=== PATIENT | male | born 1960 | race Caucasian/White ===

== ENCOUNTER 2022-04-17 11:30 | Outpatient (REF) | payer OTHER, SELFPAY ==
[2022-04-17 12:08] LABS: Hematocrit 41.9 % (42.0-52.0); Hemoglobin 14.4 g/dl (14.0-18.0); Mean Corpuscular HGB Conc 34.4 g/dl (31.0-36.0); Mean Corpuscular Hemoglobin 30.3 pg (27.0-33.0); Mean Corpuscular Volume 88.2 fL (80.0-98.0); Mean Platelet Volume 9.7 fL (9.4-12.4); Platelet Count 474 X10*3/uL (160-400); Red Blood Count 4.75 X10*6/uL (4.60-5.80); Red Cell Distribution Width 11.8 % (11.0-16.0); White Blood Count 15.8 X10*3/uL (4.8-10.8)
[2022-04-17 13:28] LABS: Alanine Aminotransferase 19 U/L (0-40); Albumin Level 4.5 g/dL (3.5-5.0); Alkaline Phosphatase 68 U/L (39-117); Anion Gap 18 (12-20); Aspartate Amino Transferase 12 U/L (5-37); Bilirubin Total 0.3 mg/dL (0.0-1.0); Blood Urea Nitrogen 29 mg/dL (9-16); Calcium 10.1 mg/dL (8.4-10.2); Carbon Dioxide 22 mmol/L (22-29); Chloride 101 mmol/L (96-108); Cholesterol 185 mg/dL; Estimated Glomerular Filt Rate > 60; Glucose Fasting 118 mg/dL (60-99); HDL Cholesterol 44 mg/dL; LDL Cholesterol Calculated 125 mg/dl; Potassium 4.5 mmol/L (3.3-5.1); Prostate Specific Antigen 0.53 ng/mL (<0.05-4.0); Sodium 136 mmol/L (135-145); Total Protein 7.6 g/dL (6.5-8.0); Triglycerides 80 mg/dL; Vitamin D 25-OH Total 24.8 ng/mL (>30)
[2022-04-17 13:46] LABS: Folate 11.8 ng/mL (> or = 4.0); Vitamin B12 278 pg/mL (200-900)
[2022-04-17 14:07] LABS: Free T4 (Free Thyroxine) 1.01 ng/dL (0.71-1.85)
== END 2022-04-17 11:31 | disposition home or self-care (01) ==
LOC: HO.LAB 11:30
PROVIDERS: PCP Physician Assistant; Visit Provider Nurse Practitioner Family
DX: Z13.29 Encounter for screening for other suspected endocrine disorder (principal); Z12.5 Encounter for screening for malignant neoplasm of prostate; I10 Essential (primary) hypertension; E78.00 Pure hypercholesterolemia, unspecified
CPT/HCPCS: 36415; 80053; 80061; 82306; 82607; 82746; 84153; 84439; 84443; 85027

== ENCOUNTER → 2022-05-22 13:53 | Outpatient (BNVA) | payer OTHER, SELFPAY | PROVIDERS: PCP Internal Medicine; Visit Provider Orthopaedic Surgery | DX: M72.0 Palmar fascial fibromatosis [Dupuytren] (principal) ==

== ENCOUNTER 2022-07-05 11:38 | Outpatient (REF) | payer OTHER, SELFPAY ==
--- NOTE | 2022-07-05 11:41 | ECG_ITS ---
Test Reason : preop Blood Pressure : / mmHG Vent. Rate : 098 BPM Atrial Rate : 098 BPM P-R Int : 140 ms QRS Dur : 104 ms QT Int : 360 ms P-R-T Axes : 049 058 050 degrees QTc Int : 459 ms Normal sinus rhythm Incomplete right bundle branch block Borderline ECG When compared with ECG of 04-NOV-2019 12:55, No significant change was found Referred By: Bere Mccabe Electronically Signed By:CHOCO BROOKS MD
[2022-07-05 12:53] LABS: Hematocrit 40.9 % (42.0-52.0); Hemoglobin 14.4 g/dl (14.0-18.0); Mean Corpuscular HGB Conc 35.2 g/dl (31.0-36.0); Mean Corpuscular Hemoglobin 30.6 pg (27.0-33.0); Mean Corpuscular Volume 86.8 fL (80.0-98.0); Mean Platelet Volume 9.4 fL (9.4-12.4); Platelet Count 469 X10*3/uL (160-400); Red Blood Count 4.71 X10*6/uL (4.60-5.80); Red Cell Distribution Width 13.1 % (11.0-16.0); White Blood Count 12.4 X10*3/uL (4.8-10.8)
[2022-07-05 12:57] LABS: INTERNATIONAL NORM RATIO 0.9 (0.9-1.1); Prothrombin Time 10.3 SEC (10.0-13.1)
[2022-07-05 13:37] LABS: Anion Gap 17 (12-20); Blood Urea Nitrogen 12 mg/dL (9-16); Calcium 9.7 mg/dL (8.4-10.2); Carbon Dioxide 27 mmol/L (22-29); Chloride 91 mmol/L (96-108); Estimated Glomerular Filt Rate > 60; Glucose Random 116 mg/dL (60-115); Sodium 130 mmol/L (135-145)
== END 2022-07-05 11:39 | disposition home or self-care (01) ==
LOC: HO.LAB 11:38
PROVIDERS: PCP Internal Medicine; Visit Provider Nurse Practitioner Family
DX: Z01.818 Encounter for other preprocedural examination (principal)
CPT/HCPCS: 36415; 80048; 84443; 85027; 85610; 93005

== ENCOUNTER 2022-07-08 10:23 | Outpatient (REF) | payer OTHER, SELFPAY ==
[2022-07-08 12:05] LABS: Hematocrit 41.9 % (42.0-52.0); Hemoglobin 14.5 g/dl (14.0-18.0); Mean Corpuscular HGB Conc 34.6 g/dl (31.0-36.0); Mean Corpuscular Hemoglobin 30.4 pg (27.0-33.0); Mean Corpuscular Volume 87.8 fL (80.0-98.0); Mean Platelet Volume 9.2 fL (9.4-12.4); Platelet Count 381 X10*3/uL (160-400); Red Blood Count 4.77 X10*6/uL (4.60-5.80); Red Cell Distribution Width 12.9 % (11.0-16.0); White Blood Count 11.2 X10*3/uL (4.8-10.8)
[2022-07-08 12:19] LABS: Estimated Average Glucose 105 mg/dL; Hemoglobin A1c % 5.3 %
[2022-07-08 12:40] LABS: Sodium 131 mmol/L (135-145)
[2022-07-08 13:03] LABS: TSH reflex Free T4 0.63 uIU/mL (0.32-4.0); Vitamin D 25-OH Total 33.5 ng/mL (>30)
== END 2022-07-08 10:24 | disposition home or self-care (01) ==
LOC: HO.LAB 10:23
PROVIDERS: PCP Internal Medicine; Visit Provider Nurse Practitioner Family
DX: D72.829 Elevated white blood cell count, unspecified (principal); R73.01 Impaired fasting glucose; R79.89 Other specified abnormal findings of blood chemistry; E87.1 Hypo-osmolality and hyponatremia
CPT/HCPCS: 36415; 82306; 83036; 84295; 84443; 85027

== ENCOUNTER → 2022-07-17 14:27 | Outpatient (BNVA) | payer OTHER, SELFPAY | PROVIDERS: PCP Internal Medicine; Visit Provider Orthopaedic Surgery | DX: Z13.89 Encounter for screening for other disorder (principal) ==

== ENCOUNTER 2022-07-29 05:51 | Day surgery (SDC) | payer OTHER, SELFPAY ==
[2022-07-23 16:01] VITALS: BMI 34.0
--- NOTE | 2022-07-26 10:09 | P.CONAN_ITS ---
Documented by User: Eva Humphries NP 07/26/22 10:19 HPI - Anesthesia Eval Consult details Narrative: 61yo M for Right Small finger and Ring finger partial Dupuytrens PCP cleared ETOH abuse Low Na PMFSH Active Problems Active Problems: All Active Problems (Updated 07/17/22 @ 14:56 by Homer Cortez) Screening for hypothyroidism (Acute) Screening for prostate cancer (Acute) Obesity (BMI 30.0-34.9) (Acute) Lumbar radiculopathy, acute (Acute) Low vitamin D level (Acute) Low TSH level (Acute) Elevated fasting glucose (Acute) Leukocytosis (Acute) Hyponatremia (Acute) Dupuytren's disease of palm of left hand (Acute) Preoperative clearance (Acute) Hyponatremia (Acute) Trigger thumb, right thumb (Acute) Substance use disorder (Acute) Dupuytren's contracture of right hand (Acute) High cholesterol (Acute) Hypertension (Acute) Past Medical History Medical History (Updated 07/17/22 @ 14:56 by Homer Cortez) Dupuytren's contracture of right hand High cholesterol Hypertension Substance use disorder Family History Family History Mother Cancer Father No problems noted. Sister Breast cancer Surgical History Surgical History (Updated 07/23/22 @ 15:52 by June Duke RN) History of shoulder surgery Social History Social History Housing: House Are you a primary career development specialist to a significant other at home: No Do you presently have visiting nurse or other home services: No Alcohol intake: current Alcohol intake frequency: 3 or more drinks per day Patient Tobacco Use Status: Former Tobacco user e-Cigarette/Vaping Use: Never Used Second Hand Smoke Exposure: Yes Use of substances other than those prescribed or required for medical reasons: Yes Substance Use Type: Marijuana Substance Use Frequency: Daily Have you been hit, kicked, punched, or otherwise hurt by someone within the past year? If so, by whom?: No Are you DNR?: No Advance Directives: No Advance Directives Information Provided: Yes Advance Directives on File: No Recently lost weight without trying: No Eating poorly because of decreased appetite: No Nutrition Risks: No Nutritional Risk service: No Current occupational status: retired Current occupation: right hand dominant Cognitive needs: No Hearing needs: No Vision needs: No Meds Allergies Allergy/AdvReac Type Severity Reaction Status Date / Time No Known Allergies Allergy Verified 07/23/22 15:46 [No Known Allergies*] Home Medications Medication Instructions Recorded Confirmed Last Taken Type gabapentin 300 mg capsule 300 mg PO TID 05/06/22 07/23/22 Unknown History Exam Exam Date and Time: July 26, 2022 1009 Height,Weight and Vital Signs: Height 5 ft 7 in Weight 98.43 kg Pertinent Lab Results Pertinent Lab Results: Laboratory Tests 07/05/22 07/08/22 07/08/22 11:54 10:52 10:52 WBC 11.2 H Hgb 14.5 Hct 41.9 L Plt Count 381 Sodium 131 L Potassium 5.0 Chloride 91 L Carbon Dioxide 27 BUN 12 Creatinine 0.82 Narrative Narrative: EKG 06/2022 Vent. Rate : 098 BPM ? ? Atrial Rate : 098 BPM ?? P-R Int : 140 ms? QRS Dur : 104 ms ? ? QT Int : 360 ms ? ? ? P-R-T Axes : 049 058 050 degrees ?? QTc Int : 459 ms ? Normal sinus rhythm Incomplete right bundle branch block Borderline ECG When compared with ECG of 04-NOV-2019 12:55, No significant change was found Assessment and Plan Assessment Anesthesia Assessment: Chart Reviewed Documented by User: Samson Max MD 07/29/22 07:34 [facility] Past Medical History Medical History (Updated 07/17/22 @ 14:56 by Homer Cortez) Dupuytren's contracture of right hand High cholesterol Hypertension Substance use disorder Family History Family History Mother Cancer Father No problems noted. Sister Breast cancer Family history of problems with anesthesia: No Surgical History Surgical History (Updated 07/23/22 @ 15:52 by June Duke RN) History of shoulder surgery History of Problems with Anesthesia: No Social History Social History Housing: House Are you a primary career development specialist to a significant other at home: No Do you presently have visiting nurse or other home services: No Alcohol intake: current Alcohol intake frequency: 3 or more drinks per day Patient Tobacco Use Status: Former Tobacco user e-Cigarette/Vaping Use: Never Used Second Hand Smoke Exposure: Yes Use of substances other than those prescribed or required for medical reasons: Yes Substance Use Type: Marijuana Substance Use Frequency: Daily Have you been hit, kicked, punched, or otherwise hurt by someone within the past year? If so, by whom?: No Are you DNR?: No Advance Directives: No Advance Directives Information Provided: Yes Advance Directives on File: No Recently lost weight without trying: No Eating poorly because of decreased appetite: No Nutrition Risks: No Nutritional Risk service: No Current occupational status: retired Current occupation: right hand dominant Cognitive needs: No Hearing needs: No Vision needs: No Meds Allergies Allergy/AdvReac Type Severity Reaction Status Date / Time No Known Allergies Allergy Verified 07/23/22 15:46 [No Known Allergies*] Home Medications Medication Instructions Recorded Confirmed Last Taken Type gabapentin 300 mg capsule 300 mg PO TID 05/06/22 07/23/22 Unknown History Exam Airway Mallampati Class: IV (Diff. Airway) Neck ROM: Limited Heart: rrr Lungs: cta Assessment and Plan Final Anesthetic Review Family History of Problems with Anesthesia: No History of Problems with Anesthesia: No NPO: Yes ASA Class: III Final Preanesthetic Review: No Changes in Pt Med Stat, Meds/Allgs Chart Reviewed, Consent Obtained/Reviewed and Anes Risks/Benef Reviewed Patient Risk: Intermediate Procedure Risk: Low Anesthetic Plan Anesthetic Plan: GA, Regional Block and Agree w/ Assess. and Plan Disposition: Standard PACU
[2022-07-29 06:29] VITALS: BP 134/70; PULSE 104; RESP 16; TEMP 36.4; O2SAT 96
[2022-07-29] MEDS: Lactated Ringers 1,000 ML 100 ML IVCONT (06:41)
--- NOTE | 2022-07-29 07:55 | MHC.SHP ---
Pre-Procedural Eval Section A Date of Service: 07/29/22 The patient is an INPATIENT: No Changes since office visit: No Cold of Flu in the past 2 weeks, No New Medical Problems, No Changes in Medication and No Patient answered all questions The History & Physical has been completed within 30 days and I have reviewed it.: Yes Section B Chief Complaint: Palmar fascial fibromatosis,Trigger right thumb Allergies: Allergies Allergy/AdvReac Type Severity Reaction Status Date / Time No Known Allergies Allergy Verified 07/23/22 15:46 [No Known Allergies*] Plan I have reviewed the history and physical and performed a pertinent physical examination on my patient. No changes have occurred unless specified. Time Spent With Patient Time: Total time managing care of this patient today ____ minutes.
[2022-07-29 10:36] VITALS: BP 151/98; PULSE 105; RESP 18; TEMP 37.2; O2SAT 94
[2022-07-29 10:41] VITALS: BP 154/90; PULSE 103; RESP 18; O2SAT 90
[2022-07-29 10:46] VITALS: BP 156/84; PULSE 106; RESP 18; O2SAT 97
--- NOTE | 2022-07-29 10:47 | W.PM.OPN ---
Operative Note Operative Note Date of Service: 07/29/22 Narrative: Preop diagnosis: 1. Right small finger Dupuytren's contracture 2. Right ring finger Dupuytren's contracture 3. Right trigger thumb Postop diagnosis: Same Procedure: 1. Right small finger Partial Dupuytren's fasciectomy 2. Right ring finger partial Dupuytren's fasciectomy 3. Right trigger thumb release Surgeon: Yuni Stovall MD Anesthesia: General anesthesia plus regional block Findings: Dupuytren's cords extending from the palm to the proximal phalanx level of both the small finger and the ring finger Implants: None Tourniquet time: 100 minutes EBL: 5.0 ml Specimen: Dupuytren's cords from both the right ring and small fingers sent for histopathology Drains: None Complications: None Disposition: Brought to the recovery room in stable condition Plan: Follow-up in 10-14 days for wound check, suture removal and to check pathology OT appt on day of f/u to make a custom night spint and to begin OT Indications: The patient is a 61 year old man with right ring finger and right small finger Dupuytren's contractures, and a right trigger thumb . The risks and benefits of operative treatment, including but not limited to risk of damage to blood vessels, nerves, tendons, infection, recurrence, persistent pain or numbness, incomplete resolution of preoperative symptoms, or need for further surgery were discussed with the patient and they wished to proceed with surgery. Procedure: Once consent was obtained patient was brought back to the operating suite and placed in the operating table in a supine position. A regional block was performed by the anesthesia team. Perioperative antibiotics and anesthesia was administered by the anesthesia team. A tourniquet was applied to the proximal aspect of the right upper extremity and the limb was prepped and draped in a standard surgical fashion. The limb was elevated exsanguinated with Esmarch bandage and the tourniquet inflated to 250 mm of mercury for a total tourniquet time of 100 minutes. Once assured that we had a good block, a 1.5 cm oblique incision was made centered over the A1 clemente of the right thumb . The incision was made through the skin to the subcutaneous tissues using a #15 blade. Careful dissection was made down to the level of the A1 clemente using tenotomy scissors, with care being taken to protect the nearby neurovascular structures. A longitudinal incision was made in the A1 clemente 1st using a #15 blade, then using tenotomy scissors under direct visualization. The A1 clemente was noted to be thickened. Following our A1 clemente release, we no longer saw any locking or catching of the digit with flexion and extension. I made a Lili type incision extending along the Dupuytren's cord from the mid palm to the mid proximal phalanx of the right small finger.. The Incision was made with a 15. Blade through the skin the subcutaneous tissues. I then carefully dissected down to the level of the Dupuytren's cord beginning at the proximal aspect of the incision. This was done using tenotomy in iris scissors. Care was taken to protect the nearby neurovascular structures. The Dupuytren's cord was cut at its proximal aspect using tenotomy scissors. It was then grasped with an Allis clamp. The Dupuytren's cord was then carefully dissected free in a proximal to distal direction using tenotomy scissors and again taking care to protect the nearby neurovascular structures. The cord was dissected free and placed on the back table to be sent for histopathologic review. The small finger was then able to be brought into full passive extension. I then turned my attention to the right ring finger. I was able to dissect about the Dupuytren's cord in the palm using the above incision in the mid palm. I carefully dissected the proximal aspect of the cord from the surrounding soft tissues using tenotomy and iris scissors with care being taken to protect the neurovascular bundles. I then made a partial Lili is a incision over the A1 and A2 clemente areas of the right ring finger using a 15. Blade through the skin to the subcutaneous tissues. This was not connected to the previous incision and a good spot skin bridge was preserved. The Dupuytren's cord to the ring finger was then cut proximally in the palm. An Allis clamp was placed on the end of the Dupuytren's cord and then I dissected the cord free from the surrounding tissues in a proximal to distal direction using tenotomy and iris scissors under direct visualization. Again care was taken to protect the neurovascular bundles. This cord was then attached distally to the flexor tendon sheath at about the A1 clemente area and then slightly distal to this. These attachments were carefully cut and the Dupuytren's cord removed from the patient set on the back table to be sent for histopathologic review. I was then able to bring the right ring finger into full extension. At this point the tourniquet was deflated and hemostasis obtained with a brief period of local pressure and bipolar electrocautery. The wound was copiously irrigated with normal saline. skin edges were reapproximated with 5-0 Prolene suture. The wounds were infiltrated with some 0.5% plain ropivacaine for postop pain control and a sterile dressing and volar splint holding the small and ring fingers in extension was applied. The patient appears to have tolerated the procedure well and with no complications. All digits were well vascularized conclusion of the case.
[2022-07-29 10:51] VITALS: BP 146/86; PULSE 108; RESP 18; O2SAT 96
[2022-07-29 11:06] VITALS: BP 149/87; PULSE 105; RESP 18; TEMP 37.2; O2SAT 95
== END 2022-07-29 11:23 | disposition home or self-care (01) ==
PROVIDERS: PCP Internal Medicine; Visit Provider Orthopaedic Surgery
PROC: (CPT 26045; principal; 2022-07-29 07:30)
DX: M72.0 Palmar fascial fibromatosis [Dupuytren] (principal); M65.311 Trigger thumb, right thumb; I10 Essential (primary) hypertension; E78.00 Pure hypercholesterolemia, unspecified; R73.01 Impaired fasting glucose; E87.1 Hypo-osmolality and hyponatremia; Z79.899 Other long term (current) drug therapy; F10.10 Alcohol abuse, uncomplicated; Z87.891 Personal history of nicotine dependence
CPT/HCPCS: 26123; 26125; 26055; 88304; 88305; J0690; J1100; J1170; J2370; J2405; J2795; J3010

== ENCOUNTER → 2022-08-06 09:13 | Outpatient (BNVA) | payer OTHER, SELFPAY | PROVIDERS: PCP Internal Medicine; Visit Provider Orthopaedic Surgery | DX: Z13.89 Encounter for screening for other disorder (principal) ==

== ENCOUNTER 2022-08-12 14:30 | Outpatient (RCR) | payer OTHER, SELFPAY ==
--- NOTE | 2022-08-06 11:25 | MHC.OT.EP ---
[address] [phone] Occupational Therapy Plan of Care Patient Name: Renny Montes Date of Evaluation: 08/06/22 Diagnosis: s/p right small and ring finger partial fasciectomy s/p right trigger thumb release Pain Location: Right hand at base of D4-D5 Current: 1/10 Worst: 5/10 Pain Score: 1 Pain Scale Used: Numeric (0 - 10) Aggravating Factors: Full fist Alleviating Factors: Pain medication, rest Assessment: Pt. is a 61 y/o male referred to OT s/p right small and ring finger partial fasciectomy as well as right trigger thumb release. Pt. saw Dr. Stovall for suture removal this morning; incision is healing well and steri strips are intact. Pt seen for night time splint fabrication and education on tendon gliding program for HEP. Pt prefers to complete therapy at home due to having a co-pay and multiple other conflicting appointments, although he was agreeable to coming for an additional visit for splint check and review of exercises. He demonstrated ability to make loose fist on R hand and fully extend digits today. 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 Recommend 1-2 more visits then d/c home to HEP. Frequency and Duration: The patient will be seen 1-2 visits Short Term Goals: IND with HEP and scar management Pain free with BADL's/IADL's IND with night time orthosis wear Intermediate Goals: Same as above Treatment Plan: Therapeutic Exercise Therapeutic Activity Home Exercise Program Splinting Patient Education MHP Soft Tissue Mobilization Electronically Signed By: Maria Teresa Guthrie MS OTR/L Please Sign and return to therapist. Thank you once again for your referral.
== END 2022-11-05 13:36 | disposition home or self-care (01) ==
LOC: HO.OT 14:30
PROVIDERS: Visit Provider Orthopaedic Surgery
DX: M72.0 Palmar fascial fibromatosis [Dupuytren] (principal)
CPT/HCPCS: 29130; 97110; 97165; 97760

== ENCOUNTER 2022-09-05 09:14 | Outpatient (REF) | payer OTHER, SELFPAY ==
--- NOTE | ~2022-09-05 | XR_ITS ---
EXAMINATION: XR lumbar spine 4V min CLINICAL INFORMATION: Reason for Exam M53.3 - Sacrococcygeal disorders, not elsewhere classified COMPARISON: None TECHNIQUE: 4 views of the lumbar spine FINDINGS: 5 nonrib-bearing lumbar-type vertebral bodies. Vertebral body heights are maintained. Leftward scoliosis of the lumbar spine. Grade 1 retrolisthesis of L2 on L3. No subluxation between flexion and extension views. Moderate multilevel degenerative disc disease with loss of disc space height, facet arthropathy and disc osteophyte complexes. This is worst at L2/L3. Atherosclerotic calcifications of the abdominal aorta. XR/XR lumbar spine 4V min IMPRESSION: 1. Moderate spondylosis of the lumbar spine, as above detailed. 2. Spondylolisthesis, as above detailed.
== END 2022-09-05 09:15 | disposition home or self-care (01) ==
LOC: HO.HOSX 09:14
PROVIDERS: PCP Internal Medicine; Visit Provider Physician Assistant
DX: G89.29 Other chronic pain (principal); M53.3 Sacrococcygeal disorders, not elsewhere classified
CPT/HCPCS: 72110

== ENCOUNTER 2022-10-07 13:09 | Outpatient (REF) | payer OTHER, SELFPAY ==
[2022-10-07 14:31] LABS: Appearance Urine Clear; Color Urine Yellow; Glucose Urine UA Negative (Negative); Leukocyte Esterase Urine Negative (Negative); Nitrite Urine Negative (Negative); PH 6.5 (5.0-9.0); Urine Blood Negative (Negative); Urine Ketones Negative (Negative); Urine Protein Trace mg/dL (Neg-Trace)
== END 2022-10-07 13:10 | disposition home or self-care (01) ==
LOC: HO.LAB 13:09
PROVIDERS: PCP Internal Medicine; Visit Provider Internal Medicine
DX: R39.9 Unspecified symptoms and signs involving the genitourinary system (principal)
CPT/HCPCS: 81003

== ENCOUNTER → 2022-10-31 13:24 | Outpatient (BNVA) | payer OTHER, SELFPAY | PROVIDERS: PCP Internal Medicine; Visit Provider Neurological Surgery ==

== ENCOUNTER → 2022-12-23 13:04 | Outpatient (BNV) | payer OTHER, SELFPAY | PROVIDERS: Admitting Provider Neurological Surgery; PCP Internal Medicine; Visit Provider Internal Medicine | DX: R00.0 Tachycardia, unspecified (principal) | CPT/HCPCS: 93010 ==

== ENCOUNTER 2022-12-25 08:50 | Outpatient (AMB) | payer OTHER, SELFPAY ==
--- NOTE | 2022-12-25 08:51 | MHC.OFFVIS ---
Intake Vital Signs 12/25/22 08:53 Height 5 ft 7 in Weight 206 lb 12.697 oz BMI 32.4 BP 104/60 Blood Pressure Location Lt brachial Position Sitting Pulse 108 H Pulse Source Monitor Intake Visit Reasons: [facility]/ [facility]/ abn ekg- cardiac clearance Intake Note: New patient visit with EKG for evaluation of abnormal EKG. Patient needs cardiac clearance prior to L4-L5 transkambin lumbar fusion with the spine center. Psychologist Required: No Accompanied by: Spouse Allergies No Known Allergies [No Known Allergies*] Allergy (Verified 12/25/22 08:56) HPI HPI Comments History of Present Illness Details Renny was referred urgently for preoperative cardiovascular risk stratification to undergo lumbar spine surgery for life-limiting pain and neurogenic claudication. He said he has been dealing with this for years and recently is got worse and which limits his activity level significantly. He cannot walk even a short distance without having to stop because of the back pain. He is using a cane currently. Recently seen by in October and it was felt that he would benefit from spine surgery with correction of his lumbar spine scoliosis and decompression of his L5 nerve root. He is very excited about this. He does not have any symptoms with the level of activity performs. In July she underwent surgery on his right hand for trigger finger which was done under regional block. Plan for general anesthesia. He has longstanding history of hypertension and hyperlipidemia as well as borderline diabetes, currently not on therapy. He denies any heart failure symptoms. He has never had prior cardiovascular issues. He is anxious to be here today for preoperative cardiovascular risk stratification was and anxious when he presented for preoperative anesthesia evaluation. His heart rate was 110 beats per minute with sinus tachycardia with incomplete right bundle-branch block. He denies any palpitations, lightheadedness, syncope. He was seen by anesthesia and due to his limited exercise capacity and risk factors he was referred for cardiology evaluation. [facility] Medical History Dupuytren's contracture of right hand High cholesterol Hx of fracture of tibia Hypertension Substance use disorder Surgical History History of hand surgery History of shoulder surgery Hx of colonoscopy Family History Mother Cancer Father No problems noted. Sister Breast cancer Social History Housing: House Are you a primary healthcare risk control consultant to a significant other at home: No Do you presently have visiting nurse or other home services: No Alcohol intake: current Alcohol intake frequency: a few times a week Patient Tobacco Use Status: Former Tobacco user Quit Date: 2012 Years Smoked: 20 +/- e-Cigarette/Vaping Use: Never Used Second Hand Smoke Exposure: Yes Substance Use Type: Marijuana service: No Current occupational status: retired Current occupation: right hand dominant Cognitive needs: No Hearing needs: No Vision needs: No Review of Systems Const Denies weakness Eyes Denies loss of vision ENT Denies dizziness Card Denies chest pain, Denies chest pain with activity, Denies syncope, Denies rapid heart rate, Denies pedal edema, Denies edema, Denies leg edema, Denies lightheadedness, Denies palpitations, Denies dyspnea, Denies dyspnea on exertion and Denies orthopnea Resp Denies cough, Denies dyspnea, Denies dyspnea on exertion and Denies wheezing GI Denies hematochezia and Denies change in stool character Denies hematuria, Denies dysuria and Denies urinary frequency Musc Denies abnormal gait, Denies muscle cramps, Denies muscle weakness, Denies numbness, Denies radiating pain into limb and Denies tingling Skin/Breast Denies nail changes and Denies rash Neuro Denies Abnormal speech present, Denies abnormal gait, Denies dizziness, Denies syncope, Denies loss of vision, Denies memory loss, Denies numbness, Denies tingling and Denies weakness Psych Denies depression and Denies memory loss Endo Denies palpitations Aller/Immun Denies wheezing Physical Exam Vital Signs: Last Vital Signs Pulse 108 H 12/25/22 08:53 BP 104/60 12/25/22 08:53 BMI result Body Mass Index 32.4 Const General: cooperative, comfortable, no acute distress, alert, awake and anxious Nutritional Appearance: obese Orientation/consciousness: patient oriented x3 Limitations: ambulation with cane HEENT Head: Yes normocephalic and Yes atraumatic Neck Neck: Yes trachea midline, Yes supple and Yes no JVD Resp Effort & Inspection: normal respiratory effort Auscultation: clear to auscultation bilaterally Cardio Jugular venous distension: no JVD Rate: tachycardic Rhythm: regular rhythm Heart sounds: S1 normal heart sound present, S2 normal heart sound present, no click, no gallops, no murmurs and no rubs GI Auscultation: normal bowel sounds Skin General skin exam: no rashes or lesions noted Neuro General: patient oriented x3 and no focal motor deficits Speech: No Abnormal speech present Extrem General: Yes no clubbing, cyanosis or edema Office Procedures EKG Details: EKG shows sinus tachycardia with incomplete right bundle-branch block, unchanged from few days ago [id number], Complete Assessment & Plan Assessment & Plan (1) Preop cardiovascular exam: Code(s): Z01.810 - Encounter for preprocedural cardiovascular examination Plan: Preoperative cardiovascular risk stratification in middle-aged man to undergo intermediate risk surgery due to general anesthesia and multiple risk factors for cardiovascular disease with limited exercise capacity of less than 4 Mets. He needs further evaluation from cardiac perspective for further risk stratification. Would suggest him to undergo a vasodilating myocardial perfusion imaging to further assess cardiac risk and plan for it in the perioperative time. Also suggest echocardiogram was longstanding history of hypertension to evaluate for LV systolic and diastolic function. These tests will be scheduled in near future. These tests are within acceptable limits, his surgical risk for perioperative cardiovascular morbidity mortality would be low and he would be optimized for the surgery. This was discussed with him in details. He understands agrees. Will try to obtain these test in very near future. (2) Hypertension: Code(s): I10 - Essential (primary) hypertension Qualifiers: Hypertension type: unspecified Qualified Code(s): I10 - Essential (primary) hypertension Plan: Hypertension which is currently well optimized on current medications. Also has risk factor of hyperlipidemia. Myocardial perfusion imaging is within normal limits in the future discussed with him for further risk stratification with a coronary calcium score. He will think about in discussed with his primary care physician. Can lead to further intensification on his risk factor modification the future P in the future will benefit from weight reduction, which she cannot participate currently due to limiting back discomfort. Will follow up in the clinic if need be. Thank you for allowing me to partake in his care Orders: Orders CA lexiscan stress w aracelis Today Z01.810 - Encounter for preprocedural cardiovascular examination CA echo transthoracic complete Today Z01.810 - Encounter for preprocedural cardiovascular examination Coding Level of Care Code New Pt Level 4 (46671) Diagnoses Preop cardiovascular exam Z01.810 Hypertension I10 Hypertension type: unspecified CPT Codes EKG - CPT: [id number], Complete ([id number])
[2022-12-25 08:53] VITALS: BP 104/60; PULSE 108; BMI 32.4
== END 2022-12-25 09:21 | disposition home or self-care (01) ==
PROVIDERS: PCP Internal Medicine; Referring Provider Internal Medicine; Visit Provider Internal Medicine Cardiovascular Disease
DX: I10 Essential (primary) hypertension (principal); Z01.810 Encounter for preprocedural cardiovascular examination; R00.1 Bradycardia, unspecified
CPT/HCPCS: 93010; 99214

== ENCOUNTER → 2022-12-25 08:50 | Outpatient (BNVA) | payer OTHER, SELFPAY | PROVIDERS: PCP Internal Medicine; Referring Provider Internal Medicine; Visit Provider Internal Medicine Cardiovascular Disease | DX: Z01.810 Encounter for preprocedural cardiovascular examination (principal); I10 Essential (primary) hypertension; I45.19 Other right bundle-branch block; R00.0 Tachycardia, unspecified; Z87.891 Personal history of nicotine dependence | CPT/HCPCS: 93005 ==

== ENCOUNTER → 2022-12-26 09:59 | Outpatient (REF) | payer OTHER, SELFPAY ==
--- NOTE | ~2022-12-26 | NM_ITS ---
Myocardial perfusion study Indication: Preoperative cardiovascular risk stratification Technique: The patient was brought in for a Lexiscan perfusion study on 12/26/2022. Patient performed low-level exercise and was injected 0.4 mg of Lexiscan intravenously. Within a minute of injection, 30 mCi of sestamibi was given intravenously. Images were obtained using the SPECT gamma camera interlaced with the gating device. Images were obtained in supine position. Resting perfusion study was performed on 12/27/2022. Patient was administered 30 mCi of sestamibi intravenously at rest. Images were then obtained in supine position. Images obtained with and without CT attenuation. Total DLP 123 mGy-cm. Images were processed with the software and compared side to side in short axis, horizontal long axis and vertical long axis views. Findings: The stress perfusion study showed non attenuated images show some thinning of the basal and mid lateral wall of the LV myocardium. Remainder of the LV myocardium is normally perfused. Attenuation corrected images show mildly reduced uptake in the basal lateral wall of the LV myocardium.. The gated study shows normal LV systolic function with calculated LVEF of 67%. LV cavity is normal in size. The gated study shows normal systolic wall thickening and contraction of segments. Resting study shows non attenuated images show no change in perfusion pattern compared to stress perfusion study.. Gating at rest reveals normal systolic wall motion with ejection fraction at 63%. The findings are consistent with no reversible defect suggestive of ischemia. NM/NM aracelis perf SPECT rest & str Impression: 1. Myocardial perfusion imaging study shows likely normal myocardial perfusion 2. Gated LVEF is 67% 3. Transient ischemic dilatation not present EKG is nondiagnostic for ischemia
--- NOTE | 2022-12-26 10:01 | CA_ITS ---
Acquisition Time: 2022-12-26 10:55:06 Total Exercise Time: 00:02:00 Test Indications: ABN EKG, ST Medications: SEE H Protocol: LEXISCAN Max HR: 126 BPM 80% of Pred: 157 BPM Max BP: 152/090 mmHG Max Work Load: 1.0 METS Pharmacolgical stress test with Lexiscan injection while sitting and slowly kicking his legs, without anginal symptoms,without isolated PVCs, with normotensive response to injection, with non-diagnositic EKGs. Nuclear images pending. Test reviewed with Dr. Arthur. Referred By: Femi Helm Overread By: Kat Walters
== END ==
LOC: HO.CARD 09:59
PROVIDERS: PCP Internal Medicine; Visit Provider Internal Medicine Cardiovascular Disease
DX: Z01.810 Encounter for preprocedural cardiovascular examination (principal)
CPT/HCPCS: 78452; 93017; A9500; J0280; J2785

== ENCOUNTER → 2022-12-26 10:01 | Outpatient (BNV) | payer OTHER, SELFPAY | PROVIDERS: PCP Internal Medicine; Visit Provider Nurse Practitioner | DX: Z01.818 Encounter for other preprocedural examination (principal); R00.0 Tachycardia, unspecified | CPT/HCPCS: 78452; 93016; 93018 ==

== ENCOUNTER → 2022-12-27 08:04 | Outpatient (REF) | payer OTHER, SELFPAY ==
--- NOTE | 2022-12-27 08:08 | CA_ITS ---
Transthoracic Echocardiogram Patient (Last, First, Middle): Renny Montes L Gender: Male Date of : 1960 Age: 62 Procedure Date: 12/27/2022 Procedure Type: Transthoracic Echocardiogram Location: OP Height: 170.18 cm Weight: 94.35 kg BSA: 2.06 m2 Heart Rate: 110 bpm BP: 148 / 70 mmHg Nut Tightener: BRANDON Referring MD: Femi Helm MD Symptoms: Z01.810 - Encounter for preprocedural cardiovascular examination Study Quality: Fair ECG Rhythm: Sinus tachycardia Conclusions: - The left ventricular systolic function is hyperdynamic. The visually estimated ejection fraction is >70%. - Moderately increased right ventricular cavity size. - No obvious valvular pathology seen on this study. Findings Procedure Information Contrast agent, definity, is being given per protocol without apparent complications. The quality of the study was technically difficult. The study quality is limited by patients body habitus and lung artifact. Left Ventricle Normal left ventricular cavity size. The left ventricular systolic function is hyperdynamic. The visually estimated ejection fraction is >70%. There is no evidence of regional wall motion abnormalities. Diastolic function is normal for age. There is mild septal asymmetric hypertrophy. Right Ventricle Moderately increased right ventricular cavity size. There is normal right ventricular systolic function. Atria Both atria are normal in size. Aortic Valve There is a normal trileaflet aortic valve. There is no aortic valve stenosis. There is no aortic valve regurgitation. Mitral Valve The mitral valve appears normal. There is no mitral valve regurgitation. There is no mitral valve stenosis. Pulmonic Valve The pulmonic valve was not well visualized. Tricuspid Valve There is no tricuspid valve regurgitation. Tricuspid regurgitation envelope is inadequate for calculation of right ventricular systolic pressure. Great Vessels The asc aorta is normal in size. Venous The inferior vena cava is normal in size and collapses greater than 50% with inspiration. Pericardium/Pleural There is no evidence of pericardial effusion. Prior Study Comparison No prior study available for comparison. Recommendations, Care & Conclusions No obvious valvular pathology seen on this study. Measurements 2D Linear Measurements LVOT Diam: 2.20 3.0+(-)1.3 cm 2D Systolic Function EF 4C: 79.70 >55% Mitral Valve MV Pk E: 0.85 MV PK A: 0.81 MV Decel Time: 159.00 E/A: 1.00 E'Lateral: 8.49 E'Medial: 8.16 E/E' Med: 10.40 E/E' Lat: 10.00 PHT: 47.00 MVA PHT: 4.68 Decel [place]: 5.34 Aortic Valve AoV Pk Syd: 1.13 AoV Pk Grad: 5.00 DOMINIC: 4.10 LVOT LVOT Pk Syd: 1.23 LVOT Mn Syd: 0.83 LVOT VTI: 0.25 LVOT Pk Grad: 6.00 LVOT Mn Grad: 3.00 LVOT Diam: 2.20 LVOT Area: 3.80 Diastolic Function MV Pk E: 0.85 MV Pk A: 0.81 E/A: 1.00 E'Medial: 8.16 E/E' Med: 10.40 E' Laterial: 8.49 E/E' Lat: 10.00 Right Ventricle TAPSE (mm): 24.40 TVS' Syd: 19.10 Tricuspid Valve RA Press: 3.00 Great Vessels Aorta Sinus of Valsalva: 3.10 2.0-3.5 cm Ao Asc: 3.40 2.1-3.4 cm Pulmonary Valve PV Pk Syd: 1.02 Peak PV Grad: 4.00 Updated in Other Vendor System with Status of Final Gilmar Arthru MD electronically signed on 12/29/2022 10:53:16 AM with status of Final
== END ==
LOC: HO.CARD 08:04
PROVIDERS: PCP Internal Medicine; Visit Provider Internal Medicine Cardiovascular Disease
DX: Z01.810 Encounter for preprocedural cardiovascular examination (principal)
CPT/HCPCS: 93306; Q9957

== ENCOUNTER → 2022-12-27 08:08 | Outpatient (BNV) | payer OTHER, SELFPAY | PROVIDERS: PCP Internal Medicine; Visit Provider Internal Medicine | DX: R00.0 Tachycardia, unspecified (principal) | CPT/HCPCS: 93306 ==

== ENCOUNTER 2022-12-31 11:08 | Outpatient (AMB) | payer OTHER, SELFPAY ==
[2022-12-31 11:14] VITALS: BP 142/86; PULSE 120; O2SAT 97; BMI 33.2
--- NOTE | 2022-12-31 11:14 | MHC.PC.OV ---
Vital Signs 12/31/22 11:14 12/31/22 11:42 Height 5 ft 7 in Weight 212 lb BMI 33.2 BP 142/86 H 138/80 Blood Pressure Location Lt brachial Lt brachial Position Sitting Sitting Pulse 120 H Pulse Source Pulse Oximeter Pulse Oximetry (%) 97 Oxygen Delivery Method Room Air Intake Visit Reasons: F/u with Dr. 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: No Accompanied by: Self / Same As Patient Allergies No Known Allergies [No Known Allergies*] Allergy (Verified 12/31/22 11:23) Medication List - Last Reconciled 12/31/22 by Mary Anne Leach MD amlodipine 10 mg PO DAILY 90 days cholecalciferol (vitamin D3) 25 mcg PO DAILY gabapentin 300 mg PO DAILY lisinopril-hydrochlorothiazide 20-12.5 mg 1 tab PO DAILY 90 days oxycodone-acetaminophen 5-325 mg 1 tab PO QID simvastatin 20 mg PO BEDTIME 90 days Tobacco use date assessed: 07/05/22 Dental Screening Dental Screen Date: 12/31/22 Did you have a dental visit in the last 12 months?: No Did you have a dental problem in the last 6 months where you did not have access to dental care?: No Was dental information given to patient?: Patient has dentist HPI HPI Comments History of Present Illness Details This is a 62-year-old male with hypertension, dyslipidemia, hyponatremia and lumbar stenosis neurogenic claudication that comes today for follow-up on blood pressure. Blood pressure well controlled with medications. On statins for dyslipidemia. Has low sodium most likely due to beer potomania and was advised to cut down on drinking alcohol. Walks with a cane for gait stability due to low back pain. Will have surgery next week for this matter. No chest pain or shortness of breath. Echocardiogram shows no valvular pathology and stress test show no signs of ischemia. FORMERLY [facility] Medical History Dupuytren's contracture of right hand High cholesterol Hx of fracture of tibia Hypertension Substance use disorder Surgical History History of hand surgery History of shoulder surgery Hx of colonoscopy Family History Mother Cancer Father No problems noted. Sister Breast cancer Social History Housing: House Are you a primary reproductive healthcare assistant to a significant other at home: No Do you presently have visiting nurse or other home services: No Alcohol intake: current Alcohol intake frequency: a few times a week Alcohol type: beer Patient Tobacco Use Status: Former Tobacco user Quit Date: 2012 Years Smoked: 20 +/- e-Cigarette/Vaping Use: Never Used Second Hand Smoke Exposure: Yes Substance Use Type: Marijuana service: No Current occupational status: retired Current occupation: right hand dominant Cognitive needs: No Hearing needs: No Vision needs: No Questionnaire Thrive Questionnaire Date Thrive assessed: 07/05/22 YESENIA-7 AMB Questionnaire YESENIA-7 Date YESENIA - 7 assessed: 07/05/22 Source: Developed by Drs. Kang Au, Katherine Ortiz, Kenneth Becker and colleagues, with an educational hoa from [employer]. Review of Systems Const All systems reviewed & are unremarkable except as noted in HPI and below Eyes Reports no additional complaints, Denies change in vision and Denies other visual disturbances Card Denies chest pain at rest, Denies chest pain with activity, Denies edema, Denies irregular heart rhythm, Denies claudication, Denies dyspnea, Denies dyspnea on exertion, Denies orthopnea, Denies paroxysmal nocturnal dyspnea and Denies slow heart rate Resp Denies cough, Denies dyspnea and Denies dyspnea on exertion GI Denies abdominal pain, Denies change in bowel habits, Denies excessive flatus, Denies nausea and Denies vomiting Denies urinary hesitancy, Denies urinary incontinence and Denies urinary urgency Musc Reports abnormal gait, Reports back pain, Denies atrophy, Denies deformity and Denies limited range of motion Skin/Breast Denies bleeding lesions, Denies changing lesions and Denies rash Neuro Reports abnormal gait and Denies lack of coordination Physical exam (Primary Care) Vital Signs: Last Vital Signs Pulse 120 H 12/31/22 11:14 BP 142/86 H 12/31/22 11:14 Pulse Ox 97 12/31/22 11:14 Oxygen Delivery Method Room Air 12/31/22 11:14 BMI result Body Mass Index 33.2 Tobacco/Smoking Status: Tobacco use Status Tobacco use date assessed 07/05/22 12/31/22 11:19 Patient Tobacco Use Status Former Tobacco user 12/31/22 11:19 Tobacco use type 12/25/22 09:27 e-Cigarette/Vaping Use Never Used 12/31/22 11:19 Thrive Assessment: Date of Thrive Assessment Date Thrive assessed 07/05/22 12/31/22 11:19 Const Limitations: ambulation with cane Eyes General: appearance normal, both eyes and all related structures Eyelids: Yes eyelids normal Conjunctivae: conjunctivae normal Neck Neck: Yes normal visual inspection and Yes supple Resp Effort & Inspection: normal respiratory effort Auscultation: clear to auscultation bilaterally Cardio Jugular venous distension: no JVD Rate: regular rate Rhythm: regular rhythm Heart sounds: S1 normal heart sound present and S2 normal heart sound present Extrem General: Yes full ROM Psych Affect: Irritable affect present Assessment and Plan Assessment & Plan (1) Hypertension: Code(s): I10 - Essential (primary) hypertension Qualifiers: Hypertension type: unspecified Qualified Code(s): I10 - Essential (primary) hypertension Plan: Continue amlodipine and lisinopril with hydrochlorothiazide. Blood pressure goal is equal or less than 130/80 (2) High cholesterol: Code(s): E78.00 - Pure hypercholesterolemia, unspecified Plan: Continue statins. (3) Lumbar stenosis with neurogenic claudication: Code(s): M48.062 - Spinal stenosis, lumbar region with neurogenic claudication Plan: Continue gabapentin. (4) Hyponatremia: Code(s): E87.1 - Hypo-osmolality and hyponatremia Plan: Advised to cut down on drinking alcohol. Medications: New meloxicam 15 mg PO DAILY 5 days PRN 5 tabs 0RF pain Coding Level of Care Code Est Pt Level 4 (20321) Diagnoses Hypertension I10 Hypertension type: unspecified High cholesterol E78.00 Lumbar stenosis with neurogenic claudication M48.062 Hyponatremia E87.1 Time Spent (min) 22
[2022-12-31 11:42] VITALS: BP 138/80
== END 2022-12-31 11:36 | disposition home or self-care (01) ==
PROVIDERS: PCP Internal Medicine; Visit Provider Internal Medicine
DX: I10 Essential (primary) hypertension (principal); E78.00 Pure hypercholesterolemia, unspecified; M48.062 Spinal stenosis, lumbar region with neurogenic claudication; E87.1 Hypo-osmolality and hyponatremia
CPT/HCPCS: 99214

== ENCOUNTER 2023-01-06 05:55 | Day surgery (SDC) | payer OTHER, SELFPAY ==
--- NOTE | 2022-12-23 | ECG_ITS ---
Test Reason : PREOP Blood Pressure : / mmHG Vent. Rate : 110 BPM Atrial Rate : 110 BPM P-R Int : 140 ms QRS Dur : 102 ms QT Int : 338 ms P-R-T Axes : 036 053 026 degrees QTc Int : 457 ms Sinus tachycardia Incomplete right bundle branch block Borderline ECG When compared with ECG of 05-JUL-2022 11:46, No significant change was found Referred By: Cody Marshall Electronically Signed By:ALISHA DIGGS
[2022-12-23 12:13] VITALS: BMI 32.6
[2022-12-23 12:23] VITALS: BP 106/65; PULSE 119; RESP 16; O2SAT 98
[2022-12-23 14:06] LABS: Hematocrit 39.2 % (42.0-52.0); Hemoglobin 13.8 g/dl (14.0-18.0); Mean Corpuscular HGB Conc 35.2 g/dl (31.0-36.0); Mean Corpuscular Hemoglobin 31.2 pg (27.0-33.0); Mean Corpuscular Volume 88.5 fL (80.0-98.0); Mean Platelet Volume 9.2 fL (9.4-12.4); Platelet Count 456 X10*3/uL (160-400); Red Blood Count 4.43 X10*6/uL (4.60-5.80); Red Cell Distribution Width 12.6 % (11.0-16.0); White Blood Count 10.5 X10*3/uL (4.8-10.8)
[2022-12-23 14:51] LABS: Anion Gap 19 (12-20); Blood Urea Nitrogen 12 mg/dL (9-16); Calcium 10.1 mg/dL (8.4-10.2); Carbon Dioxide 23 mmol/L (22-29); Chloride 94 mmol/L (96-108); Creatinine Clr Calc Pharmacy 110.3; Estimated Glomerular Filt Rate > 60; Glucose Random 108 mg/dL (60-115); Potassium 4.2 mmol/L (3.3-5.1); Sodium 132 mmol/L (135-145)
--- NOTE | 2023-01-03 09:13 | P.CONAN_ITS ---
Documented by User: Eva Humphries NP 01/03/23 13:52 HPI - Anesthesia Eval Consult details Narrative: 62yo M for L4-5 Transkambin Lumbar Interbody Fusion, Right L4-5 Foraminotomy Cardiac optimized Chronic opioids ETOH (beer) with chronic low Na Pt seen in PAT by Dr Marshall and results reviewed. [facility] Active Problems Active Problems: All Active Problems (Updated 12/25/22 @ 09:11 by Femi Helm MD) Preop cardiovascular exam (Acute) Screening for hypothyroidism (Acute) Screening for prostate cancer (Acute) Obesity (BMI 30.0-34.9) (Acute) Lumbar radiculopathy, acute (Acute) Low vitamin D level (Acute) Low TSH level (Acute) Elevated fasting glucose (Acute) Leukocytosis (Acute) Hyponatremia (Acute) Dupuytren's disease of palm of left hand (Acute) Preoperative clearance (Acute) Hyponatremia (Acute) Trigger thumb, right thumb (Acute) Chronic SI joint pain (Acute) Lumbar stenosis with neurogenic claudication (Acute) Lumbar scoliosis (Acute) Substance use disorder (Acute) Dupuytren's contracture of right hand (Acute) High cholesterol (Acute) Hypertension (Acute) Past Medical History Medical History Dupuytren's contracture of right hand High cholesterol Hx of fracture of tibia Hypertension Substance use disorder Family History Family History Mother Cancer Father No problems noted. Sister Breast cancer Family history of problems with anesthesia: No Surgical History Surgical History History of hand surgery History of shoulder surgery Hx of colonoscopy History of Problems with Anesthesia: No Social History Social History Housing: House Are you a primary skin care specialist to a significant other at home: No Do you presently have visiting nurse or other home services: No Alcohol intake: current Alcohol intake frequency: a few times a week Alcohol type: beer Patient Tobacco Use Status: Former Tobacco user Quit Date: 2012 Years Smoked: 20 +/- e-Cigarette/Vaping Use: Never Used Second Hand Smoke Exposure: Yes Substance Use Type: Marijuana service: No Current occupational status: retired Current occupation: right hand dominant Cognitive needs: No Hearing needs: No Vision needs: No Meds Allergies Allergy/AdvReac Type Severity Reaction Status Date / Time No Known Allergies Allergy Verified 12/31/22 11:23 [No Known Allergies*] Home Medications Medication Instructions Recorded Confirmed Last Taken Type gabapentin 300 mg capsule 300 mg PO DAILY 12/25/22 01/06/23 01/05/23 History Exam Exam Date and Time: January 03, 2023 0913 Height,Weight and Vital Signs: Height 5 ft 7 in Weight 94.347 kg Last Vital Signs Pulse 119 H 12/23/22 12:23 Resp 16 12/23/22 12:23 BP 106/65 12/23/22 12:23 Pulse Ox 98 12/23/22 12:23 O2 Del Method Room Air 12/23/22 12:23 Pertinent Lab Results Pertinent Lab Results: Laboratory Tests 12/23/22 12/23/22 13:05 13:05 WBC 10.5 RBC 4.43 L Hgb 13.8 L Hct 39.2 L MCV 88.5 MCH 31.2 MCHC 35.2 RDW 12.6 Plt Count 456 H MPV 9.2 L Absolute Nucleated RBC 0.000 Nucleated RBC % (auto) 0.0 Sodium 132 L Potassium 4.2 Chloride 94 L Carbon Dioxide 23 Anion Gap 19 BUN 12 Creatinine 0.75 Estim Creat Clear Calc 110.3 Estimated GFR > 60 Random Glucose 108 Calcium 10.1 Narrative Narrative: EKG 12/2022 sinus tachycardia with incomplete right bundle-branch block, unchanged from few days ago ECHO 12/2022 Conclusions: - The left ventricular systolic function is hyperdynamic.? The ? visually estimated ejection fraction is >70%.? - Moderately increased right ventricular cavity size.? - No obvious valvular pathology seen on this study.? ? ? NM aracelis perf SPECT rest & str 12/2022 Impression: ? 1.? Myocardial perfusion imaging study shows likely normal myocardial perfusion 2.? Gated LVEF is 67% 3. Transient ischemic dilatation not present ? EKG is nondiagnostic for ischemia Assessment and Plan Assessment Anesthesia Assessment: Chart Reviewed Final Anesthetic Review Family History of Problems with Anesthesia: No History of Problems with Anesthesia: No Documented by User: Belem Raman MD 01/06/23 07:30 PMFSH Past Medical History Medical History Dupuytren's contracture of right hand High cholesterol Hx of fracture of tibia Hypertension Substance use disorder Family History Family History Mother Cancer Father No problems noted. Sister Breast cancer Surgical History Surgical History History of hand surgery History of shoulder surgery Hx of colonoscopy Social History Social History Housing: House Are you a primary skin care specialist to a significant other at home: No Do you presently have visiting nurse or other home services: No Alcohol intake: current Alcohol intake frequency: a few times a week Alcohol type: beer Patient Tobacco Use Status: Former Tobacco user Quit Date: 2012 Smoked: 20 +/- e-Cigarette/Vaping Use: Never Used Second Hand Smoke Exposure: Yes Substance Use Type: Marijuana service: No Current occupational status: retired Current occupation: right hand dominant Cognitive needs: No Hearing needs: No Vision needs: No Meds Allergies Allergy/AdvReac Type Severity Reaction Status Date / Time No Known Allergies Allergy Verified 12/31/22 11:23 [No Known Allergies*] Home Medications Medication Instructions Recorded Confirmed Last Taken Type gabapentin 300 mg capsule 300 mg PO DAILY 12/25/22 01/06/23 01/05/23 History Exam Airway Mallampati Class: III TM Dist: <=3cm Neck ROM: Limited Partial: Upper and Lower Heart: rrr Lungs: cta Assessment and Plan Assessment Anesthesia Assessment: Anesthesia Plan Discussed and Smoking Cess. Discussed Final Anesthetic Review NPO: Yes ASA Class: III Final Preanesthetic Review: No Changes in Pt Med Stat, Meds/Allgs Chart Reviewed, Consent Obtained/Reviewed and Anes Risks/Benef Reviewed Patient Risk: Intermediate Procedure Risk: Intermediate Anesthetic Plan Anesthetic Plan: GA Disposition: Standard PACU
[2023-01-06] VITALS (11 sets, daily range): BP systolic 121–155; BP diastolic 59–98; PULSE 91–106; RESP 14–20; TEMP 36.2–36.7; O2SAT 94–98; BMI 32.9
--- NOTE | ~2023-01-06 | FL_ITS ---
EXAMINATION: FL FLUOROSCOPIC-GUIDANCE WITH IMAGES CLINICAL INFORMATION: L4-L5 interbody fusion. COMPARISON: Lumbar spine x-ray August 2022. TECHNIQUE: Fluoroscopy Supervised By: Ban. Fluoroscopy Time: Less than 1 minute. Cumulative Dose: 1.3 mGy-cm DAP: 0.3 uGy-cm2. Images: 1. FINDINGS: Single lateral intraoperative view of the lower lumbosacral spine demonstrates surgical instruments posterior to the L5-S1 disc space level and deeper instrument projecting over the spinal canal at the L5 level. FL/FL guidance in OR IMPRESSION: Fluoroscopic-guidance for spine surgery.
[2023-01-06] MEDS: methocarbamoL 750 MG TABLET PO (06:31)
[2023-01-06] MEDS: Gabapentin 300 MG CAPSULE PO (06:31)
[2023-01-06] MEDS: Lactated Ringers 1,000 ML 100 ML IVCONT (06:42)
--- NOTE | 2023-01-06 07:23 | MHC.SHP ---
Pre-Procedural Eval Section A Date of Service: 01/06/23 Section B Chief Complaint: Spinal stenosis, lumbar region,Scoliosis, unspecif Allergies: Allergies Allergy/AdvReac Type Severity Reaction Status Date / Time No Known Allergies Allergy Verified 12/31/22 11:23 [No Known Allergies*] Review of Systems Sugical H&P ROS: Negative: Constitution, Cardiovascular, Respiratory, Neurological, Psychiatric, Hem-Onc, Allergic/Immunologic, Gastrointestinal, Genitourinary, Musculoskeletal, Integumentary, Endocrine and Eyes/Ears/Nose/Throat Exam Surgical H&P Exam: Not Evaluated: HEENT, Not Evaluated: Heart, Not Evaluated: Lungs, Not Evaluated: Extremities, Not Evaluated: Abdomen, Not Evaluated: Skin and Not Evaluated: Neurological Plan I have reviewed the history and physical and performed a pertinent physical examination on my patient. No changes have occurred unless specified. Discussed symptoms with patient, he is having predominantly R sided radiculopathy below the level of the knee. After reviewing imaging this morning we suggested switching to R sided L5 foraminotomy. The patient understands and is agreeable to this plan. Time Spent With Patient Time: Total time managing care of this patient today _10__ minutes.
--- NOTE | 2023-01-06 08:38 | P.OP_ITS ---
Operative Note Operative Note Date of Service: 01/06/23 Narrative: Preoperative Diagnosis: Spinal stenosis/lateral recess stenosis/neural foraminal stenosis Operation: Right L5 Laminotomy, Partial facetectomy and foraminotomy with use of microscope Consent Informed Consent was obtained for this operation. I have explained the nature, purpose and benefits of the operation. I have discussed the risks and benefit of the operation including possible complications or adverse events with patient/family. Alternative(s) were discussed with the patient with their relative benefits and risks as well as the consequences of not accepting the operation were included in obtaining consent. Surgeon: HARSHAD TOTH MD, PHD Procedure Assisted By: Juan Torres Description of Procedure this is a 62-year-old male that is suffering from a right lumbar radiculopathy. Initially he was scheduled for an L4-5 lumbar fusion. However, after talked to the patient again in the holding area, I decided to change procedure to her right L5 foraminotomy only as the radicular symptoms are the main component of his complaint. The patient was offered a decompression of the nervous structures. The procedure complications were explained. The patient was consented. The patient was brought to the operating room and endotracheally intubated. The patient was turned in prone position on the Mike frame. Prep and drape was done followed by timeout. Physician employment legal assistant provided access. A mid lumbar incision was made followed by release of the paravertebral muscle on the Right side to expose the right L5 lamina and facet joint. An intraoperative x-ray was obtained to confirm the correct level. The microscope was brought in. I took over the procedure. The high-speed drill was used to do a L5 laminotomy. #2 Kerrison was used to further remove the lamina towards the L5 foramen. With a nerve hook the medial wall of the L5 pedicle was palpated as well as the beginning of the L5 foramen. The facet joint was partially drilled down after which with a #2 Kerrison a foraminotomy was done. Finally a foraminotomy Kerrison was used to complete the foraminotomy. A long the nerve root could be easily passed, a sign of relief of the neuroforaminal stenosis and decompression of the nerve root . The microscope was removed. Hemostasis was done. Incision was closed in 2 layers. Steri-Strips were used to approximate incision. An OpSite with Tegaderm was used to cover the incision. All sponge needle counts were correct. Patient was extubated and transported in stable is to recovery room. Anesthesia: General Estimated Blood Loss (ml): Minimal Duration of Surgery: Under 60 Minutes Postoperative Plan: Discharge to home
--- NOTE | 2023-01-06 08:52 | PM.DS ---
DS: Providers Provider Date of Service: 01/06/23 Date of discharge: 01/06/23 Primary care physician: Mary Anne Leach MD Admitting clinician: Francis Brower DS: Diagnosis Discharge Diagnosis (1) Lumbar stenosis with neurogenic claudication: Status: Acute DS: Summary Time Spent with Patient Time attestation: Total time managing care of this patient today ____ minutes. Discharge coordination time: Less than 30 minutes Quality: Safe Use of Opioids Does Pt have an Active Cancer Diagnosis on the Problem List?: No Quality: Stroke Does the patient have a stroke diagnosis?: No Physical Exam Vital Signs: Vital Signs: Last Vital Signs Temp 98.1 F 01/06/23 06:29 Pulse 106 H 01/06/23 06:29 Resp 20 01/06/23 06:29 BP 132/91 H 01/06/23 06:29 Pulse Ox 95 01/06/23 06:29 O2 Del Method Room Air 01/06/23 06:29 BMI result Body Mass Index 32.9 Discharge Plan Discharge Anticipated Discharge Date/Time: 01/06/23 08:57 Patient Disposition: Home, Self-Care Discharge Diagnosis: lumbar foraminal stenosis Referrals: Mary Anne Mcgraw MD [Primary Care Provider] - 1 Week Discharge Medications: New oxycodone 5 mg tablet See Rx Instructions .ROUTE .COMPLEX PRN (Reason: pain) Qty: 30 0RF Rx Instructions: 1-2 tabs po q4 hours prn pain Partial Fill upon patient request. docusate sodium [Colace] 100 mg capsule 100 mg PO BID Qty: 20 0RF Continued simvastatin 20 mg tablet 20 mg PO BEDTIME 90 Days Qty: 90 1RF cholecalciferol (vitamin D3) 25 mcg (1,000 unit) tablet 25 mcg PO DAILY Qty: 90 3RF amlodipine 10 mg tablet 10 mg PO DAILY 90 Days Qty: 90 1RF lisinopril-hydrochlorothiazide 20-12.5 mg tablet 1 tab PO DAILY 90 Days Qty: 90 1RF gabapentin 300 mg capsule 300 mg PO DAILY meloxicam 15 mg tablet 15 mg PO DAILY PRN (Reason: pain) 5 Days Qty: 5 0RF Discharge Orders: Discharge Order (Routine); Ordered 01/06/23 Ordered By: Juan Brantley Diet: Advance to usual diet Activity on Discharge: As tolerated Stand Alone Forms: Patient Portal Discharge page Activity Restrictions/Additional Instructions: After your spinal surgery we ask you to observe the following restrictions/guidelines: Activity: It is normal to feel some discomfort as you increase your activity, but that will improve with time. We ask you avoid heavy lifting or acitivities that cause pain. As a general rule, 8lbs is a safe limit for lifting right after surgery. Walk as much as you feel comfortable but not to exhaustion. You will feel extra tired the first few days after surgery. Stay well hydrated. It is OK to walk up and down stairs You may return to driving when you are off narcotics (such as vicodin, oxycodone, dilaudid, etc), and you are back to normal functional capacity. If you have any concerns please check with office before driving. Return to work is specific to each patient and each surgery, so please speak with your doctor/PA at first follow up. Please bring paperwork such as FMLA at that time if you need it filled out. Medications: For optimum pain control, it is best to start with a combination of 500 mg of Tylenol every 4 hours with 600 mg of Motrin every 8 hours, and use narcotics as needed in between for breakthrough pain. We will give you a short supply of narcotics after surgery (usually one weeks worth). If you need more please call the office but do not use more than prescribed. You will need to give our office 48 hours notice if you need narcotics refilled and we do not fill narcotics on weekends or evenings. If you are on a narcotic, it is a good idea to take a stool softener such as colace or senna to avoid constipation If you take blood thinner such as aspirin, Plavix, Coumadin, Effient, Eliquis etc for conditions such as Afib, DVT, Pulmonary embolus, coronary disease, stents etc please speak with your surgeon about specific details as to when you can resume these medications. You can resume NSAIDs on post op day 1 (eg: Motrin, Naproxen, etc). Follow up: Please call the office, , after surgery to arrange a 3 week follow up for wound check. Wound Care: You may remove your dressing on the first day after surgery. You may leave open to air. Please do not remove the steri strips underneath. they will fall off on their own in one week. IT IS NORMAL FOR THE WOUND TO OOZE OR BE BLOODY FOR A FEW DAYS AFTER SURGERY. IF THIS HAPPENS JUST PLACE NEW DRESSING OVER IT TO AVOID STAINING CLOTHES. You may shower on post op day # 1 We ask that you do not let the water soak the wound. If it does get wet, just towel dry lightly. Please do not scrub your incision or place any type of chemical/ointment on the wound. No tub baths, pools or jacuzzis for one month. If you have any leaking or redness from your wound, or fevers, please call office Care Plan Goals: discharge home Health Concerns: none Plan of Treatment: home Assessment: stable
== END 2023-01-06 11:45 | disposition home or self-care (01) ==
LOC: HO.MDS 12:19
PROVIDERS: Anesthesiology; PCP Internal Medicine; Visit Provider Neurological Surgery
PROC: (CPT 63047; 2023-01-06 07:30)
DX: M48.062 Spinal stenosis, lumbar region with neurogenic claudication (principal); M41.56 Other secondary scoliosis, lumbar region; M51.16 Intervertebral disc disorders with radiculopathy, lumbar region; E78.00 Pure hypercholesterolemia, unspecified; I10 Essential (primary) hypertension; F12.90 Cannabis use, unspecified, uncomplicated; Z87.891 Personal history of nicotine dependence; Z79.899 Other long term (current) drug therapy
CPT/HCPCS: 63047; 36415; 80048; 85027; 93005; J0131; J0690; J1100; J1170; J1885; J2250; J2405; J3010

== ENCOUNTER → 2023-01-06 07:30 | Outpatient (BNV) | payer OTHER, SELFPAY | PROVIDERS: Admitting Provider Neurological Surgery; PCP Internal Medicine; Visit Provider Neurological Surgery | DX: M48.062 Spinal stenosis, lumbar region with neurogenic claudication (principal) | CPT/HCPCS: 63047 ==

== ENCOUNTER 2023-01-28 13:41 | Outpatient (AMB) | payer OTHER, SELFPAY ==
--- NOTE | 2023-01-28 14:01 | A.SPINEOV_ITS ---
Intake Intake Visit Reasons: 1st post op Intake Note: Mr. Montes is here today for his 1st post-op visit. 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 He is s/p right sided L5 Laminotomy, partial facetectomy and foraminotomy. He reports that today his symptoms are exactly the same as before surgery. He reports persistent burning/tingling/pain originating in his low back and radiating down his right posterior thigh. He states that his only relief came from the oxycodone medication that was given to him postoperatively, which he states he cannot be refilled any further after his previous discussion with PRETTY Brantley. This was reiterated to him, and his procedure was extensively explained with a 3D spine model that we have in the office. He was strongly encouraged to continue walking, and completing his ADLs in order to best to facilitate his healing. He was informed that we will get follow-up x-rays during his next visit, if he continues to have persistent pain symptoms at his 2nd postoperative visit we can consider ordering another MRI. He asked if there is ?anything that we can do for him? as far as medications go to help facilitate his pain/uncomfortable feelings in his leg. He was informed that I will call in a prescription of Robaxin 750 mg t.i.d. which he was encouraged to take alongside 1000 mg of Tylenol t.i.d. On physical exam the patient sensation is intact. He ambulates with a cane, and has an antalgic gait. His incision site is clean dry intact and well healing. No signs of erythema, fluctuance, purulence, or drainage. Total amount of time spent in this visit was 20 minutes in discussion of symptoms, and subsequent plan of care Sandeep Brower MD,PhD [facility] Coding Level of Care Code Est Pt Level 3 (13198) Diagnoses Lumbar radiculopathy, acute M54.16
== END 2023-01-28 14:33 | disposition home or self-care (01) ==
PROVIDERS: PCP Internal Medicine; Visit Provider Physician Assistant
DX: M54.16 Radiculopathy, lumbar region (principal)
CPT/HCPCS: 99213

== ENCOUNTER → 2023-01-28 13:41 | Outpatient (BNVA) | payer OTHER, SELFPAY | PROVIDERS: PCP Internal Medicine; Visit Provider Physician Assistant ==

== ENCOUNTER 2023-03-10 11:45 | Outpatient (REF) | payer OTHER, SELFPAY ==
--- NOTE | ~2023-03-10 | MR_ITS ---
EXAMINATION: MR LUMBAR SPINE WITHOUT AND WITH CONTRAST CLINICAL INFORMATION: Progressively worsening low back pain. Prior lumbar surgery. Right greater than left leg radiculopathy. COMPARISON: X-ray lumbar spine dated 09/05/2022. TECHNIQUE: Multiplanar, multisequence imaging was obtained. Intravenous contrast: Gadavist 10 mL. FINDINGS: VERTEBRAL BODIES AND PARASPINAL STRUCTURES: The marrow signal is diffusely heterogeneous with fatty changes from presumed underlying demineralization. There is a mild leftward curvature of the lumbar spine. Signal abnormality with corresponding enhancement is present in the right paraspinal soft tissues at the L5 level related to a prior laminectomy. There is a chronic mild superior endplate compression fracture at the L1 level without osseous retropulsion. Severe loss of disc height with endplate spurring noted at the lower thoracic levels and at the L5-S1 level. There is also significant disc space narrowing at the L2-L3 level and a moderate to severe loss of disc height at L4-L5. Mild posterior subluxations are present in the lumbar spine. Epidural lipomatosis is visible contributing to varying degrees of thecal sac distortion in the lower thoracic and lumbar spine. The imaged bony pelvis is unremarkable. There is marrow edema and enhancement partially visualized in the posterior left 11th and 12th ribs which may signify subacute fractures. There is additional signal abnormality and enhancement in the left L1 transverse process which may be due to an underlying subacute fracture as well. CONUS MEDULLARIS AND CAUDA EQUINA: The distal cord, conus tip, and cauda equina nerve roots appear normal. No pathologic intradural enhancement identified. SPINAL LEVELS: T12-L1: Mild posterior disc bulge present without central canal stenosis. Epidural lipomatosis results in mild thecal sac distortion. Patent foramina. L1-L2: Mild posterior disc bulge and facet arthropathy without central canal stenosis. Shallow right subarticular zone disc protrusion mildly impresses upon the right L2 nerve root. No foraminal narrowing. L2-L3: Retrosubluxation and significant loss of disc height with a diffuse disc bulge and endplate spurring. Hypertrophic facet arthropathy without central canal stenosis. Dorsal epidural fat prominence results in mild thecal sac distortion. Mild right foraminal narrowing. L3-L4: Posterior subluxation and broad-based disc bulge with [id number]-sz-cbmklzel facet arthropathy noted. No central canal stenosis. Epidural fat prominence results in [id number] thecal sac distortion. Bulging disc mild to moderately encroaches upon the neural foramina bilaterally. L4-L5: Moderate to severe loss of disc height and retrosubluxation with a disc bulge and left lateral endplate spurring. No central canal stenosis. Hypertrophic facet arthropathy present. Epidural lipomatosis results in moderate thecal sac distortion. Severe left foraminal narrowing due to osseous encroachment impressing upon the exiting left L4 nerve root. L5-S1: Significant loss of disc height with a posterior disc bulge and moderate facet arthropathy. Right-sided postlaminectomy changes. No central canal stenosis. Avid soft tissue enhancement, presumably representing scar and granulation tissue in the operative bed. No central canal stenosis. Epidural lipomatosis resulting in moderate to severe thecal sac distortion. Osseous spurring and bulging disc result in severe bilateral foraminal encroachment with mass effect upon both exiting L5 nerve roots. MR/MR lumbar spine wo/w con IMPRESSION: Marrow edema and enhancement in the posterior left 11th and 12th ribs which may signify subacute fractures. Additional abnormal signal and enhancement in the left L1 transverse process which may also signify another subacute fracture. Query for any history of recent prior trauma. Moderate multilevel lumbar spondylosis with epidural lipomatosis contributing to varying degrees of thecal sac distortion, most significant at the L4-L5 and L5-S1 levels. Severe left foraminal narrowing at L4-L5 with osseous encroachment impressing upon the left L4 nerve root. Severe bilateral foraminal narrowing at L5-S1 with mass effect upon both exiting L5 nerve roots. Chronic postoperative changes at L5-S1 with significant epidural lipomatosis resulting in moderate to severe thecal sac distortion. No central canal stenosis.
[2023-03-10] MEDS: gadobutroL 10 ML VIAL IVPUSH (12:35)
== END 2023-03-10 11:46 | disposition home or self-care (01) ==
LOC: HO.MRI 11:45
PROVIDERS: PCP Internal Medicine; Visit Provider Physician Assistant
DX: M54.16 Radiculopathy, lumbar region (principal)
CPT/HCPCS: 72158; A9585

== ENCOUNTER 2023-03-10 12:38 | Outpatient (REF) | payer OTHER, SELFPAY | END 2023-03-10 12:39 | disposition home or self-care (01) | LOC: HO.HOSX 12:38 | PROVIDERS: Visit Provider Physician Assistant | DX: Z13.89 Encounter for screening for other disorder (principal) ==

== ENCOUNTER 2023-03-11 13:22 | Outpatient (AMB) | payer OTHER, SELFPAY ==
--- NOTE | 2023-03-11 14:08 | HO.SPINEOV ---
Intake Intake Visit Reasons: 6 week f/u with xrays Intake Note: Mr. Montes is here today for his 2nd post-op visit w/x-rays. 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 This gentleman underwent a right L5 foraminotomy by Dr. Brower a few months back. He comes back to the office to review his MRI and his x-rays because he has been having worse pain than he had before surgery going down his right leg. It is the same pain that he had during his discussion about surgery with Dr. Brower back in October. It travels down his back into his thigh and can go down into the top of his foot. At this point he is starting to feel as though he is completely bedbound and hopeless. The pain is so bad he can no longer walk and has to take a wheelchair around his house. He has been trying to get any kind of pain relief he can but no one will prescribing narcotics. He is taking gabapentin. He has been taking meloxicam. On my exam he is very uncomfortable and any attempts to manipulate his leg gives him a positive straight leg raise. He has some mild weakness of his dorsiflexion. He cannot tolerate significant motor testing secondary to pain. He is almost in tears with the amount of pain he is in just trying to be examined. Dr. Brower and I reviewed his MRI done at [place] showing severe degenerative disc disease at L4-5 and L5-S1. He has severe foraminal collapse at L5-S1. Certainly this could explain his leg pain. He also has a scoliotic curve at L4-5. In light of the scoliosis and the severely collapsed disc Dr. Brower believes he would be a good candidate for an L4-5, L5-S1 oblique lumbar interbody fusion. We would need to have the assistance of Dr. Villar for surgery. We will attempt to coordinate this with his office. We are hoping to get the surgery done soon because of the amount of pain this gentleman is in. I called in a prescription for oxycodone to his pharmacy in [place]. He tells me he had cardiac clearance done before his original surgery so that should not be an issue. He will stop his anti-inflammatories 1 week prior to surgery. Pt was given risk and benefits of surgery including but not limited to infection, hematoma , nerve injury,durotomy, weakness,bowel/bladder injury, persistent pain, hardware failure as well as the option to continue with conservative treatment and patient wishes to proceed with surgery. Pt is aware they should stop their motrin, aspirin 7 days prior to surgery. All questions were answered to the best of our ability. If there is anything about this patients medical history that we have overlooked or concerns you have about us proceeding with surgery we would appreciate any input you can offer Juan Browre MD,PhD [facility]. Medications: New oxycodone Partial Fill upon patient request. 10 mg PO Q6H PRN 40 tabs 0RF pain Coding Level of Care Code Global (58744) Diagnoses Lumbar radiculopathy M54.16
== END 2023-03-11 14:57 | disposition home or self-care (01) ==
PROVIDERS: PCP Internal Medicine; Visit Provider Physician Assistant
DX: M54.16 Radiculopathy, lumbar region (principal)
CPT/HCPCS: 99024

== ENCOUNTER → 2023-03-11 13:22 | Outpatient (BNVA) | payer OTHER, SELFPAY | PROVIDERS: PCP Internal Medicine; Visit Provider Physician Assistant ==

== ENCOUNTER 2023-03-11 13:23 | Outpatient (REF) | payer OTHER, SELFPAY ==
--- NOTE | ~2023-03-11 | XR_ITS ---
EXAMINATION: XR LUMBOSACRAL SPINE WITH OBLIQUES CLINICAL INFORMATION: Lumbar radiculopathy COMPARISON: 09/05/2022 TECHNIQUE: AP, lateral, right neutral, flexion and extension views FINDINGS: There are multilevel degenerative changes in lumbar spine with narrowing at the level of L1-L2, L2-L3, L3-L4, L4-L5 and L5-S1 with marginal spurring. There is mild wedge-shaped compression deformity of L1 vertebral body. There is no instability identified on flexion and extension views and no spondylolysis or listhesis seen. There is facets arthropathy at the level of L5-S1 Sacroiliac joints unremarkable. XR/XR lumbar spine 4V min IMPRESSION: Multilevel degenerative changes in lumbar spine. Mild compression deformity of L1 vertebral body.
== END 2023-03-11 13:24 | disposition home or self-care (01) ==
LOC: HO.HOSX 13:23
PROVIDERS: Visit Provider Physician Assistant
DX: M54.16 Radiculopathy, lumbar region (principal)
CPT/HCPCS: 72110

== ENCOUNTER 2023-03-18 09:06 | Inpatient (IN) | payer OTHER, SELFPAY ==
--- NOTE | 2023-03-17 09:11 | P.CONAN_ITS ---
Documented by User: Eva Humphries NP 03/17/23 09:14 HPI - Anesthesia Eval Consult details Narrative: 62yo M for L4-5, L5-S1 Oblique Lumbar Interbody Fusion s/p L4-5 Transkambin Lumbar Interbody Fusion, Right L4-5 Foraminotomy 12/2022 with GA-ETT 7.5 Cardiac optimized Chronic opioids ETOH (beer) with chronic low Na Seen in PAT by Dr Marshall 12/2022 and results reviewed. [facility] Active Problems Active Problems: All Active Problems (Updated 02/20/23 @ 16:38 by PRETTY Gilman) Lumbar radiculopathy (Acute) Preop cardiovascular exam (Acute) Lumbar scoliosis (Acute) Lumbar stenosis with neurogenic claudication (Acute) Chronic SI joint pain (Acute) Trigger thumb, right thumb (Acute) Hyponatremia (Acute) Preoperative clearance (Acute) Dupuytren's disease of palm of left hand (Acute) Hyponatremia (Acute) Leukocytosis (Acute) Elevated fasting glucose (Acute) Low TSH level (Acute) Low vitamin D level (Acute) Lumbar radiculopathy, acute (Acute) Obesity (BMI 30.0-34.9) (Acute) Screening for prostate cancer (Acute) Screening for hypothyroidism (Acute) Substance use disorder (Acute) Dupuytren's contracture of right hand (Acute) High cholesterol (Acute) Hypertension (Acute) Past Medical History Medical History (Updated 02/20/23 @ 16:38 by PRETTY Gilman) Hx of fracture of tibia Substance use disorder Dupuytren's contracture of right hand High cholesterol Hypertension Family History Family History Mother Cancer Father No problems noted. Sister Breast cancer Family history of problems with anesthesia: No Surgical History Surgical History (Updated 03/17/23 @ 07:59 by Ophelia Wright RN) History of back surgery Hx of colonoscopy History of hand surgery History of shoulder surgery History of Problems with Anesthesia: No Social History Social History Housing: House Are you a primary zoo caretaker to a significant other at home: No Do you presently have visiting nurse or other home services: No Alcohol intake: current Alcohol intake frequency: a few times a month Alcohol type: beer Patient Tobacco Use Status: Former Tobacco user Quit Date: 2012 Tobacco use type: Cigarette Years Smoked: 10 Smoked in Last 30 Days: No e-Cigarette/Vaping Use: Never Used Second Hand Smoke Exposure: Yes Use of substances other than those prescribed or required for medical reasons: Yes Substance Use Type: Marijuana Substance Use Frequency: Occasionally Are you DNR?: No Advance Directives: No Advance Directives Information Provided: Yes service: No Current occupational status: retired Current occupation: right hand dominant Cognitive needs: No Hearing needs: No Vision needs: No Meds Allergies Allergy/AdvReac Type Severity Reaction Status Date / Time No Known Allergies Allergy Verified 03/18/23 09:14 [No Known Allergies*] Home Medications Medication Instructions Recorded Confirmed Last Taken Type gabapentin 300 mg capsule 300 mg PO TID 12/25/22 03/18/23 01/05/23 History Exam Exam Date and Time: March 17, 2023 0911 Pertinent Lab Results Pertinent Lab Results: Laboratory Tests 12/23/22 12/23/22 13:05 13:05 WBC 10.5 RBC 4.43 L Hgb 13.8 L Hct 39.2 L MCV 88.5 MCH 31.2 MCHC 35.2 RDW 12.6 Plt Count 456 H MPV 9.2 L Absolute Nucleated RBC 0.000 Nucleated RBC % (auto) 0.0 Sodium 132 L Potassium 4.2 Chloride 94 L Carbon Dioxide 23 Anion Gap 19 BUN 12 Creatinine 0.75 Estim Creat Clear Calc 110.3 Estimated GFR > 60 Random Glucose 108 Calcium 10.1 Narrative Narrative: EKG 12/2022 sinus tachycardia with incomplete right bundle-branch block, unchanged from few days ago ECHO 12/2022 Conclusions: - The left ventricular systolic function is hyperdynamic.? The ? visually estimated ejection fraction is >70%.? - Moderately increased right ventricular cavity size.? - No obvious valvular pathology seen on this study.? ? ? NM aracelis perf SPECT rest & str 12/2022 Impression: ? 1.? Myocardial perfusion imaging study shows likely normal myocardial perfusion 2.? Gated LVEF is 67% 3. Transient ischemic dilatation not present ? EKG is nondiagnostic for ischemia Assessment and Plan Assessment Anesthesia Assessment: Chart Reviewed Final Anesthetic Review Family History of Problems with Anesthesia: No History of Problems with Anesthesia: No Documented by User: Pedro Domingo MD 03/18/23 17:21 PMFSH Past Medical History Medical History (Updated 02/20/23 @ 16:38 by PRETTY Gilman) Hx of fracture of tibia Substance use disorder Dupuytren's contracture of right hand High cholesterol Hypertension Functional capacity: independent ambulation Family History Family History Mother Cancer Father No problems noted. Sister Breast cancer Surgical History Surgical History (Updated 03/17/23 @ 07:59 by Ophelia Wright RN) History of back surgery Hx of colonoscopy History of hand surgery History of shoulder surgery Social History Social History Housing: House Are you a primary zoo caretaker to a significant other at home: No Do you presently have visiting nurse or other home services: No Alcohol intake: current Alcohol intake frequency: a few times a month Alcohol type: beer Patient Tobacco Use Status: Former Tobacco user Quit Date: 2012 Tobacco use type: Cigarette Years Smoked: 10 Smoked in Last 30 Days: No e-Cigarette/Vaping Use: Never Used Second Hand Smoke Exposure: Yes Use of substances other than those prescribed or required for medical reasons: Yes Substance Use Type: Marijuana Substance Use Frequency: Occasionally Are you DNR?: No Advance Directives: No Advance Directives Information Provided: Yes service: No Current occupational status: retired Current occupation: right hand dominant Cognitive needs: No Hearing needs: No Vision needs: No Meds Allergies Allergy/AdvReac Type Severity Reaction Status Date / Time No Known Allergies Allergy Verified 03/18/23 09:14 [No Known Allergies*] Home Medications Medication Instructions Recorded Confirmed Last Taken Type gabapentin 300 mg capsule 300 mg PO TID 12/25/22 03/18/23 01/05/23 History Exam Airway Mallampati Class: IV Loose/Missing/Broken Teeth: Yes (chipped front upper tooth . Poor dentition g lobally ) Assessment and Plan Assessment Anesthesia Assessment: Anesthesia Plan Discussed Final Anesthetic Review NPO: Yes ASA Class: III Final Preanesthetic Review: Meds/Allgs Chart Reviewed, Consent Obtained/Reviewed and Anes Risks/Benef Reviewed Patient Risk: High Procedure Risk: Intermediate Anesthetic Plan Anesthetic Plan: GA and Agree w/ Assess. and Plan Disposition: Standard PACU
[2023-03-18] VITALS (36 sets, daily range): BP systolic 118–156; BP diastolic 63–104; PULSE 96–124; RESP 12–33; TEMP 36–37.1; O2SAT 93–99; BMI 32.9; BMI 34.8
--- NOTE | ~2023-03-18 | FL_ITS ---
EXAMINATION: XR FLUOROSCOPY WITH IMAGES CLINICAL INFORMATION: L4-S1 anterior lumbar interbody fusion. COMPARISON: None available. TECHNIQUE: Fluoroscopy Supervised By: Dr. Francis Brower. Fluoroscopy Time: 2 minutes 23 seconds. Cumulative Dose: 170.06 mGy. DAP: 43.211 Gycm2. Images: 3. FINDINGS: Images demonstrate posterior fusion hardware with rods and bilateral transpedicular screws at L4, L5 and S1 and interbody fusion hardware at the L4-L5 and L5-S1 disc spaces. FL/FL guidance in OR IMPRESSION: Fluoroscopy guidance for lumbar spine surgery
--- NOTE | 2023-03-18 07:00 | MHC.SHP ---
Pre-Procedural Eval Section A Date of Service: 03/18/23 Section B Chief Complaint: Radiculopathy, lumbar region Allergies: Allergies Allergy/AdvReac Type Severity Reaction Status Date / Time No Known Allergies Allergy Verified 12/31/22 11:23 [No Known Allergies*] Review of Systems Sugical H&P ROS: Negative: Constitution, Cardiovascular, Respiratory, Neurological, Psychiatric, Hem-Onc, Allergic/Immunologic, Gastrointestinal, Genitourinary, Musculoskeletal, Integumentary, Endocrine and Eyes/Ears/Nose/Throat Exam Surgical H&P Exam: Not Evaluated: HEENT, Not Evaluated: Heart, Not Evaluated: Lungs, Not Evaluated: Extremities, Not Evaluated: Abdomen, Not Evaluated: Skin and Not Evaluated: Neurological Plan Diagnosis/Plan: Unchanged I have reviewed the history and physical and performed a pertinent physical examination on my patient. No changes have occurred unless specified. Plan remains the same, L4-5, L5-S1 OLIF Time Spent With Patient Time: Total time managing care of this patient today __10__ minutes.
[2023-03-18 09:47] LABS: Hematocrit 44.7 % (42.0-52.0); Hemoglobin 15.3 g/dl (14.0-18.0); Mean Corpuscular HGB Conc 34.2 g/dl (31.0-36.0); Mean Corpuscular Hemoglobin 30.3 pg (27.0-33.0); Mean Corpuscular Volume 88.5 fL (80.0-98.0); Mean Platelet Volume 8.8 fL (9.4-12.4); Platelet Count 522 X10*3/uL (160-400); Red Blood Count 5.05 X10*6/uL (4.60-5.80); Red Cell Distribution Width 12.4 % (11.0-16.0)
[2023-03-18] MEDS: Gabapentin 300 MG CAPSULE PO ×2 (09:51→19:43)
[2023-03-18] MEDS: methocarbamoL 750 MG TABLET PO (09:51)
[2023-03-18 09:57] LABS: Anion Gap 19 (12-20); Blood Urea Nitrogen 13 mg/dL (9-16); Calcium 10.9 mg/dL (8.4-10.2); Carbon Dioxide 24 mmol/L (22-29); Chloride 95 mmol/L (96-108); Estimated Glomerular Filt Rate > 60; Glucose Fasting 121 mg/dL (60-99); Potassium 4.2 mmol/L (3.3-5.1); Sodium 134 mmol/L (135-145)
[2023-03-18] MEDS: Lactated Ringers 1,000 ML 100 ML IVCONT (10:01)
[2023-03-18] MEDS: ceFAZolin Sodium/Dextrose,Iso 2 GM/50 ML PIGGYBACK IV ×4 (10:54→23:46)
[2023-03-18] MEDS: Acetaminophen 1,000 MG/100 ML PIGGYBACK 400 MG IV ×3 (12:10→23:42)
--- NOTE | 2023-03-18 13:22 | P.OP_ITS ---
Operative Note Operative Note Date of Service: 03/18/23 Narrative: Patient was evaluated by Dr. Brower for chronic lower back pain and radiculopathy and scheduled for OLIF L4-S1. I met with the patient in preoperative holding area and discussed the access part of the procedure and risks an the patient agreed to proceed.Surgery was expedited due to patient's severe pain. He was brought to the operating room and general anaesthesia was administered without incident. Patient was then turned to the right decubitus position with left side up. C-arm image was obtained in AP and lateral planes and anterior border of the spine and disk space projections were marked on the skin.The abdomen was clipped and then prepped and draped in the usual sterile fashion. After timeout was done, incision was made from 2 cm medial and inferior to the Anterior Superior iliac spine in oblique direction 7 cm long. It was brought through subcutaneous tissue and the external oblique aponeurosis in line with the skin incision and transverse and internal abdominal muscles were split along the fibers. The pre-peritoneal plane was entered, peritoneum was bluntly dissected off and iliac artery pulse was felt. Self- retaining retractor with two deep blades was inserted and peritoneum protected with moist gauzes. Left internal iliac vein was identified and dissection was carried along the medial surface of the iliac vein up to the bifurcation. The middle sacral vessels were transected and L5-S1 disc space was bluntly and sharply dissected using bipolar cautery staying directly on the surface of the spine. The midline of the disk space was marked with C-arm image guide. Dr. Brower then proceeded with the corpectomy and fusion at L5-S1 level, which will be dictated separately by him.Another intra-mascular window was used for L4-L5 approach and fusion. After this was done, hemostasis was checked and was excellent. Left ureter was examined prior to closure and was intact. There was good left external iliac artery pulse. Diluted 0.5% Marcaine and Lidocaine was injected in the fascia and subcutaneous tissue. The incision was irrigated and closed by layers using a 0 Vicryl for transverse fascia, 0 Maxone for the external oblique, 3-0 Vicryl for subcutaneous tissue and 4-0 Monocryl for skin. Exo-fin glue was then applied.
--- NOTE | 2023-03-18 14:46 | PHA.MEDREC ---
Pharmacy Consult ? Medication Reconciliation Pharmacy has reviewed the medication reconciliation.
[2023-03-18] MEDS: HYDROmorphone HCl 0.5 MG/0.5 ML SYRINGE 0.25 MG IVPUSH ×4 (15:17→15:32)
[2023-03-18] MEDS: oxyCODONE HCl Immed Release 5 MG TABLET 10 MG PO (15:19)
--- NOTE | 2023-03-18 15:55 | P.OP_ITS ---
Operative Note Operative Note Date of Service: 03/18/23 Narrative: Preoperative Diagnosis: 1.) Lumbar radiculopathy 2.) Lumbar degenerative disc disease L4-5, L5-S1 Procedure: L4-5 and L5-S1 discectomy, arthrodesis and implantation cage through an anterolateral, retroperitoneal approach; posterolateral instrumented fusion L4-S1 with pedicle screw fixation; allograft Indication for Surgery See preoperative diagnosis Consent Informed Consent was obtained for this operation. I have explained the nature, purpose and benefits of the operation. I have discussed the risks and benefit of the operation including possible complications or adverse events with patient/family. Alternative(s) were discussed with the patient with their relative benefits and risks as well as the consequences of not accepting the operation were included in obtaining consent. Surgeon: HARSHAD TOTH MD, PHD Procedure Assisted By: CATA VILLAR MD Description of Procedure This 62-year-old male underwent a L5 foraminotomy for severe lumbar radiculopathy. Unfortunately, the surgery did not relieve his symptoms. He was offered a 2 level fusion to indirectly decompress his neural foramina and nerve roots. The patient was offered a minimally invasive lumbar fusion through an anterolateral, retroperitoneal approach followed by a posterior instrumented fusion L4-S1. The procedure complications were explained. The patient was consented. The patient was brought to the operating room and endotracheally intubated. The patient was turned in the lateral position with the left side up. Prep and drape was done followed by timeout. Dr. Villar, co-surgeon, provided the access to the L5-S1 disc space through an anterolateral, retroperitoneal approach. He will dictate the approach in a separate operative note. When the L5-S1 disc space was exposed I took over the procedure. An annulotomy was done followed by a partial discectomy. Sequential trial implants were inserted and advanced towards the posterior wall of the disc space. I completed the discectomy and prepared the endplates. Then a [id number] mm and 12 degree lordosis 4 web cage filled with allograft was inserted into the disc space under fluoroscopic guidance. The retractor was removed. Then attention was turned to the L4-5 disc space. The 3 muscle layer was split bluntly to enter the retroperitoneal space. The psoas muscle was palpated after which sequential dilators were placed on the anterior 1/3 of the L4-5 disc space under fluoroscopic guidance. A retractor was advanced and opened to expose the L4-5 disc space. A large lateral osteophyte was opened with an osteotome after which a # 7 mm and 8 mm trial implants were inserted. Disc material was removed followed by preparation of the endplates. Then a 18 x 50 x 8 mm and 0 degree lordosis 4 web cage filled with allograft was inserted into the disc space under fluoroscopic guidance. The retractor was removed.Hemostasis was done by Dr. Hayden, who closed the incision. This marked first part of the procedure. Accordingly the patient was turned prone on the Bob spine table and 2 C arms were installed for fluoroscopy. Prep and drape was done followed by a second timeout. 2 paramedian incisions were made lateral from the L4-S1 pedicles. The muscle fascia was opened and the musculature was split bluntly to expose the posterolateral gutter. The following steps were taken for pedicle screw placement: The pediguard tap was used to create a transpedicular trajectory into the vertebral body. A K wire was advanced. A specially designed instrument was advanced over the K wire to decorticate the posterolateral gutter. Pedicle screw was advanced after which the K wire was removed. Following the steps pedicle screws were placed in the bilateral L4, L5 and S1 pedicles. Total of 6 screws were placed with the following measurements: 6.5 x 45 mm in the bilateral L4 and L5 pedicles and 6.5 x 40 mm in the bilateral S1 pedicle. A 70 mm naomi was tunneled bilaterally and locked down with locking caps. The extension towers were removed. The posterolateral fusion was completed by laying down allograft in the posterolateral gutter. Hemostasis was done. The paramedian incisions were closed with an 0 Vicryl to fascia and 3-0 Vicryl to subdermal layer. Steri- Strips were used to approximate the incision. An OpSite with Tegaderm was used to cover the incisions. All sponge and needle counts were correct. The patient was extubated and transported in stable condition to recovery room. Anesthesia: General Estimated Blood Loss (ml): 50 mL Duration of Surgery: 2 hours and 15 minutes Complications: None Postoperative Plan: Admit to inpatient for observation.
[2023-03-18] MEDS: 0.9 % Sodium Chloride 1,000 ML 75 ML IVCONT (19:36)
[2023-03-18] MEDS: Ketorolac Tromethamine 15 MG/ML VIAL IVPUSH (19:37)
[2023-03-18] MEDS: Atorvastatin Calcium 10 MG TABLET PO (19:43)
[2023-03-18] MEDS: Docusate Sodium 100 MG CAPSULE PO (19:44)
[2023-03-18] MEDS: HYDROmorphone HCl 1 MG/ML SYRINGE IVPUSH ×2 (20:59→23:41)
[2023-03-19] MEDS: Ketorolac Tromethamine 15 MG/ML VIAL IVPUSH ×2 (01:57→08:03)
[2023-03-19 03:24] VITALS: BP 139/89; PULSE 99; RESP 16; TEMP 36.1; O2SAT 97
[2023-03-19] MEDS: HYDROmorphone HCl 1 MG/ML SYRINGE IVPUSH ×3 (03:44→09:38)
[2023-03-19] MEDS: Acetaminophen 1,000 MG/100 ML PIGGYBACK 400 MG IV (06:12)
[2023-03-19] MEDS: 0.9 % Sodium Chloride 1,000 ML 75 ML IVCONT (06:14)
[2023-03-19] MEDS: ceFAZolin Sodium/Dextrose,Iso 2 GM/50 ML PIGGYBACK IV (06:42)
[2023-03-19 07:48] VITALS: BP 132/82; PULSE 103; RESP 17; TEMP 36.8; O2SAT 96
[2023-03-19] MEDS: hydroCHLOROthiazide 12.5 MG TABLET PO (08:02)
[2023-03-19] MEDS: lisinopriL 20 MG TABLET PO (08:02)
[2023-03-19] MEDS: Cholecalciferol (Vitamin D3) 25 MCG TABLET PO (08:02)
[2023-03-19] MEDS: amLODIPine Besylate 10 MG TABLET PO (08:02)
[2023-03-19] MEDS: Gabapentin 300 MG CAPSULE PO (08:02)
[2023-03-19] MEDS: Docusate Sodium 100 MG CAPSULE PO (08:02)
[2023-03-19] MEDS: oxyCODONE HCl Immed Release 5 MG TABLET 10 MG PO ×2 (08:02→12:10)
[2023-03-19 09:01] VITALS: BP 132/82; PULSE 103; O2SAT 96
--- NOTE | 2023-03-19 09:24 | MHC.CM.PN ---
Pt is independent, said that he has someone to help him and does not need home health care, he has someone to transport him home. Plan is home, self care.
--- NOTE | 2023-03-19 09:35 | P.DS_ITS ---
DS: Providers Provider Date of Service: 03/19/23 Date of admission: 03/18/23 09:06 Primary care physician: Mary Anne Leach MD DS: Summary Time Spent with Patient Time attestation: Total time managing care of this patient today ____ minutes. Discharge coordination time: Less than 30 minutes Quality: Safe Use of Opioids Does Pt have an Active Cancer Diagnosis on the Problem List?: No Quality: Stroke Does the patient have a stroke diagnosis?: No Physical Exam Vital Signs: Vital Signs: Last Vital Signs Temp 98.2 F 03/19/23 07:48 Pulse 103 H 03/19/23 09:01 Resp 17 03/19/23 07:48 BP 132/82 03/19/23 09:01 Pulse Ox 96 03/19/23 09:01 O2 Del Method Room Air 03/19/23 07:48 O2 Flow Rate 2 03/19/23 03:24 Oxygen Flow Rate 2 03/18/23 20:08 BMI result Body Mass Index 34.8 DS: Data Data Completed and Pending Labs on day of discharge: Laboratory Results - last 24 hr 03/18/23 09:28 WBC 11.0 H RBC 5.05 Hgb 15.3 Hct 44.7 MCV 88.5 MCH 30.3 MCHC 34.2 RDW 12.4 Plt Count 522 H MPV 8.8 L Absolute Nucleated RBC 0.000 Nucleated RBC % (auto) 0.0 Sodium 134 L Potassium 4.2 Chloride 95 L Carbon Dioxide 24 Anion Gap 19 BUN 13 Creatinine 0.84 Estim Creat Clear Calc 99.0 Estimated GFR > 60 Fasting Glucose 121 H Calcium 10.9 H D Blood Type O Positive Antibody Screen NEGATIVE Discharge Plan Discharge Anticipated Discharge Date/Time: 03/19/23 09:35 Patient Disposition: Home, Self-Care Discharge Diagnosis: S/P L4-5, L5-S1 OLIF Referrals: Mary Anne Mcgraw MD [Primary Care Provider] - 1 Week Discharge Medications: New oxycodone 5 mg tablet 5 mg PO Q8H PRN (Reason: SEVERE BREAKTHROUGH PAIN) Qty: 20 0RF Rx Instructions: Partial Fill upon patient request. Continued cholecalciferol (vitamin D3) 25 mcg (1,000 unit) tablet 25 mcg PO DAILY Qty: 90 3RF amlodipine 10 mg tablet 10 mg PO DAILY 90 Days Qty: 90 1RF lisinopril-hydrochlorothiazide 20-12.5 mg tablet 1 tab PO DAILY 90 Days Qty: 90 1RF simvastatin 20 mg tablet 20 mg PO BEDTIME 90 Days Qty: 90 1RF gabapentin 300 mg capsule 300 mg PO TID Discontinued oxycodone 10 mg tablet 10 mg PO Q6H PRN (Reason: pain) Qty: 40 0RF Rx Instructions: Partial Fill upon patient request. Discharge Orders: Discharge Order (Routine); Ordered 03/19/23 Ordered By: Sandeep Govea Diet: Advance to usual diet Activity on Discharge: As tolerated Stand Alone Forms: Patient Portal Discharge page Activity Restrictions/Additional Instructions: After your spinal surgery we ask you to observe the following restrictions/guidelines: Activity: With lumbar fusion surgery it is normal to have days in the first couple of weeks where you have increased leg pain. This usually lasts 1-2 days and self resolves with the continuation of medication. Attempt to stay mobile and continue activity as tolerated. It is normal to feel some discomfort as you increase your activity, but that will improve with time. We ask you avoid heavy lifting or activities that cause pain. As a general rule, 8lbs is a safe limit for lifting right after surgery. Walk as much as you feel comfortable but not to exhaustion. You will feel extra tired the first few days after surgery. Stay well hydrated. It is OK to walk up and down stairs You may return to driving when you are off narcotics (such as vicodin, oxycodone, dilaudid, etc), and you are back to normal functional capacity. If you have any concerns please check with office before driving. Return to work is specific to each patient and each surgery, so please speak with your doctor/PA at first follow up. Please bring paperwork such as FMLA at that time if you need it filled out. Medications: It is recommended that you take Tylenol 500 mg every 4 hours for the 1st week postoperatively, alongside ibuprofen 600 mg every 8 hours. We will give you a short supply of narcotics after surgery (usually one weeks worth). Please use this for breakthrough pain that is refractory to the Tylenol ibuprofen. If you need more please call the office but do not use more than prescribed. You will need to give our office 48 hours notice if you need narcotics refilled and we do not fill narcotics on weekends or evenings. If you are on a narcotic, it is a good idea to take a stool softener such as colace or senna to avoid constipation If you take blood thinner such as aspirin, Plavix, Coumadin, Effient, Eliquis etc for conditions such as Afib, DVT, Pulmonary embolus, coronary disease, stents etc please speak with your surgeon about specific details as to when you can resume these medications. You can resume NSAIDs on post op day 1 (eg: Motrin, Naproxen, etc). Follow up: Please call the office, , after surgery to arrange a 3 week follow up for wound check. Wound Care: You may remove your dressing on the first day after surgery. You may leave open to air. Please do not remove the steri strips underneath. they will fall off on their own in one week. IT IS NORMAL FOR THE WOUND TO OOZE OR BE BLOODY FOR A FEW DAYS AFTER SURGERY. IF THIS HAPPENS JUST PLACE NEW DRESSING OVER IT TO AVOID STAINING CLOTHES. You may shower on post op day # 1 We ask that you do not let the water soak the wound. If it does get wet, just towel dry lightly. Please do not scrub your incision or place any type of chemical/ointment on the wound. No tub baths, pools or jacuzzis for one month. If you have any leaking or redness from your wound, or fevers, please call office Care Plan Goals: Return to activity as tolerated. Health Concerns: None. Plan of Treatment: Follow-up in office in 2-3 weeks. Assessment: Renny is a pleasant 62-year-old male who had a L4-5, L5-S1 OLIF completed yesterday. He is POD 1. He reports that all of his leg pain in shooting radiculopathy has resolved postoperatively. He is concerned because he still has some low back pain. We extensively discussed how this is likely result of the posterior instrumentation being placed. Overall he states he is doing much better than he did pre-operatively. He is up out of bed, and tolerating diet. He does state that he has needed straight catheterization because it has been difficult for him to get to and from his bathroom although he is able to ambulate. He was strongly recommended to ambulate to his bathroom next time he needs to urinate, rather than request that the nurse straight catheter him. I have sent a short supply of oxycodone to his pharmacy. He should not continue his 10 mg oxycodone that was prescribed to him 8 days ago, or he can finish that prescription and then fill his oxycodone 5 mg that I sent in today. He should not be taking any other narcotic medications alongside this. He understands that he cannot drive on this medication. I have also sent in a prescription for Tylenol 1,000 mg t.i.d. He was informed that he needs to attempt to take this medication 1st for pain reduction before attempting to utilize the oxycodone. He is medically cleared to be discharged home today. On exam the patient has full strength of his upper and lower extremities. Is able to rise from a seated position without much difficulty. No neurological deficits. Anterior and posterior incision sites are closed, clean, and well healing without any signs of discharge. Sandeep Brower MD,PhD [facility]
--- NOTE | 2023-03-19 10:09 | MHC.CM.PN ---
Pt has been medically cleared for DC, he is going home, self care, via private transport.
--- NOTE | 2023-03-19 12:15 | PC.NURSE ---
PT with ramsey disconitnued at 0800. Voided 600ml at 1130.
--- NOTE | 2023-03-19 12:18 | PC.NURSE ---
Prior to dischjarge, pt lower back dressings changed with clean gauze and tegaderm applied. CMS WNL- ambulating in room with walker
--- NOTE | 2023-03-19 13:13 | HO.POSTANES ---
Post Anesthesia Evaluation Post Anesthesia Evaluation Date of Service: 03/19/23 Vital Signs: Vital Signs Temp Pulse Resp BP Pulse Ox O2 Del Method O2 Flow Rate 03/19/23 09:01 103 H 132/82 96 03/19/23 07:48 98.2 F 103 H 17 132/82 96 Room Air 03/19/23 03:24 96.9 F 99 16 139/89 97 Nasal Cannula 2 Anesthesia: General Endotracheal-GETA Mental Status: Awake Pain Control: Satisfactory Nausea/Vomiting: None Hydration: Adequate Anesthesia-Related Issues: No Anes. Related Issues
== END 2023-03-19 12:17 | disposition home or self-care (01) | DRG 460 ==
LOC: HO.SSSA 09:28 → HO.S3 15:10
PROVIDERS: Neurological Surgery; Nurse Practitioner; Admitting Provider Physician Assistant; PCP Internal Medicine; Visit Provider Physician Assistant
PROC: 0SG10A0 Fusion of 2 or more Lumbar Vertebral Joints with Interbody Fusion Device, Anterior Approach, Anterior Column, Open Approach (ICD-10-PCS; principal; 2023-03-18 10:40)
DX: M51.17 Intervertebral disc disorders with radiculopathy, lumbosacral region (principal); E78.00 Pure hypercholesterolemia, unspecified; I10 Essential (primary) hypertension; Z87.891 Personal history of nicotine dependence; Z79.899 Other long term (current) drug therapy
CPT/HCPCS: 36415; 80048; 85027; 86850; 86900; 86901; 97162; C1713; J0131; J0690; J1100; J1170; J1885; J2250; J2405; J2550; J3010; L8699

== ENCOUNTER → 2023-03-18 09:06 | Outpatient (BNV) | payer OTHER, SELFPAY | PROVIDERS: Admitting Provider Physician Assistant; PCP Internal Medicine; Visit Provider Surgery | DX: M54.16 Radiculopathy, lumbar region (principal) | CPT/HCPCS: 20930; 22558; 22585; 22612; 22614; 22840; 22853; 99499 ==

== ENCOUNTER 2023-04-01 13:59 | Outpatient (AMB) | payer OTHER, SELFPAY ==
--- NOTE | 2023-04-01 14:28 | A.OFFVIS_ITS ---
Intake Intake Visit Reasons: 1st post op Intake Note: pt here for 1st post op Laundry Clerk Required: No Allergies No Known Allergies [No Known Allergies*] Allergy (Verified 03/18/23 09:14) PFSH Medical History Hx of fracture of tibia Substance use disorder Dupuytren's contracture of right hand High cholesterol Hypertension Surgical History (Updated 04/01/23 @ 17:21 by Francis Brower MD, PhD) History of back surgery Hx of colonoscopy History of hand surgery History of shoulder surgery Family History Mother Cancer Father No problems noted. Sister Breast cancer Social History Household Members: Family Housing: House Are you a primary director of managed care to a significant other at home: No Do you presently have visiting nurse or other home services: No Alcohol intake: current Alcohol intake frequency: a few times a month Alcohol type: beer Patient Tobacco Use Status: Former Tobacco user Quit Date: 2012 Tobacco use type: Cigarette Years Smoked: 10 e-Cigarette/Vaping Use: Never Used Second Hand Smoke Exposure: Yes Substance Use Type: Marijuana service: No Current occupational status: retired Current occupation: right hand dominant Cognitive needs: No Hearing needs: No Vision needs: No Assessment & Plan Assessment & Plan (1) Status post lumbar and lumbosacral fusion by anterior technique: Code(s): Z98.1 - Arthrodesis status (2) Lumbar radiculopathy: Code(s): M54.16 - Radiculopathy, lumbar region Plan Dear colleague, On 04/01/2023, I saw 1st postoperative visit Mr. Renny Montes. He underwent a minimally invasive L4-S1 oblique lumbar interbody fusion to address his severe l umbar radiculopathy. Unfortunately, the symptom has not improved. He states that he is in severe pain especially with walking. Today I observed his walking with a walker and with every step he takes with his right leg he gets pain in the right hip and front of the thigh. The incisions are well healed. In summary, is still in significant pain despite the lumbar fusion. I will order a CT of the lumbar spine to make sure that there was no residual foraminal stenosis. I also want to have an x-ray of the right hip to exclude femur had necrosis. We wrote him a script of oxycodone 5 mg 60 tablets. He will call the office for the CT results. He will get the x-ray done of his right hip when he gets the CT scan. Francis Brower MD, PhD Spine Fellowship Trained Neurosurgeon Director, [facility] Orders: Orders CT lumbar spine wo IV con Today M54.16 - Radiculopathy, lumbar region, Z98.1 - Arthrodesis status Francis Brower MD, PhD Medications: New oxycodone 1-2 tabs po q 6 hours prn pain; Partial Fill upon patient request. 60 tabs 0RF pain PRETTY Allen Discontinued oxycodone Partial Fill upon patient request. Discontinued Reason: Doctor's Order 5 mg PO Q8H PRN 20 tabs 0RF SEVERE BREAKTHROUGH PAIN Coding Level of Care Code Global (37964) Diagnoses Status post lumbar and lumbosacral fusion by anterior technique Z98.1 Lumbar radiculopathy M54.16
== END 2023-04-01 16:39 | disposition home or self-care (01) ==
PROVIDERS: PCP Internal Medicine; Visit Provider Neurological Surgery
DX: Z98.1 Arthrodesis status (principal); M54.16 Radiculopathy, lumbar region
CPT/HCPCS: 99024

== ENCOUNTER → 2023-04-01 13:59 | Outpatient (BNVA) | payer OTHER, SELFPAY | PROVIDERS: PCP Internal Medicine; Visit Provider Neurological Surgery ==

== ENCOUNTER 2023-04-04 14:10 | Outpatient (REF) | payer OTHER, SELFPAY ==
--- NOTE | ~2023-04-04 | CT_ITS ---
EXAMINATION: CT LUMBAR SPINE WITHOUT CONTRAST CLINICAL INFORMATION: Arthrodesis status. COMPARISON: Intraoperative plain films of the lumbar spine 03/18/2023. Preoperative plain films of the lumbar spine 03/11/2023 and MRI scan of the lumbar spine 03/10/2023. TECHNIQUE: A noncontrast axial CT scan of the lumbar spine was obtained. Coronal and sagittal reformatted images were generated at the acquisition workstation. This CT examination was performed using dose optimization techniques as appropriate, variously including the following: *Automated exposure control *Adjustment of mA and/or kV according to patient size (this includes techniques or standardized protocols for targeted exams where dose is matched to indication/reason for exam; i.e. extremities or head) *Use of iterative reconstruction technique DLP; 1333 mGy-cm FINDINGS: VERTEBRAL BODIES AND PARASPINAL STRUCTURES: There is a mild levoscoliosis. There are mild retrolistheses of L2 on L3 and L3 on L4. There are now sequelae of instrumented posterior decompressions and fusions at L4-L5 and L5-S1. There are bilateral pedicular screws in L4, L5 and S1 joined by vertical rods, and there are interbody devices at these levels. The hardware appears intact. The hardware causes beam hardening artifact. There is multilevel narrowing of intervertebral disc height with vacuum disc changes, most severe at L2-L3. The study redemonstrates a chronic compression fracture of the superior body of L1 which is unchanged. There are multilevel degenerative endplate contour changes. Bone mineralization is diffusely decreased. The right lung bases well-aerated. There are atheromatous calcifications of the infrarenal abdominal aorta and its branches. There are likely vascular calcifications in the right kidney. The visualized pelvic structures are unremarkable. There are degenerative changes of the sacroiliac joints. SPINAL LEVELS: T11-T12: There are bilateral facet arthropathic changes and there are degenerative changes at the costovertebral junctions. The posterior disc osteophyte complex without central stenosis. There are right foraminal disc osteophytes, narrowing the right neural foramen. T12-L1: The facet joints appear normal. There is mild posterior protrusion of the superior body of L1 into the spinal canal without significant central stenosis. Posterior disc contour is normal. There is no central stenosis and the neural foramina are patent bilaterally. L1-L2: There is mild bilateral facet arthropathy. There is a posterior disc protrusion without significant mass effect on the thecal sac, and there is no central stenosis. The neural foramina are patent bilaterally. L2-L3: There is mild bilateral facet arthropathy. There is a posterior disc protrusion without significant mass effect on the thecal sac. There is no central stenosis. There are prominent disc osteophytes on the right with impingement on the exiting right L2 nerve root. L3-L4: There is moderate bilateral facet arthropathy. There is a broad-based posterior disc protrusion which flattens the ventral thecal sac without significant narrowing of the subarticular recesses. There is epidural lipomatosis compressing the dorsal thecal sac. There are bilateral foraminal disc protrusions. L4-L5: There is mild bilateral facet arthropathy. There are sequelae of an instrumented posterior decompression and fusion, with a right-sided hemilaminectomy and hemifacetectomy. The hardware causes beam hardening artifact. There is a posterior disc protrusion. There are prominent left-sided foraminal disc osteophytes impinging on the exiting left L4 nerve root. There is no central stenosis. L5-S1: There is moderate bilateral facet arthropathy. There is a posterior disc osteophyte complex without mass effect on the thecal sac. There are bilateral foraminal disc osteophyte complexes impinging on the exiting L5 nerve roots bilaterally. There is no central stenosis. CT/CT lumbar spine wo IV con IMPRESSION: 1. There are now sequelae of instrumented posterior decompressions and fusions at L4-L5 and L5-S1. The hardware appears intact. 2. At L4-L5 there is a posterior disc protrusion. There are prominent left-sided foraminal disc osteophytes impinging on the exiting left L4 nerve root. There is no central stenosis. 3. At L5-S1 there is facet arthropathy and there is a posterior disc osteophyte complex. There are bilateral foraminal disc osteophyte complexes impinging on the exiting L5 nerve roots. There is no central stenosis. 4. At L2-L3 there is facet arthropathy and there is a posterior disc protrusion. There are prominent disc osteophytes on the right with impingement on the exiting right L2 nerve root. There is no central stenosis. 5. Spondylosis and facet arthropathic changes are also demonstrated at multiple other levels as described above.
== END 2023-04-04 14:11 | disposition home or self-care (01) ==
LOC: HO.CT 14:10
PROVIDERS: PCP Nurse Practitioner Family; Visit Provider Neurological Surgery
DX: M54.16 Radiculopathy, lumbar region (principal); Z98.1 Arthrodesis status
CPT/HCPCS: 72131

== ENCOUNTER 2023-04-07 15:21 | Outpatient (REF) | payer OTHER, SELFPAY ==
--- NOTE | ~2023-04-07 | XR_ITS ---
EXAMINATION: XR HIP, RIGHT CLINICAL INFORMATION: Pain in right hip COMPARISON: September 24, 2017 TECHNIQUE: Two views of the right hip. FINDINGS: Visualization of posterior fusion hardware in the lumbosacral spine is difficult to evaluate as hardware is incompletely imaged and visualization is limited due to technical factors. Degenerative changes of the bilateral sacroiliac joints. The bones are diffusely demineralized. Moderate degenerative changes on limited images of the LEFT hip. Vascular calcifications. RIGHT HIP: There is severe deformity of the RIGHT acetabular roof with superior and lateral displacement of the right femoral head, narrowing of the superior joint space and concavities at the superolateral aspects of the right femoral head concerning for trauma/fracture/destructive process. Calcifications in the overlying soft tissues could be related to this process. XR/XR hip RT min 2V IMPRESSION: Severe degenerative changes and deformity of the right hip as detailed above concerning for chronic degenerative change as well as acute/chronic trauma/destructive process. Orthopedic consultation and correlation with the clinical exam recommended. MRI recommended for further evaluation. This study was presented today April 09, 2023 at 1:50 PM for interpretation. PSA staff will provide results to referring provider at this time.
== END 2023-04-07 15:22 | disposition home or self-care (01) ==
LOC: HO.HOSX 15:21
PROVIDERS: Visit Provider Physician Assistant
DX: M25.551 Pain in right hip (principal)
CPT/HCPCS: 73502

== ENCOUNTER 2023-04-07 17:03 | Outpatient (AMB) | payer OTHER, SELFPAY ==
[2023-04-07 17:07] VITALS: BP 136/82
--- NOTE | 2023-04-07 17:07 | MHC.PC.OV ---
Vital Signs 04/07/23 17:07 Height 5 ft 7 in BMI Reason not done Patient refused/unable BP 136/82 Blood Pressure Location Lt brachial Position Sitting Intake Visit Reasons: s/p surgery, swelling in feet Intake Note: Patient here for s/p surgery, feet swelling [employer] Required: No Accompanied by: Spouse Allergies No Known Allergies [No Known Allergies*] Allergy (Verified 04/07/23 17:23) Medication List - Last Reconciled 04/07/23 by Mary Anne Leach MD acetaminophen 1,000 mg (2 x 500 mg) PO Q8H PRN amlodipine 10 mg PO DAILY 90 days cholecalciferol (vitamin D3) 25 mcg PO DAILY gabapentin 300 mg PO TID lisinopril-hydrochlorothiazide 20-12.5 mg 1 tab PO DAILY 90 days oxycodone 1-2 tabs po q 6 hours prn pain; Partial Fill upon patient request. simvastatin 20 mg PO BEDTIME 90 days Tobacco use date assessed: 07/05/22 Dental Screening Dental Screen Date: 04/07/23 Did you have a dental visit in the last 12 months?: Yes Did you have a dental problem in the last 6 months where you did not have access to dental care?: No Was dental information given to patient?: Patient has dentist HPI HPI Comments History of Present Illness Details This is a 62-year-old male with hypertension, high cholesterol, lumbar radiculopathy and right hip pain that comes today for follow-up on his conditions accompanied by . Currently in a wheelchair because recently it has been markedly difficult to walk due to bilateral leg weakness more prominent in the right. Denies any fever, no bowel or bladder incontinence. Able to stand and walk 2-3 steps but right leg is very weak and is unable to flex the knee. Will see Ortho tomorrow for his right hip pain. Blood pressure stable. On statins for cholesterol. Still has very severe pain. [facility] Medical History Hx of fracture of tibia Substance use disorder Dupuytren's contracture of right hand High cholesterol Hypertension Surgical History History of back surgery Hx of colonoscopy History of hand surgery History of shoulder surgery Family History Mother Cancer Father No problems noted. Sister Breast cancer Social History Household Members: Family Housing: House Are you a primary women's health care nurse practitioner to a significant other at home: No Do you presently have visiting nurse or other home services: No Alcohol intake: current Alcohol intake frequency: a few times a month Alcohol type: beer Patient Tobacco Use Status: Former Tobacco user Quit Date: 2012 Tobacco use type: Cigarette Years Smoked: 10 e-Cigarette/Vaping Use: Never Used Second Hand Smoke Exposure: Yes Substance Use Type: Marijuana service: No Current occupational status: retired Current occupation: right hand dominant Cognitive needs: Yes Hearing needs: No Vision needs: No Questionnaire Thrive Questionnaire Date Thrive assessed: 03/19/23 YESENIA-7 AMB Questionnaire YESENIA-7 Date YESENIA - 7 assessed: 07/05/22 Source: Developed by Drs. Kang Au, Katherine Ortiz, Kenneth Becker and colleagues, with an educational hoa from [employer]. Review of Systems Const All systems reviewed & are unremarkable except as noted in HPI and below Eyes Reports no additional complaints, Denies change in vision and Denies other visual disturbances Card Denies chest pain at rest, Denies chest pain with activity, Denies edema, Denies irregular heart rhythm, Denies claudication, Denies dyspnea, Denies dyspnea on exertion, Denies orthopnea, Denies paroxysmal nocturnal dyspnea and Denies slow heart rate Resp Denies cough, Denies dyspnea and Denies dyspnea on exertion GI Denies abdominal pain, Denies change in bowel habits, Denies excessive flatus, Denies nausea and Denies vomiting Denies urinary hesitancy, Denies urinary incontinence and Denies urinary urgency Musc Denies abnormal gait, Reports back pain, Denies atrophy, Denies deformity and Reports limited range of motion Skin/Breast Denies bleeding lesions, Denies changing lesions and Denies rash Neuro Denies abnormal gait and Denies lack of coordination Physical exam (Primary Care) Vital Signs: Last Vital Signs BP 136/82 04/07/23 17:07 Tobacco/Smoking Status: Tobacco use Status Tobacco use date assessed 07/05/22 04/07/23 17:15 Patient Tobacco Use Status Former Tobacco user 04/07/23 17:15 Tobacco use type Cigarette 04/07/23 17:15 e-Cigarette/Vaping Use Never Used 04/07/23 17:15 Thrive Assessment: Date of Thrive Assessment Date Thrive assessed 03/19/23 04/07/23 17:15 Const Limitations: wheelchair Eyes General: appearance normal, both eyes and all related structures Eyelids: Yes eyelids normal Conjunctivae: conjunctivae normal Neck Neck: Yes normal visual inspection and Yes supple Resp Effort & Inspection: normal respiratory effort Auscultation: clear to auscultation bilaterally Cardio Jugular venous distension: no JVD Rate: regular rate Rhythm: regular rhythm Heart sounds: S1 normal heart sound present and S2 normal heart sound present Extrem Right lower extremity: lower leg Details: non-pitting edema Details: 1+ Left lower extremity: lower leg Details: non-pitting edema Details: 1+ Office Procedures Flu Questionnaire Does the patient have a severe egg allergy?: No Immunizations flu vacc [id number] 6mos up(PF) 60 mcg(15 mcgx4)/0.5 mL IM syringe Performing Provider: Mary Anne Leach MD [facility] Documented (not given) by: ERNIE Mays on 04/07/23 17:37 Reason Not Given: Patient Refused Assessment and Plan Assessment & Plan (1) Lumbar radiculopathy: Code(s): M54.16 - Radiculopathy, lumbar region Plan: Continue gabapentin. (2) Hypertension: Code(s): I10 - Essential (primary) hypertension Qualifiers: Hypertension type: unspecified Qualified Code(s): I10 - Essential (primary) hypertension Plan: Continue amlodipine and lisinopril-hydrochlorothiazide. Blood pressure goal is equal or less than 130/80. (3) High cholesterol: Code(s): E78.00 - Pure hypercholesterolemia, unspecified Plan: Continue statins. (4) Right hip pain: Code(s): M25.551 - Pain in right hip Plan: Follow-up with Ortho. Orders: Orders Influenza [id number] Immunization Today Z23 - Encounter for immunization Coding Level of Care Code Est Pt Level 4 (93166) Diagnoses Lumbar radiculopathy M54.16 Hypertension, unspecified type I10 Hypertension type: unspecified High cholesterol E78.00 Right hip pain M25.551 Time Spent (min) 24
== END 2023-04-07 17:38 | disposition home or self-care (01) ==
PROVIDERS: PCP Nurse Practitioner Family; Visit Provider Internal Medicine
DX: M54.16 Radiculopathy, lumbar region (principal); I10 Essential (primary) hypertension; E78.00 Pure hypercholesterolemia, unspecified; M25.551 Pain in right hip
CPT/HCPCS: 99214

== ENCOUNTER 2023-04-10 13:38 | Outpatient (AMB) | payer OTHER, SELFPAY ==
--- NOTE | 2023-04-10 14:00 | A.OFFVIS_ITS ---
Intake Vital Signs 04/10/23 14:01 Height 5 ft 7 in Intake Visit Reasons: New Prob - Severe Right Hip OA Intake Note: Renny is a 62 year old male who presnets today for a new problem visit with complaints of severe right hip pain. He was seen with [facility] [place] [facility] who ordered xrays and had critical results of the hip. He has significant pain of the hip that affects his AODL Allergies No Known Allergies [No Known Allergies*] Allergy (Verified 04/10/23 14:01) Medication List - Last Reconciled 04/10/23 by Veronique Cook RN acetaminophen 1,000 mg (2 x 500 mg) PO Q8H PRN amlodipine 10 mg PO DAILY 90 days cholecalciferol (vitamin D3) 25 mcg PO DAILY gabapentin 300 mg PO TID lisinopril-hydrochlorothiazide 20-12.5 mg 1 tab PO DAILY 90 days oxycodone 1-2 tabs po q 6 hours prn pain; Partial Fill upon patient request. simvastatin 20 mg PO BEDTIME 90 days HPI New Prob - Severe Right Hip OA HPI Details Renny is a 62 year old man who presents with complaints of severe right hip pain. He complains of pain with daily activity which he says is limiting his ADLs. He was referred here by [facility] [place] [facility]. He says this pain is different than he has had before when treating his back. He had a lumbar spine arthrodesis & discectomy on 03/18/23, L4-S1. He says this surgery helped his back pain and he is feeling better in regards to this. He also has swelling in his bilateral feet, which has been present for the last few weeks. He comes into the office today in severe distress. He describes constant right groin and hip pain. He states he is okay when he is seated but cannot walk. He states he feels that once his back improved with his recent surgery and he was able to walk more comfortably the hip pain became significantly worse. He denies fevers and chills. He had a prior extensive preoperative workup for his spine surgery and his spine surgery went well without any difficulty or complications according to him. He denies numbness and tingling in his legs and states his back pain is greatly improved. He has had hip pain in the past and was told he had early degenerative arthritis. [facility] Medical History Hx of fracture of tibia Substance use disorder Dupuytren's contracture of right hand High cholesterol Hypertension Surgical History History of back surgery Hx of colonoscopy History of hand surgery History of shoulder surgery Family History Mother Cancer Father No problems noted. Sister Breast cancer Social History Household Members: Family Housing: House Are you a primary long term care social worker to a significant other at home: No Do you presently have visiting nurse or other home services: No Alcohol intake: current Alcohol intake frequency: a few times a month Alcohol type: beer Patient Tobacco Use Status: Former Tobacco user Quit Date: 2012 Tobacco use type: Cigarette Years Smoked: 10 e-Cigarette/Vaping Use: Never Used Second Hand Smoke Exposure: Yes Substance Use Type: Marijuana service: No Current occupational status: retired Current occupation: right hand dominant Cognitive needs: Yes Hearing needs: No Vision needs: No Review of Systems Const All systems reviewed & are unremarkable except as noted in HPI and below Physical Exam Const General: no acute distress, alert and awake Orientation/consciousness: patient oriented x3 HEENT Head: Yes normocephalic and Yes atraumatic Mouth: moist mucous membranes Eyes General: appearance normal, both eyes and all related structures EOM: EOMs intact bilaterally Chest Other: no audible wheezing. Resp Other: No audible wheezing Effort & Inspection: normal respiratory effort and able to speak in complete sentences Cardio Other: Radial pulse palpable with no rythmic abnormalities Jugular venous distension: no JVD Back/Spine/Pelvis Cervical Spine: normal cervical lordosis Skin General skin exam: turgor normal Rashes: no rashes Neuro General: patient oriented x3 Extrem Other: Right Hip: 0-90 degrees of flexion passively with mild pain. 10 degrees of abduction with pain and 0 abduction Sharp groin pain with attempts set flexion and internal rotation. Severe antalgia with gait Positive Stinchfield 1+ edema bilateral lower extremities with intact pedal pulses bilaterally. Skin intact to light touch bilateral feet Firing EHL/tib band/got struck/quad/hamstring/psoas @ 5/5 although difficult to accurately assess given hip pain. Psych Appearance: grossly normal Mental Status: mental status grossly normal Speech and movement: Normal speech and movement present Affect: normal affect Attitude: cooperative Results Reviewed Results Reviewed: I personally reviewed relevant radiographs Severe degenerative changes and deformity of the right hip as detailed above concerning for chronic degenerative change as well as acute/chronic trauma/destructive process. Assessment & Plan Assessment & Plan (1) Status post lumbar and lumbosacral fusion by anterior technique: Comment: 03/18/23 Code(s): Z98.1 - Arthrodesis status Plan: Doing well in regards to back pain, feeling better after surgery. (2) Arthritis of right hip: Code(s): M16.11 - Unilateral primary osteoarthritis, right hip Plan: This is a 62-year-old gentleman with severe arthritis of the right hip. In addition there is proximal subluxation of the right hip. It appears to be sequela of avascular necrosis given the loss of the sphericity of the femoral head and the proximal migration is likely a result of the from mild dysplasia. In comparison to his x-rays from 5 years ago this has progressed drastically. He certainly would benefit from hip arthroplasty. I do not think he can continue to function without such a procedure. I had a long discussion with him regarding his diagnosis and the recommended treatment. He has recently undergone large spine surgery and did very well. He was medically cleared for this and I think it is reasonable to fast track his hip arthroplasty. I discussed the risks benefits and alternatives including but not limited to the risk of pain, infection, stiffness, need for further surgery as well as potential medical complications such as blood clots, pulmonary embolism and cardiac complications. In addition I had a long discussion with him regarding the risks of dislocation in the setting of lumbar spine instrumentation. These patients are typically at increased risk for dislocation although that risk is still low. In addition, I cannot exclude an infective process of the right hip. This is unlikely and I have no evidence to suggest infection but additional imaging will be obtained prior to surgery and if that is suspicious hip aspiration can be performed. Unfortunately I think given his recent spine surgery a ESR and CRP are unlikely to be helpful in this situation. In addition he is weaning down from narcotics after his recent spine surgery. I will take over his pain management and have developed with him a plan. He will continue for 1 week on 5 mg oxycodone q.i.d. and we will decrease to t.i.d. next week followed by b.i.d. and then q.day the week prior to his surgery. I had a long discussion with him and his partner regarding this plan and they are amenable to it. He met with our nurse navigator and we will proceed forward accordingly. Plan Scribed for Shar Elmore MD by Homer Cortez, medical unit secretary, on 04/10/23 at 3:00 PM, EST. Orders: Orders MR hip RT wo con Today M16.11 - Unilateral primary osteoarthritis, right hip C Reactive Protein Today M16.11 - Unilateral primary osteoarthritis, right hip Erythrocyte Sedimentation Rate Today M16.11 - Unilateral primary osteoarthritis, right hip Coding Level of Care Code New Pt Level 5 (89731) Diagnoses Status post lumbar and lumbosacral fusion by anterior technique Z98.1 Arthritis of right hip M16.11
== END 2023-04-10 15:51 | disposition home or self-care (01) ==
PROVIDERS: PCP Nurse Practitioner Family; Visit Provider Orthopaedic Surgery
DX: M16.11 Unilateral primary osteoarthritis, right hip (principal); Z98.1 Arthrodesis status; M87.051 Idiopathic aseptic necrosis of right femur
CPT/HCPCS: 99214

== ENCOUNTER → 2023-04-10 13:38 | Outpatient (BNVA) | payer OTHER, SELFPAY | PROVIDERS: PCP Nurse Practitioner Family; Visit Provider Orthopaedic Surgery ==

== ENCOUNTER 2023-04-23 13:33 | Outpatient (REF) | payer OTHER, SELFPAY ==
[2023-04-23 14:29] LABS: C Reactive Protein 1.86 mg/dL (< or = 0.50)
[2023-04-23 14:43] LABS: Erythrocyte Sedimentation Rate 48 MM/HR (0-15)
== END 2023-04-23 13:34 | disposition home or self-care (01) ==
LOC: HO.LAB 13:33
PROVIDERS: PCP Internal Medicine; Visit Provider Orthopaedic Surgery
DX: M16.11 Unilateral primary osteoarthritis, right hip (principal)
CPT/HCPCS: 36415; 85652; 86140

== ENCOUNTER 2023-04-28 17:48 | Outpatient (REF) | payer OTHER, SELFPAY ==
--- NOTE | ~2023-04-28 | MR_ITS ---
EXAMINATION: MR HIP WITHOUT CONTRAST, RIGHT CLINICAL INFORMATION: Unilateral primary osteoarthritis, right hip. COMPARISON: Radiographs dated 04/08/2023. TECHNIQUE: MRI of the right hip was obtained using routine sequences on a high-field strength magnet. FINDINGS: BONES AND ARTICULAR CARTILAGE: As seen radiographically, there is articular cortical collapse of the femoral head superiorly with cortical depression by approximately 2 cm when compared to the contralateral side. The underlying marrow at the right femoral head and neck is edematous. There is high-grade articular cartilage loss at the right hip along both the femoral head and acetabulum. There is associated acetabular bone loss, estimated to be approximately 1 cm in height, with underlying sclerosis and marrow edema signal at the supra-acetabular portion of the right iliac bone. There is associated periosteal edema signal as well. No acetabular fractures. More mpry-to-xuxetpti osteoarthritis is present in the left hip with a small region of chronic avascular necrosis at the femoral head. No evidence of articular cortical collapse or fragment instability. There is kyzo-gv-jqacrnmn osteoarthritis in the pubic symphysis and SI joints. Postsurgical changes of prior lumbar fusion are partially imaged. MUSCLES AND TENDONS: There is bwxr-jo-xmwvwght generalized muscle atrophy in the pelvis. No appreciable tendon tears or significant tendinosis. JOINT FLUID AND BURSAE: There is a large joint effusion with intra-articular debris and minimal periarticular edema signal. Mild synovitis. LIGAMENTUM TERES: Degenerated and chronically torn. INTRAPELVIC SOFT TISSUES: Unremarkable. There is mild colonic diverticulosis. No evidence of acute diverticulitis. MR/MR hip RT wo con IMPRESSION: 1. Marked articular cortical collapse at the right femoral head with end-stage degenerative arthritis at the right hip. There is significant bone loss at the acetabular roof. 2. 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 3. Yyrf-kl-gbhdxlji osteoarthritis in the pubic symphysis and SI joints. 4. Large right hip joint effusion with intra-articular debris and mild synovitis.
== END 2023-04-28 17:49 | disposition home or self-care (01) ==
LOC: HO.MRI 17:48
PROVIDERS: PCP Internal Medicine; Visit Provider Orthopaedic Surgery
DX: M16.11 Unilateral primary osteoarthritis, right hip (principal)
CPT/HCPCS: 73721

== ENCOUNTER 2023-05-01 13:51 | Outpatient (AMB) | payer OTHER, SELFPAY ==
--- NOTE | 2023-05-01 14:09 | A.OFFVIS_ITS ---
Intake Intake Visit Reasons: RT hip pain/ MRI review Intake Note: Renny is a 62 year old male who presents today for an MRI follow up of his right hip. Allergies No Known Allergies [No Known Allergies*] Allergy (Verified 04/10/23 14:01) HPI RT hip pain/ MRI review HPI Details Renny is a 62 year old man who returns for an MRI review of his right hip pain. He reports constant right-sided groin and hip pain. He says he is still limited in his ability to walk due to his pain, but denies any pain when seated. He feels limited in his ADLs and is frustrated by this. At his last appointment surgery was discussed following an MRI, and was scheduled for a right KADIE on 05/13/23. He has been weaning off his Oxycodone use prior to surgery, and is down to 5mg daily. He had a lumbar spine arthrodesis & discectomy on 03/18/23, L4-S1. He says this surgery helped his back pain and he is feeling better in regards to this. He denies numbness and tingling in his legs and states his back pain is greatly improved. His inflammatory markers were elevated but his MRI is notable only for hip OA, severe. [facility]LY [facility] Medical History Hx of fracture of tibia Substance use disorder Dupuytren's contracture of right hand High cholesterol Hypertension Surgical History History of back surgery Hx of colonoscopy History of hand surgery History of shoulder surgery Family History Mother Cancer Father No problems noted. Sister Breast cancer Social History Household Members: Family Housing: House Are you a primary critical care registered nurse to a significant other at home: No Do you presently have visiting nurse or other home services: No Alcohol intake: current Alcohol intake frequency: a few times a month Alcohol type: beer Patient Tobacco Use Status: Former Tobacco user Quit Date: 2012 Tobacco use type: Cigarette Years Smoked: 10 e-Cigarette/Vaping Use: Never Used Second Hand Smoke Exposure: Yes Substance Use Type: Marijuana service: No Current occupational status: retired Current occupation: right hand dominant Cognitive needs: Yes Hearing needs: No Vision needs: No Review of Systems Const All systems reviewed & are unremarkable except as noted in HPI and below Physical Exam Const General: no acute distress, alert and awake Orientation/consciousness: patient oriented x3 HEENT Head: Yes normocephalic and Yes atraumatic Mouth: moist mucous membranes Eyes General: appearance normal, both eyes and all related structures EOM: EOMs intact bilaterally Chest Other: no audible wheezing. Resp Other: No audible wheezing Effort & Inspection: normal respiratory effort and able to speak in complete sentences Cardio Other: Radial pulse palpable with no rythmic abnormalities Jugular venous distension: no JVD Back/Spine/Pelvis Cervical Spine: normal cervical lordosis Skin General skin exam: turgor normal Rashes: no rashes Neuro General: patient oriented x3 Extrem Other: Right Hip: 0-90 degrees of flexion passively with pain 10 degrees of abduction with pain and 0 abduction Sharp groin pain with attempts set flexion and internal rotation. Severe antalgia with gait 1+ edema bilateral lower extremities has IMPROVED but still present with intact pedal pulses bilaterally. Skin intact to light touch bilateral feet Firing EHL/tib band/got struck/quad/hamstring/psoas @ 5/5 although difficult to accurately assess given hip pain. Psych Appearance: grossly normal Mental Status: mental status grossly normal Speech and movement: Normal speech and movement present Affect: normal affect Attitude: cooperative Results Reviewed Results Reviewed: I personally reviewed relevant radiographs & MR images Severe degenerative changes and deformity of the right hip as detailed above concerning for chronic degenerative change as well as acute/chronic trauma/destructive process. 1. Marked articular cortical collapse at the right femoral head with end-stage degenerative arthritis at the right hip. There is significant bone loss at the acetabular roof. 2. 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 3. Vwgo-db-hnatxyxl osteoarthritis in the pubic symphysis and SI joints. 4. Large right hip joint effusion with intra-articular debris and mild synovitis. Assessment & Plan Assessment & Plan (1) Osteoarthritis of right hip: Code(s): M16.11 - Unilateral primary osteoarthritis, right hip Plan: This is a 62 yo M iwth right hip OA that is severe, progressive and intolerable. He cannot ambulate without severe pain, His MRI and plain films show loss of femoral head sphericity and subluxation. He recently underwent lumbar fusion and did well. He has been cleared for surgery by cardiology and medicine. We have discussed surgery at length multiple times and he understands the surgery and my post operative expectations. I discussed the risks benefits and alternatives including but not limited to the risk of pain, infection, stiffness, need for further surgery as well as potential medical complications such as blood clots, pulmonary embolism and cardiac complications. There is an increased risk of dislocation in the presence of spinal fusion and I explained this to him. He is deconditioned and has contralateral hip OA as well which I also explained to him. Plan Scribed for Shar Elmore MD by Homer Cortez, medical delivery driver, on 05/01/23 at 2:30 PM, EST. Coding Level of Care Code Est Pt Level 4 (79532) Diagnoses Osteoarthritis of right hip M16.11
== END 2023-05-01 15:33 | disposition home or self-care (01) ==
PROVIDERS: PCP Internal Medicine; Visit Provider Orthopaedic Surgery
DX: M16.11 Unilateral primary osteoarthritis, right hip (principal)
CPT/HCPCS: 99213

== ENCOUNTER 2023-05-13 09:46 | Inpatient (IN) | payer OTHER, SELFPAY ==
[2023-05-06 09:58] VITALS: BMI 32.9
[2023-05-08 17:36] LABS: MRSA Nasal PCR NEGATIVE (Negative); SA Nasal PCR NEGATIVE (Negative)
--- NOTE | 2023-05-12 09:05 | HO.ANESPROP2 ---
Documented by User: Eva Humphries NP 05/12/23 09:07 HPI - Anesthesia Eval Consult details Narrative: 62yo M for Right Hip Total Replacement s/p OLIF 02/2023 with GA-ETT 7.5. (No anesthesia issues per pt) (Prior to OLIF: Cardiac optimized Chronic opioids ETOH (beer) with chronic low Na) PMFSH Active Problems Active Problems: All Active Problems (Updated 05/06/23 @ 10:02 by Chelsi Guido RN) Arthritis of right hip (Acute) 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 (Acute) Osteoarthritis of right hip (Acute) Right hip pain (Acute) Status post lumbar and lumbosacral fusion by anterior technique (Acute) Lumbar radiculopathy (Acute) Preop cardiovascular exam (Acute) Lumbar scoliosis (Acute) Lumbar stenosis with neurogenic claudication (Acute) Chronic SI joint pain (Acute) Trigger thumb, right thumb (Acute) Hyponatremia (Acute) Preoperative clearance (Acute) Dupuytren's disease of palm of left hand (Acute) Hyponatremia (Acute) Leukocytosis (Acute) Elevated fasting glucose (Acute) Low TSH level (Acute) Low vitamin D level (Acute) Lumbar radiculopathy, acute (Acute) Obesity (BMI 30.0-34.9) (Acute) Screening for prostate cancer (Acute) Screening for hypothyroidism (Acute) Substance use disorder (Acute) Dupuytren's contracture of right hand (Acute) High cholesterol (Acute) Hypertension (Acute) Past Medical History Medical History (Updated 05/06/23 @ 10:02 by Chelsi Guido RN) Chronic, continuous use of opioids Former smoker Hx of fracture of tibia Substance use disorder Dupuytren's contracture of right hand High cholesterol Hypertension Family History Family History Mother Cancer Father No problems noted. Sister Breast cancer Family history of problems with anesthesia: No Surgical History Surgical History (Updated 05/06/23 @ 09:55 by Chelsi Guido RN) History of back surgery Hx of colonoscopy History of hand surgery History of shoulder surgery History of Problems with Anesthesia: No Social History Social History (Updated 05/06/23 @ 09:57 by Chelsi Guido RN) Household Members: Family Housing: House Are you a primary intensive care medicine specialist to a significant other at home: No Do you presently have visiting nurse or other home services: No 75 years or older and lives alone: No Alcohol intake: current Alcohol intake frequency: a few times a month Alcohol type: beer Patient Tobacco Use Status: Former Tobacco user Quit Date: 2012 Tobacco use type: Cigarette Years Smoked: 10 e-Cigarette/Vaping Use: Never Used Second Hand Smoke Exposure: Yes Substance Use Type: Marijuana service: No Current occupational status: retired Current occupation: right hand dominant Cognitive needs: Yes Hearing needs: No Vision needs: No Meds Allergies Allergy/AdvReac Type Severity Reaction Status Date / Time No Known Allergies Allergy Verified 05/06/23 09:56 [No Known Allergies*] Home Medications Medication Instructions Recorded Confirmed Last Taken Type gabapentin 300 mg capsule 300 mg PO TID 12/25/22 05/06/23 01/05/23 History Exam Height,Weight and Vital Signs: Height 5 ft 7 in Weight 95.254 kg Pertinent Lab Results Pertinent Lab Results: Laboratory Tests 05/07/23 05/07/23 05/08/23 16:08 16:25 16:00 Nasal Screen MRSA (PCR) TNP NEGATIVE Nasal S. aureus Screen TNP NEGATIVE Nasal MRSA/S.aureus Interp TNP SEE NOTE Blood Type O Positive Antibody Screen NEGATIVE Laboratory Tests 03/18/23 09:28 WBC 11.0 H Hgb 15.3 Hct 44.7 Plt Count 522 H Sodium 134 L Potassium 4.2 Chloride 95 L Carbon Dioxide 24 BUN 13 Creatinine 0.84 Narrative Narrative: EKG 12/2022 sinus tachycardia with incomplete right bundle-branch block, unchanged from few days ago ECHO 12/2022 Conclusions: - The left ventricular systolic function is hyperdynamic.? The ? visually estimated ejection fraction is >70%.? - Moderately increased right ventricular cavity size.? - No obvious valvular pathology seen on this study.? ? ? NM aracelis perf SPECT rest & str 12/2022 Impression: ? 1.? Myocardial perfusion imaging study shows likely normal myocardial perfusion 2.? Gated LVEF is 67% 3. Transient ischemic dilatation not present ? EKG is nondiagnostic for ischemia Assessment and Plan Assessment Anesthesia Assessment: Chart Reviewed Final Anesthetic Review Family History of Problems with Anesthesia: No History of Problems with Anesthesia: No Documented by User: Samson Max MD 05/13/23 08:10 PMFSH Past Medical History Medical History (Updated 05/06/23 @ 10:02 by Chelsi Guido RN) Chronic, continuous use of opioids Former smoker Hx of fracture of tibia Substance use disorder Dupuytren's contracture of right hand High cholesterol Hypertension Family History Family History Mother Cancer Father No problems noted. Sister Breast cancer Surgical History Surgical History (Updated 05/06/23 @ 09:55 by Chelsi Guido RN) History of back surgery Hx of colonoscopy History of hand surgery History of shoulder surgery Social History Social History (Updated 05/06/23 @ 09:57 by Chelsi Guido RN) Household Members: Family Housing: House Are you a primary intensive care medicine specialist to a significant other at home: No Do you presently have visiting nurse or other home services: No 75 years or older and lives alone: No Alcohol intake: current Alcohol intake frequency: a few times a month Alcohol type: beer Patient Tobacco Use Status: Former Tobacco user Quit Date: 2012 Tobacco use type: Cigarette Years Smoked: 10 e-Cigarette/Vaping Use: Never Used Second Hand Smoke Exposure: Yes Substance Use Type: Marijuana service: No Current occupational status: retired Current occupation: right hand dominant Cognitive needs: Yes Hearing needs: No Vision needs: No Meds Allergies Allergy/AdvReac Type Severity Reaction Status Date / Time No Known Allergies Allergy Verified 05/06/23 09:56 [No Known Allergies*] Home Medications Medication Instructions Recorded Confirmed Last Taken Type gabapentin 300 mg capsule 300 mg PO TID 12/25/22 05/06/23 01/05/23 History Exam Airway Mallampati Class: III TM Dist: >3cm Neck ROM: Limited Heart: rrr Lungs: cta Assessment and Plan Assessment Anesthesia Assessment: Anesthesia Plan Discussed Final Anesthetic Review NPO: Yes ASA Class: III Final Preanesthetic Review: No Changes in Pt Med Stat, Meds/Allgs Chart Reviewed, Consent Obtained/Reviewed and Anes Risks/Benef Reviewed Patient Risk: Intermediate Procedure Risk: Intermediate Anesthetic Plan Anesthetic Plan: GA and Agree w/ Assess. and Plan Disposition: Standard PACU
[2023-05-13] VITALS (16 sets, daily range): BP systolic 99–142; BP diastolic 48–88; PULSE 92–116; RESP 12–24; TEMP 36.3–36.9; O2SAT 93–100
--- NOTE | ~2023-05-13 | XR_ITS ---
EXAMINATION: XR PELVIS CLINICAL INFORMATION: Right total hip arthroplasty. COMPARISON: April 08, 2023 TECHNIQUE: 2 views of the lower pelvis. FINDINGS: Patient is status post right total hip arthroplasty. The femoral and acetabular components appear in good position. No fracture is appreciated. No evidence of loosening. Patient has previous lumbar spine intervention. XR/XR pelvis 1-2V IMPRESSION: Satisfactory appearance status post right total hip arthroplasty.
[2023-05-13] MEDS: oxyCODONE HCl ER 10 MG TAB.ER.12H PO ×2 (09:58→21:59)
[2023-05-13] MEDS: Lactated Ringers 1,000 ML 100 ML IVCONT ×2 (10:46→17:07)
--- NOTE | 2023-05-13 13:22 | PM.OP ---
Brief Operative Note Date of Service: 05/13/23 Pre-op diagnosis: Right hip OA Post-op diagnosis: same Procedure: Right KADIE Implants: Kassie: Trident2 52/ lipped liner Accolade 2 #5 127 deg with +2.5 36 ceramic Surgeon: Shar Elmore MD Anesthesia: GETA Was an Grain [employer] Farmworker used for this Procedure?: Yes Grain I Farmworker: Jose Juan Casillas Estimated blood loss (mL): 300 IV fluids (mL): 1,000 Pathology: other Condition: stable Disposition: PACU
[2023-05-13] MEDS: fentaNYL citrate/PF 100 MCG/2 ML VIAL 50 MCG IVPUSH ×2 (13:32→13:37)
[2023-05-13] MEDS: HYDROmorphone HCl 0.5 MG/0.5 ML SYRINGE IVPUSH ×5 (13:42→23:28)
[2023-05-13] MEDS: LORazepam 2 MG/ML VIAL 1 MG IVPUSH (13:58)
--- NOTE | 2023-05-13 16:55 | P.CONIM_ITS ---
History of Present Illness Data of Consult Service Date: 05/13/23 Primary Care Provider: Mary Anne Leach MD HPI Reason for consult: medical management A 62 years old male with PMH of HTN, neuropathy, lumber stenosis among others who presents for elective hip replacement. denies any fever or chills. pain is under fair control after surgery. denies smoking ciggarettes but reports drinking socially. Blood pressure fairly controlled as outpatient on current medications. Hospitalist team was asked to evaluate the patient for medical problems. Review of Systems Review of Systems: No fever, chills or weakness No chest pain, palpitation No shortness of breath or coughing No abdominal pain, nausea or vomiting No urinary symptoms pain under fair control PMFSH Medical History Chronic, continuous use of opioids Former smoker Hx of fracture of tibia Substance use disorder Dupuytren's contracture of right hand High cholesterol Hypertension Family History Mother Cancer Father No problems noted. Sister Breast cancer Surgical History History of back surgery Hx of colonoscopy History of hand surgery History of shoulder surgery Social History Household Members: Family Housing: House Are you a primary child daycare worker to a significant other at home: No Do you presently have visiting nurse or other home services: No Alcohol intake: current Alcohol intake frequency: a few times a month Alcohol type: beer Comment: COUNTS CORRECT Patient Tobacco Use Status: Former Tobacco user Quit Date: 2012 Tobacco use type: Cigarette Years Smoked: 10 e-Cigarette/Vaping Use: Never Used Second Hand Smoke Exposure: Yes Use of substances other than those prescribed or required for medical reasons: Yes Substance Use Type: Marijuana Substance Use Frequency: Occasionally Have you been hit, kicked, punched, or otherwise hurt by someone within the past year? If so, by whom?: No Are you DNR?: No Advance Directives: No Advance Directives Information Provided: Yes Advance Directives on File: No Recently lost weight without trying: No service: No Current occupational status: retired Current occupation: right hand dominant Cognitive needs: Yes Hearing needs: No Vision needs: No Meds Allergies Allergy/AdvReac Type Severity Reaction Status Date / Time No Known Allergies Allergy Verified 05/06/23 09:56 [No Known Allergies*] Active Medications: Current Medications Acetaminophen (Acetaminophen 325 Mg Tablet) 650 mg PO Q6H PRN PRN Reason: Pain, Mild (Pain Scale 1-3) Aspirin (Aspirin 325 Mg Tablet) 325 mg PO BID [facility] Celecoxib (Celecoxib 200 Mg Capsule) 200 mg PO BID [facility] Lisinopril 20 mg/ (Hydrochlorothiazide 12.5 mg) 0 mg PO DAILY [facility] Docusate Sodium (Docusate Sodium 100 Mg Capsule) 100 mg PO BID [facility] Gabapentin (Gabapentin 300 Mg Capsule) 300 mg PO TID [facility] Hydromorphone HCl (Hydromorphone Hcl 0.5 Mg/0.5 Ml Syringe) 0.5 mg IVPUSH Q10M PRN; Protocol PRN Reason: Pain, Severe (Pain Scale 7-10) Hydromorphone HCl (Hydromorphone Hcl 0.5 Mg/0.5 Ml Syringe) 0.5 mg IVPUSH Q3H PRN; Protocol PRN Reason: Pain, Severe (Pain Scale 7-10) Lactated Ringer's (Lr) 1,000 mls @ 100 mls/hr IVCONT .Q10H [facility] Stop: 05/14/23 13:23 Cefazolin Sodium/Dextrose (Ancef) 2 gm in 50 mls @ 100 mls/hr IV POSTOP ONE Stop: 05/13/23 17:29 Ondansetron HCl (Ondansetron Hcl 4 Mg/2 Ml Vial) 4 mg IVPUSH Q8H PRN PRN Reason: Nausea and Vomiting Oxycodone HCl (Oxycodone Hcl Immed Release 5 Mg Tablet) 10 mg PO Q4H PRN PRN Reason: Pain, Moderate(Pain Scale 4-6) Oxycodone HCl (Oxycodone Hcl Er 10 Mg Tab.Er.12h) 10 mg PO BID [facility] Sodium Chloride (0.9 % Sodium Chloride Flush 3 Ml Syringe) 3 ml IVFLUSH QSHIFT [facility] Home Medications Medication Instructions Recorded Confirmed Last Taken Type gabapentin 300 mg capsule 300 mg PO TID 12/25/22 05/13/23 05/12/23 History Physical Exam Vital Signs and Narrative: Vital Signs: Last Vital Signs Temp 97.7 F 05/13/23 15:57 Pulse 107 H 05/13/23 15:57 Resp 16 05/13/23 15:57 BP 116/72 05/13/23 15:57 Pulse Ox 100 05/13/23 15:57 O2 Del Method Nasal Cannula wit h Capnography 05/13/23 15:57 O2 Flow Rate 2 05/13/23 15:57 BMI result Body Mass Index 32.9 Const: Other: Constitutional : Awake, interactive, not in distress Neck : Normal inspection, Supple Cardiovascular : RRR, no JVP, no lower extremity edema Respiratory : good bilateral air entry, no crackles, wheezes or rhonchi Gastrointestinal: soft, lax, Normal bowel sounds, Non tender Skin : Warm, Dry Skeletal: right hip covered with dressing w no drainage or erythema Neurological : Alert & oriented x3, No focal deficit Assessment and Plan (1) Arthritis of right hip: Status: Acute Plan A 62 years old male with PMH of HTN, neuropathy, lumber stenosis among others who presents for elective hip replacement. HTN Hold amlodipine, can be restarted on day 2 start HCT and Lisinopril Neuropathy patient would like to lower Gabapentin, to decrease to 200 tid HLD Statin Hip replacement per orthopedic team Thank you for the consult will sign off now. please contact hospitalist team with any questions
[2023-05-13] MEDS: Gabapentin 300 MG CAPSULE PO ×2 (17:05→19:50)
[2023-05-13] MEDS: ceFAZolin Sodium/Dextrose,Iso 2 GM/50 ML PIGGYBACK IV (17:06)
[2023-05-13] MEDS: 0.9 % Sodium Chloride Flush 3 ML SYRINGE IVFLUSH ×2 (17:07→23:28)
[2023-05-13] MEDS: oxyCODONE HCl Immed Release 5 MG TABLET 10 MG PO (19:45)
--- NOTE | 2023-05-13 19:46 | PHA.MEDREC ---
Pharmacy Consult ? Medication Reconciliation Pharmacy has completed the medication reconciliation. Spoke to patient and confirmed medication list.
[2023-05-13] MEDS: Celecoxib 200 MG CAPSULE PO (19:50)
[2023-05-13] MEDS: Docusate Sodium 100 MG CAPSULE PO (19:50)
[2023-05-13] MEDS: Throat Lozenge, Medicated LOZENGE 1 LOZENGE MUCOUS MEM (23:31)
[2023-05-14] MEDS: HYDROmorphone HCl 0.5 MG/0.5 ML SYRINGE IVPUSH ×3 (02:37→17:34)
[2023-05-14] MEDS: Lactated Ringers 1,000 ML 100 ML IVCONT (02:42)
[2023-05-14 02:59] VITALS: BP 121/72; PULSE 102; RESP 18; TEMP 36.6; O2SAT 93
[2023-05-14 06:37] LABS: Basophils Percent Auto 0.2 % (0-2); Eosinophils Percent Auto 0.1 % (0-4); Hematocrit 31.8 % (42.0-52.0); Hemoglobin 11.1 g/dl (14.0-18.0); Imm Gran Abs Auto 0.09 X10*3/uL (0.00-0.03); Imm Gran Pct Auto 0.6 % (0.0-0.4); Lymphocytes Absolute Auto 1.4 X10*3/uL (1.2-4.9); Lymphocytes Percent Auto 8.6 % (20-40); MANUAL DIFF FLAG SCAN; Mean Corpuscular HGB Conc 34.9 g/dl (31.0-36.0); Mean Corpuscular Hemoglobin 30.5 pg (27.0-33.0); Mean Corpuscular Volume 87.4 fL (80.0-98.0); Mean Platelet Volume 9.5 fL (9.4-12.4); Monocytes Absolute Auto 1.6 X10*3/uL (0.1-1.2); Monocytes Percent Auto 9.9 % (2-11); Neutrophils Percent Auto 80.6 % (45-73); Platelet Count 371 X10*3/uL (160-400); Red Blood Count 3.64 X10*6/uL (4.60-5.80); Red Cell Distribution Width 12.3 % (11.0-16.0); SCAN SMEAR FLAG 1; White Blood Count 16.1 X10*3/uL (4.8-10.8)
[2023-05-14 06:53] LABS: Anion Gap 14 (12-20); Blood Urea Nitrogen 13 mg/dL (9-16); Calcium 8.7 mg/dL (8.4-10.2); Carbon Dioxide 24 mmol/L (22-29); Chloride 96 mmol/L (96-108); Creatinine Clr Calc Pharmacy 105.2; Estimated Glomerular Filt Rate > 60; Glucose Fasting 148 mg/dL (60-99); Potassium 4.2 mmol/L (3.3-5.1); Sodium 130 mmol/L (135-145)
[2023-05-14 07:35] VITALS: BP 109/63; PULSE 97; RESP 18; TEMP 36.9; O2SAT 95
--- NOTE | 2023-05-14 08:03 | PM.PNORT ---
Subjective Subjective Date of Service: 05/14/23 Interval history: POD1 s/p RTHA Patient is resting in bed comfortably No overnight events Pain is managed No additional complaints Physical Exam Vital Signs: Vital Signs: Last Vital Signs Temp 98.4 F 05/14/23 07:35 Pulse 97 05/14/23 07:35 Resp 18 05/14/23 07:35 BP 109/63 05/14/23 07:35 Pulse Ox 95 05/14/23 07:35 O2 Del Method Room Air 05/14/23 07:35 O2 Flow Rate 2 05/13/23 15:57 BMI result Body Mass Index 32.9 Const: General: cooperative, healthy appearing and no acute distress Resp: Effort & Inspection: normal respiratory effort and able to speak in complete sentences Cardio: Rate: regular rate Peripheral pulses: Peripheral pulses 2+ throughout GI: Palpation (GI): Soft to palpation Skin: Lesions: no lesions Rashes: no rashes Extrem: Other: Right hip dressing is c/d/i. Able to dorsi/plantar flex. Calf is supple and nontender. Sensation intact. Pedal pulse intact. Procedures Date of Service Date of Service: 05/14/23 Progress Note: A&P Assessment and plan (1) Status post total replacement of right hip: Status: Acute Assessment and Plan: Continue pain mgmnt Begin ASA for dvt ppx Continue PT for RTHA Dispo planning-PT, pain mgmnt Patient needs ongoing hospitalization for physical therapy for safe transition home, obesity, hx of substance abuse, and HTN management Time Spent With Patient Time: Total time managing care of this patient today ____ minutes. Quality Stroke Does the patient have a stroke diagnosis?: No VTE Prior VTE?: No VTE Risk Level:: Medical - moderate - high VTE Device Contraindication: N/A - Device Ordered VTE Drug Contraindication: N/A - Med Ordered
[2023-05-14] MEDS: oxyCODONE HCl Immed Release 5 MG TABLET 10 MG PO ×4 (08:53→23:19)
[2023-05-14] MEDS: oxyCODONE HCl ER 10 MG TAB.ER.12H PO ×2 (08:53→19:00)
[2023-05-14] MEDS: Celecoxib 200 MG CAPSULE PO ×2 (08:54→18:59)
[2023-05-14] MEDS: lisinopriL 20 MG, hydroCHLOROthiazide 12.5 MG PO (08:55)
[2023-05-14] MEDS: Gabapentin 300 MG CAPSULE PO ×3 (08:55→18:59)
[2023-05-14] MEDS: Docusate Sodium 100 MG CAPSULE PO ×2 (08:55→18:59)
[2023-05-14 10:04] LABS: SLIDE REVIEW VERIFIED
--- NOTE | 2023-05-14 10:37 | HO.POSTANES ---
Post Anesthesia Evaluation Post Anesthesia Evaluation Date of Service: 05/14/23 Vital Signs: Vital Signs Temp Pulse Resp BP Pulse Ox O2 Del Method 05/14/23 07:35 98.4 F 97 18 109/63 95 Room Air 05/14/23 02:59 97.9 F 102 H 18 121/72 93 Room Air 05/13/23 23:52 97.8 F 102 H 18 117/68 93 Room Air Anesthesia: General Mental Status: Awake Pain Control: Satisfactory Nausea/Vomiting: None Hydration: Adequate Anesthesia-Related Issues: No Anes. Related Issues
[2023-05-14] MEDS: Aspirin 325 MG TABLET PO ×2 (12:25→18:59)
[2023-05-14 16:00] VITALS: BP 120/71; PULSE 100; RESP 18; TEMP 36.1; O2SAT 93
[2023-05-14] MEDS: 0.9 % Sodium Chloride Flush 3 ML SYRINGE IVFLUSH (17:23)
[2023-05-14] MEDS: Acetaminophen 325 MG TABLET 650 MG PO (19:00)
--- NOTE | 2023-05-14 19:45 | PC.NURSE ---
REED Todd reported that we can keep IV out and PRETTY Ferrera was notified
[2023-05-14 20:00] VITALS: BP 129/68; PULSE 99; RESP 18; TEMP 36.4; O2SAT 95
--- NOTE | 2023-05-14 23:41 | PC.NURSE ---
patient refused to have new IV inserted,would like to be waken up q 4 hrs for pain med,REED Garay made aware
[2023-05-15] MEDS: oxyCODONE HCl Immed Release 5 MG TABLET 10 MG PO ×3 (03:35→15:12)
[2023-05-15 04:00] VITALS: BP 123/63; PULSE 100; RESP 19; TEMP 36.4; O2SAT 94
--- NOTE | 2023-05-15 06:17 | P.DS_ITS ---
DS: Providers Provider Date of Service: 05/15/23 Date of admission: 05/13/23 09:46 Primary care physician: Mary Anne Leach MD Consults: 05/13/23 16:30 Consult to Hospitalist Routine Comment: Consulting Provider: Hospitalist Reason For Exam: htn/ opiate dependence DS: Diagnosis Discharge Diagnosis (1) Status post total replacement of right hip: Status: Acute DS: Summary Hospital Course Hospital Course: The patient underwent a successful right total hip arthroplasty on 05/13/23, was transferred to PACU and then to the floor to recover. During their stay, their vitals were stable, afebrile at 97.4 . Labs were unremarkable, H/H 11.3/33.0. POD 1 he was started on ASA 325mg tabs po twice a day for DVT ppx, they also received Physical Therapy/Occupational therapy services twice a day. Physical therapy should include gait training, core and lumbar strength, glute strength. Posterior precautions intact. WBAT. Prior to discharge, her dressing was changed, incision clean dry and intact, new Aquacel dressing applied. The Aquacel dressing should remain intact and dry at all times. Any concerns with the dressing, please contact orthopedic office. No showering. The plan is to be discharged home with VNA services Post op appt: 05/29/23 2:30 [facility] Orthopedic Surgeons Shar Elmore MD Time Attestation Discharge coordination time: Less than 30 minutes Quality: Safe Use of Opioids Does Pt have an Active Cancer Diagnosis on the Problem List?: No Quality: Stroke Does the patient have a stroke diagnosis?: No Physical Exam Vital Signs: Vital Signs: Last Vital Signs Temp 97.6 F 05/15/23 04:00 Pulse 100 05/15/23 04:00 Resp 19 05/15/23 04:00 BP 123/63 05/15/23 04:00 Pulse Ox 94 05/15/23 04:00 O2 Del Method Room Air 05/15/23 04:00 O2 Flow Rate 2 05/13/23 15:57 BMI result Body Mass Index 32.9 Const: General: cooperative, healthy appearing and no acute distress Resp: Effort & Inspection: normal respiratory effort and able to speak in complete sentences Cardio: Rate: regular rate Peripheral pulses: Peripheral pulses 2+ throughout GI: Palpation (GI): Soft to palpation Skin: Lesions: no lesions Rashes: no rashes Extrem: Other: Right hip dressing is c/d/i. Able to dorsi/plantar flex. Calf is supple and nontender. Sensation intact. Pedal pulse intact. DS: Data Data Completed and Pending Completed studies during hospitalization [Text1]: Procedures Excision of Lumbosacral Disc, Open Approach (03/18/23) Fusion of 2 or more Lumbar Vertebral Joints with Interbody Fusion Device, Anterior Approach, Anterior Column, Open Approach (03/18/23) Insertion of Interspinous Process Spinal Stabilization Device into Lumbosacral Joint, Open Approach (03/18/23) Pending studies at discharge: Pending at discharge 05/13/23 12:57 Surgical [PTH] Routine Labs on day of discharge: Laboratory Results - last 24 hr 05/14/23 05:29 WBC 16.1 H RBC 3.64 L D Hgb 11.1 L D Hct 31.8 L D MCV 87.4 MCH 30.5 MCHC 34.9 RDW 12.3 Plt Count 371 D MPV 9.5 Immature Gran % (Auto) 0.6 H Neut % (Auto) 80.6 H Lymph % (Auto) 8.6 L Griggs % (Auto) 9.9 Eos % (Auto) 0.1 Baso % (Auto) 0.2 Lymph # (Auto) 1.4 Griggs # (Auto) 1.6 H Eos # (Auto) 0.0 Baso # (Auto) 0.0 Abs Immat Gran (auto) 0.09 H Absolute Neuts (auto) 13.0 H Absolute Nucleated RBC 0.000 Nucleated RBC % (auto) 0.0 Smear Tech's Comments VERIFIED Sodium 130 L Potassium 4.2 Chloride 96 Carbon Dioxide 24 Anion Gap 14 BUN 13 Creatinine 0.79 Estim Creat Clear Calc 105.2 Estimated GFR > 60 Fasting Glucose 148 H Calcium 8.7 D Discharge Plan Discharge Anticipated Discharge Date/Time: 05/14/23 15:06 Patient Disposition: Home Health Service Discharge Diagnosis: s/p RTHA Referrals: Shar Elmore MD [Physician] - 05/29/23 2:30 pm Discharge Medications: New acetaminophen 325 mg Tablet 650 mg PO Q6H PRN (Reason: Pain, Mild (Pain Scale 1-3)) 30 Days Qty: 240 0RF aspirin 325 mg Tablet 325 mg PO BID 42 Days Qty: 84 0RF celecoxib 200 mg Capsule 200 mg PO BID 30 Days Qty: 60 0RF oxycodone 10 mg tablet 10 mg PO Q4H PRN (Reason: Pain, Moderate(Pain Scale 4-6)) 7 Days Qty: 42 0RF Rx Instructions: Partial Fill upon patient request. docusate sodium 100 mg Capsule 100 mg PO BID 30 Days Qty: 60 0RF Continued cholecalciferol (vitamin D3) 25 mcg (1,000 unit) tablet 25 mcg PO DAILY Qty: 90 3RF amlodipine 10 mg tablet 10 mg PO DAILY 90 Days Qty: 90 1RF lisinopril-hydrochlorothiazide 20-12.5 mg tablet 1 tab PO DAILY 90 Days Qty: 90 1RF simvastatin 20 mg tablet 20 mg PO BEDTIME 90 Days Qty: 90 1RF oxycodone 5 mg tablet 5 mg PO BID PRN (Reason: pain) Qty: 14 0RF gabapentin 300 mg capsule 300 mg PO TID Discharge Orders: Discharge Order (Routine); Ordered 05/15/23 Ordered By: Jose Juan Casillas Diet: Advance to usual diet Activity on Discharge: Use cane or walker Stand Alone Forms: Patient Portal Discharge page Care Plan Goals: restore fxn to right hip Health Concerns: none Plan of Treatment: Physical Therapy for total hip arthroplasty: posterior precautions, gait training, ROM, strength Limit stair climbing No showering, no tub bath-keep dressing clean, dry and intact No driving x6 weeks Continue Aspirin tabs x 6 weeks Follow up with [facility] Orthopedics in 2 weeks Assessment: stable for d/c
[2023-05-15 06:28] LABS: Basophils Absolute Auto 0.1 X10*3/uL (0.0-0.2); Basophils Percent Auto 0.7 % (0-2); Eosinophils Absolute Auto 0.7 X10*3/uL (0.0-0.4); Eosinophils Percent Auto 4.6 % (0-4); Hemoglobin 11.3 g/dl (14.0-18.0); Imm Gran Abs Auto 0.12 X10*3/uL (0.00-0.03); Imm Gran Pct Auto 0.8 % (0.0-0.4); MANUAL DIFF FLAG SCAN; Mean Corpuscular HGB Conc 34.2 g/dl (31.0-36.0); Mean Corpuscular Hemoglobin 30.1 pg (27.0-33.0); Mean Platelet Volume 9.2 fL (9.4-12.4); Monocytes Absolute Auto 1.7 X10*3/uL (0.1-1.2); Neutrophils Absolute Auto 9.9 x10*3/uL (2.0-8.3); Neutrophils Percent Auto 67.9 % (45-73); Platelet Count 338 X10*3/uL (160-400); Red Blood Count 3.75 X10*6/uL (4.60-5.80); Red Cell Distribution Width 12.8 % (11.0-16.0); SCAN SMEAR FLAG 1; White Blood Count 14.5 X10*3/uL (4.8-10.8)
[2023-05-15 06:47] LABS: SLIDE REVIEW VERIFIED
[2023-05-15 06:49] LABS: Anion Gap 12 (12-20); Blood Urea Nitrogen 10 mg/dL (9-16); Calcium 9.2 mg/dL (8.4-10.2); Carbon Dioxide 27 mmol/L (22-29); Chloride 98 mmol/L (96-108); Creatinine Clr Calc Pharmacy 112.3; Estimated Glomerular Filt Rate > 60; Glucose Fasting 115 mg/dL (60-99); Potassium 4.2 mmol/L (3.3-5.1); Sodium 133 mmol/L (135-145)
[2023-05-15 08:00] VITALS: BP 123/68; PULSE 106; RESP 18; TEMP 37; O2SAT 94
--- NOTE | 2023-05-15 08:22 | W.MHC.F2F ---
Service Date Service Date: 05/15/23 Encounter Date of encounter: 05/15/23 Reasons for Services Signs and symptoms assessed: s/p RTHA. Pt. is considered homebound due to recent surgery. Unable to drive, poor balance, poor gait mechanics. Reason for physical therapy: home safety and mobility, therapeutic exercises, restore joint function, gait/transfer training, assess need for DME and ADL training Reason for occupational therapy: home safety and mobility, therapeutic exercises, restore joint function, gait/transfer training, assess need for DME and ADL training Homebound: Leaving the home is medically contraindicated at this time without the asist of a device and/or another person due th the listed conditions above and below. Reason homebound: unsteady gait / fall risk, leg weakness, pain with ambulation, pain with transfers, poor balance / fall risk and unable to drive Certification: Based on the above findings, I certify that this patient is confined to the home and needs intermittent prison care, physical therapy and/or speech therapy, or continues to need occupational therapy. The patient is under my care, and I have initiated the establishment of the plan of care. The patient will be followed by a physician who will periodically review the plan of care. Time Spent With Patient Time: Total time managing care of this patient today ____ minutes.
--- NOTE | 2023-05-15 08:53 | W.PM.OPN ---
Operative Note Operative Note Date of Service: 05/13/23 Narrative: Date of Service: 05/13/23 Pre-op diagnosis: Right hip OA Post-op diagnosis: same Procedure: Right KADIE Implants: [place]: Trident2 52/ lipped liner Accolade 2 #5 127 deg with +2.5 36 ceramic Surgeon: Shar Elmore MD Anesthesia: GETA Was an Radiopharmacist used for this Procedure?: Yes Radiopharmacist: Jose Juan Casillsa Estimated blood loss (mL): 300 IV fluids (mL): 1,000 Pathology: other Condition: stable Disposition: PACU Procedure in detail: Patient was brought into the operating room and placed in the right lateral decubitus position. All bony prominences were well padded and the limb was prepped and draped in standard sterile fashion. A time-out was called to identify proper site procedure proper surgeon IV antibiotics and 1 g of tranexemic acid were administered. I began by making a curvilinear incision over the posterolateral aspect of the greater trochanter. Dissection was taken down to the tensor fascia which was incised in line with the incision and a Charnley retractor was placed. Cautery was used to maintain hemostasis. The hip was internally rotated and the external rotators were identified. The vessels were cauterized and a full-thickness capsular/external rotator layer was developed starting just proximal to the piriformis. This layer was tagged and a dull Hohmann retractor was placed underneath the neck in the hip was dislocated. The head was deformed and diminutive. There was normal appearing synovial fluid. A neck cut was made 1 cm proximal to the lesser trochanter and the head and neck were removed. I then removed the labrum and cauterized the fovea. I started with a 46 reamer and medialized to the inner table. I sequentially reamed up to a size 51 and impacted a 52mm cup at 45 degrees of inclination and 25 degrees of version. There was superior and anterior ersion of the acetabulum but I was able to recreate a stable acetabulum. I elected to place two acetabular screws. This was done using standard AO technique. Botyh were bicortical. I packed reaming into the defect once the cup and screws were in place. I then placed a 20 deg posterior lipped liner and turned my attention to the femur. I identified the piriformis insertion and used this as a starting point for my cookie cutter. The medius tendon was protected with a Hibs retractor. A Charnley awl was inserted in the canal and a curved curette used to remove the lateral bone. I irrigated copiously. I then sequentially broached in the patient's natural version to a size 5 and placed my trial implants. I used a #5/127/+2.5 based on my pre-operative template. Using a trail head I took the hip through range of motion. I was satisfied with the stability and length. I removed all instrumentation and copiously irrigated. I placed my final femoral implant and again took the hip through range of motion and was satisfied with the stability and length. The final 2.5 implant was impacted in place and the hip reduced. I then irrigated and placed 1 g of local tranexemic acid. I performed a capsular closure with 2.0 fiberwire, Jraed's fascia with 0 Vicryl, subcuticular with 2-0 Vicryl and the skin with camron. Patient was placed into a sterile dressing. Patient was extubated brought to the recovery room in stable condition. There were no known complications.
--- NOTE | 2023-05-15 09:11 | MHC.CM.PN ---
EMR REVIEWED. PATIENT IS MEDICALLY CLEARED FOR DC. PLAN IS HOME W/ NEW [facility]. TO TRANSPORT AND WILL STORE MGR ~4PM. RN AWARE. [facility] AWARE OF DC.
[2023-05-15] MEDS: Gabapentin 300 MG CAPSULE PO ×2 (09:12→15:13)
[2023-05-15] MEDS: Aspirin 325 MG TABLET PO (09:12)
[2023-05-15] MEDS: Docusate Sodium 100 MG CAPSULE PO (09:12)
[2023-05-15] MEDS: Celecoxib 200 MG CAPSULE PO (09:12)
[2023-05-15] MEDS: oxyCODONE HCl ER 10 MG TAB.ER.12H PO (09:14)
[2023-05-15] MEDS: lisinopriL 20 MG, hydroCHLOROthiazide 12.5 MG PO (09:16)
== END 2023-05-15 16:07 | disposition home health service (06) | DRG 470 ==
LOC: HO.SSSA 09:50 → HO.S3 15:50
PROVIDERS: Orthopaedic Surgery; Admitting Provider Physician Assistant; PCP Internal Medicine; Visit Provider Physician Assistant
PROC: 0SR903A Replacement of Right Hip Joint with Ceramic Synthetic Substitute, Uncemented, Open Approach (ICD-10-PCS; CPT 27130; principal; 2023-05-13 11:50)
DX: M16.11 Unilateral primary osteoarthritis, right hip (principal); E78.5 Hyperlipidemia, unspecified; G62.9 Polyneuropathy, unspecified; Z87.891 Personal history of nicotine dependence; Z79.899 Other long term (current) drug therapy
CPT/HCPCS: 36415; 72170; 80048; 85025; 86850; 86900; 86901; 87640; 87641; 88304; 88311; 97116; 97162; 97166; 97530; 97535; 99024; C1713; C1776; J0131; J0690; J1100; J1170; J1885; J2060; J2371; J2405; J2704; J2795; J3010; J7120

== ENCOUNTER → 2023-05-13 09:46 | Outpatient (BNV) | payer OTHER, SELFPAY | PROVIDERS: Admitting Provider Physician Assistant; PCP Internal Medicine; Visit Provider Student in an Organized Health Care Education/Training Program | DX: M16.11 Unilateral primary osteoarthritis, right hip (principal) | CPT/HCPCS: 99221 ==

== ENCOUNTER → 2023-05-13 09:46 | Outpatient (BNV) | payer OTHER, SELFPAY | PROVIDERS: Admitting Provider Physician Assistant; PCP Internal Medicine; Visit Provider Orthopaedic Surgery | DX: Z96.641 Presence of right artificial hip joint (principal) | CPT/HCPCS: 27130; 99024 ==

== ENCOUNTER 2023-05-20 10:40 | Outpatient (AMB) | payer OTHER, SELFPAY ==
--- NOTE | 2023-05-20 10:42 | A.OFFVIS_ITS ---
Intake Intake Visit Reasons: PO- RT KADIE 05/13/23 NE bandage change Intake Note: Renny is a 62 year old male who presnets today s/p Right KADIE 05/13/23 for a bandage change Allergies No Known Allergies [No Known Allergies*] Allergy (Verified 05/06/23 09:56) HPI PO- RT KADIE 05/13/23 NE bandage change HPI Details 62-year-old male who returns to the [facility] today for post-op right KADIE, 05/13/[address] Elmore. He presents today for a bandage change. He is doing well overall and has no concerns. [facility] Medical History Chronic, continuous use of opioids Former smoker Hx of fracture of tibia Substance use disorder Dupuytren's contracture of right hand High cholesterol Hypertension Surgical History History of back surgery Hx of colonoscopy History of hand surgery History of shoulder surgery Family History Mother Cancer Father No problems noted. Sister Breast cancer Social History Household Members: Spouse Housing: House Are you a primary rn home care to a significant other at home: No Do you presently have visiting nurse or other home services: No 75 years or older and lives alone: No Alcohol intake: current Alcohol intake frequency: a few times a month Alcohol type: beer Comment: COUNTS CORRECT Patient Tobacco Use Status: Former Tobacco user Quit Date: 2012 Tobacco use type: Cigarette Years Smoked: 10 e-Cigarette/Vaping Use: Never Used Second Hand Smoke Exposure: Yes Substance Use Type: Marijuana service: No Current occupational status: retired Current occupation: right hand dominant Cognitive needs: Yes Hearing needs: No Vision needs: No Review of Systems Const All systems reviewed & are unremarkable except as noted in HPI and below Physical Exam Extrem Other: Right hip: Incision clean, dry and intact. No erythema or discharge. Assessment & Plan Assessment & Plan (1) Status post total replacement of right hip: Code(s): Z96.641 - Presence of right artificial hip joint Plan New aquacel dressing was applied today. He will follow-up for his routine postop appointment on May 29. Patient Instructions: Scribed for Jose Juan Casillas PA-C, by Romeo Landin medical supervisor, on 05/20/2023 at 10:45 AM BALJINDER. Jose Juan Salas PA-C, have personally reviewed and agree with the information entered by the scribe. Coding Level of Care Code Global (77631) Diagnoses Status post total replacement of right hip Z96.641
== END 2023-05-20 11:23 | disposition home or self-care (01) ==
LOC: HO.HOS 10:40
PROVIDERS: PCP Internal Medicine; Visit Provider Physician Assistant
DX: Z96.641 Presence of right artificial hip joint (principal)
CPT/HCPCS: 99024

== ENCOUNTER → 2023-05-20 10:40 | Outpatient (BNVA) | payer OTHER, SELFPAY | PROVIDERS: PCP Internal Medicine; Visit Provider Physician Assistant ==

== ENCOUNTER 2023-05-22 13:24 | Outpatient (AMB) | payer OTHER, SELFPAY ==
--- NOTE | 2023-05-22 13:32 | A.OFFVIS_ITS ---
Intake Intake Visit Reasons: PO-RT KADIE 05/13/23 NE Bandage Change Intake Note: Renny is a 62 year old male who presents today for his P/O bandage change visit for his Right KADIE 05/13/23. States he is doing a lot better. Reports he was able to stand longer than a minute to shave today. Allergies No Known Allergies [No Known Allergies*] Allergy (Verified 05/22/23 13:36) HPI PO-RT KADIE 05/13/23 NE Bandage Change HPI Details 62-year-old male who returns to the [facility] today for post-op bandage change for right KADIE, 05/13/[address] Elmore. He states he has improvement in his pain and is doing well overall. He reports he was able to stand for longer than a minute to shave today. He has no other concerns today. [facility] Medical History Chronic, continuous use of opioids Former smoker Hx of fracture of tibia Substance use disorder Dupuytren's contracture of right hand High cholesterol Hypertension Surgical History History of back surgery Hx of colonoscopy History of hand surgery History of shoulder surgery Family History Mother Cancer Father No problems noted. Sister Breast cancer Social History Household Members: Spouse Housing: House Are you a primary wound care specialist to a significant other at home: No Do you presently have visiting nurse or other home services: No Alcohol intake: current Alcohol intake frequency: a few times a month Alcohol type: beer Comment: COUNTS CORRECT Patient Tobacco Use Status: Former Tobacco user Quit Date: 2012 Tobacco use type: Cigarette Years Smoked: 10 e-Cigarette/Vaping Use: Never Used Second Hand Smoke Exposure: Yes Substance Use Type: Marijuana service: No Current occupational status: retired Current occupation: right hand dominant Cognitive needs: Yes Hearing needs: No Vision needs: No Review of Systems Const All systems reviewed & are unremarkable except as noted in HPI and below Physical Exam Extrem Other: Right hip: Incision clean, dry and intact. No erythema or discharge. Assessment & Plan Assessment & Plan (1) Status post total replacement of right hip: Code(s): Z96.641 - Presence of right artificial hip joint Plan He was placed in a new total joint dressing in the office today. Patient Instructions: Scribed for Jose Juan Casillas PA-C, by Romeo Landin medical records supervisor, on 05/22/2023 at 1:30 PM EST. I, Jose Juan Casillas PA-C, have personally reviewed and agree with the information entered by the scribe. Coding Level of Care Code Global (25188) Diagnoses Status post total replacement of right hip Z96.641
== END 2023-05-22 13:48 | disposition home or self-care (01) ==
LOC: HO.HOS 13:24
PROVIDERS: PCP Internal Medicine; Visit Provider Physician Assistant
DX: Z96.641 Presence of right artificial hip joint (principal)
CPT/HCPCS: 99024

== ENCOUNTER → 2023-05-22 13:24 | Outpatient (BNVA) | payer OTHER, SELFPAY | PROVIDERS: PCP Internal Medicine; Visit Provider Physician Assistant ==

== ENCOUNTER 2023-05-29 14:17 | Outpatient (AMB) | payer OTHER, SELFPAY ==
--- NOTE | 2023-05-29 14:20 | MHC.OFFVIS ---
Intake Intake Visit Reasons: PO-RT KADIE 05/13/23 NE Intake Note: Quiana is a 62 year old male who presents today for a post operative appointment s/p Right KADIE 05/13/2023. Patient reports that he is doing well he has some mild pain with increased activity. He reports that the right knee is quite painful. Allergies No Known Allergies [No Known Allergies*] Allergy (Verified 05/22/23 13:36) HPI PO-RT KADIE 05/13/23 NE HPI Details Renny is a 62 year old man who presents ~2 weeks S/P right KADIE. He says he is doing well with only some mild pain with activity. He is happy with the results of his surgery. He does complain of some worsening right knee pain. [facility] Medical History Arthritis of right hip Chronic, continuous use of opioids Former smoker Hx of fracture of tibia Substance use disorder Dupuytren's contracture of right hand High cholesterol Hypertension Surgical History History of back surgery Hx of colonoscopy History of hand surgery History of shoulder surgery Family History Mother Cancer Father No problems noted. Sister Breast cancer Social History Household Members: Spouse Housing: House Are you a primary acute care assistant to a significant other at home: No Do you presently have visiting nurse or other home services: No 75 years or older and lives alone: No Alcohol intake: current Alcohol intake frequency: a few times a month Alcohol type: beer Comment: COUNTS CORRECT Patient Tobacco Use Status: Former Tobacco user Quit Date: 2012 Tobacco use type: Cigarette Years Smoked: 10 e-Cigarette/Vaping Use: Never Used Second Hand Smoke Exposure: Yes Substance Use Type: Marijuana service: No Current occupational status: retired Current occupation: right hand dominant Cognitive needs: Yes Hearing needs: No Vision needs: No Review of Systems Const All systems reviewed & are unremarkable except as noted in HPI and below Physical Exam Const General: no acute distress, alert and awake Orientation/consciousness: patient oriented x3 HEENT Head: Yes normocephalic and Yes atraumatic Eyes EOM: EOMs intact bilaterally Resp Effort & Inspection: normal respiratory effort and able to speak in complete sentences Cardio Jugular venous distension: no JVD Skin General skin exam: turgor normal Rashes: no rashes Neuro General: patient oriented x3 Extrem Other: inc c/d/i no pain with hip ROM Trendelenberg gait Psych Appearance: grossly normal Affect: normal affect Attitude: cooperative Assessment & Plan Assessment & Plan (1) Status post total replacement of right hip: Code(s): Z96.641 - Presence of right artificial hip joint Plan: River removed outpatient PT Plan Scribed for Shar Elmore MD by Homer Cortez, medical or surgical instrument maker, on 05/29/23 at 2:30 PM, EST. Orders: Orders PT Evaluation and Treatment 05/29/23 Z96.641 - Presence of right artificial hip joint Medications: Changed From oxycodone 5 mg PO BID PRN 14 tabs 0RF pain To oxycodone 5 mg PO BID 15 days PRN 30 tabs 0RF pain Coding Level of Care Code Global (40633) Diagnoses Status post total replacement of right hip Z96.641
== END 2023-05-29 15:08 | disposition home or self-care (01) ==
PROVIDERS: PCP Internal Medicine; Visit Provider Orthopaedic Surgery
DX: Z96.641 Presence of right artificial hip joint (principal)
CPT/HCPCS: 99024

== ENCOUNTER → 2023-05-29 14:17 | Outpatient (BNVA) | payer OTHER, SELFPAY | PROVIDERS: PCP Internal Medicine; Visit Provider Orthopaedic Surgery ==

== ENCOUNTER 2023-06-26 11:42 | Outpatient (REF) | payer OTHER, SELFPAY ==
--- NOTE | ~2023-06-26 | XR_ITS ---
EXAMINATION: XR PELVIS CLINICAL INFORMATION: Pain. COMPARISON: Pelvic radiograph 05/13/2023. TECHNIQUE: AP view of the pelvis. FINDINGS: Total right-sided hip arthroplasty without evidence of fracture or complication. No acute fractures or subluxation. Mild degenerative osteophyte arthritis of the left hip. Pubic symphysis and pelvic ring are maintained. SI joints are symmetric. Redemonstration of lumbosacral fusion hardware. No significant soft tissue finding. XR/XR pelvis 1-2V IMPRESSION: 1. Total right-sided hip arthroplasty without evidence of fracture or complication. 2. No acute fractures or subluxation.
== END 2023-06-26 11:43 | disposition home or self-care (01) ==
LOC: HO.HOSX 11:42
PROVIDERS: Visit Provider Orthopaedic Surgery
DX: Z47.1 Aftercare following joint replacement surgery (principal); Z96.641 Presence of right artificial hip joint
CPT/HCPCS: 72170

== ENCOUNTER 2023-06-26 12:20 | Outpatient (AMB) | payer OTHER, SELFPAY ==
[2023-06-26 12:29] VITALS: BMI 32.3
--- NOTE | 2023-06-26 12:29 | A.OFFVIS_ITS ---
Intake Vital Signs 06/26/23 12:29 Height 5 ft 7 in Weight 206 lb BMI 32.3 Intake Visit Reasons: 6 wk Postop RT KADIE 05/13/23 NE Intake Note: Quiana is a 62 year old male who presents today for a post operative appointment 6 weeks s/p Right KADIE 05/13/2023. Patient reports that he is doing well, he is having pain in the right knee. He is working with physical therapy. Allergies No Known Allergies [No Known Allergies*] Allergy (Verified 05/22/23 13:36) HPI 6 wk Postop RT KADIE 05/13/23 NE HPI Details Renny is a 62 year old man who presents ~6 weeks S/P right KADIE. He says he is doing well with only some mild pain with activity. He says his pain is primarily in his knee instead of his hip. He is happy with the results of his surgery. He has been working with outpatient PT, and says this is going well. [facility] Medical History Arthritis of right hip Chronic, continuous use of opioids Former smoker Hx of fracture of tibia Substance use disorder Dupuytren's contracture of right hand High cholesterol Hypertension Surgical History History of back surgery Hx of colonoscopy History of hand surgery History of shoulder surgery Family History Mother Cancer Father No problems noted. Sister Breast cancer Social History Household Members: Spouse Housing: House Are you a primary primary health care nurse to a significant other at home: No Do you presently have visiting nurse or other home services: No 75 years or older and lives alone: No Alcohol intake: current Alcohol intake frequency: a few times a month Alcohol type: beer Comment: COUNTS CORRECT Patient Tobacco Use Status: Former Tobacco user Quit Date: 2012 Tobacco use type: Cigarette Years Smoked: 10 e-Cigarette/Vaping Use: Never Used Second Hand Smoke Exposure: Yes Substance Use Type: Marijuana service: No Current occupational status: retired Current occupation: right hand dominant Cognitive needs: Yes Hearing needs: No Vision needs: No Review of Systems Const All systems reviewed & are unremarkable except as noted in HPI and below Physical Exam Vital Signs: BMI result Body Mass Index 32.3 Const General: no acute distress, alert and awake Orientation/consciousness: patient oriented x3 HEENT Head: Yes normocephalic and Yes atraumatic Eyes EOM: EOMs intact bilaterally Resp Effort & Inspection: normal respiratory effort and able to speak in complete sentences Cardio Jugular venous distension: no JVD Skin General skin exam: turgor normal Rashes: no rashes Neuro General: patient oriented x3 Extrem Other: No pain with hip ROM Neg trendeleberg sign Psych Appearance: grossly normal Affect: normal affect Attitude: cooperative Results Reviewed Results Reviewed: I personally reviewed relevant radiographs. Right KADIE in expected post operative position with no hardware complications or evidence of loosening Assessment & Plan Assessment & Plan (1) Status post total replacement of right hip: Code(s): Z96.641 - Presence of right artificial hip joint Plan: Refilled narcotics ( 5 mg BID) Continue Strengthening follow up 6 weeks Plan Prepared for Shar Elmore MD by Homer Cortez, senior medical transcriptionist, on 06/26/23 at 12:40 PM, EST. Orders: Orders XR pelvis 1-2V Today M25.559 - Pain in unspecified hip Medications: Changed From oxycodone 5 mg PO BID 15 days PRN 30 tabs 0RF pain To oxycodone 5 mg PO BID 30 days PRN 60 tabs 0RF pain Coding Level of Care Code Global (06958) Diagnoses Status post total replacement of right hip Z96.641
== END 2023-06-26 12:48 | disposition home or self-care (01) ==
PROVIDERS: PCP Internal Medicine; Visit Provider Orthopaedic Surgery
DX: Z96.641 Presence of right artificial hip joint (principal)
CPT/HCPCS: 99024

== ENCOUNTER 2023-07-02 11:00 | Outpatient (RCR) | payer OTHER, SELFPAY ==
--- NOTE | 2023-06-06 10:41 | MHC.PT.EP ---
[facility] [place] [facility] [place] [facility] [place] Office [address] Ayse Regan [address] [phone] F: [phone] F: [phone] F: [phone] F: [phone] Physical Therapy Plan of Care Date of Evaluation: 06/06/23 Date of Surgery: 05/13/2023 Diagnosis: R KADIE Assessment: Patient is a 62 year old male presenting to PT s/p R KADIE 05/13/2023. He presents today with impairments in pain, ROM, gait, hip strength, endurance. Pt's current occupation is none, with baseline physical activities including ambulating, stair negotiation, ADLs. Pt expresses fpc goal of returning to PLOF, and is motivated to work towards this in PT. Clinical presentation today is most consistent with signs and sx associated with s/p R KADIE 05/13/2023 and pt will benefit from skilled PT 2 week x 6 weeks to address the following problems and impairments noted upon evaluation: pain, ROM, gait, hip strength, endurance. These problems limit the patient with the following functional activities: ambulating, stair negotiation, ADLs. The prescribed treatment plan of care is medically necessary. Co-morbidities of HTN were identified and taken into considerations of plan of care. Pt was educated on HEP, role of PT, prognosis, POC. Frequency and Duration: The patient will be seen 2 x week x 6 weeks Short Term Goals: Pt will demonstrate understanding of his hip precautions in 1 visit. Pt will demonstrate improved hip MMT strength by 1/3 grade in 3 weeks for improved lumbopelvic stability. Pt will demonstrate ability to perform STS with equal weight distribution in 3 weeks for improved function. Fire Equipment Repairer Inspector Goals: Pt will demonstrate improved LEFI score by 9 points in 6 weeks for improved functional mobility. Pt will demonstrate ability to ambulate community distances with LRD in 6 weeks for improved access to his community. Treatment Plan: Modalities to reduce pain, spasms and effusion. Manual therapy to restore motion and function. Therapeutic exercise to improve strength and flexibility. Neuromuscular re-education for posture and balance. Therapeutic activities to return to functional activities of daily living. Electronically signed by: Stephanie Jaclyn, PT, DPT, ATC Please sign and return to therapist. Thank you for your referral.
--- NOTE | 2023-07-31 07:50 | MHC.PT.DC ---
[facility] [place] [facility] Office [place] Office [place] [facility] Office [address] [phone] F: [phone] F: [phone] F: [phone] F: [phone] Physical Therapy Discharge Report Diagnosis: R KADIE Date of Surgery: 05/13/2023 Date of Evaluation: 06/06/23 Date of Discharge: 07/31/23 Treatments to Date: 8 Cancellations to Date: 4 No Shows to Date: 0 Discharge Status: Patient Elected to Stop Discharge Summary: Pt cancelled his last 3 remaining appointments and has not reached out to be scheduled in >30 days. Therefore pt to be d/c per policy. Electronically signed by: Stephanie Anaya, PT, DPT, ATC Please sign and return to therapist. Thank you for your referral.
== END 2023-07-31 07:51 | disposition home or self-care (01) ==
LOC: HO.PTCHIC 11:00
PROVIDERS: PCP Internal Medicine; Visit Provider Orthopaedic Surgery
DX: Z96.641 Presence of right artificial hip joint (principal)
CPT/HCPCS: 97110; 97161

== ENCOUNTER 2023-07-29 14:56 | Outpatient (AMB) | payer OTHER, SELFPAY ==
--- NOTE | 2023-07-29 14:58 | MHC.PC.OV ---
Vital Signs 07/29/23 15:02 Height 5 ft 7 in Weight 207 lb BMI 32.4 BP 132/80 Blood Pressure Location Lt brachial Position Sitting Intake Visit Reasons: Annual exam Intake Note: Patient here for a physical exam Parts Technician Required: No Accompanied by: Self / Same As Patient Allergies No Known Allergies [No Known Allergies*] Allergy (Verified 07/29/23 15:14) Medication List - Last Reconciled 07/29/23 by Mary Anne Leach MD acetaminophen 650 mg (2 x 325 mg) PO Q6H PRN 30 days amlodipine 10 mg PO DAILY 90 days aspirin 325 mg PO BID 42 days celecoxib 200 mg PO BID 30 days cholecalciferol (vitamin D3) 25 mcg PO DAILY docusate sodium 100 mg PO BID 30 days gabapentin 300 mg PO TID hydroxyzine HCl 25 mg PO BEDTIME PRN 30 days lisinopril-hydrochlorothiazide 20-12.5 mg 1 tab PO DAILY 90 days oxycodone 5 mg PO BID PRN 30 days simvastatin 20 mg PO BEDTIME 90 days Tobacco use date assessed: 07/29/23 Dental Screening Dental Screen Date: 07/29/23 Did you have a dental visit in the last 12 months?: Yes Did you have a dental problem in the last 6 months where you did not have access to dental care?: No Was dental information given to patient?: Patient has dentist HPI HPI Comments History of Present Illness Details This is a 62-year-old male that comes for his physical exam. Last colonoscopy was 2016 and next colonoscopy should be 2026. Walks with a cane that he hold in the right side. No chest pain or shortness of breath. Compliant with medications. [facility] Medical History (Updated 07/29/23 @ 15:29 by Mary Anne Leach MD) Arthritis of right hip Chronic, continuous use of opioids Former smoker Hx of fracture of tibia Substance use disorder Dupuytren's contracture of right hand High cholesterol Hypertension Surgical History History of back surgery Hx of colonoscopy History of hand surgery History of shoulder surgery Family History Mother Cancer Father No problems noted. Sister Breast cancer Social History Household Members: Spouse Housing: House Are you a primary respiratory care faculty to a significant other at home: No Do you presently have visiting nurse or other home services: No 75 years or older and lives alone: No Alcohol intake: current Alcohol intake frequency: a few times a month Alcohol type: beer Comment: COUNTS CORRECT Patient Tobacco Use Status: Former Tobacco user Quit Date: 2012 Tobacco use type: Cigarette Years Smoked: 10 e-Cigarette/Vaping Use: Never Used Second Hand Smoke Exposure: Yes Substance Use Type: Marijuana service: No Current occupational status: retired Current occupation: right hand dominant Cognitive needs: Yes Hearing needs: No Vision needs: No Questionnaire PHQ-9 Over the last 2 weeks, how often have you been bothered by any of the following problems? 1. Little interest or pleasure in doing things: not at all 2. Feeling down, depressed, or hopeless: not at all 3. Trouble falling or staying asleep, or sleeping too much: not at all 4. Feeling tired or having little energy: not at all 5. Poor appetite or overeating: not at all 6. Feeling bad about yourself - or that you are a failure or have let yourself or your family down: not at all 7. Trouble concentrating on things, such as reading the newspaper or watching television: not at all 8. Moving or speaking so slowly that other people could have noticed. Or the opposite - being so fidgety or restless that you have been moving around a lot more than usual: not at all 9. Thoughts that you would be better off or of hurting yourself in some way: not at all Total score: 0 Depression Screening Interpretation: Negative Depression Screening Done: Yes 12438 - PHQ-9 Billing: Yes Source: Developed by Drs. Kang Au, Katherine Ortiz, Kenneth Becker and colleagues, with an educational hoa from [employer]. Thrive Questionnaire Date Thrive assessed: 07/29/23 I am a: Patient What is your living situation today?: I have a steady place to live Within the past 12 months, did the food you bought not last and you didn't have the money to get more?: Never true Within the past 12 months, did you worry whether your food would run out before you got money to buy more?: Never true Do you have trouble paying for medicines?: No Do you have trouble getting transportation to medical appointments?: No Do you have trouble paying your heating and electricity bill?: No Do you have trouble taking care of your child, family member or friend?: No Do you have trouble with day-to-day activities such as bathing, preparing meals, shopping, managing finances, etc.?: No Are you currently unemployed and looking for a job?: No Are you interested in more education?: No Please select the resources that you would like help with: None Currently or been in a relationship where the following occur: no concerns reported THRIVE Score: 0 AUDIT C Alcohol Use Questionnaire (AUDIT-C) 1. How often do you have a drink containing alcohol?: 2-3 times a week 2. How many drinks containing alcohol do you have on a typical day when you are drinking?: 3 or 4 3. How often do you have six or more drinks on one occasion?: Never Total Score: 4 YESENIA-7 AMB Questionnaire YESENIA-7 Date YESENIA - 7 assessed: 07/29/23 Feeling nervous, anxious, or on edge: 1 = Several days Not being able to stop or control worryin = Not at all Worrying too much about different things: 0 = Not at all Trouble relaxin = Not at all Being so restless that it is hard to sit still: 0 = Not at all Becoming easily annoyed or irritable: 1 = Several days Feeling afraid as if something awful might happen: 0 = Not at all Total YESENIA-7 score (0-4 normal; 5-9 mild; 10-14 moderate; 15-21 severe): 2 Source: Developed by Drs. Kang Au, Katherine Ortiz, Kenneth Becker and colleagues, with an educational hoa from [employer]. YESENIA-7 Assessment Billing YESENIA-7 Assessment Tool: YESENIA-7 Assessment 75634 Review of Systems Const All systems reviewed & are unremarkable except as noted in HPI and below Eyes Reports no additional complaints, Denies change in vision and Denies other visual disturbances Card Denies chest pain at rest, Denies chest pain with activity, Denies edema, Denies irregular heart rhythm, Denies claudication, Denies dyspnea, Denies dyspnea on exertion, Denies orthopnea, Denies paroxysmal nocturnal dyspnea and Denies slow heart rate Resp Denies cough, Denies dyspnea and Denies dyspnea on exertion GI Denies abdominal pain, Denies change in bowel habits, Denies excessive flatus, Denies nausea and Denies vomiting Denies urinary hesitancy, Denies urinary incontinence and Denies urinary urgency Musc Denies abnormal gait, Denies atrophy, Denies deformity and Denies limited range of motion Neuro Denies abnormal gait, Denies behavioral changes, Denies confusion and Denies lack of coordination Psych Denies behavioral changes and Denies confusion Physical exam (Primary Care) Vital Signs: Last Vital Signs BP 132/80 07/29/23 15:02 BMI result Body Mass Index 32.4 Tobacco/Smoking Status: Tobacco use Status Tobacco use date assessed 07/29/23 07/29/23 15:08 Patient Tobacco Use Status Former Tobacco user 07/29/23 15:08 Tobacco use type Cigarette 07/29/23 15:08 e-Cigarette/Vaping Use Never Used 07/29/23 15:08 PHQ-9: PHQ-9 Score PHQ-9: Total score 0 07/29/23 15:08 Depression Screening Interpretation: Negative Thrive Assessment: Date of Thrive Assessment Date Thrive assessed 07/29/23 07/29/23 15:08 Currently or been in a relationship where the following occur: no concerns reported Const General: No confusion Orientation/consciousness: patient oriented x3 and No confusion Limitations: ambulation with cane HENMT Head: Yes normal to inspection, Yes normocephalic and Yes atraumatic Ears: external ears normal Eyes General: appearance normal, both eyes and all related structures Eyelids: Yes eyelids normal Conjunctivae: conjunctivae normal Neck Neck: Yes normal visual inspection and Yes supple Resp Effort & Inspection: normal respiratory effort Auscultation: clear to auscultation bilaterally Cardio Jugular venous distension: no JVD Rate: regular rate Rhythm: regular rhythm Heart sounds: S1 normal heart sound present and S2 normal heart sound present GI Inspection: Yes normal to inspection Palpation (GI): Soft to palpation and nontender Auscultation: normal bowel sounds Skin General skin exam: no rashes or lesions noted Neuro General: patient oriented x3, no focal motor deficits and No confusion Extrem General: Yes full ROM Psych Appearance: grossly normal Assessment and Plan Assessment & Plan (1) Physical exam: Code(s): Z00.00 - Encounter for general adult medical examination without abnormal findings Plan: Repeat in a year. Orders: Orders Thyroid Stimulating Hormone Today R79.89 - Other specified abnormal findings of blood chemistry Free T4 (Free Thyroxine) Today R79.89 - Other specified abnormal findings of blood chemistry Thyroid Peroxidase Antibodies Today R79.89 - Other specified abnormal findings of blood chemistry Complete Blood Count Auto Diff Today D64.9 - Anemia, unspecified IRON PROFILE Today D64.9 - Anemia, unspecified Vitamin D 25-OH Total Today E55.9 - Vitamin D deficiency, unspecified Comprehensive [place]. Panel Fast Today Z00.00 - Encounter for general adult medical examination without abnormal findings Lipid Panel Today Z00.00 - Encounter for general adult medical examination without abnormal findings PSA,Total (Free>4and<10) Today Z12.5 - Encounter for screening for malignant neoplasm of prostate Coding Level of Care Code Est Pt Prev Care 40-64y(71269) Diagnoses Physical exam Z00.00 Additional Codes YESENIA-7 Assessment Billing - YESENIA-7 Assessment Tool: YESENIA-7 Assessment 01043 ([id number]) Time Spent (min) 31
[2023-07-29 15:02] VITALS: BP 132/80; BMI 32.4
== END 2023-07-29 15:25 | disposition home or self-care (01) ==
PROVIDERS: PCP Internal Medicine; Visit Provider Internal Medicine
DX: Z00.00 Encounter for general adult medical examination without abnormal findings (principal)
CPT/HCPCS: 99396

== ENCOUNTER 2023-08-07 14:53 | Outpatient (REF) | payer OTHER, SELFPAY ==
--- NOTE | ~2023-08-07 | XR_ITS ---
EXAMINATION: XR PELVIS XR KNEE STANDING BILATERAL XR RIGHT KNEE CLINICAL INFORMATION: Pain of hip and knee. COMPARISON: 05/13/2023 and 06/26/2023. TECHNIQUE: Pelvis, AP view AP standing view of both knees 2 views of right knee (lateral and sunrise views) FINDINGS: Pelvis: No evidence of loosening of the partially visualized posterior spinal fusion hardware at the lumbosacral junction. A fusion cage is present in the disc space at L5-S1. The osseous pelvic ring is intact. Pubic symphysis and sacroiliac joints are unremarkable. The left hip joint space is maintained. At the right hip, the prosthetic femoral head is well-positioned within the acetabular cup which is stabilized by superior screws. No fracture or osteolysis around the hardware. The acetabular cup demonstrates 53 degrees of lateral version. The tip of the femoral stem is well centered in the medullary cavity the proximal femoral diaphysis. AP standing view of both knees: The bones have normal alignment. The tibiofemoral joint spaces are maintained. There are there are atherosclerotic calcifications of femoral arteries. Right knee: The patellofemoral and tibiofemoral joint spaces are normal. No arthritic deformity or joint effusion. XR/XR pelvis 1-2V IMPRESSION: * No postoperative complications from right total hip arthroplasty. There is no evidence of osteolysis or fracture around the components of the right total hip arthroplasty. * Normal knees.
--- NOTE | ~2023-08-07 | XR_ITS ---
EXAMINATION: XR PELVIS XR KNEE STANDING BILATERAL XR RIGHT KNEE CLINICAL INFORMATION: Pain of hip and knee. COMPARISON: 05/13/2023 and 06/26/2023. TECHNIQUE: Pelvis, AP view AP standing view of both knees 2 views of right knee (lateral and sunrise views) FINDINGS: Pelvis: No evidence of loosening of the partially visualized posterior spinal fusion hardware at the lumbosacral junction. A fusion cage is present in the disc space at L5-S1. The osseous pelvic ring is intact. Pubic symphysis and sacroiliac joints are unremarkable. The left hip joint space is maintained. At the right hip, the prosthetic femoral head is well-positioned within the acetabular cup which is stabilized by superior screws. No fracture or osteolysis around the hardware. The acetabular cup demonstrates 53 degrees of lateral version. The tip of the femoral stem is well centered in the medullary cavity the proximal femoral diaphysis. AP standing view of both knees: The bones have normal alignment. The tibiofemoral joint spaces are maintained. There are there are atherosclerotic calcifications of femoral arteries. Right knee: The patellofemoral and tibiofemoral joint spaces are normal. No arthritic deformity or joint effusion. XR/XR knee RT 2V IMPRESSION: * No postoperative complications from right total hip arthroplasty. There is no evidence of osteolysis or fracture around the components of the right total hip arthroplasty. * Normal knees.
--- NOTE | ~2023-08-07 | XR_ITS ---
EXAMINATION: XR PELVIS XR KNEE STANDING BILATERAL XR RIGHT KNEE CLINICAL INFORMATION: Pain of hip and knee. COMPARISON: 05/13/2023 and 06/26/2023. TECHNIQUE: Pelvis, AP view AP standing view of both knees 2 views of right knee (lateral and sunrise views) FINDINGS: Pelvis: No evidence of loosening of the partially visualized posterior spinal fusion hardware at the lumbosacral junction. A fusion cage is present in the disc space at L5-S1. The osseous pelvic ring is intact. Pubic symphysis and sacroiliac joints are unremarkable. The left hip joint space is maintained. At the right hip, the prosthetic femoral head is well-positioned within the acetabular cup which is stabilized by superior screws. No fracture or osteolysis around the hardware. The acetabular cup demonstrates 53 degrees of lateral version. The tip of the femoral stem is well centered in the medullary cavity the proximal femoral diaphysis. AP standing view of both knees: The bones have normal alignment. The tibiofemoral joint spaces are maintained. There are there are atherosclerotic calcifications of femoral arteries. Right knee: The patellofemoral and tibiofemoral joint spaces are normal. No arthritic deformity or joint effusion. XR/XR knee standing BI IMPRESSION: * No postoperative complications from right total hip arthroplasty. There is no evidence of osteolysis or fracture around the components of the right total hip arthroplasty. * Normal knees.
== END 2023-08-07 14:54 | disposition home or self-care (01) ==
LOC: HO.HOSX 14:53
PROVIDERS: PCP Internal Medicine; Visit Provider Orthopaedic Surgery
DX: T84.84XA Pain due to internal orthopedic prosthetic devices, implants and grafts, initial encounter (principal); Z96.641 Presence of right artificial hip joint; Z98.1 Arthrodesis status; M25.561 Pain in right knee; M25.562 Pain in left knee
CPT/HCPCS: 72170; 73560; 73565

== ENCOUNTER 2023-08-07 14:53 | Outpatient (AMB) | payer OTHER, SELFPAY ==
[2023-08-07 14:55] VITALS: BMI 32.4
--- NOTE | 2023-08-07 14:55 | MHC.OFFVIS ---
Intake Vital Signs 08/07/23 14:55 Height 5 ft 7 in Weight 207 lb BMI 32.4 Intake Visit Reasons: 6 wk Postop RT KADIE 05/13/23 NE Intake Note: Quiana is a 62 year old male who presents today for a post operative appointment 6 weeks s/p Right KADIE 05/13/2023. Pateint reports that he is doing well with no pain in the right hip. He does however complain of right knee pain. Allergies No Known Allergies [No Known Allergies*] Allergy (Verified 08/07/23 14:55) HPI 6 wk Postop RT KADIE 05/13/23 NE HPI Details Quiana is a 62 year old male who presents today for a post operative appointment 6 weeks s/p Right KADIE 05/13/2023. Pateint reports that he is doing well with no pain in the right hip. He does however complain of right knee pain. xrays obtained today in office. He denies groin pain. He has been active and trying to walk as much as possible. Denies numbness/tingling PFSH Medical History Arthritis of right hip Chronic, continuous use of opioids Former smoker Hx of fracture of tibia Substance use disorder Dupuytren's contracture of right hand High cholesterol Hypertension Surgical History History of back surgery Hx of colonoscopy History of hand surgery History of shoulder surgery Family History Mother Cancer Father No problems noted. Sister Breast cancer Social History Household Members: Spouse Housing: House Are you a primary intensive care anaesthetist to a significant other at home: No Do you presently have visiting nurse or other home services: No 75 years or older and lives alone: No Alcohol intake: current Alcohol intake frequency: a few times a month Alcohol type: beer Comment: COUNTS CORRECT Patient Tobacco Use Status: Former Tobacco user Quit Date: 2012 Tobacco use type: Cigarette Years Smoked: 10 e-Cigarette/Vaping Use: Never Used Second Hand Smoke Exposure: Yes Substance Use Type: Marijuana service: No Current occupational status: retired Current occupation: right hand dominant Cognitive needs: Yes Hearing needs: No Vision needs: No Physical Exam Vital Signs: BMI result Body Mass Index 32.4 Extrem Other: Trendelenberg gait No pain with hip ROM Neg impingement No focal weakness in RLE testing with the exception of hip flexion. This is difficult to assess given pain. No pain with passive hip flexion Results Reviewed Results Reviewed: I personally reviewed relevant radiographs. Right KADIE in expected post operative position with no hardware complications or evidence of loosening. Assessment & Plan Assessment & Plan (1) Status post total replacement of right hip: Code(s): Z96.641 - Presence of right artificial hip joint Plan: PT for gait training. Long discussion about activity. His expectation is that he should be pain free and be able to walk unlimited distance. I think this is possible but premature. I will see him back i nthree months. At this time he should continue activity as tolerated. (2) Status post lumbar and lumbosacral fusion by anterior technique: Comment: 03/18/23 Code(s): Z98.1 - Arthrodesis status Plan: Stable Orders: Orders XR knee standing BI 08/07/23 M25.569 - Pain in unspecified knee XR knee RT 2V 08/07/23 M25.569 - Pain in unspecified knee XR pelvis 1-2V 08/07/23 M25.559 - Pain in unspecified hip PT Evaluation and Treatment 08/07/23 Z96.641 - Presence of right artificial hip joint, Z98.1 - Arthrodesis status Medications: Changed From oxycodone 5 mg PO BID 30 days PRN 60 tabs 0RF pain To oxycodone 5 mg PO DAILY 30 days PRN 30 tabs 0RF pain Coding Level of Care Code Global (99914) Diagnoses Status post total replacement of right hip Z96.641 Status post lumbar and lumbosacral fusion by anterior technique Z98.1
== END 2023-08-07 15:53 | disposition home or self-care (01) ==
PROVIDERS: PCP Internal Medicine; Visit Provider Orthopaedic Surgery
DX: Z96.641 Presence of right artificial hip joint (principal); Z98.1 Arthrodesis status
CPT/HCPCS: 99024

== ENCOUNTER 2023-08-19 08:49 | Outpatient (RCR) | payer OTHER, SELFPAY ==
--- NOTE | 2023-08-19 14:38 | MHC.PT.EP ---
[facility] Office [place] Office [place] Office [address] Ayse Regan [address] [phone] F: [phone] F: [phone] F: [phone] F: [phone] Physical Therapy Plan of Care Date of Evaluation: 08/19/23 Date of Surgery: 05/13/23 Diagnosis: R KADIE Assessment: Pt IS 62 YO M REFERRED TO PT FROM [facility] (DR MUKHERJEE) S/P R THR 05/13/23. HAD HOME PT AND OUTPt AT [facility]. Pt REPORTS REGRESSION OF INSIDIOUS ONSET. PRESENTS WITH LIMITED R LE STRENGTH, POOR GT, R LE PAIN. Pt HAS HAD 2 BACK SURGERIES IN PAST ALSO. Pt WITH SIGNIF FRUSTRATION RE LIMITATIONS AT THIS TIME. NOT SURE HOW HE WILL DO IN PT GIVEN HIS LIMITED ABILITIES WHEN IN [place] (PER DC SUMMARY 07/31/23, Pt CANCELLED LAST 3 APPTS ). AT FU WITH [facility] WAS REREFERRED TO PT Frequency and Duration: The patient will be seen 1X/WK X 6 WKS Short Term Goals: 1. Pt ABLE TO WALK TO/FROM PT SESSIONS WITH LRAD 2. I SIT<>STAND, SUP<>SIT WITH GOOD FORM 3. Pt ABLE TO PERF [address] Worker Goals: 1. I HEP WITH DC EX PLAN 2. DECREASED R LE PAIN AT LEAST 50% WITH ADLS 3. INCREASED R HIP FLEX, ABD, ER STRENGTH TO 5/5 EA Treatment Plan: Modalities to reduce pain, spasms and effusion. Manual therapy to restore motion and function. Therapeutic exercise to improve strength and flexibility. Neuromuscular re-education for posture and balance. Therapeutic activities to return to functional activities of daily living. Electronically signed by: LUIGI CHO PT Please sign and return to therapist. Thank you for your referral.
--- NOTE | 2023-10-21 08:37 | MHC.PT.DC ---
[facility] [place] Office [place] Office [place] Office [address] Ayse Regan [address] [phone] F: [phone] F: [phone] F: [phone] F: [phone] Physical Therapy Discharge Report Diagnosis: R KADIE Date of Surgery: 05/13/23 Date of Evaluation: 08/19/23 Date of Discharge: 10/21/23 Treatments to Date: 1 Cancellations to Date: No Shows to Date: Discharge Status: Patient Elected to Stop Physician Discontinued Tx Recommend MD Follow-up Discharge Summary: PER HANNA ([employer])Pt CALLED TO SAY HE WAS ASKED TO STOP PT HE IS NOT YET READY. ORDER WAS GIVEN TO HIM BY DR MUKHERJEE. Pt HAD APPT WITH ORTHO YESTERDAY (SEE NOTE FOR DETAILS) Electronically signed by: LUIGI CHO PT Please sign and return to therapist. Thank you for your referral.
== END 2023-10-21 08:38 | disposition home or self-care (01) ==
LOC: HO.PT 08:49
PROVIDERS: PCP Internal Medicine; Visit Provider Orthopaedic Surgery
DX: Z96.641 Presence of right artificial hip joint (principal); Z98.1 Arthrodesis status
CPT/HCPCS: 97110; 97116; 97140; 97162

== ENCOUNTER 2023-08-25 12:14 | Outpatient (REF) | payer OTHER, SELFPAY ==
--- NOTE | ~2023-08-25 | XR_ITS ---
EXAMINATION: XR HIP, RIGHT CLINICAL INFORMATION: Right hip pain COMPARISON: X-ray pelvis on 08/07/2023 TECHNIQUE: Frontal x-ray of the pelvis, frontal and crosstable lateral X-rays of right hip. FINDINGS: BONES: Bony structures are intact. There is no focal bone destruction or periosteal reaction seen. Lower lumbar spine fixation with transpedicular screws and vertical bars, L5-S1 intervertebral metallic spacer are partially visualized. JOINTS: There is normal alignment of total hip arthroplasty prostheses. SOFT TISSUE: Soft tissue is normal. No abnormal air collection is seen. XR/XR hip RT min 2V IMPRESSION: 1. No evidence of acute fracture or dislocation. 2. Unchanged Normal alignment of total hip arthroplasty prostheses. 3. Unchanged status post Lower lumbar spine fixation.
--- NOTE | ~2023-08-25 | XR_ITS ---
EXAMINATION: XR KNEE AP STANDING CLINICAL INFORMATION: Bilateral knee pain COMPARISON: Hiatal knee x-rays on 08/07/2023 TECHNIQUE: AP bilateral standing view of the knees was obtained. FINDINGS: BONES: Bony structures are intact. There is no focal bone destruction or periosteal reaction seen. JOINTS: Alignment of joints is normal. There is persistent mild asymmetric decrease in medial compartment right and left knee joint spaces. SOFT TISSUE: Soft tissue is normal. No radiopaque foreign body or abnormal air collection is seen. XR/XR knee standing BI IMPRESSION: 1. Unchanged moderate medial compartment right and left tibiofemoral joint osteoarthritis. 2. No fracture or dislocation or signs of osteomyelitis are found.
== END 2023-08-25 12:15 | disposition home or self-care (01) ==
LOC: HO.HOSX 12:14
PROVIDERS: Visit Provider Orthopaedic Surgery
DX: M25.562 Pain in left knee (principal); M25.561 Pain in right knee; Z96.641 Presence of right artificial hip joint
CPT/HCPCS: 73502; 73565

== ENCOUNTER 2023-08-25 14:00 | Outpatient (AMB) | payer OTHER, SELFPAY ==
--- NOTE | 2023-08-25 14:19 | A.OFFVIS_ITS ---
Intake Vital Signs 08/25/23 14:21 Height 5 ft 7 in Weight 207 lb BMI 32.4 Intake Visit Reasons: RLE pain; [id number] Intake Note: Quiana is a 62 year old male who presents today for a new problem appointment with complaints of right knee pain, s/p Right KADIE 05/13/2023. Patient reports he has increased pain in the anterior and medial aspect of his right thigh that radiates down to his knee and ankle. He has difficulty ambulating due to his pain. Allergies No Known Allergies [No Known Allergies*] Allergy (Verified 08/25/23 14:42) HPI RLE pain; [id number] HPI Details Quiana is a 62 year old male who presents today for a new problem appointment with complaints of right knee pain, s/p Right KADIE 05/13/2023. He had been doing well recovering frrom his spinal fusion and KADIE until 4-6 weeks ago wehn he started with worsening irght leg pain. He denies b/b dysfxn. Patient reports he has increased burning pain in the anterior and medial aspect of his right thigh that radiates down to his knee and ankle. He has difficulty ambulating due to his pain. [facility] Medical History Arthritis of right hip Chronic, continuous use of opioids Former smoker Hx of fracture of tibia Substance use disorder Dupuytren's contracture of right hand High cholesterol Hypertension Surgical History History of back surgery Hx of colonoscopy History of hand surgery History of shoulder surgery Family History Mother Cancer Father No problems noted. Sister Breast cancer Social History Household Members: Spouse Housing: House Are you a primary managed care director to a significant other at home: No Do you presently have visiting nurse or other home services: No 75 years or older and lives alone: No Alcohol intake: current Alcohol intake frequency: a few times a month Alcohol type: beer Comment: COUNTS CORRECT Patient Tobacco Use Status: Former Tobacco user Quit Date: 2012 Tobacco use type: Cigarette Years Smoked: 10 e-Cigarette/Vaping Use: Never Used Second Hand Smoke Exposure: Yes Substance Use Type: Marijuana service: No Current occupational status: retired Current occupation: right hand dominant Cognitive needs: Yes Hearing needs: No Vision needs: No Physical Exam Vital Signs: BMI result Body Mass Index 32.4 Extrem Other: No pain with hip ROM Neg impingement Poor gait pattern with leg pain with weight bearing Neg SLR Neg [place] Results Reviewed Results Reviewed: Right KADIE in expected post operative position with no hardware complications or evidence of loosening. unchanged from prior Assessment & Plan Assessment & Plan (1) Status post total replacement of right hip: Code(s): Z96.641 - Presence of right artificial hip joint Plan: Renny is having some recent and new onset neuritis symptoms in his RLE. It doesn't appear directly related to the KADIE or recent spinal fusion. He does however have some new onset nerve irritation. I discussed this with him and will have him see Dr Brower and get his input. I recommend he continue to ambulate as tolerated. I would like to see him back in ~6 weeks. I have given him an Rx for Gabapentin more frequently as he is taking 900mg at night only and says it is helpful. Orders: Orders XR knee standing BI 08/25/23 M25.569 - Pain in unspecified knee XR pelvis 1-2V 08/25/23 M25.559 - Pain in unspecified hip Medications: New gabapentin 600 mg (2 x 300 mg) PO TID 90 caps 0RF Coding Level of Care Code Est Pt Level 4 (40070) Diagnoses Status post total replacement of right hip Z96.641
[2023-08-25 14:21] VITALS: BMI 32.4
== END 2023-08-25 16:10 | disposition home or self-care (01) ==
PROVIDERS: PCP Internal Medicine; Visit Provider Orthopaedic Surgery
DX: M25.561 Pain in right knee (principal); Z96.641 Presence of right artificial hip joint
CPT/HCPCS: 99214

== ENCOUNTER 2023-08-26 13:50 | Outpatient (AMB) | payer OTHER, SELFPAY ==
--- NOTE | 2023-08-26 13:55 | HO.SPINEOV ---
Intake Intake Visit Reasons: back pain radiating to leg Intake Note: Mr. Montes is here today c/o back pain radiating to the right leg. Improvement Specialist Required: No Allergies No Known Allergies [No Known Allergies*] Allergy (Verified 08/25/23 14:42) Assessment & Plan Assessment & Plan (1) Status post lumbar and lumbosacral fusion by anterior technique: Comment: 03/18/23 Code(s): Z98.1 - Arthrodesis status Plan: Dear colleague, On 08/26/2023 I saw for follow-up Renny Gonzales for severe pain radiating from the front of his thigh down to his sprague. As you know he is status post L4-S1 oblique lumbar interbody fusion and right hip replacement. The hip replacement was done on April 2023 and he recovered well. He had no pain whatsoever in his leg until approximately 1 month ago when the pain gradually started. The pain is present continuously. Walking makes it worse. On exam there are no abnormalities with the hip or knee testing. Straight leg raise is negative. There are no sensory motor deficits. In summary, the patient is suffering from severe right leg pain for which differential diagnosis is an L4 radiculopathy or a femoral nerve neuropathy. The lateral 1 should not give pain down your sprague though. I ordered a stat MRI to exclude L4 nerve decompression. If this comes back negative then we will refer him to pain management team to see if he is a candidate for a spinal cord stimulator. I spent 20 minutes in his consult to review imaging and discussing plan of care. 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
== END 2023-08-26 14:53 | disposition home or self-care (01) ==
PROVIDERS: PCP Internal Medicine; Visit Provider Neurological Surgery
DX: Z98.1 Arthrodesis status (principal); M16.31 Unilateral osteoarthritis resulting from hip dysplasia, right hip
CPT/HCPCS: 99213

== ENCOUNTER → 2023-08-26 13:50 | Outpatient (BNVA) | payer OTHER, SELFPAY | PROVIDERS: PCP Internal Medicine; Visit Provider Neurological Surgery ==

== ENCOUNTER 2023-08-28 13:55 | Outpatient (REF) | payer OTHER, SELFPAY ==
--- NOTE | ~2023-08-28 | MR_ITS ---
EXAMINATION: MR LUMBAR SPINE WITHOUT AND WITH CONTRAST CLINICAL INFORMATION: Severe right leg pain radiating from the thigh. Assess for L4 nerve compression. COMPARISON: CT scan of the lumbar spine 04/04/2023. MRI scan of the lumbar spine 03/10/2023. TECHNIQUE: MRI of the lumbar spine was obtained using routine sequences with and without contrast. Intravenous contrast: [id number] mL FINDINGS: VERTEBRAL BODIES AND PARASPINAL STRUCTURES: There is mild reversal of the lumbar lordosis. There are retrolistheses of L2 on L3 and L3 on L4. There is narrowing of intervertebral disc height at L3-L4 with edematous endplate signal changes posteriorly with mild enhancement. The study redemonstrates the sequelae of the multilevel instrumented posterior fusions at L4, L5 and S1. There are bilateral pedicular screws in these vertebrae joined by vertical rods. The study redemonstrates the superior compression fracture of L1, a chronic finding. There are no acute compression fractures. Overall, marrow signal is homogenous. There is nonspecific perinephric stranding. The visualized pelvic structures are unremarkable. CONUS MEDULLARIS AND CAUDA EQUINA: Normal, terminating at the level of L2. The lower thoracic spinal cord has normal signal and there is no abnormal enhancement. There is crowding of the cauda equina nerve roots. The filum terminale appears normal. SPINAL LEVELS: L1-L2: There is moderate bilateral facet arthropathy. There is a small right paracentral disc protrusion which distorts the ventral thecal sac and there is no central stenosis. The neural foramina are patent bilaterally. L2-L3: There is moderate bilateral facet arthropathy with facet joint effusions. There is a posterior disc protrusion with mild flattening of the ventral thecal sac and with mild narrowing of the subarticular recesses. There is epidural lipomatosis dorsally. There is mild central stenosis. There are old bilateral inferior foraminal disc osteophyte complexes without definite exiting nerve root impingement. L3-L4: There is moderate bilateral facet arthropathy. There is a prominent posterior disc protrusion which flattens the ventral thecal sac and there is marked crowding of the cauda equina nerve roots. Compression of the thecal sac dorsally is worsened by significant epidural lipomatosis, and there is moderate central stenosis. There are inferior foraminal disc protrusions, more prominent on the right without definite exiting nerve root impingement. L4-L5: There is moderate to severe bilateral facet arthropathy. There are sequelae of an instrumented posterior fusion. Posterior vertebral body contours are normal and there is no central stenosis. There are left-sided disc osteophytes extending into the neural foramen, with likely impingement on the exiting right L4 nerve root, demonstrated on the prior CT scan. L5-S1: There is moderate to severe bilateral facet arthropathy. There may be a small synovial cyst developing anteromedially on the left. There is a shallow posterior osteophytic ridge, but there is no central stenosis. There are bilateral foraminal disc osteophyte complexes impinging on the exiting L5 nerve roots. MR/MR lumbar spine wo/w con IMPRESSION: 1. There are sequelae of multilevel instrumented posterior fusions at L4, L5 and S1. There is no significant osseous enhancement. 2. At L3-L4 there is moderate facet arthropathy and there is a prominent posterior disc protrusion. There is marked crowding of the cauda equina nerve roots and there is moderate central stenosis. There are inferior foraminal disc protrusions without definite exiting nerve root impingement. 3. At L4-L5 there are sequelae of an instrumented posterior fusion. There is no central stenosis. There are left-sided disc osteophytes extending into the neural foramen with likely impingement on the exiting right L4 nerve root. 4. At L5-S1 there is facet arthropathy and there may be a small synovial cyst developing anteromedially on the left. There are bilateral foraminal disc osteophyte complexes impinging on the exiting L5 nerve roots. There is no central stenosis. 5. At L2-L3 there is facet arthropathy and there is a posterior disc protrusion. There is narrowing of the subarticular recesses and there is mild central stenosis. There are bilateral inferior foraminal disc osteophyte complexes without definite exiting nerve root impingement.
[2023-08-28] MEDS: gadobutroL 10 ML VIAL IVPUSH (15:20)
== END 2023-08-28 13:56 | disposition home or self-care (01) ==
LOC: HO.MRI 13:55
PROVIDERS: PCP Internal Medicine; Visit Provider Neurological Surgery
DX: M16.31 Unilateral osteoarthritis resulting from hip dysplasia, right hip (principal); Z98.1 Arthrodesis status
CPT/HCPCS: 72158; A9585

== ENCOUNTER 2023-09-19 10:17 | Outpatient (AMB) | payer OTHER, SELFPAY ==
--- NOTE | 2023-09-19 10:22 | MHC.OFFVIS ---
Vital Signs 09/19/23 10:25 Height 5 ft 7 in Weight 215 lb BMI 33.7 BP 103/54 L Blood Pressure Location Lt brachial Position Sitting Respiration 16 Pulse 98 Pulse Source Pulse Oximeter Pulse Oximetry (%) 95 Oxygen Delivery Method Room Air Intake Visit Reasons: eval for scs Allergies No Known Allergies [No Known Allergies*] Allergy (Verified 09/19/23 10:27) Medication List - Last Reconciled 09/19/23 by Gloria Watson LPN acetaminophen 650 mg (2 x 325 mg) PO Q6H PRN 30 days amlodipine 10 mg PO DAILY 90 days cholecalciferol (vitamin D3) 25 mcg PO DAILY gabapentin 600 mg (2 x 300 mg) PO TID hydroxyzine HCl 25 mg PO BEDTIME PRN 30 days lisinopril-hydrochlorothiazide 20-12.5 mg 1 tab PO DAILY 90 days simvastatin 20 mg PO BEDTIME 90 days HPI HPI eval for scs: Details: 63-year-old male who presents today to the office for an evaluation of SCS. He is status post L4-S1 oblique lumbar interbody fusion and right hip replacement. He had Right KADIE done on April 2023. He complaints of right leg pain. He has increased burning pain in the anterior and medial aspect of his right thigh that radiates down to his knee and ankle. He has difficulty ambulating due to his pain. He reports severe pain radiating from the front of his thigh down to his sprague. He also reports weakness and numbness. The pain is described as constant in nature. Walking makes it worse. He is unable to walk or stand without walker or cane due to pain and weakness. He has difficulty doing his ADLs. He had three steroid injections in his back in [place] in the past prior to his lumbar surgery. He completed physical therapy in the past and postsurgical PT did not help. He is interested in getting second opinion from Neurosurgery. He is here today to discuss options for his post laminectomy pain. [facility] Medical History Arthritis of right hip Chronic, continuous use of opioids Former smoker Hx of fracture of tibia Substance use disorder Dupuytren's contracture of right hand High cholesterol Hypertension Surgical History History of back surgery Hx of colonoscopy History of hand surgery History of shoulder surgery Family History Mother Cancer Father No problems noted. Sister Breast cancer Social History Household Members: Spouse Housing: House Are you a primary resident care director to a significant other at home: No Do you presently have visiting nurse or other home services: No 75 years or older and lives alone: No Alcohol intake: current Alcohol intake frequency: a few times a month Alcohol type: beer Comment: COUNTS CORRECT Patient Tobacco Use Status: Former Tobacco user Quit Date: 2012 Tobacco use type: Cigarette Years Smoked: 10 e-Cigarette/Vaping Use: Never Used Second Hand Smoke Exposure: Yes Substance Use Type: Marijuana service: No Current occupational status: retired Current occupation: right hand dominant Cognitive needs: Yes Hearing needs: No Vision needs: No Review of Systems Const All systems reviewed & are unremarkable except as noted in HPI and below Physical Exam Vital Signs: Last Vital Signs Pulse 98 09/19/23 10:25 Resp 16 09/19/23 10:25 BP 103/54 L 09/19/23 10:25 Pulse Ox 95 09/19/23 10:25 Oxygen Delivery Method Room Air 09/19/23 10:25 BMI result Body Mass Index 33.7 General: Appears afebrile. Alert and oriented. Mood and affect irritable. Follows and participates in conversation appropriately. Respiratory effort is unlabored. Able to transition from sit to stand unassisted but with difficulty. Ambulates with with a limp on the right side. Results Reviewed Results Reviewed: 08/28/23: MR LUMBAR SPINE WITHOUT AND WITH CONTRAST FINDINGS: VERTEBRAL BODIES AND PARASPINAL STRUCTURES: There is mild reversal of the lumbar lordosis. There are retrolistheses of L2 on L3 and L3 on L4. There is narrowing of intervertebral disc height at L3-L4 with edematous endplate signal changes posteriorly with mild enhancement. The study redemonstrates the sequelae of the multilevel instrumented posterior fusions at L4, L5 and S1. There are bilateral pedicular screws in these vertebrae joined by vertical rods. The study redemonstrates the superior compression fracture of L1, a chronic finding. There are no acute compression fractures. Overall, marrow signal is homogenous. There is nonspecific perinephric stranding. The visualized pelvic structures are unremarkable. CONUS MEDULLARIS AND CAUDA EQUINA: Normal, terminating at the level of L2. The lower thoracic spinal cord has normal signal and there is no abnormal enhancement. There is crowding of the cauda equina nerve roots. The filum terminale appears normal. SPINAL LEVELS: L1-L2: There is moderate bilateral facet arthropathy. There is a small right paracentral disc protrusion which distorts the ventral thecal sac and there is no central stenosis. The neural foramina are patent bilaterally. L2-L3: There is moderate bilateral facet arthropathy with facet joint effusions. There is a posterior disc protrusion with mild flattening of the ventral thecal sac and with mild narrowing of the subarticular recesses. There is epidural lipomatosis dorsally. There is mild central stenosis. There are old bilateral inferior foraminal disc osteophyte complexes without definite exiting nerve root impingement. L3-L4: There is moderate bilateral facet arthropathy. There is a prominent posterior disc protrusion which flattens the ventral thecal sac and there is marked crowding of the cauda equina nerve roots. Compression of the thecal sac dorsally is worsened by significant epidural lipomatosis, and there is moderate central stenosis. There are inferior foraminal disc protrusions, more prominent on the right without definite exiting nerve root impingement. L4-L5: There is moderate to severe bilateral facet arthropathy. There are sequelae of an instrumented posterior fusion. Posterior vertebral body contours are normal and there is no central stenosis. There are left-sided disc osteophytes extending into the neural foramen, with likely impingement on the exiting right L4 nerve root, demonstrated on the prior CT scan. L5-S1: There is moderate to severe bilateral facet arthropathy. There may be a small synovial cyst developing anteromedially on the left. There is a shallow posterior osteophytic ridge, but there is no central stenosis. There are bilateral foraminal disc osteophyte complexes impinging on the exiting L5 nerve roots. IMPRESSION: 1. There are sequelae of multilevel instrumented posterior fusions at L4, L5 and S1. There is no significant osseous enhancement. 2. At L3-L4 there is moderate facet arthropathy and there is a prominent posterior disc protrusion. There is marked crowding of the cauda equina nerve roots and there is moderate central stenosis. There are inferior foraminal disc protrusions without definite exiting nerve root impingement. 3. At L4-L5 there are sequelae of an instrumented posterior fusion. There is no central stenosis. There are left-sided disc osteophytes extending into the neural foramen with likely impingement on the exiting right L4 nerve root. 4. At L5-S1 there is facet arthropathy and there may be a small synovial cyst developing anteromedially on the left. There are bilateral foraminal disc osteophyte complexes impinging on the exiting L5 nerve roots. There is no central stenosis. 5. At L2-L3 there is facet arthropathy and there is a posterior disc protrusion. There is narrowing of the subarticular recesses and there is mild central stenosis. There are bilateral inferior foraminal disc osteophyte complexes without definite exiting nerve root impingement. 08/25/23: XR KNEE AP STANDING FINDINGS: BONES: Bony structures are intact. There is no focal bone destruction or periosteal reaction seen. JOINTS: Alignment of joints is normal. There is persistent mild asymmetric decrease in medial compartment right and left knee joint spaces. SOFT TISSUE: Soft tissue is normal. No radiopaque foreign body or abnormal air collection is seen. IMPRESSION: 1. Unchanged moderate medial compartment right and left tibiofemoral joint osteoarthritis. 2. No fracture or dislocation or signs of osteomyelitis are found. 08/25/23: XR HIP, RIGHT FINDINGS: BONES: Bony structures are intact. There is no focal bone destruction or periosteal reaction seen. Lower lumbar spine fixation with transpedicular screws and vertical bars, L5-S1 intervertebral metallic spacer are partially visualized. JOINTS: There is normal alignment of total hip arthroplasty prostheses. SOFT TISSUE: Soft tissue is normal. No abnormal air collection is seen. IMPRESSION: 1. No evidence of acute fracture or dislocation. 2. Unchanged Normal alignment of total hip arthroplasty prostheses. 3. Unchanged status post Lower lumbar spine fixation. Assessment & Plan Assessment & Plan (1) Post laminectomy syndrome: Code(s): M96.1 - Postlaminectomy syndrome, not elsewhere classified Category: Medical (2) Lumbar radiculopathy: Code(s): M54.16 - Radiculopathy, lumbar region Category: Medical Plan We had an extensive discussion with the patient regarding multiple pain generators in the lumbar spine, including multifidus atrophy and vertebral endplate degeneration at L3-4, moderate spinal stenosis at L3-4, and significant facet arthritis. I discussed both SCS and intrathecal drug delivery as potential treatment options, but given his significant right lower extremity radicular neuropathic pain, I think he would benefit more from SCS compared to an ITP. I will place a referral for psychology clearance. Once we have received psychology clearance, we will plan for the trial of a [employer] SCS device. The patient will receive a call from [facility] for the psychology assessment. He is also interested in getting a neurosurgical second opinion, so he will take that opinion prior to proceeding with the SCS implant. We will schedule him for bilateral caudal epidural steroid injections for back pain until his PA approval for SCS is completed. Discussed the risks and benefits of the procedure with the patient in detail. All questions were answered. The patient is on board with the plan. Justification for interventional therapy: Patient with average pain > 6/10 Patient has exhausted conservative therapy Patient unable to tolerate physical therapy due to pain Patient has a good understanding of their pain condition and has appropriate mental and social support Scribed for Dr. Ambriz by Stuart Stark, medical practice manager, on 09/19/2023. I, Dr. Ambriz, have personally reviewed and agree with the information entered by the scribe. Coding Level of Care Code New Pt Level 4 (85705) Diagnoses Post laminectomy syndrome M96.1 Lumbar radiculopathy M54.16
[2023-09-19 10:25] VITALS: BP 103/54; PULSE 98; RESP 16; O2SAT 95; BMI 33.7
== END 2023-09-19 11:19 | disposition home or self-care (01) ==
PROVIDERS: PCP Internal Medicine; Visit Provider Internal Medicine
DX: M96.1 Postlaminectomy syndrome, not elsewhere classified (principal); M54.16 Radiculopathy, lumbar region
CPT/HCPCS: 99204

== ENCOUNTER → 2023-09-19 10:17 | Outpatient (BNVA) | payer OTHER, SELFPAY | PROVIDERS: PCP Internal Medicine; Visit Provider Internal Medicine ==

== ENCOUNTER 2023-09-25 13:44 | Outpatient (AMB) | payer OTHER, SELFPAY ==
[2023-09-25 13:51] VITALS: BP 118/80; BMI 33.0
--- NOTE | 2023-09-25 13:51 | MHC.PC.OV ---
Vital Signs 09/25/23 13:51 Height 5 ft 7 in Weight 211 lb BMI 33.0 BP 118/80 Blood Pressure Location Rt brachial Position Sitting Intake Visit Reasons: 2nd opinion referral Plastic Printer Required: No Accompanied by: Spouse Allergies No Known Allergies [No Known Allergies*] Allergy (Verified 09/25/23 13:56) Tobacco use date assessed: 07/29/23 Dental Screening Dental Screen Date: 07/29/23 HPI HPI Comments History of Present Illness Details This is a 63-year-old male with hypertension, pure hypercholesterolemia and low vitamin-D that still complains of low back pain radiating to the right leg with significant difficulty walking. No fever, bowel or bladder incontinence. MRI of lumbar spine reveal moderate to severe degeneration in lumbar spine. He wants a 2nd opinion and I will refer him to [facility]. Blood pressure stable with medication. On statins for elevated cholesterol. On vitamin-D supplements for low vitamin-D. [facility] Medical History (Updated 09/27/23 @ 16:23 by Mary Anne Leach MD) Arthritis of right hip Chronic, continuous use of opioids Former smoker Hx of fracture of tibia Substance use disorder Dupuytren's contracture of right hand High cholesterol Hypertension Surgical History History of back surgery Hx of colonoscopy History of hand surgery History of shoulder surgery Family History Mother Cancer Father No problems noted. Sister Breast cancer Social History Household Members: Spouse Housing: House Are you a primary intensive care nurse to a significant other at home: No Do you presently have visiting nurse or other home services: No 75 years or older and lives alone: No Alcohol intake: current Alcohol intake frequency: a few times a month Alcohol type: beer Comment: COUNTS CORRECT Patient Tobacco Use Status: Former Tobacco user Quit Date: 2012 Tobacco use type: Cigarette Years Smoked: 10 e-Cigarette/Vaping Use: Never Used Second Hand Smoke Exposure: Yes Substance Use Type: Marijuana service: No Current occupational status: retired Current occupation: right hand dominant Cognitive needs: Yes Hearing needs: No Vision needs: No Questionnaire Thrive Questionnaire Date Thrive assessed: 07/29/23 YESENIA-7 AMB Questionnaire YESENIA-7 Date YESENIA - 7 assessed: 07/29/23 Source: Developed by DrsMilad Au, Katherine Ortiz, Kenneth Becker and colleagues, with an educational hoa from [employer]. Review of Systems Const All systems reviewed & are unremarkable except as noted in HPI and below Eyes Reports no additional complaints, Denies change in vision and Denies other visual disturbances Card Denies chest pain at rest, Denies chest pain with activity, Denies edema, Denies irregular heart rhythm, Denies claudication, Denies dyspnea, Denies dyspnea on exertion, Denies orthopnea, Denies paroxysmal nocturnal dyspnea and Denies slow heart rate Resp Denies cough, Denies dyspnea and Denies dyspnea on exertion GI Denies abdominal pain, Denies change in bowel habits, Denies excessive flatus, Denies nausea and Denies vomiting Denies urinary hesitancy, Denies urinary incontinence and Denies urinary urgency Physical exam (Primary Care) Vital Signs: Last Vital Signs BP 118/80 09/25/23 13:51 BMI result Body Mass Index 33.0 Tobacco/Smoking Status: Tobacco use Status Tobacco use date assessed 07/29/23 09/25/23 13:55 Patient Tobacco Use Status Former Tobacco user 09/25/23 13:55 Tobacco use type Cigarette 09/25/23 13:55 e-Cigarette/Vaping Use Never Used 09/25/23 13:55 Thrive Assessment: Date of Thrive Assessment Date Thrive assessed 07/29/23 09/25/23 13:55 Resp Effort & Inspection: normal respiratory effort Auscultation: clear to auscultation bilaterally Cardio Jugular venous distension: no JVD Rate: regular rate Rhythm: regular rhythm Heart sounds: S1 normal heart sound present and S2 normal heart sound present Extrem General: Yes full ROM Assessment and Plan Assessment & Plan (1) Low vitamin D level: Code(s): R79.89 - Other specified abnormal findings of blood chemistry Plan: Continue vitamin-D supplements. (2) Hypertension: Code(s): I10 - Essential (primary) hypertension Qualifiers: Hypertension type: unspecified Qualified Code(s): I10 - Essential (primary) hypertension Plan: Continue lisinopril-hydrochlorothiazide and amlodipine. Blood pressure goal is equal or less than 130/80. (3) Pure hypercholesterolemia: Code(s): E78.00 - Pure hypercholesterolemia, unspecified Plan: Continue statins. (4) Lumbar radiculopathy: Code(s): M54.16 - Radiculopathy, lumbar region Plan: Referred to Ortho for 2nd opinion. Orders: Referrals Orthopedics Referral M54.16 - Radiculopathy, lumbar region Medications: Refilled hydroxyzine HCl 25 mg PO BEDTIME PRN 30 tabs 0RF itching 30 days Coding Level of Care Code Est Pt Level 4 (20529) Diagnoses Low vitamin D level R79.89 Hypertension, unspecified type I10 Hypertension type: unspecified Pure hypercholesterolemia E78.00 Lumbar radiculopathy M54.16 Time Spent (min) 25
== END 2023-09-25 14:38 | disposition home or self-care (01) ==
PROVIDERS: PCP Internal Medicine; Visit Provider Internal Medicine
DX: R79.89 Other specified abnormal findings of blood chemistry (principal); I10 Essential (primary) hypertension; E78.00 Pure hypercholesterolemia, unspecified; M54.16 Radiculopathy, lumbar region
CPT/HCPCS: 99214

== ENCOUNTER 2023-10-01 21:41 | Emergency (ER) | payer OTHER, SELFPAY ==
[2023-10-01 21:51] VITALS: BP 150/82; PULSE 62; O2SAT 99
[2023-10-01 21:55] VITALS: BP 88/54; PULSE 102; RESP 18; TEMP 36.9; O2SAT 96; BMI 35.3
[2023-10-01 22:26] LABS: MANUAL DIFF FLAG NO
[2023-10-01 22:27] LABS: Basophils Absolute Auto 0.1 X10*3/uL (0.0-0.2); Basophils Percent Auto 0.7 % (0-2); Eosinophils Absolute Auto 0.1 X10*3/uL (0.0-0.4); Eosinophils Percent Auto 0.7 % (0-4); Hematocrit 37.4 % (42.0-52.0); Hemoglobin 13.1 g/dl (14.0-18.0); Imm Gran Abs Auto 0.08 X10*3/uL (0.00-0.03); Imm Gran Pct Auto 0.7 % (0.0-0.4); Lymphocytes Absolute Auto 1.1 X10*3/uL (1.2-4.9); Lymphocytes Percent Auto 9.1 % (20-40); Mean Corpuscular Hemoglobin 29.8 pg (27.0-33.0); Mean Corpuscular Volume 85.2 fL (80.0-98.0); Mean Platelet Volume 8.6 fL (9.4-12.4); Monocytes Absolute Auto 1.1 X10*3/uL (0.1-1.2); Monocytes Percent Auto 8.9 % (2-11); Neutrophils Absolute Auto 9.8 x10*3/uL (2.0-8.3); Neutrophils Percent Auto 79.9 % (45-73); Platelet Count 379 X10*3/uL (160-400); Red Blood Count 4.39 X10*6/uL (4.60-5.80); Red Cell Distribution Width 13.2 % (11.0-16.0); White Blood Count 12.2 X10*3/uL (4.8-10.8)
[2023-10-01 22:45] LABS: Alanine Aminotransferase 22 U/L (0-40); Albumin Level 4.5 g/dL (3.5-5.0); Alkaline Phosphatase 75 U/L (39-117); Anion Gap 23 (12-20); Aspartate Amino Transferase 26 U/L (5-37); Bilirubin Total 0.3 mg/dL (0.0-1.0); Blood Urea Nitrogen 15 mg/dL (9-16); Calcium 9.5 mg/dL (8.4-10.2); Carbon Dioxide 20 mmol/L (22-29); Chloride 86 mmol/L (96-108); Creatinine Clr Calc Pharmacy 77.9; Estimated Glomerular Filt Rate > 60; Ethanol 197 mg/dL; Glucose Random 96 mg/dL (60-115); Magnesium 2.4 mg/dL (1.6-2.6); Potassium 4.5 mmol/L (3.3-5.1); Sodium 124 mmol/L (135-145); Total Protein 7.9 g/dL (6.5-8.0)
[2023-10-01 22:48] VITALS: BP 89/50; PULSE 97; RESP 16; O2SAT 95
--- OUTSIDE RECORDS SUMMARY | 2023-10-01 22:59 | XMS_ITS | Patient Health Record ---
Author Organization [facility] [place] Address [address] [place] [address] Care Team Providers Care Security Representative Name Role Phone Deborah RODRIGUEZ, Mary Anne Primary Care Provider Unavail able VishHeydi potter Unavailable [phone] Rio Mac Unavailable [phone] ALLERGIES No Known Allergies REASON FOR REFERRAL No Information MEDICATIONS Medication SIG (Take, Route, Frequency, Duration) Notes Start Date End Date Status amLODIPine Besylate 10 MG 1 tablet Orall y Once a day Active Lisinopril-hydroCHLOROthiaz flo 20-12.5 MG 1 tablet Orally Active Lisinopril 20 MG 1 tablet Orally Once a day Active Gabapentin 300mg three times a day or ally daily Active Vitamin D3 25 MCG (1000 UT) 1 capsule Or ally Once a day Active Simvastatin 20 MG 1 tablet in the even ing Orally Once a day Active SOCIAL HISTORY Tobacco Use: Social History Observation Description Date Details (start date - stop date) Former Smoker NA - NA Sex Assigned At : Social History Observation Description Sex Assigned At Unknown Tobacco Use/Smoking Question Answer Notes Are you a: former smoker Additional Findings: Tobacco Non-User Current no n-smoker Alcohol Screen Question Answer Notes Did you have a drink contain ing alcohol in the past year? Yes How often did you have a dri nk containing alcohol in the past year? 2 to 3 times a week (3 points) Points 3 Interpretation Negative Tobacco use other than smoking: Question Answer Notes Are you an other tobacco user? Yes v ape PROBLEMS Problem Type ICD Code Onset Dates Problem Status W/U Status Risk SNOMED Code Notes Problem Gait abnormality (R26.9) Active confirmed 41825686 Problem Equinus contracture of left ankle (M24.572) Active confirmed Problem Equinus contracture of right ankle (M24.571) Active confirmed 332231403 VITAL SIGNS Height 5 ft 7 in in 11/12/2022 Weight 208 lbs 11/12/2022 BMI 32.57 kg/m2 11/12/2022 Encounters Encounter Location Date Provider Diagnosis [facility] [address] 10/09/2022 Heydi Garcia Pes planus of left foot M21.42 ; Pes planus of right foot M21.41 ; Gait abnormality R26.9 ; Equinus contracture of left ankle M24.572 and Equinus contracture of right ankle M24.[address] [facility] [address] 10/09/[address] [address] 10/09/[address] [address] 10/24/2022 Rio Mac [address] [address] 10/25/2022 [facility] [address] 10/29/[address] [address] 11/12/2022 Heydi Garcia Pes planus of left foot M21.42 ; Pes planus of right foot M21.41 ; Gait abnormality R26.9 ; Equinus contracture of left ankle M24.572 and Equinus contracture of right ankle M24.571 ASSESSMENTS Encounter Date Diagnosis Assessment Notes Treatment Notes Treatment Clinical Notes 10/09/2022 Pes planus of right foot (ICD-10 - M21.41) 10/09/2022 Pes planus of left foot (ICD-10 - M21.42) 11/12/2022 Pes planus of right foot (ICD-10 - M21.41) 11/12/2022 Pes planus of left foot (ICD-10 - M21.42) 11/12/2022 Gait abnormality (ICD-10 - R26.9) 10/09/2022 Gait abnormality (ICD-10 - R26.9) 10/09/2022 Equinus contracture of left ankle (ICD-10 - M24.572) 11/12/2022 Equinus contracture of left ankle (ICD-10 - M24.572) 11/12/2022 Equinus contracture of right ankle (ICD-10 - M24.571) 10/09/2022 Equinus contracture of right ankle (ICD-10 - M24.571) PLAN OF TREATMENT No Information Insurance Providers Payer Name Payer Address Payer Phone Subscriber Number Group Number Insured Name Patient Relationship to Insured Coverage Start Date Coverage End Date [facility] [address] [place] [phone] [id number] Alix Montes Spouse - patient is the spouse of the insured MEDICAL (GENERAL) HISTORY Medical History History ICD Code Arthritis Back,Hip,and Knee pain CAD (Cholesterol) High blood pressure Sciatica Chicken pox bulging discs Surgical History Surgery Date(Month/Year)
--- NOTE | 2023-10-02 00:28 | MHC.EDTECH ---
This Tech walk patient Patient had a study gate with a jo RODRIGUEZ and RN was notify Plan of care ongoing
[2023-10-02 00:34] VITALS: BP 98/61; PULSE 103; RESP 17; TEMP 36.6; O2SAT 93
--- NOTE | 2023-10-02 00:54 | ED_ITS ---
HPI - Back Pain/Injury General Chief Complaint: Back Pain/Injury Stated Complaint: LEG WEAKNESS Time Seen by Provider: 10/01/23 23:12 Source: patient Mode of arrival: EMS History of Present Illness HPI Narrative: 63-year-old male with chronic lower back pain as well as chronic right lower extremity pain arrives via EMS with complaints that earlier this evening while he was ambulating with his walker which he uses at baseline his legs became weak and unsteady causing him to lower himself to the ground with a superficial injury to the left knee. Patient states that approximately 2 years ago he had lower back surgery and since that time he has had persistent pain and weakness in the right lower extremity, he denies any bowel or bladder issues at this time, denies any groin numbness or tingling. Related Data Previous Rx's ?Medication ?Instructions ?Recorded acetaminophen 325 mg tablet 650 mg (2 x 325 mg) PO Q6H PRN 05/14/23 Pain, Mild (Pain Scale 1-3) 30 days #240 tabs amlodipine 10 mg tablet 10 mg PO DAILY 90 days #90 tabs 06/28/23 simvastatin 20 mg tablet 20 mg PO BEDTIME 90 days #90 tabs 08/17/23 cholecalciferol (vitamin D3) 25 25 mcg PO DAILY #90 tabs 08/26/23 mcg (1,000 unit) tablet hydroxyzine HCl 25 mg tablet 25 mg PO BEDTIME PRN itching 30 09/25/23 days #30 tabs gabapentin 300 mg capsule 600 mg (2 x 300 mg) PO TID #90 caps 09/26/23 lisinopril 20 1 tab PO DAILY 90 days #90 tabs 09/29/23 mg-hydrochlorothiazide 12.5 mg tablet lidocaine 5 % topical patch 1 patch topical DAILY PRN pain 30 09/30/23 days #30 ea Allergies Allergy/AdvReac Type Severity Reaction Status Date / Time No Known Allergies Allergy Verified 10/01/23 22:03 [No Known Allergies*] Review of Systems 2 Review of Systems: Pertinent positives and negatives as stated in HPI PMFSH Past Medical History Medical History Arthritis of right hip Chronic, continuous use of opioids Former smoker Hx of fracture of tibia Substance use disorder Dupuytren's contracture of right hand High cholesterol Hypertension Surgical History History of back surgery Hx of colonoscopy History of hand surgery History of shoulder surgery Family History Family History Mother Cancer Father No problems noted. Sister Breast cancer Social History Social History Household Members: Spouse Housing: House Are you a primary field care manager to a significant other at home: No Do you presently have visiting nurse or other home services: No Alcohol intake: current Alcohol intake frequency: a few times a month Alcohol type: beer Comment: COUNTS CORRECT Patient Tobacco Use Status: Former Tobacco user Quit Date: 2012 Tobacco use type: Cigarette Years Smoked: 10 e-Cigarette/Vaping Use: Never Used Second Hand Smoke Exposure: Yes Substance Use Type: Marijuana Advance Directives: Yes Advance Directives Information Provided: No Advance Directives on File: No service: No Current occupational status: retired Current occupation: right hand dominant Cognitive needs: Yes Hearing needs: No Vision needs: No Physical Exam 2 Vital Signs: Vital Signs: Last Vital Signs Temp 97.8 F 10/02/23 01:05 Pulse 103 H 10/02/23 01:05 Resp 17 10/02/23 01:05 BP 98/61 10/02/23 01:05 Pulse Ox 93 10/02/23 01:05 O2 Del Method Room Air 10/02/23 01:05 BMI result Body Mass Index 35.3 VITAL SIGNS: Reviewed. GENERAL: Elevated BMI, Well developed, well nourished, in no acute distress. HEAD: Normocephalic/atraumatic EYES: PERRLA, EOMI LUNGS: Normal breath sounds. No adventitious sounds or accessory muscle use. SpO2<93> CARDIOVASCULAR: Regular rate and rhythm without noted murmurs, no JVD or lower extremity edema. ABDOMEN: Soft, non-tender, non-distended with bowel sounds. MUSCULOSKELETAL: No tenderness, deformities, or effusions noted on gross inspection. EXTREMITIES: No cyanosis, clubbing or edema. LEFT KNEE: Superficial abrasion, no effusion or deformity noted. SKIN: Inspection of the skin reveals no rashes NEUROLOGIC: Alert and oriented x 4. Strength and sensation to light touch were grossly intact x 4, but significantly decreased in the right lower extremity at baseline. Medical Decision Making Medical Decision Making [facility] Narrative: 63-year-old male with history and clinical presentation, DDX: Acute on chronic back pain, no concern for cauda equina or cord compression. I reviewed all investigations and hematologic indices demonstrate a chronic leukocytosis/chronic normocytic anemia and no thrombocytopenia. Chemistry indices demonstrate evidence of poor hydration with low sodium and chloride for which he received 1 L of IV fluids, no JORDI and no liver enzyme derangements. [id number] Patient had MRI on 08/28/2023 which neurosurgery is aware of, according to the patient he was informed that there was nothing that could be done and referred to pain management. Patient feeling much better, ambulation with walker demonstrates a steady gait and no further weakness in extremities and he is otherwise discharged with strong recommendations to continue follow-up with chronic pain specialist. Differential Diagnosis Differential Diagnoses: The differential diagnosis associated with the presentation includes Please see the discussion above Admission/Observation Consideration of admission/observation: Escalation of care including admission/observation considered Please see the discussion above Lab Data [facility] Lab Attestation statement: I reviewed the patient's lab results. Please see the discussion above 10/01/23 22:21 10/01/23 22:21 Labs: Lab Results 10/01/23 Range/Units 22:21 WBC 12.2 H (4.8-10.8) X10*3/uL RBC 4.39 L (4.60-5.80) X10*6/uL Hgb 13.1 L (14.0-18.0) g/dl Hct 37.4 L (42.0-52.0) % MCV 85.2 (80.0-98.0) fL MCH 29.8 (27.0-33.0) pg MCHC 35.0 (31.0-36.0) g/dl RDW 13.2 (11.0-16.0) % Plt Count 379 (160-400) X10*3/uL MPV 8.6 L (9.4-12.4) fL Immature Gran % (Auto) 0.7 H (0.0-0.4) % Neut % (Auto) 79.9 H (45-73) % Lymph % (Auto) 9.1 L (20-40) % [place] % (Auto) 8.9 (2-11) % Eos % (Auto) 0.7 (0-4) % Baso % (Auto) 0.7 (0-2) % Lymph # (Auto) 1.1 L (1.2-4.9) X10*3/uL [place] # (Auto) 1.1 (0.1-1.2) X10*3/uL Eos # (Auto) 0.1 (0.0-0.4) X10*3/uL Baso # (Auto) 0.1 (0.0-0.2) X10*3/uL Abs Immat Gran (auto) 0.08 H (0.00-0.03) X10*3/uL Absolute Neuts (auto) 9.8 H (2.0-8.3) x10*3/uL Absolute Nucleated RBC 0.000 (0.0-0.012) X10*3/uL Nucleated RBC % (auto) 0.0 (0.0-0.2) /100WBC Sodium 124 L (135-145) mmol/L Potassium 4.5 (3.3-5.1) mmol/L Chloride 86 L (96-108) mmol/L Carbon Dioxide 20 L (22-29) mmol/L Anion Gap 23 H (12-20) BUN 15 (9-16) mg/dL Creatinine 1.09 (0.5-1.4) mg/dL Estim Creat Clear Calc 77.9 Estimated GFR > 60 Random Glucose 96 (60-115) mg/dL Calcium 9.5 (8.4-10.2) mg/dL Magnesium 2.4 (1.6-2.6) mg/dL Total Bilirubin 0.3 (0.0-1.0) mg/dL AST 26 (5-37) U/L ALT 22 (0-40) U/L Alkaline Phosphatase 75 (39-117) U/L Total Protein 7.9 (6.5-8.0) g/dL Albumin 4.5 (3.5-5.0) g/dL Ethyl Alcohol 197 mg/dL External Record Review External record reviewed: Outpatient record, Prior outpatient labs and Prior outpatient radiology Chronic Conditions Patient?s care impacted by: Hypertension Critical Care Time Critical Care Time Critical Care Time: Yes Total Critical Care Time: 45 Attestation: I personally attest to this time spent taking care of the patient. Discharge Plan Discharge Clinical Impression: Chronic back pain, Leg weakness Patient Disposition: Home, Self-Care Instructions: Back Pain (ED) Additional Instructions: 1. Resume all home medications as prescribed. 2. Still recommend using Tylenol and ibuprofen together for anti-inflammatory properties, also use [id number] lidocaine patch. 3. Consider injections for better pain control. Do not hesitate to return to the emergency room for any acute worsening of your symptoms or bowel or bladder issues. Prescriptions: No Action amlodipine 10 mg tablet 10 mg PO DAILY 90 Days Qty: 90 1RF simvastatin 20 mg tablet 20 mg PO BEDTIME 90 Days Qty: 90 1RF cholecalciferol (vitamin D3) 25 mcg (1,000 unit) tablet 25 mcg PO DAILY Qty: 90 3RF gabapentin 300 mg capsule 600 mg PO TID Qty: 90 0RF lisinopril-hydrochlorothiazide 20-12.5 mg tablet 1 tab PO DAILY 90 Days Qty: 90 1RF lidocaine 5 % adhesive patch,medicated 1 patch topical DAILY PRN (Reason: pain) 30 Days Qty: 30 2RF Rx Instructions: leave on most painful area for up to 12 hrs acetaminophen 325 mg Tablet 650 mg PO Q6H PRN (Reason: Pain, Mild (Pain Scale 1-3)) 30 Days Qty: 240 0RF hydroxyzine HCl 25 mg tablet 25 mg PO BEDTIME PRN (Reason: itching) 30 Days Qty: 30 0RF Referrals: Mary Anne Mcgraw MD [Primary Care Provider] - Stand Alone Forms: Work/School Release Interventions: ED Discharge Assessment Last Done: 10/02/23 01:05 Discharge Date/Time: 10/02/23 01:05 Print Language: Trinidadian
[2023-10-02 01:05] VITALS: BP 98/61; PULSE 103; RESP 17; TEMP 36.6; O2SAT 93
== END 2023-10-02 01:05 | disposition home or self-care (01) ==
PROVIDERS: Emergency Provider Student in an Organized Health Care Education/Training Program; PCP Internal Medicine
DX: M54.50 Low back pain, unspecified (principal); M79.661 Pain in right lower leg; M79.18 Myalgia, other site; F10.129 Alcohol abuse with intoxication, unspecified; Y90.6 Blood alcohol level of 120-199 mg/100 ml; Z87.891 Personal history of nicotine dependence; Z79.899 Other long term (current) drug therapy
CPT/HCPCS: 36415; 80053; 80307; 83735; 85025; 99283; 99284

== ENCOUNTER 2023-10-09 06:57 | Outpatient (REF) | payer OTHER, SELFPAY ==
--- NOTE | ~2023-10-09 | FL_ITS ---
EXAMINATION: XR FLUOROSCOPY WITH IMAGES CLINICAL INFORMATION: Spinal stenosis with neurogenic claudication. COMPARISON: None available. TECHNIQUE: Fluoroscopy Supervised By: Dr. Miguel Ambriz. Fluoroscopy Time: 0.3 minutes. Cumulative Dose: 4.87 mGy. DAP: 0.0429 Gycm2. Images: 2. FINDINGS: Intraoperative fluoroscopy and spot films were performed during a procedure in the OR. Spinal needle seen overlying the sacrum with contrast seen in the epidural space. Please see Dr. Miguel Ambriz's report for complete details. FL/FL guidance in treatment room IMPRESSION: Intraoperative fluoroscopy and spot films were obtained. Please see Dr. Miguel Ambriz's report for complete details.
== END 2023-10-09 06:58 | disposition home or self-care (01) ==
LOC: CF 06:57
PROVIDERS: PCP Nurse Practitioner Family; Visit Provider Internal Medicine
DX: M48.062 Spinal stenosis, lumbar region with neurogenic claudication (principal); M96.1 Postlaminectomy syndrome, not elsewhere classified; M54.16 Radiculopathy, lumbar region
CPT/HCPCS: 62323; J3301; Q9967

== ENCOUNTER 2023-10-09 09:12 | Outpatient (AMB) | payer OTHER, SELFPAY ==
--- NOTE | 2023-10-09 09:10 | A.OFFVIS_ITS ---
Vital Signs 10/09/23 10:24 10/09/23 10:26 Height 5 ft 7 in Weight 225 lb BMI 35.2 BP 124/74 132/76 Blood Pressure Location Lt brachial Lt brachial Position Sitting Sitting Respiration 18 Pulse 84 Pulse Source Pulse Oximeter Pulse Oximetry (%) 96 Oxygen Delivery Method Room Air Comment Pre-Op Intake Visit Reasons: mona caudal JAVIER Allergies No Known Allergies [No Known Allergies*] Allergy (Verified 10/01/23 22:03) HPI HPI mona caudal JAVIER: Details: Patient presents for scheduled procedure. Denies any recent cough, cold, infection, fever or other significant changes in medical history since last office visit. [facility] Medical History Arthritis of right hip Chronic, continuous use of opioids Former smoker Hx of fracture of tibia Substance use disorder Dupuytren's contracture of right hand High cholesterol Hypertension Surgical History History of back surgery Hx of colonoscopy History of hand surgery History of shoulder surgery Family History Mother Cancer Father No problems noted. Sister Breast cancer Social History Household Members: Spouse Housing: House Are you a primary rental boats caretaker to a significant other at home: No Do you presently have visiting nurse or other home services: No 75 years or older and lives alone: No Alcohol intake: current Alcohol intake frequency: a few times a month Alcohol type: beer Comment: COUNTS CORRECT Patient Tobacco Use Status: Former Tobacco user Quit Date: 2012 Tobacco use type: Cigarette Years Smoked: 10 e-Cigarette/Vaping Use: Never Used Second Hand Smoke Exposure: Yes Substance Use Type: Marijuana service: No Current occupational status: retired Current occupation: right hand dominant Cognitive needs: Yes Hearing needs: No Vision needs: No Physical Exam Vital Signs: Last Vital Signs Pulse 84 10/09/23 10:24 Resp 18 10/09/23 10:24 BP 132/76 10/09/23 10:26 Pulse Ox 96 10/09/23 10:24 Oxygen Delivery Method Room Air 10/09/23 10:24 BMI result Body Mass Index 35.2 Office Procedures Joint Injection/Drain Joint Injection/Drain Details: Caudal JAVIER with catheter After obtaining written consent, pre-procedure blood pressure and pulse were measured. The patient was placed in the prone position. The lumbosacral area was widely prepped with chloraprep and draped in sterile fashion. The skin overlying the target was anesthetized with 0.5% lidocaine. A 17 G needle was used to access the caudal epidural space using anatomic landmarks and x-ray guidance. We then threaded a catheter up to the L5/S1 level and injected contrast 1cc omnipaque 180 for verification of epidural spread. Following negative aspiration of heme or CSF, 10 mL of normal saline was injected with minimal resistance and pain on injection. This was followed by a mixture of 5 ml 0.5% lidocaine with 80 mg triamcinolone injected with minimal pressure into the epidural space. The needle was removed, skin cleansed and a sterile bandage was applied. The patient tolerated the procedure well and no complications were encountered. Following the procedure the patient's vital signs were stable. The patient was discharged home in good condition with post-procedural instructions. Time Out: Immediately prior to the procedure, the following was verbally confirmed that there is a signed consent form and that the correct patient, planned procedure, site and side are consistent with documentation and that necessary equipment and/or blood products are available prior to the start of the case. Complications: none EBL: <5 cc Coding 33029 - Caudal/Lumbar Epidural/Interlaminar with fluoroscopy Procedure code (CPT) selection complete Assessment & Plan Assessment & Plan (1) Post laminectomy syndrome: Code(s): M96.1 - Postlaminectomy syndrome, not elsewhere classified Category: Medical (2) Lumbar radiculopathy: Code(s): M54.16 - Radiculopathy, lumbar region Category: Medical Plan Patient is status post caudal JAVIER with catheter. Significant right-sided adhesions noted with lack of contrast flow pattern on the right side. If this procedure is not helpful, we can consider epidural lysis of adhesions in the future or trial of SCS/intrathecal drug delivery. Patient tolerated procedure well and was discharged home in stable condition with discharge instructions. All questions were answered. Orders: Orders FL guidance in treatment room Today Alis Dean, [employer]ERAL LAW CLERK, [employer] M48.062 - Spinal stenosis, lumbar region with neurogenic claudication Medications: New oxycodone Partial Fill upon patient request. 10 mg PO BID PRN 1 tab 0RF pain Miguel Ambriz MD Coding Level of Care Code Procedure Only Diagnoses Post laminectomy syndrome M96.1 Lumbar radiculopathy M54.16 CPT Codes Coding - Joint 11: 22322 - Caudal/Lumbar Epidural/Interlaminar with fluoroscopy ([id number])
[2023-10-09 10:24] VITALS: BP 124/74; PULSE 84; RESP 18; O2SAT 96; BMI 35.2
[2023-10-09 10:26] VITALS: BP 132/76
== END 2023-10-09 10:17 | disposition home or self-care (01) ==
LOC: HO.PMCPRC 09:12
PROVIDERS: PCP Nurse Practitioner Family; Visit Provider Internal Medicine
DX: M96.1 Postlaminectomy syndrome, not elsewhere classified (principal); M54.16 Radiculopathy, lumbar region
CPT/HCPCS: 62323

== ENCOUNTER 2023-11-07 10:38 | Outpatient (AMB) | payer OTHER, SELFPAY ==
[2023-11-07 10:40] VITALS: BP 132/73; PULSE 112; RESP 14; O2SAT 94; BMI 35.2
--- NOTE | 2023-11-07 10:40 | MHC.OFFVIS ---
Vital Signs 11/07/23 10:40 Height 5 ft 7 in Weight 225 lb BMI 35.2 BP 132/73 Blood Pressure Location Lt radial Position Sitting Respiration 14 Pulse 112 H Pulse Source Pulse Oximeter Pulse Oximetry (%) 94 Intake Visit Reasons: s/p mona caudal Allergies No Known Allergies [No Known Allergies*] Allergy (Verified 11/07/23 10:43) Medication List - Last Reconciled 11/07/23 by Gloria Watson LPN acetaminophen 650 mg (2 x 325 mg) PO Q6H PRN 30 days amlodipine 10 mg PO DAILY 90 days cholecalciferol (vitamin D3) 25 mcg PO DAILY gabapentin 600 mg (2 x 300 mg) PO TID 30 days hydroxyzine HCl 25 mg PO BEDTIME PRN 30 days lidocaine 5% 1 patch topical DAILY PRN 30 days lisinopril-hydrochlorothiazide 20-12.5 mg 1 tab PO DAILY 90 days oxycodone 10 mg PO BID PRN simvastatin 20 mg PO BEDTIME 90 days HPI HPI s/p mona caudal: Details: Clark is here for follow-up. He did not get any relief from the caudal injection. He is due to receive a 2nd opinion from Neurosurgery early in November. He has not had a nerve conduction study before or after his prior lumbar surgery. He is interested in proceeding with a trial of lumbar spinal cord stimulation if he is deemed nonsurgical by the neurosurgeon. He continues to have significant pain and weakness in his right leg. He continues to use a walker. He has been taking acetaminophen, gabapentin, ibuprofen with no relief. [facility] Medical History Arthritis of right hip Chronic, continuous use of opioids Former smoker Hx of fracture of tibia Substance use disorder Dupuytren's contracture of right hand High cholesterol Hypertension Surgical History History of back surgery Hx of colonoscopy History of hand surgery History of shoulder surgery Family History Mother Cancer Father No problems noted. Sister Breast cancer Social History Household Members: Spouse Housing: House Are you a primary career resource specialist to a significant other at home: No Do you presently have visiting nurse or other home services: No 75 years or older and lives alone: No Alcohol intake: current Alcohol intake frequency: a few times a month Alcohol type: beer Comment: COUNTS CORRECT Patient Tobacco Use Status: Former Tobacco user Tobacco use type: Cigarette Years Smoked: 10 e-Cigarette/Vaping Use: Never Used Second Hand Smoke Exposure: Yes Substance Use Type: Marijuana service: No Current occupational status: retired Current occupation: right hand dominant Cognitive needs: Yes Hearing needs: No Vision needs: No Physical Exam Vital Signs: Last Vital Signs Pulse 112 H 11/07/23 10:40 Resp 14 11/07/23 10:40 BP 132/73 11/07/23 10:40 Pulse Ox 94 11/07/23 10:40 BMI result Body Mass Index 35.2 On exam today: Appears afebrile. Alert and oriented. Mood and affect appropriate. Follows and participates in conversation appropriately. Respiratory effort is unlabored. Ambulates with the help of a walker. Assessment & Plan Assessment & Plan (1) Lumbar radiculopathy: Code(s): M54.16 - Radiculopathy, lumbar region Category: Medical Plan Recommend nerve conduction study prior to upcoming neurosurgical 2nd opinion appointment. He does have some atrophy of his right calf muscle which measures 36.5 cm versus 37.5 on the left side. He will follow-up with me after his nerve conduction study as well as neurosurgical 2nd opinion. I prescribed tramadol and ibuprofen to be alternated for his episodes of pain flares in the meantime. We will start the process for a trial of spinal cord stimulation device with [employer]. Patient is on board with the plan. Orders: Orders NE electromyogram (EMG) 11/07/23 M54.16 - Radiculopathy, lumbar region Medications: New tramadol 50 mg PO BID PRN 60 tabs 0RF pain ibuprofen 800 mg PO Q8H 60 tabs 0RF Coding Level of Care Code Est Pt Level 4 (77322) Diagnoses Lumbar radiculopathy M54.16
== END 2023-11-07 11:20 | disposition home or self-care (01) ==
PROVIDERS: PCP Internal Medicine; Visit Provider Internal Medicine
DX: M54.16 Radiculopathy, lumbar region (principal)
CPT/HCPCS: 99214

== ENCOUNTER → 2023-11-07 10:38 | Outpatient (BNVA) | payer OTHER, SELFPAY | PROVIDERS: PCP Internal Medicine; Visit Provider Internal Medicine ==

== ENCOUNTER 2023-11-07 12:34 | Outpatient (AMB) | payer OTHER, SELFPAY ==
--- NOTE | 2023-11-07 12:36 | MHC.OFFVIS ---
Intake Visit Reasons: OV-RT KADIE 05/13/23 NE Intake Note: Quiana is a 63 year old male who presents today for a follow up of his right hip s/p Right KADIE 05/13/23. Patient reports that his hip is doing well but he is having significant pain mostly due to the back which is affecting his AODL. Allergies No Known Allergies [No Known Allergies*] Allergy (Verified 11/07/23 10:43) HPI HPI OV-RT KADIE 05/13/23 NE: Details: Renny continues to have difficulty ambulating. He describes radiating pain in his right leg. [facility] Medical History Arthritis of right hip Chronic, continuous use of opioids Former smoker Hx of fracture of tibia Substance use disorder Dupuytren's contracture of right hand High cholesterol Hypertension Surgical History History of back surgery Hx of colonoscopy History of hand surgery History of shoulder surgery Family History Mother Cancer Father No problems noted. Sister Breast cancer Social History Household Members: Spouse Housing: House Are you a primary hospice care sales consultant to a significant other at home: No Do you presently have visiting nurse or other home services: No 75 years or older and lives alone: No Alcohol intake: current Alcohol intake frequency: a few times a month Alcohol type: beer Comment: COUNTS CORRECT Patient Tobacco Use Status: Former Tobacco user Tobacco use type: Cigarette Years Smoked: 10 e-Cigarette/Vaping Use: Never Used Second Hand Smoke Exposure: Yes Substance Use Type: Marijuana service: No Current occupational status: retired Current occupation: right hand dominant Cognitive needs: Yes Hearing needs: No Vision needs: No Physical Exam Extrem Other: Painless right hip range of motion. Weakness and pain with resisted hip flexion. Negative impingement test Assessment & Plan Assessment & Plan (1) Status post total replacement of right hip: Code(s): Z96.641 - Presence of right artificial hip joint Category: Surgical Plan: Right hip seems to be faring well although he has not walking particularly well. No obvious complications. I do recommend continued attempts at walking as tolerated and strengthening with physical therapy. I refilled his gabapentin and he can see me in 6 months. Coding Level of Care Code Est Pt Level 3 (72847) Diagnoses Status post total replacement of right hip Z96.641
== END 2023-11-07 13:42 | disposition home or self-care (01) ==
PROVIDERS: PCP Internal Medicine; Visit Provider Orthopaedic Surgery
DX: Z47.1 Aftercare following joint replacement surgery (principal); Z96.641 Presence of right artificial hip joint
CPT/HCPCS: 99213

== ENCOUNTER 2023-11-14 15:13 | Outpatient (REF) | payer OTHER, SELFPAY ==
--- NOTE | 2023-11-14 15:17 | EMG_ITS ---
Chief complaint: Chronic back and leg pain. History of fusion L4-S1. Continued weakness on proximal right lower extremity, affecting thigh and knee. Burning on right thigh and knee. More recently noted swelling of right ankle. Reason for referral: Evaluate for L4 radiculopathy versus femoral neuropathy Referred by: Dr. Ambriz Procedure done: Right lower extremity NCS/EMG Precautions and/or limitations: Previous lumbar surgeries The limb temperature was monitored continuously and remained between 32-36 degrees C during the performance of the NCS. Nerve Conduction Studies Anti Sensory Summary Table ?Stim Site NR Onset (ms) Norm Onset (ms) Peak (ms) Norm Peak (ms) O-P Amp (?V) Norm O-P Amp Site1 Site2 Delta-0 (ms) Dist (cm) Syd (m/s) Norm Syd (m/s) Right Sup Peron Anti Sensory (Ankle) Lateral Leg NR <4.4 >5.0 Lateral Leg Ankle 14.0 Right Sural Anti Sensory (Lat Mall) Calf ? 1.7 2.3 <4.0 41.3 >5.0 Calf Lat Mall 1.7 14.0 82 Motor Summary Table ?Stim Site NR Onset (ms) Norm Onset (ms) O-P Amp (mV) Norm O-P Amp iAmp (mV) Amp (1st) (%) Site1 Site2 Delta-0 (ms) Dist (cm) Syd (m/s) Norm Syd (m/s) Right Peroneal Motor (Ext Dig Brev) Ankle ? 4.1 <4.0 2.8 >2.5 3.5 100.0 Ankle Ext Dig Brev 4.1 0.0 B Fib ? 11.7 2.2 2.7 78.6 B Fib Ankle 7.6 22.0 29 >40 Poplt ? 12.7 2.6 3.2 92.9 Poplt B Fib 1.0 6.0 60 >40 Right Tibial Motor (Abd Bai Brev) Ankle ? 3.2 <5 6.2 >2.5 8.0 100.0 Ankle Abd Bai Brev 3.2 0.0 Knee ? 12.1 5.8 7.6 93.5 Knee Ankle 8.9 42.5 48 >40 EMG ?Side Muscle Nerve Root Ins Act Fibs Psw Amp Dur Poly Recrt Int Pat Comment Right AbdHallucis MedPlantar S1-2 Nml Nml Nml Nml Nml 0 Nml Complete Right PostTibialis Tibial L5, S1 Nml Nml Nml Nml Nml 0 Nml Complete Right MedGastroc Tibial S1-2 Nml Nml Nml Nml Nml 0 Nml Complete Right VastusMed Femoral L2-4 Nml Nml Nml Nml Nml 0 Nml Complete Right ExtHallLong Dp Br Peron L5, S1 Nml Nml Nml Nml Nml 0 Nml Complete Right Peroneus Long Sup Br Peron L5-S1 Nml Nml Nml Nml Nml 0 Nml Complete Right RectFemoris Femoral L2-4 Nml Nml Nml Nml Nml 0 Nml Complete FINDINGS: Right peroneal nerve showed prolonged distal latency, normal amplitude and slow conduction velocity distally. Absent right superficial peroneal sensory nerve. All other nerves tested were within normal. Concentric needle EMG was performed in selected muscles of the right lower extremity. Study did not reveal signs of electric abnormalities as shown in the table above. IMPRESSION: 1. This is an abnormal study. 2. 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 3. There is no electrodiagnostic evidence for tibial neuropathy. lumbosacral plexopathy, lumbar radiculopathy, or peripheral neuropathy. CLINICAL COMMENT: Findings above could explain symptoms distally, but would not explain weakness on proximal right lower extremity. No definitive findings for acute or ongoing radiculopathy seen on this study. Further clinical correlation recommended. Thank you for your kind referral. Pallavi Baird MD, YCNTHIA Board Certified, [place] [employer] and Rehabilitation (ABPMR) Board Certified, [place] Board [employer] Electrodiagnostic [employer] (ABEM) [place] [id number] [facility]
== END 2023-11-14 15:14 | disposition home or self-care (01) ==
LOC: HO.NEURO 15:13
PROVIDERS: PCP Internal Medicine; Visit Provider Internal Medicine
DX: M54.16 Radiculopathy, lumbar region (principal)
CPT/HCPCS: 95886; 95908

== ENCOUNTER → 2023-11-14 15:17 | Outpatient (BNV) | payer OTHER, SELFPAY | PROVIDERS: PCP Internal Medicine; Visit Provider Physical Medicine & Rehabilitation | DX: G62.89 Other specified polyneuropathies (principal) | CPT/HCPCS: 95886; 95908 ==

== ENCOUNTER 2023-11-24 08:16 | Outpatient (AMB) | payer OTHER, SELFPAY ==
--- NOTE | 2023-11-24 08:21 | A.OFFVIS_ITS ---
Vital Signs 11/24/23 08:22 Height 5 ft 7 in Weight 215 lb BMI 33.7 BP 107/63 Blood Pressure Location Lt brachial Position Sitting Pulse 111 H Pulse Source Pulse Oximeter Pulse Oximetry (%) 98 Oxygen Delivery Method Room Air Intake Visit Reasons: Discuss EMG Results Intake Note: Pain today 03/04 [employer] Required: No Accompanied by: Family/Other Allergies No Known Allergies [No Known Allergies*] Allergy (Verified 11/24/23 08:23) HPI HPI Discuss EMG Results: Details: 63-year-old male who presents today to the office for a review of EMG result. Continues to experience weakness and pain in the thighs, knee, and ankles, especially on the right. He reports pain and burning sensation in his thighs. He has difficulty standing and walking. He states that movements make the pain worse. He requested a script for walker. He has seeing a neurosurgeon for a 2nd opinion today. Past procedures 10/09/23: Caudal JAVIER with catheter: No relief. [facility] Medical History Arthritis of right hip Chronic, continuous use of opioids Former smoker Hx of fracture of tibia Substance use disorder Dupuytren's contracture of right hand High cholesterol Hypertension Surgical History History of back surgery Hx of colonoscopy History of hand surgery History of shoulder surgery Family History Mother Cancer Father No problems noted. Sister Breast cancer Social History Household Members: Spouse Housing: House Are you a primary acute care certified nursing assistant to a significant other at home: No Do you presently have visiting nurse or other home services: No 75 years or older and lives alone: No Alcohol intake: current Alcohol intake frequency: a few times a month Alcohol type: beer Comment: COUNTS CORRECT Patient Tobacco Use Status: Former Tobacco user Tobacco use type: Cigarette Years Smoked: 10 e-Cigarette/Vaping Use: Never Used Second Hand Smoke Exposure: Yes Substance Use Type: Marijuana service: No Current occupational status: retired Current occupation: right hand dominant Cognitive needs: Yes Hearing needs: No Vision needs: No Review of Systems Const All systems reviewed & are unremarkable except as noted in HPI and below Physical Exam Vital Signs: Last Vital Signs Pulse 111 H 11/24/23 08:22 BP 107/63 11/24/23 08:22 Pulse Ox 98 11/24/23 08:22 Oxygen Delivery Method Room Air 11/24/23 08:22 BMI result Body Mass Index 33.7 General: Appears afebrile. Alert and oriented. Mood and affect appropriate. Follows and participates in conversation appropriately. Respiratory effort is unlabored. Able to transition from sit to stand unassisted. Ambulates with bilaterally normal heel strike and toe off. Results Reviewed Results Reviewed: 11/14/23: NE electromyogram (EMG); NE nerve conduction velocity FINDINGS: Right peroneal nerve showed prolonged distal latency, normal amplitude and slow conduction velocity distally. Absent right superficial peroneal sensory nerve. All other nerves tested were within normal. Concentric needle EMG was performed in selected muscles of the right lower extremity. Study did not reveal signs of electric abnormalities as shown in the table above. IMPRESSION: 1. This is an abnormal study. 2. 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 3. There is no electrodiagnostic evidence for tibial neuropathy. lumbosacral plexopathy, lumbar radiculopathy, or peripheral neuropathy. Assessment & Plan Assessment & Plan (1) Post laminectomy syndrome: Code(s): M96.1 - Postlaminectomy syndrome, not elsewhere classified Category: Medical Plan 63-year-old male with post-laminectomy syndrome. Unremarkable EMG. Continues to have significant disability with walking and subjective weakness. Will schedule him for a trial of lumbar SCS with Medtronic device. Discussed the risks and benefits of the procedure with the patient in detail. All questions were answered. The patient is on board with the plan. I provided a script for walker to the patient today. He will request his spine surgeon 2nd opinion note to be faxed to our office once it is complete. Justification for interventional therapy: ? Patient with average pain > 6/10 ? Patient has exhausted conservative therapy ? Patient unable to tolerate physical therapy due to pain . Patient has a good understanding of their pain condition and has appropriate mental and social support Scribed for Dr. Ambriz by Stuart Stark, medical research scientist, on 11/24/2023. I, Dr. Ambriz, have personally reviewed and agree with the information entered by the scribe. Medications: New walker As directed 1 ea 0RF walker As directed 1 ea 0RF Coding Level of Care Code Est Pt Level 4 (15673) Diagnoses Post laminectomy syndrome M96.1
[2023-11-24 08:22] VITALS: BP 107/63; PULSE 111; O2SAT 98; BMI 33.7
== END 2023-11-24 08:35 | disposition home or self-care (01) ==
PROVIDERS: PCP Internal Medicine; Visit Provider Internal Medicine
DX: M96.1 Postlaminectomy syndrome, not elsewhere classified (principal)
CPT/HCPCS: 99214

== ENCOUNTER → 2023-11-24 08:16 | Outpatient (BNVA) | payer OTHER, SELFPAY | PROVIDERS: PCP Internal Medicine; Visit Provider Internal Medicine ==

== ENCOUNTER 2024-01-16 06:00 | Day surgery (SDC) | payer OTHER, SELFPAY ==
[2024-01-14 11:12] VITALS: BMI 33.7
[2024-01-16 06:26] VITALS: BP 154/88; PULSE 99; RESP 18; TEMP 36.8; O2SAT 96
[2024-01-16 06:41] VITALS: BMI 33.7
[2024-01-16] MEDS: Lactated Ringers 1,000 ML 50 ML IVCONT (07:06)
--- NOTE | 2024-01-16 07:25 | MHC.SHP ---
Pre-Procedural Eval Section A - 24 Hr Update-Section A only Date of Service: 01/16/24 The patient is an INPATIENT: No Changes since office visit: Yes Patient answered all questions The patient has been examined within 24 hours of the surgical procedure. The History & Physical has been completed within 30 days and I have reviewed it.: No Section B - Complete if H&P > 30 days Chief Complaint: Postlaminectomy syndrome, Relevant Family History (Specify if Yes): No Relevant Social History: None Present Medications: see Short Stay Collaborative assessment Medical History: No relevant PMH History of Previous Operations: No relevant previous surgery Allergies: Allergies Allergy/AdvReac Type Severity Reaction Status Date / Time No Known Allergies Allergy Verified 01/16/24 07:06 [No Known Allergies*] Review of Systems Sugical H&P ROS: Negative: Constitution, Cardiovascular and Respiratory Exam Surgical H&P Exam: Normal: HEENT, Normal: Heart and Normal: Lungs Plan Diagnosis/Plan: Unchanged I have reviewed the history and physical and performed a pertinent physical examination on my patient. No changes have occurred unless specified. Time Spent With Patient Time: Total time managing care of this patient today ____ minutes.
[2024-01-16 09:00] VITALS: BP 148/79; PULSE 100; RESP 12; TEMP 36.6; O2SAT 97
--- NOTE | 2024-01-16 09:09 | P.BOP_ITS ---
Brief Operative Note Date of Service: 01/16/24 Pre-op diagnosis: Post-laminectomy syndrome Post-op diagnosis: same Procedure: SCS Trial Implants: Medtronic SCS Leads Surgeon: Miguel Ambriz MD Anesthesia: MAC Was an Electrical And Instrumentation Manager used for this Procedure?: No Estimated blood loss (mL): 5 Pathology: none sent Condition: stable Disposition: PACU
--- NOTE | 2024-01-16 09:13 | W.PM.OPN ---
Operative Note Operative Note Date of Service: 01/16/24 Narrative: Percutaneous Spinal Cord Stimulator Trial, Lumbar After obtaining written consent, pre-procedure blood pressure and heart rate were recorded and are in the nursing record for review. A peripheral IV was started. Antibiotics, cefazolin 2 gram, were given intraoperatively. The patient was placed in a prone position.? The patient was sedated by the anesthesiologist. The thoracolumbar area was widely prepped with ChloraPrep, allowed to dry and draped in sterile fashion. Fluoroscopy was used to identify the target interlaminar spaces and appropriate needle insertion sites. The skin and subcutaneous tissue was anesthetized with 0.5% lidocaine. Two separate 14 gauge coude epidural needles were then advanced from this point in a paramedian approach to the epidural space opening at T12/L1 interspace, where loss of resistance was found using air. No paresthesias were elicited with needle placement. No CSF or heme was present upon needle placement. A guide wire was then used to confirm placement into the epidural space at each level under live fluoroscopy. The 1x8 stimulator lead wire was then threaded to the top of T8 in the right parasagittal position and middle of T7 in the midlinel position under live fluoroscopy. The leads advanced midline and dorsally.? The needles were then completely removed under live fluoroscopy. The stimulator wires were then secured with steristrips, gauze and tegaderm for skin dressing. The patient tolerated the procedure well and no complications were encountered. Following the procedure the patient's vital signs were stable. The patient was discharged home in good condition after being given discharge instructions. Time Out: Immediately prior to the procedure, the following was verbally confirmed that there is a signed consent form and that the correct patient, planned procedure, site and side are consistent with documentation and that necessary equipment and/or blood products are available prior to the start of the case. Complications: none EBL: <2 cc
[2024-01-16 09:15] VITALS: BP 159/85; PULSE 104; RESP 14; TEMP 36.6; O2SAT 96
[2024-01-16 09:30] VITALS: BP 158/93; PULSE 100; RESP 14; TEMP 36.6; O2SAT 96
[2024-01-16 10:47] LABS: MRSA Nasal PCR NEGATIVE (Negative); SA Nasal PCR NEGATIVE (Negative)
== END 2024-01-16 10:03 | disposition home or self-care (01) ==
PROVIDERS: Nurse Practitioner Family; PCP Internal Medicine; Visit Provider Internal Medicine
PROC: (CPT 63650; principal; 2024-01-16 07:30)
DX: M96.1 Postlaminectomy syndrome, not elsewhere classified (principal); R26.2 Difficulty in walking, not elsewhere classified; M16.11 Unilateral primary osteoarthritis, right hip; I10 Essential (primary) hypertension; E78.00 Pure hypercholesterolemia, unspecified; F11.20 Opioid dependence, uncomplicated; Z98.890 Other specified postprocedural states; Z87.891 Personal history of nicotine dependence
CPT/HCPCS: 63650 ×2; 87640; 87641; C1897; J0690; J2250; J2704; J3010

== ENCOUNTER → 2024-01-16 06:00 | Outpatient (BNV) | payer OTHER, SELFPAY | PROVIDERS: PCP Internal Medicine; Visit Provider Internal Medicine | DX: M96.1 Postlaminectomy syndrome, not elsewhere classified (principal) | CPT/HCPCS: 63650 ==

== ENCOUNTER → 2024-01-20 08:35 | Outpatient (BNVA) | payer OTHER, SELFPAY | PROVIDERS: PCP Internal Medicine; Visit Provider Internal Medicine ==

== ENCOUNTER 2024-01-23 10:55 | Outpatient (AMB) | payer OTHER, SELFPAY ==
--- NOTE | 2024-01-23 10:57 | A.OFFVIS_ITS ---
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 Ambriz. Patient reports 0% pain relief for one week of trial since procedure despite multiple device program adjustments and perfect lead placement. He continues to present with significant disability with walking, subjective weakness and pain in the thighs, knee, and ankles, especially on the right. Patient reports pain and burning sensations in his thighs. He has difficulty standing and walking. He states that movements make the pain worse. Patient utilizes walker and assistance from his family with transfers. His recent EMG and MRI reports are noted below and we reviewed this patient again today. Patient request referral to veterinary virologist for further evaluation of his abnormal gait and weakness. Patient reports he underwent 2nd neurosurgical evaluation and was told there was nothing taken to more for him. The tape was removed. The stimulating battery pad was disconnected from the epidural leads. These sites of the insertion were cleansed with ChloraPrep. The epidural leads were removed and the tips were intact.? No erythema, swelling, tenderness or pathological discharge was noted.? Bacitracin ointment, dry sterile and Tegaderm dressing were applied. Past procedures 01/16/24: Lumbar SCS trial: 0% pain relief 10/09/23: Caudal JAVIER with catheter: No relief. [facility] Medical History (Updated 01/23/24 @ 11:32 by PB Crawford) H/O myocardial perfusion scan Chronic, continuous use of opioids Former smoker Arthritis of right hip Hx of fracture of tibia Substance use disorder Dupuytren's contracture of right hand High cholesterol Hypertension Surgical History History of total right hip arthroplasty (05/13/23) History of back surgery (02/2023) Hx of colonoscopy History of hand surgery History of shoulder surgery Family History Mother Cancer Father No problems noted. Sister Breast cancer Social History Household Members: Spouse Housing: House Are you a primary field care coordinator to a significant other at home: No Do you presently have visiting nurse or other home services: No 75 years or older and lives alone: No Alcohol intake: current Alcohol intake frequency: a few times a month Alcohol type: beer Comment: COUNTS CORRECT Patient Tobacco Use Status: Former Tobacco user Tobacco use type: Cigarette Years Smoked: 10 e-Cigarette/Vaping Use: Never Used Second Hand Smoke Exposure: Yes Substance Use Type: Marijuana service: No Current occupational status: retired Current occupation: right hand dominant Cognitive needs: Yes Hearing needs: No Vision needs: No Review of Systems Const All systems reviewed & are unremarkable except as noted in HPI and below Physical Exam Vital Signs: Last Vital Signs Pulse 88 01/23/24 11:03 BP 126/64 01/23/24 11:03 Pulse Ox 98 01/23/24 11:03 Oxygen Delivery Method Room Air 01/23/24 11:03 BMI result Body Mass Index 33.7 General: Appears afebrile. Alert and oriented. Mood and affect appropriate. Follows and participates in conversation appropriately. Respiratory effort is unlabored. Able to transition from sit to stand with assistance of walker and family. Difficulty walking, reports BLE weakness due to pain. Leads removed with tips intact. Results Reviewed Results Reviewed: 11/14/23: NE electromyogram (EMG); NE nerve conduction velocity FINDINGS: Right peroneal nerve showed prolonged distal latency, normal amplitude and slow conduction velocity distally. Absent right superficial peroneal sensory nerve. All other nerves tested were within normal. Concentric needle EMG was performed in selected muscles of the right lower extremity. Study did not reveal signs of electric abnormalities as shown in the table above. IMPRESSION: 1. This is an abnormal study. 2. 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 3. There is no electrodiagnostic evidence for tibial neuropathy. lumbosacral plexopathy, lumbar radiculopathy, or peripheral neuropathy. MR LUMBAR SPINE WITHOUT AND WITH CONTRAST 08/28/23 CLINICAL INFORMATION: Severe right leg pain radiating from the thigh. Assess for L4 nerve compression. COMPARISON: CT scan of the lumbar spine 04/04/2023. MRI scan of the lumbar spine 03/10/2023. TECHNIQUE: MRI of the lumbar spine was obtained using routine sequences with and without contrast. Intravenous contrast: [id number] mL FINDINGS: VERTEBRAL BODIES AND PARASPINAL STRUCTURES: There is mild reversal of the lumbar lordosis. There are retrolistheses of L2 on L3 and L3 on L4. There is narrowing of intervertebral disc height at L3-L4 with edematous endplate signal changes posteriorly with mild enhancement. The study redemonstrates the sequelae of the multilevel instrumented posterior fusions at L4, L5 and S1. There are bilateral pedicular screws in these vertebrae joined by vertical rods. The study redemonstrates the superior compression fracture of L1, a chronic finding. There are no acute compression fractures. Overall, marrow signal is homogenous. There is nonspecific perinephric stranding. The visualized pelvic structures are unremarkable. CONUS MEDULLARIS AND CAUDA EQUINA: Normal, terminating at the level of L2. The lower thoracic spinal cord has normal signal and there is no abnormal enhancement. There is crowding of the cauda equina nerve roots. The filum terminale appears normal. SPINAL LEVELS: L1-L2: There is moderate bilateral facet arthropathy. There is a small right paracentral disc protrusion which distorts the ventral thecal sac and there is no central stenosis. The neural foramina are patent bilaterally. L2-L3: There is moderate bilateral facet arthropathy with facet joint effusions. There is a posterior disc protrusion with mild flattening of the ventral thecal sac and with mild narrowing of the subarticular recesses. There is epidural lipomatosis dorsally. There is mild central stenosis. There are old bilateral inferior foraminal disc osteophyte complexes without definite exiting nerve root impingement. L3-L4: There is moderate bilateral facet arthropathy. There is a prominent posterior disc protrusion which flattens the ventral thecal sac and there is marked crowding of the cauda equina nerve roots. Compression of the thecal sac dorsally is worsened by significant epidural lipomatosis, and there is moderate central stenosis. There are inferior foraminal disc protrusions, more prominent on the right without definite exiting nerve root impingement. L4-L5: There is moderate to severe bilateral facet arthropathy. There are sequelae of an instrumented posterior fusion. Posterior vertebral body contours are normal and there is no central stenosis. There are left-sided disc osteophytes extending into the neural foramen, with likely impingement on the exiting right L4 nerve root, demonstrated on the prior CT scan. L5-S1: There is moderate to severe bilateral facet arthropathy. There may be a small synovial cyst developing anteromedially on the left. There is a shallow posterior osteophytic ridge, but there is no central stenosis. There are bilateral foraminal disc osteophyte complexes impinging on the exiting L5 nerve roots. IMPRESSION: 1. There are sequelae of multilevel instrumented posterior fusions at L4, L5 and S1. There is no significant osseous enhancement. 2. At L3-L4 there is moderate facet arthropathy and there is a prominent posterior disc protrusion. There is marked crowding of the cauda equina nerve roots and there is moderate central stenosis. There are inferior foraminal disc protrusions without definite exiting nerve root impingement. 3. At L4-L5 there are sequelae of an instrumented posterior fusion. There is no central stenosis. There are left-sided disc osteophytes extending into the neural foramen with likely impingement on the exiting right L4 nerve root. 4. At L5-S1 there is facet arthropathy and there may be a small synovial cyst developing anteromedially on the left. There are bilateral foraminal disc osteophyte complexes impinging on the exiting L5 nerve roots. There is no central stenosis. 5. At L2-L3 there is facet arthropathy and there is a posterior disc protrusion. There is narrowing of the subarticular recesses and there is mild central stenosis. There are bilateral inferior foraminal disc osteophyte complexes without definite exiting nerve root impingement. Assessment & Plan Assessment & Plan (1) Post laminectomy syndrome: Code(s): M96.1 - Postlaminectomy syndrome, not elsewhere classified Category: Medical (2) Status post lumbar and lumbosacral fusion by anterior technique: Comment: 03/18/23 Code(s): Z98.1 - Arthrodesis status Category: Social Hx (3) Lumbar radiculopathy: Code(s): M54.16 - Radiculopathy, lumbar region Category: Medical (4) Right leg weakness: Code(s): R29.898 - Other symptoms and signs involving the musculoskeletal system Category: Medical (5) Gait abnormality: Code(s): R26.9 - Unspecified abnormalities of gait and mobility Category: Medical Plan Patient is 1 week status post lumbar spinal cord stimulation trial is no pain relief despite multiple device program adjustments and perfect lead placement. Physiatry referral placed for further evaluation of gait abnormality with bilateral lower extremity weakness, worse on the right due to pain. Most recent EKG and MRI report was reviewed with patient again today. He reports previous therapeutic injections in his back provided no pain relief. Patient will hold ibuprofen and trial diclofenac potassium. Script provided for lidocaine patches per patient's request. Side effects and precautions were discussed with patient and family. All questions and concerns have been answered and patient agreed with the treatment plan. Follow-up as needed. Orders: Referrals Physiatry Referral M54.16 - Radiculopathy, lumbar region, M96.1 - Postlaminectomy syndrome, not elsewhere classified, R26.9 - Unspecified abnormalities of gait and mobility, R29.898 - Other symptoms and signs involving the musculoskeletal system, Z98.1 - Arthrodesis status Medications: New diclofenac potassium 50 mg PO BID 30 days 60 tabs 0RF pain M54.16 - Radiculopathy, lumbar region, M96.1 - Postlaminectomy syndrome, not elsewhere classified Refilled lidocaine 5% leave on most painful area for up to 12 hrs 1 patch topical DAILY 30 days PRN 30 ea 2RF pain Discontinued ibuprofen Discontinued Reason: Doctor's Order 800 mg PO BID PRN 60 tabs 3RF pain Coding Level of Care Code Est Pt Level 4 (12103) Complex EM visit Add On G2211 Diagnoses Post laminectomy syndrome M96.1 Status post lumbar and lumbosacral fusion by anterior technique Z98.1 Lumbar radiculopathy M54.16 Right leg weakness R29.898 Gait abnormality R26.9
[2024-01-23 11:03] VITALS: BP 126/64; PULSE 88; O2SAT 98; BMI 33.7
== END 2024-01-23 11:51 | disposition home or self-care (01) ==
PROVIDERS: PCP Internal Medicine; Visit Provider Nurse Practitioner Family
DX: M96.1 Postlaminectomy syndrome, not elsewhere classified (principal); Z98.1 Arthrodesis status; M54.16 Radiculopathy, lumbar region; R29.898 Other symptoms and signs involving the musculoskeletal system; R26.9 Unspecified abnormalities of gait and mobility
CPT/HCPCS: 99024

== ENCOUNTER → 2024-01-23 10:55 | Outpatient (BNVA) | payer OTHER, SELFPAY | PROVIDERS: PCP Internal Medicine; Visit Provider Nurse Practitioner Family ==

== ENCOUNTER 2024-02-03 13:23 | Outpatient (AMB) | payer OTHER, SELFPAY ==
--- NOTE | 2024-02-03 13:28 | MHC.PC.OV ---
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 Accompanied by: Spouse Allergies No Known Allergies [No Known Allergies*] Allergy (Verified 02/03/24 13:38) Medication List - Last Reconciled 02/03/24 by Mary Anne Leach MD acetaminophen 650 mg (2 x 325 mg) PO Q6H PRN 30 days amlodipine 10 mg PO DAILY cholecalciferol (vitamin D3) 25 mcg PO DAILY diclofenac potassium 50 mg PO BID 30 days gabapentin 600 mg (2 x 300 mg) PO TID hydrochlorothiazide 12.5 mg PO DAILY 90 days hydroxyzine HCl 25 mg PO BEDTIME PRN 30 days lidocaine 5% 1 patch topical DAILY PRN 30 days lisinopril 40 mg PO DAILY 90 days simvastatin 20 mg PO BEDTIME 90 days walker As directed Tobacco use date assessed: 07/29/23 Fall risk assessment: No Falls in past year Last assessed Fall Risk: 02/03/24 Dental Screening Dental Screen Date: 02/03/24 Did you have a dental visit in the last 12 months?: No Did you have a dental problem in the last 6 months where you did not have access to dental care?: No Was dental information given to patient?: Patient has dentist HPI HPI Comments History of Present Illness Details This is a 63-year-old male with hypertension, pure hypercholesterolemia and lumbar radiculopathy that comes today accompanied by for follow-up on his conditions. Blood pressure stable. I will order a lipid panel to check his cholesterol. Had hyponatremia and sodium will be repeated. Currently in a wheelchair due to not being able to actively lift the right leg. He has lumbar radiculopathy which mildly improved with gabapentin. He is asking for opiates again. I will start him on oxycodone with the pain management contract signed today and urine toxicology done today. Patient is aware that no one else can prescribe opiates except for me. Follows with pain management. He will also see ortho. He can do a few steps with a cane but with a steppage gait. ON LICENSE OF [facility] Medical History (Updated 02/03/24 @ 13:52 by Mary Anne Leach MD) H/O myocardial perfusion scan Chronic, continuous use of opioids Former smoker Arthritis of right hip Hx of fracture of tibia Substance use disorder Dupuytren's contracture of right hand High cholesterol Hypertension Surgical History History of total right hip arthroplasty (05/13/23) History of back surgery (02/2023) Hx of colonoscopy History of hand surgery History of shoulder surgery Family History Mother Cancer Father No problems noted. Sister Breast cancer Social History Household Members: Spouse Housing: House Are you a primary healthcare insurance sales agent to a significant other at home: No Do you presently have visiting nurse or other home services: No 75 years or older and lives alone: No Alcohol intake: current Alcohol intake frequency: a few times a month Alcohol type: beer Comment: COUNTS CORRECT Patient Tobacco Use Status: Former Tobacco user Tobacco use type: Cigarette Years Smoked: 10 e-Cigarette/Vaping Use: Never Used Second Hand Smoke Exposure: Yes Substance Use Type: Marijuana service: No Current occupational status: retired Current occupation: right hand dominant Cognitive needs: Yes Hearing needs: No Vision needs: No Questionnaire Thrive Questionnaire Date Thrive assessed: 07/29/23 YESENIA-7 AMB Questionnaire YESENIA-7 Date YESENIA - 7 assessed: 07/29/23 Source: Developed by Drs. Kang Au, Katherine Ortiz, Kenneth Becker and colleagues, with an educational hoa from [employer]. Review of Systems Const All systems reviewed & are unremarkable except as noted in HPI and below Card Denies chest pain at rest, Denies chest pain with activity, Denies edema, Denies irregular heart rhythm, Denies claudication, Denies dyspnea, Denies dyspnea on exertion, Denies orthopnea, Denies paroxysmal nocturnal dyspnea and Denies slow heart rate Resp Denies cough, Denies dyspnea and Denies dyspnea on exertion GI Denies abdominal pain, Denies change in bowel habits, Denies excessive flatus, Denies nausea and Denies vomiting Denies urinary hesitancy, Denies urinary incontinence and Denies urinary urgency Musc Reports back pain, Denies atrophy, Denies deformity, Denies limited range of motion and Reports radiating pain into limb Skin/Breast Denies bleeding lesions, Denies changing lesions and Denies rash Physical exam (Primary Care) Vital Signs: Last Vital Signs BP 132/86 02/03/24 13:30 BMI result Body Mass Index 32.5 BMI Assessment/Plan discussion: High BMI High, discussed plan: lifestyle, weight reduction, dietary and physical activity Tobacco/Smoking Status: Tobacco use Status Tobacco use date assessed 07/29/23 02/03/24 13:32 Patient Tobacco Use Status Former Tobacco user 02/03/24 13:32 Tobacco use type Cigarette 02/03/24 13:32 e-Cigarette/Vaping Use Never Used 02/03/24 13:32 Thrive Assessment: Date of Thrive Assessment Date Thrive assessed 07/29/23 02/03/24 13:32 Const General: ill appearing chronically Nutritional Appearance: obese Limitations: wheelchair Resp Effort & Inspection: normal respiratory effort Auscultation: clear to auscultation bilaterally Cardio Jugular venous distension: no JVD Rate: regular rate Rhythm: regular rhythm Heart sounds: S1 normal heart sound present and S2 normal heart sound present Neuro Gait exam (Neuro): Steppage gait present Extrem Other: not able to lift right leg actively Assessment and Plan Assessment & Plan (1) Lumbar radiculopathy: Comment: Pain management contract signed 02/03/2024 Code(s): M54.16 - Radiculopathy, lumbar region Plan: Start opiates as needed. Follow-up with pain management. (2) Pure hypercholesterolemia: Code(s): E78.00 - Pure hypercholesterolemia, unspecified Plan: Continue statins. Repeat lipid panel. (3) Hypertension: Code(s): I10 - Essential (primary) hypertension Qualifiers: Hypertension type: unspecified Qualified Code(s): I10 - Essential (primary) hypertension Plan: Continue lisinopril and hydrochlorothiazide. Blood pressure goal is equal or less than 130/80. (4) Hyponatremia: Code(s): E87.1 - Hypo-osmolality and hyponatremia Plan: Repeat sodium. Orders: Orders Lipid Panel Today E78.5 - Hyperlipidemia, unspecified Comprehensive Avalon. Panel Fast Today E87.1 - Hypo-osmolality and hyponatremia Sodium Urine Random Today E87.1 - Hypo-osmolality and hyponatremia Opiates GCMS Expanded, Ur Today M54.16 - Radiculopathy, lumbar region Complete Blood Count Auto Diff Today D64.9 - Anemia, unspecified IRON PROFILE Today D64.9 - Anemia, unspecified Drug Screen Urine Today M54.16 - Radiculopathy, lumbar region Gabapentin Today M54.16 - Radiculopathy, lumbar region Medications: New oxycodone Partial Fill upon patient request. 10 mg PO BID 30 days PRN 60 tabs 0RF pain M54.16 - Radiculopathy, lumbar region Coding Level of Care Code Est Pt Level 4 (69083) Complex EM visit Add On G2211 Diagnoses Lumbar radiculopathy M54.16 Pure hypercholesterolemia E78.00 Hypertension, unspecified type I10 Hypertension type: unspecified Hyponatremia E87.1 Time Spent (min) 24
[2024-02-03 13:30] VITALS: BP 132/86; BMI 32.5
== END 2024-02-03 14:02 | disposition home or self-care (01) ==
PROVIDERS: PCP Internal Medicine; Visit Provider Internal Medicine
DX: M54.16 Radiculopathy, lumbar region (principal); E78.00 Pure hypercholesterolemia, unspecified; I10 Essential (primary) hypertension; E87.1 Hypo-osmolality and hyponatremia
CPT/HCPCS: 99214

== ENCOUNTER 2024-02-03 18:04 | Outpatient (REF) | payer OTHER, SELFPAY ==
[2024-02-03 18:38] LABS: Amphetamine Screen Urine Not Detected (Not Detect); Barbiturates, Urine Not Detected (Not Detect); Benzodiazepines Screen Urine Not Detected (Not Detect); Buprenorphine Scr Not Detected (Not Detect); Cannabinoid Screen Urine POSITIVE (Not Detect); Cocaine Screen Urine Not Detected (Not Detect); Fentanyl, urine Not Detected (Not Detect); Methadone Screen, Urine Not Detected (Not Detect); Opiate Screen Urine POSITIVE (Not Detect); Oxycodone Screen Urine Positive (Not Detect); Phencyclidine Screen Urine Not Detected (Not Detect)
[2024-02-05 11:22] LABS: Codeine, Ur NEGATIVE; Hydrocodone, Ur NEGATIVE; Hydromorphone, Ur NEGATIVE; Morphine, Ur NEGATIVE; Norhydrocodone, Ur NEGATIVE
== END 2024-02-03 18:05 | disposition home or self-care (01) ==
LOC: HO.LNP 18:04
PROVIDERS: Visit Provider Internal Medicine
DX: M54.16 Radiculopathy, lumbar region (principal)
CPT/HCPCS: 80307; 80365; G0480

== ENCOUNTER 2024-02-18 19:47 | Inpatient (IN) | payer OTHER, SELFPAY ==
[2024-02-18 19:51] VITALS: BP 122/82; PULSE 96; O2SAT 97
--- NOTE | 2024-02-18 19:53 | ECG_ITS ---
Test Reason : SYNCOPE Blood Pressure : / mmHG Vent. Rate : 100 BPM Atrial Rate : 100 BPM P-R Int : 192 ms QRS Dur : 116 ms QT Int : 356 ms P-R-T Axes : 096 051 016 degrees QTc Int : 459 ms Normal sinus rhythm Low voltage QRS Borderline ECG When compared with ECG of 23-DEC-2022 13:04, Incomplete right bundle branch block is no longer Present Referred By: Generic ED Physician Electronically Signed By:AURORA MENENDEZ
[2024-02-18 20:06] VITALS: BP 122/76; PULSE 87; RESP 16; TEMP 36.9; O2SAT 96; BMI 33.0
--- NOTE | 2024-02-18 20:08 | ED_ITS ---
HPI - General Adult General Chief complaint: Syncope Stated complaint: 5 min period of unresponsiveness , now A&O for ems Time Seen by Provider: 02/18/24 19:58 Source: patient, EMS and old records reviewed Mode of arrival: EMS Limitations: no limitations History of Present Illness ED Provider: FRANKI HPI narrative: 63 yo male with PMH of HTN, HLD, chronic back pain for which he takes oxycodone, gabapentin regularly. Tonight he states he took his regular amount and went to a bar and had a couple of drinks which is unusual. At the bar he got sleepy and his friend who is RN had to sternal rub him. He woke up no narcan given he denies SI. He states he did not overdose and has never overdose before. He states he is fine now and doesn't want to be here. He has plans to go see surgeon this week for his back in [place]. He states he feels fine. No seizures reported MD complaint: over sedation Onset (ago): minute(s) ([employer]AMING [employer]CH[employer]IC) Radiation: non-radiation Severity: moderate Relieving factors: none Exacerbating factors: medication Associated symptoms: denies other symptoms Treatments prior to arrival: none Related Data Home Medications ?Medication ?Instructions ?Recorded ?Confirmed amlodipine 10 mg tablet 10 mg PO DAILY 01/14/24 02/03/24 Previous Rx's ?Medication ?Instructions ?Recorded acetaminophen 325 mg tablet 650 mg (2 x 325 mg) PO Q6H PRN 05/14/23 Pain, Mild (Pain Scale 1-3) 30 days #240 tabs simvastatin 20 mg tablet 20 mg PO BEDTIME 90 days #90 tabs 08/17/23 cholecalciferol (vitamin D3) 25 25 mcg PO DAILY #90 tabs 08/26/23 mcg (1,000 unit) tablet walker #1 ea 11/24/23 diclofenac potassium 50 mg tablet 50 mg PO BID pain 30 days #60 tabs 01/23/24 lidocaine 5 % topical patch 1 patch topical DAILY PRN pain 30 01/23/24 days #30 ea hydrochlorothiazide 12.5 mg tablet 12.5 mg PO DAILY 90 days #90 tabs 02/01/24 lisinopril 40 mg tablet 40 mg PO DAILY 90 days #90 tabs 02/05/24 hydroxyzine HCl 25 mg tablet 25 mg PO BEDTIME PRN itching 30 02/10/24 days #30 tabs gabapentin 300 mg capsule 600 mg (2 x 300 mg) PO TID #180 02/16/24 caps Allergies Allergy/AdvReac Type Severity Reaction Status Date / Time No Known Allergies Allergy Verified 02/18/24 20:06 [No Known Allergies*] Review of Systems 2 Review of Systems: Constitutional : No Fever, No Chills, No Fatigue ENT/Mouth : No sore throat, No Rhinorrhea Eyes: No Eye Pain, No Swelling, No Redness Cardiovascular : No Chest Pain, No SOB, No Dyspnea on Exertion Respiratory : No Cough, No Sputum Gastrointestinal : No Nausea, No Vomiting, No Diarrhea, No abdominal Pain Genitourinary : No Dysuria, No Urinary Frequency, No Hematuria, Musculoskeletal : No joint pain, No Myalgias, No Joint Swelling Skin : No Skin Lesions, No rash Neuro : No Weakness, No Numbness, No Dizziness, no Headache Psych : No Anxiety/Panic, No Depression All other systems reviewed and are negative PMFSH Past Medical History Attestation statement: The following information was validated with the patient. Source: old records reviewed Medical History H/O myocardial perfusion scan Chronic, continuous use of opioids Former smoker Arthritis of right hip Hx of fracture of tibia Substance use disorder Dupuytren's contracture of right hand High cholesterol Hypertension Surgical History History of total right hip arthroplasty (05/13/23) History of back surgery (02/2023) Hx of colonoscopy History of hand surgery History of shoulder surgery Family History Family History Mother Cancer Father No problems noted. Sister Breast cancer Social History Social History Household Members: Spouse Housing: House Are you a primary healthcare network pricing consultant to a significant other at home: No Do you presently have visiting nurse or other home services: No Alcohol intake: current Alcohol intake frequency: a few times a month Alcohol type: beer Comment: COUNTS CORRECT Patient Tobacco Use Status: Former Tobacco user Tobacco use type: Cigarette Years Smoked: 10 e-Cigarette/Vaping Use: Never Used Second Hand Smoke Exposure: Yes Substance Use Type: Marijuana Advance Directives: No Advance Directives Information Provided: No Do you have a plan to hurt others: No Plan service: No Current occupational status: retired Current occupation: right hand dominant Cognitive needs: Yes Hearing needs: No Vision needs: No Physical Exam ED Vital Signs: BMI result Body Mass Index 33.0 Appearance: Alert. Oriented X3. No acute distress. Eyes: Pupils equal, round and reactive to light. 3mm ENT: Pharynx dry MM. Atraumatic Neck: Normal inspection. Neck supple. CVS: Normal heart rate and rhythm. Pulses normal. Respiratory: No respiratory distress. Breath sounds normal. Abdomen: Soft and nontender. Skin: Skin warm and dry. Normal skin color. Normal skin turgor. Extremities: No lower extremity edema. No calf ttp Neuro: Oriented X 3. No motor deficit. No sensory deficit. Medical Decision Making Medical Decision Making [facility] Narrative: 63 yo male with PMH of HTN, HLD, chronic back pain here with c/o taking oxycodone then gabapentin with beer tonight it is unusual for him to mix he states. He denies SI. He was never given narcan. He will need labs and observation. He has 3mm pupils. Will monitor and ensure he has stable ride home. He is awake and conversing. He denies feeling ill prior to going to the bar other than his chronic back pain. He denies n/v/d URI symptoms Differential Diagnosis Differential Diagnoses: The differential diagnosis associated with the presentation includes overuse of medications, med error, renal injury and now poor clearance of medications Admission/Observation Consideration of admission/observation: Escalation of care including admission/observation considered JORDI, low Na needs admit Consult Healthcare Provider Management of the patient was discussed with: Hospitalist (will admit) Lab Data [facility] Lab Attestation statement: I reviewed the patient's lab results. 02/18/24 20:11 02/18/24 20:11 Labs: Lab Results 02/18/24 Range/Units 20:11 WBC 16.5 H (4.8-10.8) X10*3/uL RBC 4.61 (4.60-5.80) X10*6/uL Hgb 14.3 (14.0-18.0) g/dl Hct 39.7 L (42.0-52.0) % MCV 86.1 (80.0-98.0) fL MCH 31.0 (27.0-33.0) pg MCHC 36.0 (31.0-36.0) g/dl RDW 12.3 (11.0-16.0) % Plt Count 361 (160-400) X10*3/uL MPV 8.7 L (9.4-12.4) fL Immature Gran % (Auto) 0.8 H (0.0-0.4) % Neut % (Auto) 73.6 H (45-73) % Lymph % (Auto) 13.7 L (20-40) % [place] % (Auto) 10.4 (2-11) % Eos % (Auto) 1.0 (0-4) % Baso % (Auto) 0.5 (0-2) % Lymph # (Auto) 2.3 (1.2-4.9) X10*3/uL [place] # (Auto) 1.7 H (0.1-1.2) X10*3/uL Eos # (Auto) 0.2 (0.0-0.4) X10*3/uL Baso # (Auto) 0.1 (0.0-0.2) X10*3/uL Abs Immat Gran (auto) 0.13 H (0.00-0.03) X10*3/uL Absolute Neuts (auto) 12.1 H (2.0-8.3) x10*3/uL Absolute Nucleated RBC 0.000 (0.0-0.012) X10*3/uL Nucleated RBC % (auto) 0.0 (0.0-0.2) /100WBC Smear Tech's Comments VERIFIED Sodium 124 L (135-145) mmol/L Potassium 3.7 (3.3-5.1) mmol/L Chloride 84 L (96-108) mmol/L Carbon Dioxide 22 (22-29) mmol/L Anion Gap 22 H (12-20) BUN 22 H (9-16) mg/dL Creatinine 1.97 H (0.5-1.4) mg/dL Estim Creat Clear Calc 41.7 Estimated GFR 34 Random Glucose 105 (60-115) mg/dL Calcium 9.7 (8.4-10.2) mg/dL Troponin I High Sens 18.8 (<3.5-35.0) ng/L Independent Interpretation I performed an independent interpretation of an: EKG Interpretation: Rate: 100 Rhythm: NSR Ames: normal Normal P waves. Normal MIKE. NSIVCD QRS complex. ST T wave : no GERARDO, normal qTC: 459 prior studies: no acute ischemia The study has been interpreted contemporaneously by me. . Independent Historian Clinical information obtained from an independent historian. History obtained from or confirmed by: EMS External Record Review External record reviewed: Inpatient record Discharge Plan Discharge Clinical Impression: Acute hyponatremia, JORDI (acute kidney injury), Alcohol use disorder Patient Disposition: Admitted As Inpatient Print Language: Cymro
--- NOTE | 2024-02-18 20:22 | PC.NURSE ---
ekg performed by [id number]. labs obtained/sent to lab. pt currently has no complaints. denies pain. no sob/wob noted. respirations even/unlabored. plan of care ongoing. call mario placed within reach.
[2024-02-18 20:26] LABS: Basophils Absolute Auto 0.1 X10*3/uL (0.0-0.2); Basophils Percent Auto 0.5 % (0-2); Eosinophils Absolute Auto 0.2 X10*3/uL (0.0-0.4); Hematocrit 39.7 % (42.0-52.0); Hemoglobin 14.3 g/dl (14.0-18.0); Imm Gran Abs Auto 0.13 X10*3/uL (0.00-0.03); Imm Gran Pct Auto 0.8 % (0.0-0.4); Lymphocytes Absolute Auto 2.3 X10*3/uL (1.2-4.9); Lymphocytes Percent Auto 13.7 % (20-40); MANUAL DIFF FLAG SCAN; Mean Corpuscular Volume 86.1 fL (80.0-98.0); Mean Platelet Volume 8.7 fL (9.4-12.4); Monocytes Absolute Auto 1.7 X10*3/uL (0.1-1.2); Monocytes Percent Auto 10.4 % (2-11); Neutrophils Absolute Auto 12.1 x10*3/uL (2.0-8.3); Neutrophils Percent Auto 73.6 % (45-73); Platelet Count 361 X10*3/uL (160-400); Red Blood Count 4.61 X10*6/uL (4.60-5.80); Red Cell Distribution Width 12.3 % (11.0-16.0); SCAN SMEAR FLAG 1; White Blood Count 16.5 X10*3/uL (4.8-10.8)
[2024-02-18 20:43] LABS: SLIDE REVIEW VERIFIED
[2024-02-18 20:53] LABS: Anion Gap 22 (12-20); Blood Urea Nitrogen 22 mg/dL (9-16); Calcium 9.7 mg/dL (8.4-10.2); Carbon Dioxide 22 mmol/L (22-29); Chloride 84 mmol/L (96-108); Creatinine Clr Calc Pharmacy 41.7; Estimated Glomerular Filt Rate 34; Glucose Random 105 mg/dL (60-115); Potassium 3.7 mmol/L (3.3-5.1); Sodium 124 mmol/L (135-145)
[2024-02-18 20:56] LABS: Troponin-I High Sensitivity 18.8 ng/L (<3.5-35.0)
[2024-02-18] MEDS: 0.9 % Sodium Chloride 1,000 ML 80 ML IVCONT (21:32)
--- NOTE | 2024-02-18 21:32 | P.HPHOSP_ITS ---
History of Present Illness Date of Service: 02/18/24 Chief Complaint: Syncope This is a 63-year-old male with pertinent history of hypertension, mixed hyperlipidemia, chronic back pain on opiates, mood disorder who was brought to the emergency department for evaluation of syncope. As per the at bedside, patient did not eat much throughout the day. He went to drink a couple of beers at a bar and when he sat in the car he passed out. Patient admits dizziness and lightheadedness prior to passing out. No chest pain or palpitations prior to passing out. He was sternal rubbed and woken up. No confusion after regaining consciousness. No jerking movement of extremities. Patient admits he did not eat or much throughout the day. No history of significant alcohol use as per the patient and no history of alcohol withdrawals. No fever, chills, chest discomfort, palpitations, shortness of breath, abdominal pain, changes in urinary or bowel habits. In the emergency department, sodium was found to be low and creatinine found to be elevated. Review of Systems 2 Constitutional: Constitutional: Reports fatigue, Reports malaise and Reports poor appetite ENT: Reports dizziness Cardiovascular: Cardiovascular: Reports no additional cardiovascular complaints and Reports syncope Respiratory: Respiratory: Reports no additional respiratory complaints Gastrointestinal: Gastrointestinal: Reports no additional gastrointestinal complaints Genitourinary: Genitourinary: Reports no additional male genitourinary complaints Neurologic: Reports dizziness and Reports syncope Endocrine: Endocrine: Reports fatigue [facility] Medical History H/O myocardial perfusion scan Chronic, continuous use of opioids Former smoker Arthritis of right hip Hx of fracture of tibia Substance use disorder Dupuytren's contracture of right hand High cholesterol Hypertension Family History Mother Cancer Father No problems noted. Sister Breast cancer Surgical History History of total right hip arthroplasty (05/13/23) History of back surgery (02/2023) Hx of colonoscopy History of hand surgery History of shoulder surgery Social History Household Members: Spouse Housing: House Are you a primary healthcare marketer to a significant other at home: No Do you presently have visiting nurse or other home services: No Alcohol intake: current Alcohol intake frequency: holidays/special occasions only Alcohol type: beer Comment: COUNTS CORRECT Patient Tobacco Use Status: Former Tobacco user Tobacco use type: Cigarette Years Smoked: 10 Smoked in Last 30 Days: Yes e-Cigarette/Vaping Use: Never Used Second Hand Smoke Exposure: Yes Use of substances other than those prescribed or required for medical reasons: No Substance Use Type: Marijuana Advance Directives: No Advance Directives Information Provided: No Do you have a plan to hurt others: No Plan Nutrition Risks: No Nutritional Risk service: No Current occupational status: retired Current occupation: right hand dominant Cognitive needs: Yes Hearing needs: No Vision needs: No Meds Allergies Allergy/AdvReac Type Severity Reaction Status Date / Time No Known Allergies Allergy Verified 02/18/24 20:06 [No Known Allergies*] Active Medications: Current Medications Sodium Chloride (Ns) 1,000 mls @ 80 mls/hr IVCONT .[id number] [facility] Home Medications ?Medication ?Instructions ?Recorded ?Confirmed ?Last Taken ?Type amlodipine 10 mg tablet 10 mg PO DAILY 01/14/24 02/03/24 Unknown History Physical Exam 2 Vital Signs and Narrative: Vital Signs: BMI result Body Mass Index 33.0 Middle-aged male lying in bed in no distress Neck supple, no JVD Regular rate and rhythm, S1-S2 heard Regular breath sounds bilaterally, no wheezing or crackles appreciated Abdomen soft nontender, no guarding, no rigidity Patient is awake, alert and oriented to self, place, time and person ; no focal motor deficit Psych: Normal mood No pedal edema Results Labs 02/18/24 20:11 02/18/24 20:11 Labs: Laboratory Results - last 24 hr 02/18/24 20:11 MCV 86.1 MCH 31.0 MCHC 36.0 RDW 12.3 Plt Count 361 MPV 8.7 L Immature Gran % (Auto) 0.8 H Neut % (Auto) 73.6 H Lymph % (Auto) 13.7 L [place] % (Auto) 10.4 Eos % (Auto) 1.0 Baso % (Auto) 0.5 Lymph # (Auto) 2.3 [place] # (Auto) 1.7 H Eos # (Auto) 0.2 Baso # (Auto) 0.1 Abs Immat Gran (auto) 0.13 H Absolute Neuts (auto) 12.1 H Absolute Nucleated RBC 0.000 Nucleated RBC % (auto) 0.0 Smear Tech's Comments VERIFIED Anion Gap 22 H Estim Creat Clear Calc 41.7 Estimated GFR 34 Random Glucose 105 Calcium 9.7 Troponin I High Sens 18.8 Assessment and Plan (1) JORDI (acute kidney injury): Status: Acute (2) Acute hyponatremia: Status: Acute (3) Syncope: Status: Acute Plan This is a 63-year-old male with pertinent history of hypertension, mixed hyperlipidemia, chronic back pain on opiates, mood disorder who was brought to the emergency department for evaluation of syncope. #. Syncope, orthostatic: Resuscitated with IV crystalloids. Repeat orthostatics in a.m. #. Acute kidney injury stage I, prerenal: Resuscitated with IV crystalloids. Monitor creatinine urine output. Avoid nephrotoxins #. Hypotonic hypovolemic hyponatremia: Given IV crystalloids in the ER. Closely monitor urine sodium #. Reactive leukocytosis: No sepsis #. Hypertension: Continue amlodipine. Hold hydrochlorothiazide and lisinopril in the setting of JORDI #. Mixed hyperlipidemia: On statin #. Chronic back pain: On chronic opiates and gabapentin Med rec pending DVT prophylaxis: Lovenox Full code Admit as inpatient and will require two night minimum hospital stay for monitoring of kidney function, serum electrolytes (as above), which is not possible in a lesser acute setting. Quality Stroke Does the patient have a stroke diagnosis?: No VTE Prior VTE?: No VTE Risk Level:: Medical - moderate - high VTE Device Contraindication: Treatment Not Indicated VTE Drug Contraindication: N/A - Med Ordered
--- NOTE | 2024-02-18 21:34 | PC.NURSE ---
pt mobed to ED5 d/t mot recent labs. pt placed on graduation coach displaying nsr. vss and up to date asides from being tachycardic. 20gIV placed in the left wrist - labs obtained/sent to lab. IVF infusing per provider order. no sob/wob noted. respirations even/unlabored. pt pending admission at this time. plan of care ongoing. call mario placed within reach.
[2024-02-18 21:36] LABS: Appearance Urine Clear; Color Urine Yellow; Glucose Urine UA Negative (Negative); Leukocyte Esterase Urine Negative (Negative); Nitrite Urine Negative (Negative); Urine Blood Negative (Negative); Urine Ketones Negative (Negative); Urine Protein Trace mg/dL (Neg-Trace)
[2024-02-18 21:37] LABS: Ethanol 39 mg/dL; Magnesium 2.4 mg/dL (1.6-2.6)
[2024-02-18 21:44] VITALS: O2SAT 98
[2024-02-18 21:46] LABS: Amphetamine Screen Urine Not Detected (Not Detect); Barbiturates, Urine Not Detected (Not Detect); Benzodiazepines Screen Urine Not Detected (Not Detect); Buprenorphine Scr Not Detected (Not Detect); Cannabinoid Screen Urine POSITIVE (Not Detect); Cocaine Screen Urine Not Detected (Not Detect); Fentanyl, urine Not Detected (Not Detect); Methadone Screen, Urine Not Detected (Not Detect); Opiate Screen Urine POSITIVE (Not Detect); Oxycodone Screen Urine Positive (Not Detect); Phencyclidine Screen Urine Not Detected (Not Detect)
[2024-02-18 21:52] VITALS: BP 139/78; PULSE 108; RESP 16; TEMP 37; O2SAT 97
[2024-02-18 22:08] LABS: Osmolality, Serum 265 mosm/kg (281-305)
[2024-02-18 22:30] VITALS: BP 137/64; BP 140/74; PULSE 108; PULSE 116
[2024-02-18 22:31] VITALS: BP 93/73; PULSE 108
--- NOTE | 2024-02-18 22:33 | PHA.MEDREC ---
Addendum entered by Hernandez Andrade 02/19/24 09:09: Spoke to on the phone, she confirmed patient does not take amlodipine and does take Lisinopril 40mg. Also stated he has a fill of Diclofenac 50mg 1 tab BID PRN pain. Original Note: Pharmacy Consult ? Medication Reconciliation Pharmacy has completed the medication reconciliation. Spoke to patient and Elena at bedside to confirm medication list. They were able to confirm all meds except amlodipine and lisinopril. thinks one of them has been discontinued by doctor but not sure which one. She will bring in his list tomorrow to confirm.
[2024-02-18] MEDS: Enoxaparin Sodium 40 MG/0.4 ML SYRINGE SUBCUT (23:01)
--- NOTE | 2024-02-18 23:15 | PC.NURSE ---
This specification writer assumed care of this Pt at 2300. Pt A&Ox3, reports chronic back pain.
--- NOTE | 2024-02-19 04:00 | PC.NURSE ---
Pt using urinal in bed, Pt changed over to hospital bed.
[2024-02-19 06:28] LABS: MANUAL DIFF FLAG NO
[2024-02-19 06:42] VITALS: BP 134/83; PULSE 102; RESP 18; TEMP 36.9; O2SAT 99
[2024-02-19 06:54] LABS: Anion Gap 13 (12-20); Blood Urea Nitrogen 17 mg/dL (9-16); Calcium 9.6 mg/dL (8.4-10.2); Carbon Dioxide 27 mmol/L (22-29); Chloride 90 mmol/L (96-108); Creatinine Clr Calc Pharmacy 69.1; Estimated Glomerular Filt Rate > 60; Glucose Random 102 mg/dL (60-115); Potassium 3.4 mmol/L (3.3-5.1); Sodium 127 mmol/L (135-145)
[2024-02-19 07:02] LABS: Basophils Absolute Auto 0.1 X10*3/uL (0.0-0.2); Basophils Percent Auto 0.8 % (0-2); Eosinophils Absolute Auto 0.3 X10*3/uL (0.0-0.4); Eosinophils Percent Auto 2.4 % (0-4); Hematocrit 38.2 % (42.0-52.0); Hemoglobin 13.8 g/dl (14.0-18.0); Imm Gran Abs Auto 0.05 X10*3/uL (0.00-0.03); Imm Gran Pct Auto 0.4 % (0.0-0.4); Lymphocytes Absolute Auto 2.5 X10*3/uL (1.2-4.9); Lymphocytes Percent Auto 21.5 % (20-40); Mean Corpuscular HGB Conc 36.1 g/dl (31.0-36.0); Mean Corpuscular Hemoglobin 30.9 pg (27.0-33.0); Mean Corpuscular Volume 85.7 fL (80.0-98.0); Mean Platelet Volume 9.1 fL (9.4-12.4); Monocytes Absolute Auto 1.4 X10*3/uL (0.1-1.2); Monocytes Percent Auto 11.7 % (2-11); Neutrophils Absolute Auto 7.4 x10*3/uL (2.0-8.3); Neutrophils Percent Auto 63.2 % (45-73); Platelet Count 387 X10*3/uL (160-400); Red Blood Count 4.46 X10*6/uL (4.60-5.80); Red Cell Distribution Width 12.1 % (11.0-16.0); White Blood Count 11.7 X10*3/uL (4.8-10.8)
[2024-02-19 07:09] VITALS: BP 132/82; PULSE 98; RESP 18; TEMP 36.9; O2SAT 99
--- NOTE | 2024-02-19 07:15 | PC.NURSE ---
Resumed care of pt at 0700. Pt resting in bed quietly, a/ox4, speaking in full sentences, no increased wob/sob noted, lung sounds cta bilaterally, s1 and s2 heard, NSR on radiation monitor HR-80s, abdomen soft/non-tender, no pain on palpation. Pt using urinal at bedside, 800ml output of clear/yellow urine. Pt updated on plan for admit and room on medsur floor. Call mario within reach, all needs met at this time.
[2024-02-19 08:59] VITALS: BP 115/60; BP 118/68; PULSE 104; PULSE 106
[2024-02-19 09:00] VITALS: BP 104/63; PULSE 114
[2024-02-19] MEDS: oxyCODONE HCl Immed Release 5 MG TABLET 10 MG PO (09:00)
[2024-02-19] MEDS: Cholecalciferol (Vitamin D3) 25 MCG TABLET PO (09:00)
[2024-02-19] MEDS: Gabapentin 300 MG CAPSULE 600 MG PO ×2 (09:01→15:15)
[2024-02-19] MEDS: 0.9 % Sodium Chloride 1,000 ML 80 ML IVCONT (10:04)
--- NOTE | 2024-02-19 12:14 | MHC.CM.PN ---
CM MET WITH PT AND AT BEDSIDE PT REPORTS NOW REQUIRING ASSISTANCE WITH CARE HE STATES HE NOW USES A CANE, WALKER, WHEEL CHAIR, SHOWER CHAIR, GRAB BARS AND A LIFT RECLINER PT STATES HE WAS INDEPENDENT WITH CARE AND MOBILITY PRIOR TO SURGERIES LAST YEAR PT EXPRESSING ANGER ABOUT CARE HE HAS RECEIVED AND STATING HE PLANS TO GET A SECOND OPINION NEXT WEEK IN [place] PT SAYS HE HAS A HCP, COPY REQUESTED PCP: TITI MURRAY DCP: HOME NO SERVICES TO TRANSPORT
--- NOTE | 2024-02-19 14:30 | HO.PM.IMPN ---
Subjective Subjective Date of Service: 02/19/24 Interval History: Seen and examined this morning Follow-up for JORDI, orthostatic hypotension Repeat orthostatic blood pressures this morning improved, renal function improving Still with low sodium levels Patient wants to go home Review of Systems Review of Systems: Yes all other systems are reviewed and are negative Constitutional Constitutional: Denies chills and Denies fever(s) Cardiovascular Cardiovascular: Denies chest pain, Denies palpitations and Denies dyspnea Respiratory Respiratory: Denies cough and Denies dyspnea Endocrine Endocrine: Denies palpitations Physical Exam Vital Signs: Vital Signs: Last Vital Signs Temp 98.4 F 02/19/24 07:09 Pulse 114 H 02/19/24 09:00 Resp 18 02/19/24 07:09 BP 104/63 02/19/24 09:00 Pulse Ox 99 02/19/24 07:09 O2 Del Method Room Air 02/19/24 07:09 BMI result Body Mass Index 33.0 Const: Nutritional Appearance: well nourished Orientation/consciousness: patient oriented x3 HEENT: Head: Yes normocephalic and Yes atraumatic Eyes: Sclerae: sclerae normal Resp: Effort & Inspection: normal respiratory effort and no respiratory distress Cardio: Rate: regular rate Rhythm: regular rhythm GI: Palpation (GI): Soft to palpation and nontender Neuro: General: patient oriented x3 Cranial nerves: Yes CN's II-XII intact bilaterally Extrem: General: Yes normal to inspection Objective Data Active Medications Acetaminophen (Acetaminophen 325 Mg Tablet) 650 mg PO Q6H PRN PRN Reason: Pain, Mild (Pain Scale 1-3), fever or headache Atorvastatin Calcium (Atorvastatin Calcium 10 Mg Tablet) 10 mg PO BEDTIME [facility] Calcium Carbonate (Calcium Carbonate 750 Mg Tab.Chew) 750 mg PO Q4H PRN PRN Reason: Heartburn Enoxaparin Sodium (Enoxaparin Sodium 40 Mg/0.4 Ml Syringe) 40 mg SUBCUT Q24H [facility] Last Admin: 02/18/24 23:01 Dose: 40 mg Documented By: ASIYA Gabapentin (Gabapentin 300 Mg Capsule) 600 mg PO TID [facility] Last Admin: 02/19/24 09:01 Dose: 600 mg Documented By: RUBA Sodium Chloride (Ns) 1,000 mls @ 80 mls/hr IVCONT .[id number] [facility] Last Admin: 02/19/24 10:04 Dose: 80 mls/hr Documented By: RUBA Magnesium Hydroxide (Milk Of Magnesia 30 Ml Oral.Susp) 30 ml PO DAILY PRN PRN Reason: Constipation Melatonin (Melatonin 3 Mg Tablet) 6 mg PO BEDTIME PRN PRN Reason: Insomnia Ondansetron HCl (Ondansetron Hcl 4 Mg/2 Ml Vial) 4 mg IVPUSH Q8H PRN PRN Reason: Nausea and Vomiting Oxycodone HCl (Oxycodone Hcl Immed Release 5 Mg Tablet) 10 mg PO BID PRN PRN Reason: Pain, Moderate(Pain Scale 4-6) Last Admin: 02/19/24 09:00 Dose: 10 mg Documented By: RUBA Sodium Chloride (0.9 % Sodium Chloride Flush 3 Ml Syringe) 3 ml IVFLUSH QSHIFT [facility] Last Admin: 02/19/24 09:00 Dose: Not Given Documented By: RUBA Non-Admin Reason: IV Running Vitamin D (Cholecalciferol (Vitamin D3) 25 Mcg Tablet) 25 mcg PO DAILY [facility] Last Admin: 02/19/24 09:00 Dose: 25 mcg Documented By: RUBA Labs 02/19/24 06:22 02/19/24 06:22 Labs: Laboratory Results - last 24 hr 02/18/24 02/18/24 02/18/24 20:11 21:28 21:32 MCV 86.1 MCH 31.0 MCHC 36.0 RDW 12.3 Plt Count 361 MPV 8.7 L Immature Gran % (Auto) 0.8 H Neut % (Auto) 73.6 H Lymph % (Auto) 13.7 L [place] % (Auto) 10.4 Eos % (Auto) 1.0 Baso % (Auto) 0.5 Lymph # (Auto) 2.3 [place] # (Auto) 1.7 H Eos # (Auto) 0.2 Baso # (Auto) 0.1 Abs Immat Gran (auto) 0.13 H Absolute Neuts (auto) 12.1 H Absolute Nucleated RBC 0.000 Nucleated RBC % (auto) 0.0 Smear Tech's Comments VERIFIED Anion Gap 22 H Estim Creat Clear Calc 41.7 Estimated GFR 34 Random Glucose 105 Osmolality 265 L Calcium 9.7 Magnesium 2.4 Troponin I High Sens 18.8 Urine Color Yellow Urine Appearance Clear Urine pH 6.0 Ur Specific [place] 1.010 Urine Protein Trace Urine Glucose (UA) Negative Urine Ketones Negative Urine Blood Negative Urine Nitrite Negative Ur Leukocyte Esterase Negative Ur Random Sodium 33.0 Urine Creatinine 66.00 Urine Opiates Screen POSITIVE H Ur Buprenorphine Scrn Not Detected Ur Oxycodone Screen Positive H Urine Methadone Screen Not Detected Urine Fentanyl Screen Not Detected Ur Barbiturates Screen Not Detected Ur Phencyclidine Scrn Not Detected Ur Amphetamines Screen Not Detected U Benzodiazepines Scrn Not Detected Urine Cocaine Screen Not Detected U Marijuana (THC) Screen POSITIVE H Ethyl Alcohol 39 02/19/24 06:22 MCV 85.7 MCH 30.9 MCHC 36.1 H RDW 12.1 Plt Count 387 MPV 9.1 L Immature Gran % (Auto) 0.4 Neut % (Auto) 63.2 Lymph % (Auto) 21.5 [place] % (Auto) 11.7 H Eos % (Auto) 2.4 Baso % (Auto) 0.8 Lymph # (Auto) 2.5 [place] # (Auto) 1.4 H Eos # (Auto) 0.3 Baso # (Auto) 0.1 Abs Immat Gran (auto) 0.05 H Absolute Neuts (auto) 7.4 Absolute Nucleated RBC 0.000 Nucleated RBC % (auto) 0.0 Smear Tech's Comments Anion Gap 13 Estim Creat Clear Calc 69.1 Estimated GFR > 60 Random Glucose 102 Osmolality Calcium 9.6 Magnesium Troponin I High Sens Urine Color Urine Appearance Urine pH Ur Specific [place] Urine Protein Urine Glucose (UA) Urine Ketones Urine Blood Urine Nitrite Ur Leukocyte Esterase Ur Random Sodium Urine Creatinine Urine Opiates Screen Ur Buprenorphine Scrn Ur Oxycodone Screen Urine Methadone Screen Urine Fentanyl Screen Ur Barbiturates Screen Ur Phencyclidine Scrn Ur Amphetamines Screen U Benzodiazepines Scrn Urine Cocaine Screen U Marijuana (THC) Screen Ethyl Alcohol Assessment and Plan (1) JORDI (acute kidney injury): Status: Acute Plan This is a 63-year-old male with pertinent history of hypertension, mixed hyperlipidemia, chronic back pain on opiates, mood disorder who was brought to the emergency department for evaluation of syncope. #. possible Syncope Does not sound that patient actually had syncopal event orthostatic hypotension: Improved with IV fluid Hold hydrochlorothiazide #. Acute kidney injury stage I, prerenal: Improving with IV fluid #. Hypotonic hypovolemic hyponatremia: Hold hydrochlorothiazide Continue IV fluid improving from 124 t 127 Repeat chemistry #. Reactive leukocytosis: Likely due to hemoconcentration No sepsis #. Hypertension: Continue amlodipine. Hold hydrochlorothiazide and lisinopril in the setting of JORDI #. Chronic back pain: chronic opiates and gabapentin DVT prophylaxis: Lovenox Full code Admit as inpatient and will require two night minimum hospital stay for monitoring of kidney function, serum electrolytes (as above), which is not possible in a lesser acute setting. Quality Stroke Does the patient have a stroke diagnosis?: No VTE Prior VTE?: No VTE Risk Level:: Medical - moderate - high VTE Device Contraindication: Treatment Not Indicated VTE Drug Contraindication: N/A - Med Ordered
[2024-02-19 14:59] LABS: Anion Gap 14 (12-20); Blood Urea Nitrogen 13 mg/dL (9-16); Calcium 9.8 mg/dL (8.4-10.2); Carbon Dioxide 28 mmol/L (22-29); Chloride 92 mmol/L (96-108); Creatinine Clr Calc Pharmacy 84.8; Estimated Glomerular Filt Rate > 60; Glucose Random 108 mg/dL (60-115); Potassium 3.7 mmol/L (3.3-5.1); Sodium 130 mmol/L (135-145)
--- NOTE | 2024-02-19 15:17 | PM.DS ---
DS: Providers Provider Date of Service: 02/19/24 Date of admission: 02/18/24 21:31 Date of discharge: 02/19/24 Primary care physician: Mary Anne Leach MD Attending physician on discharge: [facility] Discharging clinician: Arline Walls DS: Diagnosis Discharge Diagnosis (1) JORDI (acute kidney injury): Status: Acute (2) Acute hyponatremia: Status: Acute DS: Summary Hospital Course Hospital Course: From H&P on the day of admission This is a 63-year-old male with pertinent history of hypertension, mixed hyperlipidemia, chronic back pain on opiates, mood disorder who was brought to the emergency department for evaluation of syncope. As per the at bedside, patient did not eat much throughout the day. He went to drink a couple of beers at a bar and when he sat in the car he passed out. Patient admits dizziness and lightheadedness prior to passing out. No chest pain or palpitations prior to passing out. He was sternal rubbed and woken up. No confusion after regaining consciousness. No jerking movement of extremities. Patient admits he did not eat or much throughout the day. No history of significant alcohol use as per the patient and no history of alcohol withdrawals. No fever, chills, chest discomfort, palpitations, shortness of breath, abdominal pain, changes in urinary or bowel habits. In the emergency department, sodium was found to be low and creatinine found to be elevated. Orthostatic hypotension. Treated with IV fluid and repeat orthostatic blood pressures normalized. Lisinopril and hydrochlorothiazide were placed on hold. Would recommend to stop hydrochlorothiazide JORDI. Likely due to dehydration. Resolved with IV fluid Acute on chronic hyponatremia, due to above. Improved to 130 with normal saline. Recommend to stop hydrochlorothiazide. Recommend outpatient follow-up with PCP Leukocytosis. Reactive versus due to hemoconcentration, resolved. Urinalysis negative, no respiratory symptoms. Afebrile. No infectious process identified patient requested to be discharged home. Time Attestation Discharge Coordination Time (in mins): 35 Quality: Safe Use of Opioids Does Pt have an Active Cancer Diagnosis on the Problem List?: No Quality: Stroke Does the patient have a stroke diagnosis?: No Physical Exam Vital Signs: Vital Signs: Last Vital Signs Temp 98.4 F 02/19/24 07:09 Pulse 114 H 02/19/24 09:00 Resp 18 02/19/24 07:09 BP 104/63 02/19/24 09:00 Pulse Ox 99 02/19/24 07:09 O2 Del Method Room Air 02/19/24 07:09 BMI result Body Mass Index 33.0 Const: General: comfortable, no acute distress, alert and awake Nutritional Appearance: overweight Orientation/consciousness: patient oriented x3 Resp: Effort & Inspection: normal respiratory effort, able to speak in complete sentences, no respiratory distress and no use of accessory muscles Cardio: Rate: regular rate GI: Inspection: No distended Palpation (GI): Soft to palpation and nontender Neuro: General: patient oriented x3 DS: Data Data Completed and Pending Completed studies during hospitalization [Text1]: Procedures Excision of Lumbosacral Disc, Open Approach (03/18/23) Fusion of 2 or more Lumbar Vertebral Joints with Interbody Fusion Device, Anterior Approach, Anterior Column, Open Approach (03/18/23) Insertion of Interspinous Process Spinal Stabilization Device into Lumbosacral Joint, Open Approach (03/18/23) Replacement of Right Hip Joint with Ceramic Synthetic Substitute, Uncemented, Open Approach (05/13/23) Labs on day of discharge: Laboratory Results - last 24 hr 02/18/24 02/18/24 02/18/24 20:11 21:28 21:32 WBC 16.5 H RBC 4.61 Hgb 14.3 Hct 39.7 L MCV 86.1 MCH 31.0 MCHC 36.0 RDW 12.3 Plt Count 361 MPV 8.7 L Immature Gran % (Auto) 0.8 H Neut % (Auto) 73.6 H Lymph % (Auto) 13.7 L Shannon % (Auto) 10.4 Eos % (Auto) 1.0 Baso % (Auto) 0.5 Lymph # (Auto) 2.3 Shannon # (Auto) 1.7 H Eos # (Auto) 0.2 Baso # (Auto) 0.1 Abs Immat Gran (auto) 0.13 H Absolute Neuts (auto) 12.1 H Absolute Nucleated RBC 0.000 Nucleated RBC % (auto) 0.0 Smear Tech's Comments VERIFIED Hold Purple Top Sodium 124 L Potassium 3.7 Chloride 84 L Carbon Dioxide 22 Anion Gap 22 H BUN 22 H Creatinine 1.97 H Estim Creat Clear Calc 41.7 Estimated GFR 34 Random Glucose 105 Osmolality 265 L Calcium 9.7 Magnesium 2.4 Troponin I High Sens 18.8 Urine Color Yellow Urine Appearance Clear Urine pH 6.0 Ur Specific [place] 1.010 Urine Protein Trace Urine Glucose (UA) Negative Urine Ketones Negative Urine Blood Negative Urine Nitrite Negative Ur Leukocyte Esterase Negative Ur Random Sodium 33.0 Urine Creatinine 66.00 Urine Opiates Screen POSITIVE H Ur Buprenorphine Scrn Not Detected Ur Oxycodone Screen Positive H Urine Methadone Screen Not Detected Urine Fentanyl Screen Not Detected Ur Barbiturates Screen Not Detected Ur Phencyclidine Scrn Not Detected Ur Amphetamines Screen Not Detected U Benzodiazepines Scrn Not Detected Urine Cocaine Screen Not Detected U Marijuana (THC) Screen POSITIVE H Ethyl Alcohol 39 02/19/24 02/19/24 06:22 14:33 WBC 11.7 H RBC 4.46 L Hgb 13.8 L Hct 38.2 L MCV 85.7 MCH 30.9 MCHC 36.1 H RDW 12.1 Plt Count 387 MPV 9.1 L Immature Gran % (Auto) 0.4 Neut % (Auto) 63.2 Lymph % (Auto) 21.5 Shannon % (Auto) 11.7 H Eos % (Auto) 2.4 Baso % (Auto) 0.8 Lymph # (Auto) 2.5 Shannon # (Auto) 1.4 H Eos # (Auto) 0.3 Baso # (Auto) 0.1 Abs Immat Gran (auto) 0.05 H Absolute Neuts (auto) 7.4 Absolute Nucleated RBC 0.000 Nucleated RBC % (auto) 0.0 Smear Tech's Comments Hold Purple Top SEE NOTE Sodium 127 L 130 L Potassium 3.4 3.7 Chloride 90 L 92 L Carbon Dioxide 27 28 Anion Gap 13 14 BUN 17 H 13 Creatinine 1.19 0.97 Estim Creat Clear Calc 69.1 84.8 Estimated GFR > 60 > 60 Random Glucose 102 108 Osmolality Calcium 9.6 9.8 Magnesium Troponin I High Sens Urine Color Urine Appearance Urine pH Ur Specific [place] Urine Protein Urine Glucose (UA) Urine Ketones Urine Blood Urine Nitrite Ur Leukocyte Esterase Ur Random Sodium Urine Creatinine Urine Opiates Screen Ur Buprenorphine Scrn Ur Oxycodone Screen Urine Methadone Screen Urine Fentanyl Screen Ur Barbiturates Screen Ur Phencyclidine Scrn Ur Amphetamines Screen U Benzodiazepines Scrn Urine Cocaine Screen U Marijuana (THC) Screen Ethyl Alcohol Discharge Plan Discharge Anticipated Discharge Date/Time: 02/19/24 15:29 Patient Disposition: Home, Self-Care Discharge Diagnosis: JORDI Hyponatremia Orthostatic hypotension Referrals: Mary Anne Mcgraw MD [Primary Care Provider] - 1 Week Discharge Medications: Continued simvastatin 20 mg tablet 20 mg PO BEDTIME 90 Days Qty: 90 1RF cholecalciferol (vitamin D3) 25 mcg (1,000 unit) tablet 25 mcg PO DAILY Qty: 90 3RF lisinopril 40 mg tablet 40 mg PO DAILY 90 Days Qty: 90 0RF hydroxyzine HCl 25 mg tablet 25 mg PO BEDTIME PRN (Reason: itching) 30 Days Qty: 30 0RF gabapentin 300 mg capsule 600 mg PO TID Qty: 180 6RF acetaminophen 325 mg Tablet 650 mg PO Q6H PRN (Reason: Pain, Mild (Pain Scale 1-3)) 30 Days Qty: 240 0RF ibuprofen 800 mg tablet 800 mg PO BID PRN (Reason: pain) oxycodone 10 mg tablet 10 mg PO BID PRN (Reason: pain) diclofenac potassium 50 mg tablet 50 mg PO BID PRN (Reason: pain) (DME) jo Denney See Rx Instructions .Route Qty: 1 0RF Rx Instructions: As directed Discontinued hydrochlorothiazide 12.5 mg tablet 12.5 mg PO DAILY 90 Days Qty: 90 0RF Discharge Orders: Discharge Order (Routine); Ordered 02/19/24 Ordered By: Arline Walls Activity on Discharge: As tolerated Stand Alone Forms: Patient Portal Discharge page Print Language: Cook Islander Other Ambulatory Orders: Basic Metabolic Panel (Routine) Timeframe: 1 Week Facility: [facility] - Location: Laboratory Ordered By: Arline Walls Care Plan Goals: See below Health Concerns: Orthostatic hypotension Hyponatremia JORDI Plan of Treatment: Stop taking hydrochlorothiazide Repeat chemistry in 1 week Call to schedule follow-up appointment with PCP Do not mix alcohol with opiates Minimize use of ibuprofen if possible Assessment: See discharge summary
[2024-02-19 15:29] VITALS: BP 143/107; PULSE 102; RESP 18; TEMP 36.7; O2SAT 96
== END 2024-02-19 16:03 | disposition home or self-care (01) | DRG 312 ==
LOC: HO.ED 20:59 → HO.EDOVER 21:35
PROVIDERS: Admitting Provider Student in an Organized Health Care Education/Training Program; Emergency Provider Emergency Medicine; PCP Internal Medicine; Visit Provider Physician Assistant Medical
DX: I95.1 Orthostatic hypotension (principal); N17.9 Acute kidney failure, unspecified; E87.1 Hypo-osmolality and hyponatremia; E86.0 Dehydration; I10 Essential (primary) hypertension; M54.9 Dorsalgia, unspecified; E86.1 Hypovolemia; G89.29 Other chronic pain; E78.2 Mixed hyperlipidemia; Z79.891 Long term (current) use of opiate analgesic; Z87.891 Personal history of nicotine dependence; Z79.899 Other long term (current) drug therapy
CPT/HCPCS: 36415; 80048; 80307; 81003; 82570; 83735; 83930; 84300; 84484; 85025; 93005; 99285; J1650

== ENCOUNTER → 2024-02-18 21:31 | Outpatient (BNV) | payer OTHER, SELFPAY | PROVIDERS: Admitting Provider Student in an Organized Health Care Education/Training Program; Emergency Provider Emergency Medicine; PCP Internal Medicine; Visit Provider Student in an Organized Health Care Education/Training Program | DX: N17.9 Acute kidney failure, unspecified (principal); E87.1 Hypo-osmolality and hyponatremia | CPT/HCPCS: 99223; 99239 ==

== ENCOUNTER 2024-02-24 16:00 | Outpatient (RCR) | payer OTHER, SELFPAY ==
--- NOTE | 2023-12-31 12:17 | MHC.PT.EP ---
[facility] [place] Office [place] Office [place] Office [address] Ayse Regan [address] [phone] F: [phone] F: [phone] F: [phone] F: [phone] Physical Therapy Plan of Care Date of Evaluation: 12/31/23 Date of Surgery: Diagnosis: postlaminectomy syndrome radiculopathy, lumbar region Assessment: 63 y/o male referred to PT with post laminectomy syndrome and lumbar radiculopathy. On 12/2022 pt underwent laminectomy with worsening sx post-op per pt. Therefore underwent L4-L5-S1 lumbar fusion on 02/2023. He continues to reports unable to walk > 10' or stand. He then underwent R KADIE 04/2023. He has tried PT in the past and it has helped minimally. Anticipate spinal stimulator 01/21/24. He uses a rollator and a cane for ambulation as well as a w/c. Currently he reports difficulty with standing, walking, dressing, stairs, ADL's. Examination shows impaired balance, impaired gait pattern, decreased R LE strength, decreased lumbar ROM, and pain. Pt was emotionally labile during evaluation and appeared frustrated and anger with past year health. Highly emphasized looking into mental health therapist to help with chronic pain, change in function and other emotions at this time. Recommend PT 2x/week for 5 weeks to address impairments, implement HEP, and optimize functional mobility. Frequency and Duration: The patient will be seen 2x/week for 5 weeks Short Term Goals: 3 weeks I with HEP Pt will be able to stand unsupported >5 minutes to show improved strength and function Usp Goals: 5 weeks I with HEP and self management of sx Pt will be able to ambulate with LRAD > 10 minutes with pain < 3/10 Pt will be able to get in/out of bed independently Treatment Plan: Modalities to reduce pain, spasms and effusion. Manual therapy to restore motion and function. Therapeutic exercise to improve strength and flexibility. Neuromuscular re-education for posture and balance. Therapeutic activities to return to functional activities of daily living. Electronically signed by: Salud medina PT Please sign and return to therapist. Thank you for your referral.
--- NOTE | 2024-03-23 10:00 | MHC.PT.DC ---
[facility] [place] [facility] [place] [facility] [place] [facility] [address] Ayse Regan [address] [phone] F: [phone] F: [phone] F: [phone] F: [phone] Physical Therapy Discharge Report Diagnosis: postlaminectomy syndrome radiculopathy, lumbar region Date of Surgery: Date of Evaluation: 12/31/23 Date of Discharge: 03/23/24 Treatments to Date: 8 Cancellations to Date: 0 No Shows to Date: 0 Discharge Status: Patient Elected to Stop Physician Discontinued Tx Discharge Summary: Pt cancelled all further visits stating MD said to stop PT. Electronically signed by: Salud Gomez PT Please sign and return to therapist. Thank you for your referral.
== END 2024-03-23 10:00 | disposition home or self-care (01) ==
LOC: HO.PT 16:00
PROVIDERS: PCP Internal Medicine; Visit Provider Internal Medicine
DX: M96.1 Postlaminectomy syndrome, not elsewhere classified (principal); M54.16 Radiculopathy, lumbar region
CPT/HCPCS: 97014; 97110; 97162; 97530

== ENCOUNTER 2024-02-25 08:36 | Outpatient (REF) | payer OTHER, SELFPAY ==
[2024-02-25 10:12] LABS: Anion Gap 16 (12-20); Blood Urea Nitrogen 9 mg/dL (9-16); Calcium 9.9 mg/dL (8.4-10.2); Carbon Dioxide 26 mmol/L (22-29); Chloride 100 mmol/L (96-108); Estimated Glomerular Filt Rate > 60; Glucose Random 116 mg/dL (60-115); Potassium 5.5 mmol/L (3.3-5.1); Sodium 136 mmol/L (135-145)
== END 2024-02-25 08:37 | disposition home or self-care (01) ==
LOC: HO.LAB 08:36
PROVIDERS: Absent Provider Physician Assistant Medical; PCP Internal Medicine; Visit Provider Physical Medicine & Rehabilitation
DX: E87.1 Hypo-osmolality and hyponatremia (principal)
CPT/HCPCS: 36415; 80048

== ENCOUNTER 2024-02-25 08:36 | Outpatient (AMB) | payer OTHER, SELFPAY ==
--- NOTE | 2024-02-25 08:39 | MHC.OFFVIS ---
Intake Visit Reasons: [employer]- Radiculopathy, lumbar region, abnormal gait Intake Note: Renny is a 63 year old male who presents today as a new patient for a evalaution of his Lumbar spine and neck. MRI of his Lumbar Spine was done on 08/28/23 Allergies No Known Allergies [No Known Allergies*] Allergy (Verified 02/18/24 20:06) HPI Comments Details: Chronic back and right leg pain 05/2022. History of fusion L4-S1 02/2023 Dr. Elmore and right KADIE 04/2023. Continued weakness on proximal right lower extremity, affecting thigh and knee. Burning on right thigh and knee. More recently noted swelling of right ankle. I met him during EMG 11/14/23. Results below. He has gone to Pain Management, past procedures 01/16/24: Lumbar SCS trial: 0% pain relief 10/09/23: Caudal JAVIER with catheter: No relief. He has followed with Dr. Brower, neurospine. s/p L4-S1 oblique lumbar interbody fusion. He has followed with ortho, Dr. Elmore, s/p right hip replacement. [facility] Medical History H/O myocardial perfusion scan Chronic, continuous use of opioids Former smoker Arthritis of right hip Hx of fracture of tibia Substance use disorder Dupuytren's contracture of right hand High cholesterol Hypertension Surgical History History of total right hip arthroplasty (05/13/23) History of back surgery (02/2023) Hx of colonoscopy History of hand surgery History of shoulder surgery Family History Mother Cancer Father No problems noted. Sister Breast cancer Social History Household Members: Spouse Housing: House Are you a primary floor care technician to a significant other at home: No Do you presently have visiting nurse or other home services: No 75 years or older and lives alone: No Alcohol intake: current Alcohol intake frequency: holidays/special occasions only Alcohol type: beer Comment: COUNTS CORRECT Patient Tobacco Use Status: Former Tobacco user Tobacco use type: Cigarette Years Smoked: 10 e-Cigarette/Vaping Use: Never Used Second Hand Smoke Exposure: Yes Substance Use Type: Marijuana service: No Current occupational status: retired Current occupation: right hand dominant Cognitive needs: Yes Hearing needs: No Vision needs: No Review of Systems Const All systems reviewed & are unremarkable except as noted in HPI and below Results Reviewed Results Reviewed: EMG 11/13/24 FINDINGS: Right peroneal nerve showed prolonged distal latency, normal amplitude and slow conduction velocity distally. Absent right superficial peroneal sensory nerve. All other nerves tested were within normal. Concentric needle EMG was performed in selected muscles of the right lower extremity. Study did not reveal signs of electric abnormalities as shown in the table above. IMPRESSION: 1. This is an abnormal study. 2. 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 3. There is no electrodiagnostic evidence for tibial neuropathy. lumbosacral plexopathy, lumbar radiculopathy, or peripheral neuropathy. CLINICAL COMMENT: Findings above could explain symptoms distally, but would not explain weakness on proximal right lower extremity. No definitive findings for acute or ongoing radiculopathy seen on this study. Further clinical correlation recommended. Ordering Physician: Francis Brower MD, PhD Date of Service: 08/28/23 Procedure(s): MR lumbar spine wo/w con Accession Number(s): [id number] cc: Francis Brower MD, PhD; Mary Anne Mcgraw MD~ EXAMINATION: MR LUMBAR SPINE WITHOUT AND WITH CONTRAST CLINICAL INFORMATION: Severe right leg pain radiating from the thigh. Assess for L4 nerve compression. COMPARISON: CT scan of the lumbar spine 04/04/2023. MRI scan of the lumbar spine 03/10/2023. TECHNIQUE: MRI of the lumbar spine was obtained using routine sequences with and without contrast. Intravenous contrast: [id number] mL FINDINGS: VERTEBRAL BODIES AND PARASPINAL STRUCTURES: There is mild reversal of the lumbar lordosis. There are retrolistheses of L2 on L3 and L3 on L4. There is narrowing of intervertebral disc height at L3-L4 with edematous endplate signal changes posteriorly with mild enhancement. The study redemonstrates the sequelae of the multilevel instrumented posterior fusions at L4, L5 and S1. There are bilateral pedicular screws in these vertebrae joined by vertical rods. The study redemonstrates the superior compression fracture of L1, a chronic finding. There are no acute compression fractures. Overall, marrow signal is homogenous. There is nonspecific perinephric stranding. The visualized pelvic structures are unremarkable. CONUS MEDULLARIS AND CAUDA EQUINA: Normal, terminating at the level of L2. The lower thoracic spinal cord has normal signal and there is no abnormal enhancement. There is crowding of the cauda equina nerve roots. The filum terminale appears normal. SPINAL LEVELS: L1-L2: There is moderate bilateral facet arthropathy. There is a small right paracentral disc protrusion which distorts the ventral thecal sac and there is no central stenosis. The neural foramina are patent bilaterally. L2-L3: There is moderate bilateral facet arthropathy with facet joint effusions. There is a posterior disc protrusion with mild flattening of the ventral thecal sac and with mild narrowing of the subarticular recesses. There is epidural lipomatosis dorsally. There is mild central stenosis. There are old bilateral inferior foraminal disc osteophyte complexes without definite exiting nerve root impingement. L3-L4: There is moderate bilateral facet arthropathy. There is a prominent posterior disc protrusion which flattens the ventral thecal sac and there is marked crowding of the cauda equina nerve roots. Compression of the thecal sac dorsally is worsened by significant epidural lipomatosis, and there is moderate central stenosis. There are inferior foraminal disc protrusions, more prominent on the right without definite exiting nerve root impingement. L4-L5: There is moderate to severe bilateral facet arthropathy. There are sequelae of an instrumented posterior fusion. Posterior vertebral body contours are normal and there is no central stenosis. There are left-sided disc osteophytes extending into the neural foramen, with likely impingement on the exiting right L4 nerve root, demonstrated on the prior CT scan. L5-S1: There is moderate to severe bilateral facet arthropathy. There may be a small synovial cyst developing anteromedially on the left. There is a shallow posterior osteophytic ridge, but there is no central stenosis. There are bilateral foraminal disc osteophyte complexes impinging on the exiting L5 nerve roots. MR/MR lumbar spine wo/w con IMPRESSION: 1. There are sequelae of multilevel instrumented posterior fusions at L4, L5 and S1. There is no significant osseous enhancement. 2. At L3-L4 there is moderate facet arthropathy and there is a prominent posterior disc protrusion. There is marked crowding of the cauda equina nerve roots and there is moderate central stenosis. There are inferior foraminal disc protrusions without definite exiting nerve root impingement. 3. At L4-L5 there are sequelae of an instrumented posterior fusion. There is no central stenosis. There are left-sided disc osteophytes extending into the neural foramen with likely impingement on the exiting right L4 nerve root. 4. At L5-S1 there is facet arthropathy and there may be a small synovial cyst developing anteromedially on the left. There are bilateral foraminal disc osteophyte complexes impinging on the exiting L5 nerve roots. There is no central stenosis. 5. At L2-L3 there is facet arthropathy and there is a posterior disc protrusion. There is narrowing of the subarticular recesses and there is mild central stenosis. There are bilateral inferior foraminal disc osteophyte complexes without definite exiting nerve root impingement. I reviewed records from the following: as above Assessment & Plan Assessment & Plan (1) Lumbar radiculopathy: Comment: Pain management contract signed 02/03/2024 Code(s): M54.16 - Radiculopathy, lumbar region Category: Medical (2) Status post lumbar and lumbosacral fusion by anterior technique: Comment: 03/18/23 Code(s): Z98.1 - Arthrodesis status Category: Social Hx Plan He expressed his frustration [place] [facility] and expressed that he did not want to be in this appointment today. He is seeing another [facility]ograph in [facility] next week and would rather transfer his care and not come back to [facility] anymore. We did look up the doctor online, confirmed that his is an global cto. I offered to answer further questions and patient may come back up to see me in future if he wishes. Pallavi Baird MD, CYNTHIA Board Certified, [place] Board [employer] Physical [employer] and Rehabilitation (ABPMR) Board Certified, [place] Board of Electrodiagnostic Medicine (ABEM) Coding Level of Care Code Est Pt Level 3 (05019) Diagnoses Lumbar radiculopathy M54.16 Status post lumbar and lumbosacral fusion by anterior technique Z98.1
== END 2024-02-25 08:57 | disposition home or self-care (01) ==
PROVIDERS: PCP Internal Medicine; Visit Provider Physical Medicine & Rehabilitation
DX: M54.16 Radiculopathy, lumbar region (principal); Z98.1 Arthrodesis status
CPT/HCPCS: 99213

== ENCOUNTER 2024-04-12 11:52 | Outpatient (REF) | payer OTHER, SELFPAY | END 2024-04-12 11:53 | disposition home or self-care (01) | LOC: HO.HOSX 11:52 | PROVIDERS: Visit Provider Orthopaedic Surgery | DX: T84.020A Dislocation of internal right hip prosthesis, initial encounter (principal) | CPT/HCPCS: 72170; 73502 ==

== ENCOUNTER 2024-04-12 11:54 | Outpatient (AMB) | payer OTHER, SELFPAY ==
--- NOTE | 2024-04-12 12:14 | MHC.OFFVIS ---
Intake Visit Reasons: OV: Right KADIE 05/13/23 Intake Note: Renny is a 63 year old male who presents today with complaints of increased right hip pain. Hx of Right KADIE 05/13/23 & Right KADIE Revision on 03/29/24 w/ at [facility] , he reports that he has concerns of the hip being dislocated. Allergies No Known Allergies [No Known Allergies*] Allergy (Verified 02/18/24 20:06) HPI HPI OV: Right KADIE 05/13/23: Details: Renny comes in with a hip dislocation. He had a revision hip arthroplasty in [place] several weeks ago. He presents today unable to ambulate. He denies any particular injury but feels that something is very wrong. [facility] Medical History (Updated 02/27/24 @ 00:02 by José Sosa) H/O myocardial perfusion scan Chronic, continuous use of opioids Former smoker Arthritis of right hip Hx of fracture of tibia Substance use disorder Dupuytren's contracture of right hand High cholesterol Hypertension Surgical History (Updated 04/12/24 @ 15:09 by Shar Elmore MD) History of total right hip arthroplasty (05/13/23) History of back surgery (02/2023) Hx of colonoscopy History of hand surgery History of shoulder surgery Family History Mother Cancer Father No problems noted. Sister Breast cancer Social History Household Members: Spouse Housing: House Are you a primary director of primary care to a significant other at home: No Do you presently have visiting nurse or other home services: No 75 years or older and lives alone: No Alcohol intake: current Alcohol intake frequency: holidays/special occasions only Alcohol type: beer Comment: COUNTS CORRECT Patient Tobacco Use Status: Former Tobacco user Tobacco use type: Cigarette Years Smoked: 10 e-Cigarette/Vaping Use: Never Used Second Hand Smoke Exposure: Yes Substance Use Type: Marijuana service: No Current occupational status: retired Current occupation: right hand dominant Cognitive needs: Yes Hearing needs: No Vision needs: No Physical Exam Extrem Other: On exam he is moving his toes comfortably and has a 2+ dorsalis pedis pulse. His incision is clean dry and intact with some mild staple erythema. He has mild discomfort and limited range of motion of the right hip. Results Reviewed Results Reviewed: I personally reviewed relevant radiographs. Posterolateral dislocation right hip Post reduction x-rays show improved alignment although question whether it is reduced given the lack of symmetry head within the acetabulum Assessment & Plan Assessment & Plan (1) History of total right hip arthroplasty: Onset Date: 05/13/23 Code(s): Z96.641 - Presence of right artificial hip joint Category: Surgical Plan: 63-year-old gentleman who underwent revision right hip arthroplasty for aseptic loosening and at outside facility who presents today with a dislocated right hip. While speaking with him I flexed up his knee and applied some anterior and axial low-grade pressure without being aggressive. His hip did call again although show reduction may not be possible without opening and he will get a CT scan at a [facility] so that his primary surgeon can visualize the hip and take appropriate measures. He spoke with his surgeon and explained this to him. I explained this to the patient. Orders: Orders CT hip RT wo IV con 04/12/24 Z96.641 - Presence of right artificial hip joint Coding Level of Care Code Est Pt Level 3 (67602) Diagnoses History of total right hip arthroplasty Z96.641
== END 2024-04-12 13:32 | disposition home or self-care (01) ==
PROVIDERS: PCP Internal Medicine; Visit Provider Orthopaedic Surgery
DX: Z47.1 Aftercare following joint replacement surgery (principal); Z96.641 Presence of right artificial hip joint; T84.020A Dislocation of internal right hip prosthesis, initial encounter
CPT/HCPCS: 99213

== ENCOUNTER 2024-05-11 17:00 | Outpatient (AMB) | payer OTHER, SELFPAY ==
--- NOTE | 2024-05-11 17:07 | A.OFFPC_ITS ---
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 Required: No Accompanied by: Spouse Allergies No Known Allergies [No Known Allergies*] Allergy (Verified 05/11/24 17:33) Medication List - Last Reconciled 05/11/24 by Mary Anne Leach MD cholecalciferol (vitamin D3) 25 mcg PO DAILY ciprofloxacin HCl 750 mg PO BID enoxaparin mg subcut gabapentin 600 mg PO TID hydroxyzine HCl 25 mg PO BEDTIME PRN 30 days lisinopril 5 mg PO DAILY lorazepam 0.5 mg PO DAILY PRN oxycodone 5 mg PO QID PRN simvastatin 20 mg PO BEDTIME 90 days vancomycin 125 mg PO DAILY walker As directed Tobacco use date assessed: 07/29/23 Dental Screening Dental Screen Date: 02/03/24 HPI HPI Comments History of Present Illness Details The patient is a 63-year-old male presenting with a discharge follow-up after undergoing right hip revision surgery. He had been diagnosed with a dislocated and loose right hip, necessitating the revision surgery, which took place prior to May 05, 2024. The patient reports improvement post surgery but continues to experience pain in the right hip. He currently participates in home-based physical therapy and is ambulatory with the assistance of a walker. He has been instructed to maintain 50% weight-bearing on the right leg. The patient's pain is managed with oxycodone and gabapentin. He has comorbid essential hypertension, which is well controlled with lisinopril 5 mg. His blood pressure reading today was 132/80 mmHg. The patient also suffers from hypercholesterolemia and is treated with simvastatin 20 mg. He reports insomnia, a recent onset issue, and will be initiated on zolpidem at bedtime for managem ent. Accompanied by today. Crutches were provided in this visit. [facility], LAT[facility] Medical History (Updated 05/11/24 @ 18:09 by Mary Anne Leach MD) H/O myocardial perfusion scan Chronic, continuous use of opioids Former smoker Arthritis of right hip Hx of fracture of tibia Substance use disorder Dupuytren's contracture of right hand High cholesterol Hypertension Surgical History History of total right hip arthroplasty (05/13/23) History of back surgery (02/2023) Hx of colonoscopy History of hand surgery History of shoulder surgery Family History Mother Cancer Father No problems noted. Sister Breast cancer Social History Household Members: Spouse Housing: House Are you a primary care management coordinator to a significant other at home: No Do you presently have visiting nurse or other home services: No 75 years or older and lives alone: No Alcohol intake: current Alcohol intake frequency: holidays/special occasions only Alcohol type: beer Comment: COUNTS CORRECT Patient Tobacco Use Status: Former Tobacco user Tobacco use type: Cigarette Years Smoked: 10 e-Cigarette/Vaping Use: Never Used Second Hand Smoke Exposure: Yes Substance Use Type: Marijuana service: No Current occupational status: retired Current occupation: right hand dominant Cognitive needs: Yes Hearing needs: No Vision needs: No Questionnaire Thrive Questionnaire Date Thrive assessed: 02/19/24 YESENIA-7 AMB Questionnaire YESENIA-7 Date YESENIA - 7 assessed: 07/29/23 Source: Developed by Drs. Kang Au, Katherine Ortiz, Kenneth Becker and colleagues, with an educational hoa from [employer]. Review of Systems Const Details: - Cardiovascular: Denies chest pain. - Respiratory: Denies shortness of breath. - Gastrointestinal: Denies change in bowel habits. - Urinary: Denies change in bladder habits. Physical exam (Primary Care) Vital Signs: Last Vital Signs BP 132/80 05/11/24 17:09 Tobacco/Smoking Status: Tobacco use Status Tobacco use date assessed 07/29/23 05/11/24 17:09 Patient Tobacco Use Status Former Tobacco user 05/11/24 17:09 Tobacco use type Cigarette 05/11/24 17:09 e-Cigarette/Vaping Use Never Used 05/11/24 17:09 Thrive Assessment: Date of Thrive Assessment Date Thrive assessed 02/19/24 05/11/24 17:09 Const Other: General: No confusion Respiratory: Normal respiratory effort, clear to auscultation bilaterally Cardiovascular: No jugular venous distension, regular rate, regular rhythm, S1 normal heart sound present and S2 normal heart sound present Extremities: limited right leg movement with brace Psychology: Grossly normal Coding Level of Care Code Est Pt Level 4 (21645) Complex EM visit Add On G2211 Diagnoses Hip dislocation, right S73.004A Insomnia G47.00 Pure hypercholesterolemia E78.00 Hypertension, unspecified type I10 Hypertension type: unspecified Time Spent (min) 25 Assessment & Plan Assessment & Plan (1) Hip dislocation, right: Code(s): S73.004A - Unspecified dislocation of right hip, initial encounter Category: Medical (2) Insomnia: Code(s): G47.00 - Insomnia, unspecified Category: Medical (3) Pure hypercholesterolemia: Code(s): E78.00 - Pure hypercholesterolemia, unspecified Category: Medical (4) Hypertension: Code(s): I10 - Essential (primary) hypertension Category: Medical Qualifiers: Hypertension type: unspecified Qualified Code(s): I10 - Essential (primary) hypertension Plan - Continue current regimen of lisinopril 5 mg for hypertension management. - Continue simvastatin 20 mg for hypercholesterolemia. - Prescribe zolpidem at bedtime for insomnia. - Transition to crutches for better facilitation of 50% weight-bearing on the right leg. - Follow up with the orthopedic surgeon for the right hip repair evaluation. Patient was informed and verbally consented to the use of an ambient scribe for clinic note documentation during this visit. I discussed with the patient the management of his essential hypertension and hypercholesterolemia, ensuring continuation of current medications for optimal control. We also covered pain management options in detail, including the existing regimen of oxycodone and gabapentin, and introduced zolpidem to address his insomnia. I advised switching from a walker to crutches for better weight distribution on the right hip. We emphasized the importance of following up with his orthopedic surgeon to evaluate surgical outcomes and further management of his hip condition. Medications: New zolpidem 10 mg PO BEDTIME PRN 30 tabs 0RF sleep 30 days G47.00 - Insomnia, unspecified crutches (pair of crutches) As directed 2 ea 0RF Z96.641 - Presence of right artificial hip joint Patient Instructions: - Continue taking lisinopril 5 mg daily as prescribed. - Continue taking simvastatin 20 mg daily. - Start taking zolpidem at bedtime for sleep. - Use crutches instead of a walker and maintain 50% weight-bearing on your right leg. - Follow up with your orthopedic surgeon as advised. - Monitor blood pressure regularly and report any significant changes.
[2024-05-11 17:09] VITALS: BP 132/80
--- OUTSIDE RECORDS SUMMARY | 2024-05-11 17:35 | XMS_ITS ---
Author Organization [facility] Address [address] [place] [address] Care Team Providers Care Ramp Lead Name Role Phone Deborah RODRIGUEZ, Mary Anne Primary Care Provider Unavail Heydi Dean Unavailable [phone] Allergies No Known Allergies REASON FOR VISIT PCP-08/15, PCP: 07/2022, Foot pain Medications Medication SIG (Take, Route, Frequency, Duration) Notes Start Date End Date Status amLODIPine Besylate 10 MG 1 tablet Orall y Once a day Active Lisinopril 20 MG 1 tablet Orally Once a day Active Gabapentin 300mg three times a day or ally daily Active Vitamin D3 25 MCG (1000 UT) 1 capsule Or ally Once a day Active Simvastatin 20 MG 1 tablet in the even ing Orally Once a day Active Lisinopril-hydroCHLOROthiaz flo 20-12.5 MG 1 tablet Orally Active Social History Tobacco Use: Social History Observation Description Date Details (start date - stop date) Former Smoker NA - NA Tobacco Use/Smoking Question Answer Notes Are you [...] an other tobacco user? Yes v ape Vital Signs Height 5 ft 7 in in 11/12/2022 Weight 208 lbs 11/12/2022 BMI 32.57 kg/m2 11/12/2022 Encounters Encounter Location Date Provider Diagnosis [facility] [address] [place] [address] 11/12/2022 Heydi Garcia Pes planus of left foot M21.42 ; Pes planus of right foot M21.41 ; Gait abnormality R26.9 ; Equinus contracture of left ankle M24.572 and Equinus contracture of right ankle M24.571 Assessments Encounter Date Diagnosis (ICD Code) Assessment Notes Treatment Notes Treatment Clinical Notes Section Notes 11/12/2022 Pes planus of left foot (ICD-10 - M21.42) 11/12/2022 Pes planus of right foot (ICD-10 - M21.41) 11/12/2022 Gait abnormality (ICD-10 - R26.9) 11/12/2022 Equinus contracture of left ankle (ICD-10 - M24.572) 11/12/2022 Equinus contracture of right ankle (ICD-10 - M24.571) Plan Of Treatment Next Appt Details Follow Up: prn, Reason: Progress Notes * Renny PANTOJA LDOB:[birth year] (62 yo M)Acc No.[id number]:11/12/2022 Progress Note Patient:?Simon Renny Duran Provider:?Heydi Garcia DPM :1960???Age:62 Y???Sex:Male Pola e:11/12/2022 Address:[address] [place], [place] [id number] Pcp:Mary Anne Cabrera MD Subjective: * Chief Complaints: * ???PCP-08/15PCP: 07/2022Foot pain * HPI: ???Foot Pain:?Nature:?difficulty walking, knee, back pain.?Location:?B/L.?Duration:?several years.?Onset:?gradual , denies trauma.?Course:?worse.?Aggrevated:?any pressure , standing , walking.?Treatments:?PT for his back.? * ROS:?General/Constitutional:?Nausea?denies, denies.?Vomiting?denies, denies.?Hunger Thirst?denies, denies.?Loss appetite?denies, denies.?Chills?denies, denies.?Fatigue?denies, denies.?Fever?denies, denies.?Night Sweats denies, denies.?Unexplained weight loss?denies, denies.?Unexplained weight gain?denies, denies.?HEENTM:?Dentures?denies, admits.?Dizziness?denies, denies.?Glasses/contacts?denies, admits.?Retinopathy?denies, denies.?Blurred/double vision?denies, denies.?TMJ?denies, denies.?Discharge/drainage?denies, denies.?Implants?denies, denies.?Sore throat?denies, denies.?Dental implants?denies, denies.?Hard of hearing ?denies, denies.?Difficulty chewing/swallowing/speaking?denies, denies.?Nose bleeds?denies, denies.?Sore mouth?denies, denies.?Respiratory:?On Oxygen?denies, denies.?Pneumonia/pleurisy?denies, denies.?Bronchitis?denies, denies.?Emphysema?denies, denies.?Coughing?denies, denies.?Cough blood?denies, denies.?Shortness of breath?denies, denies.?Wheezing?denies, denies.?Cardiovascular:?Pacemaker?denies, denies.?MVP?denies, denies.?WPW?denies, denies.?CHF?denies, denies.?Heart attack?denies, denies.?Septal defect?denies, denies.?Rapid beat?denies, denies.?Chest pain ?denies, denies.?Atrial Fib.?denies, denies.?Murmur/Palpitations?denies, denies.?Gastrointestinal:?Hemorrhoids?denies, denies.?Stomach/Abdominal pain?denies, denies.?Dark blood stool?denies, denies.?Irritable bowel ?denies, denies.?Constipation?denies, denies.?Diarrhea?denies, denies.?Hematology:?Swelling?denies, denies.?Clots?denies, denies.?Varicose Veins?denies, denies.?Bruising?denies, denies.?Bleeding problem?denies, denies.?Genitourinary:?Blood urine?denies, denies.?Frequent/Painfu/urination/bladder control?denies, denies.?Kidney stones?denies, denies.?Infection (UTI)?denies, denies.?Nephropathy?denies, denies.?sex trans dis (STD)?denies, denies.?Prostate?denies, denies.?Musculoskeletal:?Hammertoes?denies, denies.?Bunions?denies, denies.?Back Pain?denies, admits.?Muscle Cramps/ Resting?denies, denies.?Muscle cramps / walking?denies, denies.?Generalized aches and pains?denies, admits.?Weakness?denies, denies.?Integ.:?Lu?denies, denies.?Scars?denies, denies.?Corns/calluses?denies, denies.?Ingrown nails?denies, denies.?Painful nails?denies, denies.?Open Sores?denies, denies.?Rashes?denies, denies.?Neurologic:?Difficulty sleeping?denies, admits.?Brain disorder?denies, denies.?Numbness?denies, denies.?Balance trouble?denies, admits.?Confusion?denies, denies.?Fainting/blackouts?denies, denies.?Tingling?denies, denies.?Tremors?denies, denies.? * Medical History:? * Surgical History:?Denies Pas t Surgical History * Hospitalization/Major Diagno stic Procedure:?Denies Past Hospitalization * Family History:?Mother: dece ased, diagnosed with Unspecified essential hypertension, Other malignant neoplasm of unspecified site.?Father: , diagnosed with Other malignant neoplasm of unspecified site, Unspecified essential hypertension.? * Social History:?Tobacco Use:?Tobacco Use/Smoking?Are you a:?former smoker ?Additional Findings: Tobacco Non-User?Current non-smoker ?Tobacco use other than smoking?Are you an other tobacco user??Yes vape ???Drugs/Alcohol:?Drugs?Have you used drugs other than those for medical reasons in the past 12 months??Yes ?Marijuana??Yes ?Alcohol Screen?Did you have a drink containing alcohol in the past year??Yes ?How often did you have a drink containing alcohol in the past year??2 to 3 times a week (3 points) ?Points?3 ?Interpretation?Negative ???Miscellaneous:?Caffeine: 1-2 cups per day. ?Children: none. ?Exercise: none. ?Marital status: . ?Occupation: [employer] * Medications:?TakingLisinopri l-hydroCHLOROthiazide 20-12.5 MG Tablet 1 tablet Orally amLODIPine Besylate 10 MG Tablet 1 tablet Orally Once a dayGabapentin 300mg tablets three times a day orally dailyLisinopril 20 MG Tablet 1 tablet Orally Once a daySimvastatin 20 MG Tablet 1 tablet in the evening Orally Once a dayVitamin D3 25 MCG (1000 UT) Capsule 1 capsule Orally Once a dayMedication List reviewed and reconciled with the patientTaking Lisinopril-hydroCHLOROthiazide 20-12.5 MG Tablet 1 tablet Orally Taking amLODIPine Besylate 10 MG Tablet 1 tablet Orally Once a dayTaking Gabapentin 300mg tablets three times a day orally dailyTaking Lisinopril 20 MG Tablet 1 tablet Orally Once a dayTaking Simvastatin 20 MG Tablet 1 tablet in the evening Orally Once a dayTaking Vitamin D3 25 MCG (1000 UT) Capsule 1 capsule Orally Once a dayMedication List reviewed and reconciled with the patient * Allergies:?N.K.D.A.yes[Aller gies Verified] Objective: * Vitals:?Ht: 5 ft 7 in, Wt:20 8, BMI:32.57, Shoe size: 9 wide, Ht-cm: 170.18 cm, Wt-k.35 kg. * Examination: ???General Examination: ?GENERAL APPEARANCE:?Reveals a pleasant, alert, well-nourished, well- developed, well hydrated individual, who demonstrates proper attention to hygiene/body habitus, and is in no acute distress, Pt serves as own?historian for office visit today.?ORIENTED:?person, place, and time.?Neurological: ?SENSORY:?Neurological exam reveals intact sensorium, pain sensation normal, vibration sensation intact, pinprick sensation is normal in the lower extremities, Pt denies, anesthesia, burning, paresthesia, tingling, B/L.?DEEP TENDON REFLEXES:?Achilles, 2/4, B/L.?Vascular: ?DP PULSES:?3/4, B/L.?PT PULSES:?3/4, B/L.?CAPILLARY FILL TIME:?immediate, all digits, B/L.?SKIN TEMPERTURE GRADIENT OF THE LOWER EXTERMITIES:?warm to cool, proximal to distal, B/L.?HAIR GROWTH/TEXTURE/ELASTICITY/TURGOR:?normal, B/L.?PIGMENTATION:?normal, B/L.?EDEMA:?absent, B/L.?Dermatologic: ?SKIN FINDINGS:?Skin exam reveals normal texture, elasticity, and turgor. There are no masses. The interspaces are clear.?Orthopedic: ?MUSCLE STRENGTH:?5/5 all groups in a symmetrical fashion , B/L.?GAIT ABNORMALITY:?Pronated , abducted angle and base of gate , B/L.?FOOT MORPHOLOGY:?B/L , Pes Planus structure , Semi-rigid.? Assessment: * Assessment: 1.?Pes planus of right foot - M21.41, Chronic problem, Worse (4)?2.?Pes planus of left foot - M21.42 (Primary), Chronic problem, Worse (4)?3.?Gait abnormality - R26.9?4. Equinus contracture of left ankle - M24.572?5.?Equinus contracture of right ankle - M24.571? Plan: * Treatment: * Procedure Codes:? * Preventive Medicine:? ??Counseling:?Discussion:?-13: Office or other outpatient visit for the evaluation and management of an established patient, which required a medically appropriate history and/or examination and LOW level of DECISION MAKING for: 1 STABLE ACUTE UNCOMPLICATED PROBLEM, 2 OR MORE MINOR PROBLEMS, OR 1 STABLE CHRONIC PROBLEM, THAT POSE(S) A LOW RISK FOR MORBIDITY/MORTALITY. When using time for code selection, 20-29 min of total time was spent on the day of the encounter interpreting the data and educating the patient as to the nature of their condition, treatment options available according to their individual PMH, meds, allergies, and overall health/living conditions, as well as any potential risks or complications that may occur from a failure to adhere to, and participate in, the recommended course of therapy. The discussion included a complete verbal, and/or written explanation of the examination results, any x- rays taken, the proposed diagnosis, and outline of the treatment plan. A schedule for future care needs was also explained. The patient verbalized an understanding of the instructions at this time and agreed to be an active participant in their treatment. If the patient should think of any questions or concerns after the visit, I have encouraged the patient to call the office.?Orthotic Dispensing:?The patient presents today for fitting and dispensing of orthotics. The inserts were checked against the prescription and found to be accurate. They were properly fitted to the patient's feet in both weight-bearing and non-weight bearing attitudes. The patient was instructed to gradually increase the amount of time they are wearing the orthoses, starting with one hour the first day and thereon progressively increasing the amount of time used until they are comfortable to be worn all day and with all activities. They were asked to call the office if any signs of skin irritation were noted including redness, blistering or callous formation. The patient verbally indicated a full understanding of all the above information, Handout reviewed and dispensed, The patient signed confirmation form indicating receipt of DME device.? * Follow Up:?prn * Images: * Sign off status: Completed true * Provider:?Heydi Garcia, MICAELA Date:? Generated for Carlos faustin/Kennedy/Tayloritting on:?05/11/2024 08:17 AM EST History and Physical Notes * HPI (History of Present Illness) Category Sub-Category Detail Notes Category Not es Foot Pain Nature: difficulty walking, knee, ba ck pain Location: B/L Duration: several years Onset: gradual , denies tra verena Course: worse Aggravated: any pressure , stand ing , walking Treatments: PT for his back Examination Category Sub-Category Detail Notes Category Not es Neurological SENSORY: Neurological exa m reveals intact sensorium, pain sensation normal, vibration sensation intact, pinprick sensation is normal in the lower extremities, Pt denies, anesthesia, burning, paresthesia, tingling, B/L DEEP TENDON REFLEXES: Achilles, 2/4, B/L Dermatologic SKIN FINDINGS: Skin exam reveal s normal texture, elasticity, and turgor. There are no masses. The interspaces are clear Orthopedic GAIT ABNORMALITY: Pronated , abducted ang le and base of gate , B/L FOOT MORPHOLOGY: B/L , Pes Planus str ucture , Semi-rigid MUSCLE STRENGTH: 5/5 all groups in a symmetrical fashion , B/L General Examination GENERAL APPEARANCE: Reveals a pleasant, alert, well- nourished, well-developed, well hydrated individual, who demonstrates proper attention to hygiene/body habitus, and is in no acute distress, Pt serves as own historian for office visit today ORIENTED: person, place, and t bhavin Vascular DP PULSES(B): 3/4, B/L PT PULSES(B): 3/4, B/L CAPILLARY FILL TIME: immediate, all digi ts, B/L TEMPERTURE GRADIENT(C): warm to cool, pr oximal to distal, B/L TROPHIC CONDITION-TEXTURE/ELASTICITY/TURGOR/HAIR GROWTH(B): normal, B/L EDEMA(C): absent, B/L PIGMENTATION: normal, B/L
--- OUTSIDE RECORDS SUMMARY | 2024-05-11 17:35 | XMS_ITS | Patient Health Record ---
Author Organization [facility] [place] Address [address] [place] [address] Care Team Providers Care Ventilated Rib Fitter Name Role Phone Deborah RODRIGUEZ, Mary Anne Primary Care Provider Unavail able Heydi Garcia Unavailable [phone] Allergies No Known Allergies Reason For Referral No Information Medications Medication SIG (Take, Route, Frequency, Duration) [...] even ing Orally Once a day Active Social History Tobacco Use: Social History [...] an other tobacco user? Yes v ape Problems Problem Type SNOMED Code ICD Code Onset Dates Problem Status W/U Status Risk Notes Problem 74848866 Gait abnormality (R26.9) Active confirmed Problem 465475477 Equinus contracture of left ankle (M24.572) Active confirmed Problem 243926663 Equinus contracture of right ankle (M24.571) Active confirmed Plan Of Treatment No Information Insurance Providers Payer Name Payer Address Payer Phone Subscriber Number Group Number Insured Name Patient Relationship to Insured Coverage Start Date Coverage End Date [facility] ([facility]) [address] [place] [address] [phone] [id number], [place] Spouse - patient is the spouse of the insured Medical (General) History Medical History History ICD Code Arthritis Back,Hip,and Knee pain CAD (Cholesterol) High blood pressure Sciatica Chicken pox bulging discs Surgical History Surgery Date(Month/Year)
== END 2024-05-11 17:55 | disposition home or self-care (01) ==
PROVIDERS: PCP Internal Medicine; Visit Provider Internal Medicine
DX: S73.004A Unspecified dislocation of right hip, initial encounter (principal); G47.00 Insomnia, unspecified; E78.00 Pure hypercholesterolemia, unspecified; I10 Essential (primary) hypertension

== ENCOUNTER → 2024-05-11 17:00 | Outpatient (BNVA) | payer OTHER, SELFPAY | PROVIDERS: PCP Internal Medicine; Visit Provider Internal Medicine ==

== ENCOUNTER 2024-09-09 15:09 | Outpatient (AMB) | payer OTHER, SELFPAY ==
--- NOTE | 2024-09-09 15:24 | A.OFFPC_ITS ---
Vital Signs 09/09/24 15:27 Height 5 ft 7 in Weight 217 lb BMI 34.0 BP 130/72 Blood Pressure Location Lt brachial Position Sitting Intake Visit Reasons: physical Intake Note: Patient here for a physical exam Manager Intensive Care Unit Required: No Accompanied by: Spouse Allergies No Known Allergies [No Known Allergies*] Allergy (Verified 09/09/24 15:39) Medication List - Last Reconciled 09/09/24 by Mary Anne Leach MD cholecalciferol (vitamin D3) 25 mcg PO DAILY crutches (pair of crutches) As directed enoxaparin mg subcut gabapentin 600 mg PO TID hydroxyzine HCl 25 mg PO BEDTIME PRN 30 days lisinopril 5 mg PO DAILY 90 days lorazepam 0.5 mg PO DAILY PRN oxycodone 5 mg PO QID PRN simvastatin 20 mg PO BEDTIME 90 days vancomycin 125 mg PO DAILY walker As directed zolpidem 10 mg PO BEDTIME PRN 30 days Tobacco use date assessed: 09/09/24 Fall risk assessment: No Falls in past year Last assessed Fall Risk: 09/09/24 Dental Screening Dental Screen Date: 09/09/24 Did you have a dental visit in the last 12 months?: No Did you have a dental problem in the last 6 months where you did not have access to dental care?: No Was dental information given to patient?: Patient has dentist HPI HPI Comments History of Present Illness Details The patient is a 63-year-old male presenting for his physical exam. He has chronic low back pain management and hypertension follow-up. His chronic low back pain was formerly treated with oxycodone, but medication adjustments were necessary following a positive marijuana test. Currently, his pain is managed with hydroxyzine, which also aids his sleep, and he reports improvement in myalgias. The patient's hypertension is under control with Xenopril, and his last colonoscopy was completed less than ten years ago. He is maintaining an active lifestyle, walking independently without assistive devices. - Blood pressure control with lisinopril - Discussion on the cessation of Didapax il - Encouraged ongoing engagement in physi cristina activity - Re-evaluation of cholesterol levels di scussed [facility] Medical History (Updated 09/09/24 @ 16:54 by Mary Anne Leach MD) JORDI (acute kidney injury) Hip dislocation, right H/O myocardial perfusion scan Chronic, continuous use of opioids Former smoker Arthritis of right hip Hx of fracture of tibia Substance use disorder Dupuytren's contracture of right hand High cholesterol Hypertension Surgical History History of total right hip arthroplasty (05/13/23) History of back surgery (02/2023) Hx of colonoscopy History of hand surgery History of shoulder surgery Family History Mother Cancer Father No problems noted. Sister Breast cancer Social History (Updated 09/09/24 @ 15:45 by Mary Anne Leach MD) Household Members: Spouse Housing: House Are you a primary home health care social worker to a significant other at home: No Do you presently have visiting nurse or other home services: No 75 years or older and lives alone: No Alcohol intake: former Comment: COUNTS CORRECT Patient Tobacco Use Status: Former Tobacco user Tobacco use type: Cigarette Years Smoked: 10 e-Cigarette/Vaping Use: Never Used Second Hand Smoke Exposure: Yes Substance Use Type: Marijuana service: No Current occupational status: retired Current occupation: right hand dominant Cognitive needs: Yes Hearing needs: No Vision needs: No Questionnaire PHQ-9 Over the last 2 weeks, how often have you been bothered by any of the following problems? 1. Little interest or pleasure in doing things: not at all 2. Feeling down, depressed, or hopeless: not at all 3. Trouble falling or staying asleep, or sleeping too much: not at all 4. Feeling tired or having little energy: not at all 5. Poor appetite or overeating: not at all 6. Feeling bad about yourself - or that you are a failure or have let yourself or your family down: not at all 7. Trouble concentrating on things, such as reading the newspaper or watching television: not at all 8. Moving or speaking so slowly that other people could have noticed. Or the opposite - being so fidgety or restless that you have been moving around a lot more than usual: not at all 9. Thoughts that you would be better off or of hurting yourself in some way: not at all Total score: 0 Depression Screening Interpretation: Negative Depression Screening Done: Yes 08326 - PHQ-9 Billing: Yes Source: Developed by Drs. Kang Au, Katherine Ortiz, Kenneth Becker and colleagues, with an educational hoa from [employer]. Thrive Questionnaire Date Thrive assessed: 09/09/24 I am a: Patient What is your living situation today?: I have a steady place to live Within the past 12 months, did the food you bought not last and you didn't have the money to get more?: Never true Within the past 12 months, did you worry whether your food would run out before you got money to buy more?: Never true Do you have trouble paying for medicines?: No Do you have trouble getting transportation to medical appointments?: No Do you have trouble paying your heating and electricity bill?: No Do you have trouble taking care of your child, family member or friend?: No Do you have trouble with day-to-day activities such as bathing, preparing meals, shopping, managing finances, etc.?: No Are you currently unemployed and looking for a job?: No Are you interested in more education?: No Please select the resources that you would like help with: None Currently or been in a relationship where the following occur: No concerns reported THRIVE Score: 0 AUDIT C Alcohol Use Questionnaire (AUDIT-C) 1. How often do you have a drink containing alcohol?: 2-3 times a week 2. How many drinks containing alcohol do you have on a typical day when you are drinking?: 3 or 4 3. How often do you have six or more drinks on one occasion?: Never Total Score: 4 YESENIA-7 AMB Questionnaire YESENIA-7 Date YESENIA - 7 assessed: 09/09/24 Feeling nervous, anxious, or on edge: 1 = Several days Not being able to stop or control worryin = Not at all Worrying too much about different things: 0 = Not at all Trouble relaxin = Not at all Being so restless that it is hard to sit still: 0 = Not at all Becoming easily annoyed or irritable: 0 = Not at all Feeling afraid as if something awful might happen: 0 = Not at all Total YESENIA-7 score (0-4 normal; 5-9 mild; 10-14 moderate; 15-21 severe): 1 Source: Developed by Katherine Nails B.W. Angel, Kenneth Becker and colleagues, with an educational hoa from [employer]. YESENIA-7 Assessment Billing YESENIA-7 Assessment Tool: YESENIA-7 Assessment 07507 Review of Systems Const All systems reviewed & are unremarkable except as noted in HPI and below Card Denies chest pain at rest, Denies chest pain with activity, Denies edema, Denies irregular heart rhythm, Denies claudication, Denies dyspnea, Denies dyspnea on exertion, Denies orthopnea, Denies paroxysmal nocturnal dyspnea and Denies slow heart rate Resp Denies cough, Denies dyspnea and Denies dyspnea on exertion GI Denies abdominal pain, Denies change in bowel habits, Denies excessive flatus, Denies nausea and Denies vomiting Physical exam (Primary Care) Vital Signs: Last Vital Signs BP 130/72 09/09/24 15:27 BMI result Body Mass Index 34.0 BMI Assessment/Plan discussion: High BMI High, discussed plan: lifestyle, weight reduction, dietary and physical activity Tobacco/Smoking Status: Tobacco use Status Tobacco use date assessed 09/09/24 09/09/24 15:33 Patient Tobacco Use Status Former Tobacco user 09/09/24 15:45 Tobacco use type Cigarette 09/09/24 15:45 e-Cigarette/Vaping Use Never Used 09/09/24 15:45 PHQ-9: PHQ-9 Score PHQ-9: Total score 0 09/09/24 15:46 Depression Screening Interpretation: Negative Thrive Assessment: Date of Thrive Assessment Date Thrive assessed 09/09/24 09/09/24 15:33 Currently or been in a relationship where the following occur: No concerns reported [facility] Head: Yes normal to inspection, Yes normocephalic and Yes atraumatic Ears: external ears normal Eyes General: appearance normal, both eyes and all related structures Eyelids: Yes eyelids normal Conjunctivae: conjunctivae normal Neck Neck: Yes normal visual inspection and Yes supple Resp Effort & Inspection: normal respiratory effort Auscultation: clear to auscultation bilaterally Cardio Jugular venous distension: no JVD Rate: regular rate Rhythm: regular rhythm Heart sounds: S1 normal heart sound present and S2 normal heart sound present GI Inspection: Yes normal to inspection Palpation (GI): Soft to palpation and nontender Auscultation: normal bowel sounds Skin General skin exam: no rashes or lesions noted Neuro General: no focal motor deficits Extrem General: Yes full ROM Psych Appearance: grossly normal Coding Level of Care Code Est Pt Prev Care 40-64y(52733) Diagnoses Physical exam Z00.00 Additional Codes YESENIA-7 Assessment Billing - YESENIA-7 Assessment Tool: YESENIA-7 Assessment 44786 ([id number]) PHQ-9 - 12659 - PHQ-9 Billing: Yes ([id number]) Time Spent (min) 32 Assessment & Plan Assessment & Plan (1) Physical exam: Code(s): Z00.00 - Encounter for general adult medical examination without abnormal findings Category: Medical Plan The patient's hypertension management will continue with lisinopril, as it effectively controls his blood pressure. Following a positive marijuana test, oxycodone was discontinued, and the patient now uses hydroxyzine to manage pain and improve sleep, with noted benefits. A cholesterol level re-evaluation will be conducted to ensure comprehensive cardiovascular care. The patient is urged to sustain his active lifestyle through regular physical activity. Patient was informed and verbally consented to the use of an ambient scribe for clinic note documentation during this visit. During our discussion, I confirmed the diagnosis of hypertension and reviewed the ongoing management plan involving lisinnopril, which the patient is adhering to with good blood pressure control. I explained the decision to discontinue oxycodone following a positive marijuana test, and detailed the benefits of us ing hydroxyzine for pain and sleep disturbances, which the patient reports as effective. We discussed the need for monitoring cholesterol levels to manage cardiovascular risk factors. The importance of maintaining physical activity was highlighted, and the patient understands its benefits. Follow-up appointments were discussed but not scheduled. Orders: Orders C Reactive Protein Today M96.1 - Postlaminectomy syndrome, not elsewhere classified Vitamin D 25-OH Total Today E55.9 - Vitamin D deficiency, unspecified, M96.1 - Postlaminectomy syndrome, not elsewhere classified Lipid Panel Today E78.5 - Hyperlipidemia, unspecified Comprehensive [place]. Panel Fast Today Z00.00 - Encounter for general adult medical examination without abnormal findings Medications: New celecoxib (Celebrex) 200 mg PO BID PRN 60 caps 6RF pain 30 days M54.16 - Radiculopathy, lumbar region Refilled hydroxyzine HCl 25 mg PO BEDTIME PRN 30 tabs 0RF itching 30 days lisinopril 5 mg PO DAILY 90 tabs 3RF 90 days Discontinued simvastatin Discontinued Reason: Patient Completed Course 20 mg PO BEDTIME 90 days 90 tabs 1RF Patient Instructions: - Continue taking lisinopril as prescribed for blood pressure. - Use hydroxyzine as directed for pain management and sleep. - Maintain regular physical activity, aiming for at least 30 minutes most days. - Refrain from using substances that may interfere with your pain management plan. - Be prepared for a re-evaluation of cholesterol levels during the next visit.
[2024-09-09 15:27] VITALS: BP 130/72; BMI 34.0
--- OUTSIDE RECORDS SUMMARY | 2024-09-09 17:56 | XMS_ITS | Patient Health Record ---
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 Name Role Phone Deborah RODRIGUEZ, Mary Anne Primary Care Provider Unavail able Heydi Garcia Unavailable [phone] Allergies No Known Allergies Reason For Referral [...] Problem Status W/U Status Risk Notes Problem [id number] Gait abnormality (R26.9) Active confirmed Problem [id number] Equinus contracture of left ankle (M24.572) Active confirmed Problem [id number] Equinus contracture of right ankle (M24.571) Active confirmed Plan Of Treatment No Information Insurance Providers Payer Name Payer Address Payer Phone Subscriber Number Group Number Insured Name Patient Relationship to Insured Coverage Start Date Coverage End Date [facility] ([facility]) [address] [place] [address] [id number] [address], [place] Spouse - patient is the spouse of the insured Medical (General) History Medical History History ICD Code Arthritis Back,Hip,and Knee pain CAD (Cholesterol) High blood pressure Sciatica Chicken pox bulging discs Surgical History Surgery Date(Month/Year)
== END 2024-09-09 15:51 | disposition home or self-care (01) ==
LOC: HO.HMCH 15:10
PROVIDERS: PCP Internal Medicine; Visit Provider Internal Medicine
DX: Z00.00 Encounter for general adult medical examination without abnormal findings (principal)

== ENCOUNTER → 2024-09-09 15:09 | Outpatient (BNVA) | payer OTHER, SELFPAY | PROVIDERS: PCP Internal Medicine; Visit Provider Internal Medicine | DX: Z00.00 Encounter for general adult medical examination without abnormal findings (principal); I10 Essential (primary) hypertension; Z79.899 Other long term (current) drug therapy | CPT/HCPCS: 96127 ==

== ENCOUNTER 2024-09-13 11:46 | Outpatient (REF) | payer OTHER, SELFPAY ==
[2024-09-13 12:04] LABS: MANUAL DIFF FLAG NO
[2024-09-13 12:13] LABS: Basophils Percent Auto 0.5 % (0-2); Eosinophils Absolute Auto 0.2 X10*3/uL (0.0-0.4); Eosinophils Percent Auto 2.3 % (0-4); Hematocrit 40.2 % (42.0-52.0); Hemoglobin 13.5 g/dl (14.0-18.0); Imm Gran Abs Auto 0.02 X10*3/uL (0.00-0.03); Imm Gran Pct Auto 0.3 % (0.0-0.4); Lymphocytes Absolute Auto 1.8 X10*3/uL (1.2-4.9); Lymphocytes Percent Auto 23.9 % (20-40); Mean Corpuscular HGB Conc 33.6 g/dl (31.0-36.0); Mean Corpuscular Volume 83.2 fL (80.0-98.0); Mean Platelet Volume 9.6 fL (9.4-12.4); Monocytes Absolute Auto 0.8 X10*3/uL (0.1-1.2); Monocytes Percent Auto 10.3 % (2-11); Neutrophils Absolute Auto 4.7 x10*3/uL (2.0-8.3); Neutrophils Percent Auto 62.7 % (45-73); Platelet Count 308 X10*3/uL (160-400); Red Blood Count 4.83 X10*6/uL (4.60-5.80); Red Cell Distribution Width 14.9 % (11.0-16.0); White Blood Count 7.4 X10*3/uL (4.8-10.8)
[2024-09-13 13:09] LABS: Alanine Aminotransferase 23 U/L (0-40); Albumin Level 4.1 g/dL (3.5-5.0); Alkaline Phosphatase 73 U/L (39-117); Anion Gap 15 (12-20); Aspartate Amino Transferase 29 U/L (5-37); Bilirubin Total 0.2 mg/dL (0.0-1.0); Blood Urea Nitrogen 18 mg/dL (9-16); C Reactive Protein 0.87 mg/dL (< or = 0.50); Calcium 8.7 mg/dL (8.4-10.2); Carbon Dioxide 23 mmol/L (22-29); Chloride 105 mmol/L (96-108); Cholesterol 230 mg/dL (<200); Estimated Glomerular Filt Rate 59; Glucose Fasting 95 mg/dL (60-99); HDL Cholesterol 36 mg/dL (>40); Iron 56 mcg/dL (45-160); LDL Cholesterol Calculated 167 mg/dL (<100); Percent Iron Saturation 21 % (15-50); Potassium 4.7 mmol/L (3.3-5.1); Sodium 138 mmol/L (135-145); Total Iron Binding Capacity 269 mcg/dL (228-428); Total Protein 7.1 g/dL (6.5-8.0); Triglycerides 137 mg/dL (<150); Unsaturated Iron Binding 213 ug/dL
[2024-09-13 13:23] LABS: Vitamin D 25-OH Total 51.6 ng/mL (>30)
[2024-09-15 21:33] LABS: Gabapentin 7.2 mcg/mL
== END 2024-09-13 11:47 | disposition home or self-care (01) ==
LOC: HO.LAB 11:46
PROVIDERS: PCP Internal Medicine; Visit Provider Internal Medicine
DX: M96.1 Postlaminectomy syndrome, not elsewhere classified (principal); E55.9 Vitamin D deficiency, unspecified; M54.16 Radiculopathy, lumbar region; E78.5 Hyperlipidemia, unspecified; D64.9 Anemia, unspecified; E87.1 Hypo-osmolality and hyponatremia
CPT/HCPCS: 36415; 80053; 80061; 80171; 82306; 83540; 84300; 85025; 86140

== ENCOUNTER 2024-10-08 11:09 | Outpatient (AMB) | payer MEDICARE, OTHER, SELFPAY ==
[2024-10-08 11:27] VITALS: BP 142/82; PULSE 106; O2SAT 97; BMI 33.5
--- NOTE | 2024-10-08 11:27 | A.OFFVIS_ITS ---
Vital Signs 10/08/24 11:27 Height 5 ft 7 in Weight 214 lb BMI 33.5 BP 142/82 H Blood Pressure Location Rt brachial Position Sitting Pulse 106 H Pulse Source Pulse Oximeter Pulse Oximetry (%) 97 Oxygen Delivery Method Room Air Intake Visit Reasons: CONTINOUS BACK PAIN [employer] Required: No Allergies No Known Allergies [No Known Allergies*] Allergy (Verified 10/08/24 11:29) Medication List - Last Reconciled 10/08/24 by Marisabel Viramontes, [employer] celecoxib (Celebrex) 200 mg PO BID PRN 30 days cholecalciferol (vitamin D3) 25 mcg PO DAILY crutches (pair of crutches) As directed gabapentin 600 mg PO TID hydroxyzine HCl 25 mg PO BEDTIME PRN 30 days lisinopril 5 mg PO DAILY 90 days walker As directed zolpidem 10 mg PO BEDTIME PRN 30 days HPI HPI CONTINOUS BACK PAIN: Details: History of Present Illness The patient is a 64-year-old male presenting with persistent hip and back pain. He has a notable history of a hip dislocation that necessitated multiple interventions, culminating in a hip revision surgery between March and April. During the period of hospitalization, the revision involved both cement and naomi placement, aiming to address the structural deficit and prevent further dislocations. Back pain has been a significant concurrent issue, with prior imaging studies not indicating immediate concerns at that time. A trial with a stimulator proved unsatisfactory for the patient's needs. Recently, a cortisone injection has been discussed for its potential benefits in managing back pain. The patient recounts escalating frustration with the current management, finding limited relief with oral medications, and acknowledges considerable lifestyle limitations due to both hip and back conditions. Pain Description - Onset: Chronic, following a hip dislocation prior to March surgery - Quality: Severe, impacting daily function - Location: Primarily focused in the hip and lumbar region, with sensations of instability post-surgery - Exacerbating Factors: Physical activity, prolonged sitting, or standing - Alleviating Factors: Limited efficacy from pharmacologic interventions, history of unsuccessful stimulator trial - Interference: Significant impact on routine activities, mobility, and quality of life Physical Exam - Appears afebrile. - Alert and oriented. - Mood and affect appropriate. - Follows and participates in conversation appropriately. - Lumbar ROM significant limitation Results - Imaging studies in August: No acute changes in hip replacement positioning documented - Previous surgical interventions and bed rubber's reported outcomes without explicit details Pain Management - Affect: Patient reports crying due to severe pain disrupting normal function and quality of life - Analgesia: Previous usage of 60 Percocets, likely opioids, insufficient long-term relief - Adverse Effects: Difficulty obtaining sustainable relief from current interventions, intense frustration - Activities of Daily Living: Significant limitation in mobility and discomfort in seated positions impacting care responses - Aberrant Drug-Related Behaviors: Requesting new intervention to overcome insufficient relief strategies [facility] Medical History (Updated 10/12/24 @ 16:03 by Miguel Ambriz MD) JORDI (acute kidney injury) Hip dislocation, right H/O myocardial perfusion scan Chronic, continuous use of opioids Former smoker Arthritis of right hip Hx of fracture of tibia Substance use disorder Dupuytren's contracture of right hand High cholesterol Hypertension Surgical History History of total right hip arthroplasty (05/13/23) History of back surgery (02/2023) Hx of colonoscopy History of hand surgery History of shoulder surgery Family History Mother Cancer Father No problems noted. Sister Breast cancer Social History (Updated 09/09/24 @ 15:45 by Mary Anne Leach MD) Household Members: Spouse Housing: House Are you a primary long term acute care registered nurse to a significant other at home: No Do you presently have visiting nurse or other home services: No 75 years or older and lives alone: No Alcohol intake: former Comment: COUNTS CORRECT Patient Tobacco Use Status: Former Tobacco user Tobacco use type: Cigarette Years Smoked: 10 e-Cigarette/Vaping Use: Never Used Second Hand Smoke Exposure: Yes Substance Use Type: Marijuana service: No Current occupational status: retired Current occupation: right hand dominant Cognitive needs: Yes Hearing needs: No Vision needs: No Physical Exam Vital Signs: Last Vital Signs Pulse 106 H 10/08/24 11:27 BP 142/82 H 10/08/24 11:27 Pulse Ox 97 10/08/24 11:27 Oxygen Delivery Method Room Air 10/08/24 11:27 BMI result Body Mass Index 33.5 Assessment & Plan Assessment & Plan (1) Lumbar radiculopathy: Code(s): M54.16 - Radiculopathy, lumbar region Category: Medical (2) Post laminectomy syndrome: Code(s): M96.1 - Postlaminectomy syndrome, not elsewhere classified Category: Medical Plan Plan - Complete current antibiotic course as scheduled following hip revision - Trial caudal epidural steroid injection for lumbago w/ sciatica following antibiotic completion - Consider alternative interventions (HFX stimulator, intrathecal pump) if necessary - Avoid opioids as long-term management approach Patient was informed and verbally consented to the use of an ambient scribe for clinic note documentation during this visit. Discussion Notes During the visit, we discussed the patient's ongoing pain issues, examining the hip revision surgery and persistent back pain challenges. I explained the potential benefits vs. the limitations with cortisone injections for his back pain. There was a detailed discourse on alternatives, such as a different stimulator or intrathecal pump if previous strategies fail subsequently. Guidance around antibiotic course completion was affirmed, with plans for further evaluation post-treatment. No prescription for opioids was made, given the necessity to avoid long-term dependence and the limited relief previously observed. Consent and potential outcomes were covered for the discussed options. Patient Instructions - Continue your current antibiotic treatment until advised otherwise. - Plan for a cortisone shot trial after completing antibiotics - Avoid prolonged periods of sitting or standing; balance activities carefully - Return to clinic post-cortisone for evaluation of effectiveness - Seek medical advice sooner if there are new or worsening symptoms - Contact us if you have concerns or unexpected side effects from any treatment - Follow up as planned with the healthcare team discussing your hip and back treatment responses. Coding Level of Care Code Est Pt Level 4 (22931) Diagnoses Lumbar radiculopathy M54.16 Post laminectomy syndrome M96.1
--- OUTSIDE RECORDS SUMMARY | 2024-10-08 11:35 | XMS_ITS | Patient Health Record ---
Author Organization [facility] [place] Address [address] [place] [address] Care Team Providers Care Former Hand Name Role Phone Deborah RODRIGUEZ, Mary Anne Primary Care Provider Unavail able Heydi Garcia Unavailable [phone] Allergies No Known Allergies Reason For Referral [...] Problem Status W/U Status Risk Notes Problem [id number] Gait abnormality (R26.9) Active confirmed Problem [id number] Equinus contracture of left ankle (M24.572) Active confirmed Problem [id number] Equinus contracture of right ankle (M24.571) Active confirmed Plan Of Treatment No Information Insurance Providers Payer Name Payer Address Payer Phone Subscriber Number Group Number Insured Name Patient Relationship to Insured Coverage Start Date Coverage End Date [facility] [address] [place] [address] [id number] [address] [place] Spouse - patient is the spouse of the insured Medical (General) History Medical History History ICD Code Arthritis Back,Hip,and Knee pain CAD (Cholesterol) High blood pressure Sciatica Chicken pox bulging discs Surgical History Surgery Date(Month/Year)
== END 2024-10-08 11:59 | disposition home or self-care (01) ==
LOC: HO.PMC 11:09
PROVIDERS: PCP Internal Medicine; Visit Provider Internal Medicine
DX: M54.16 Radiculopathy, lumbar region (principal); M96.1 Postlaminectomy syndrome, not elsewhere classified
CPT/HCPCS: 99214

== ENCOUNTER → 2024-10-08 11:09 | Outpatient (BNVA) | payer MEDICARE, OTHER, SELFPAY | PROVIDERS: PCP Internal Medicine; Visit Provider Internal Medicine | DX: M54.16 Radiculopathy, lumbar region (principal); M96.1 Postlaminectomy syndrome, not elsewhere classified; Z96.641 Presence of right artificial hip joint | CPT/HCPCS: 99212 ==

== ENCOUNTER 2024-10-21 06:25 | Outpatient (REF) | payer MEDICARE, OTHER, SELFPAY ==
--- NOTE | ~2024-10-21 | FL_ITS ---
EXAMINATION: FL GUIDANCE ONLY HISTORY: M48.062 - Spinal stenosis, lumbar region with neurogenic claudication COMPARISON: None available. TECHNIQUE: Fluoroscopy time: 0.2 minutes. Cumulative Dose: 4.31 mGy. DAP: 0.0408 mGym2 Images: 2. FINDINGS: AP and lateral fluoroscopic spot films demonstrate a needle and contrast material overlying the sacrum. FL/FL guidance in treatment room IMPRESSION: Fluoroscopy during procedure. Please see procedure report for additional information. Electronically signed by: Kang Graham MD 10/21/2024 02:22 PM EDT
== END 2024-10-21 06:26 | disposition home or self-care (01) ==
LOC: CF 06:25
PROVIDERS: Visit Provider Internal Medicine
DX: Z13.89 Encounter for screening for other disorder (principal)

== ENCOUNTER 2024-10-21 08:36 | Outpatient (REF) | payer MEDICARE, OTHER, SELFPAY ==
--- NOTE | ~2024-10-21 | XR_ITS ---
EXAMINATION: XR SHOULDER, LEFT CLINICAL INFORMATION: M25.512 - Pain in left shoulder COMPARISON: None available. TECHNIQUE: AP external rotation, Grashey, scapular Y, and axillary views of the left shoulder. FINDINGS: Normal bone mineralization. No fracture, dislocation, or suspicious bone lesion. Normal alignment. The glenohumeral joint demonstrates severe/end-stage arthrosis with yled-uc-eimm appearance, and remodeling of the humeral head and glenoid. There is subchondral sclerosis and cystic changes. There are loose bodies in the inferior joint recess. The AC joint demonstrates mild arthritis. There is a type II acromion. No undersurface spurring. The subacromial space is preserved. Remainder of the soft tissue and bony structures appear normal. XR/XR shoulder LT min 2V IMPRESSION: 1. Severe/end-stage glenohumeral joint arthrosis with [id number] appearance, remodeling of the humeral head and glenoid, and numerous loose bodies in the inferior joint recess. 2. Mild arthritis in the AC joint. Electronically signed by: Remi Walters MD 10/21/2024 09:39 AM EDT
== END 2024-10-21 08:37 | disposition home or self-care (01) ==
LOC: HO.HOSX 08:36
PROVIDERS: Visit Provider Physician Assistant
DX: M25.512 Pain in left shoulder (principal); M19.012 Primary osteoarthritis, left shoulder; M54.16 Radiculopathy, lumbar region; M96.1 Postlaminectomy syndrome, not elsewhere classified; Z79.891 Long term (current) use of opiate analgesic
CPT/HCPCS: 62323; 73030; J2003; J3301; Q9967

== ENCOUNTER 2024-10-21 09:25 | Outpatient (AMB) | payer OTHER, SELFPAY ==
--- NOTE | 2024-10-21 09:27 | A.OFFVIS_ITS ---
Vital Signs 10/21/24 09:28 Height 5 ft 7 in Weight 214 lb BMI 33.5 Intake Visit Reasons: New prob- Left shoulder pain Intake Note: Renny is a 64 year old right hand dominant male who presents today with complaints of left shoulder pain. Patient reports that he had surgery in 1981 for a ligament repair. He has a constant ache in his shoulder. Limited ROM. He has tried at home exercises as well as physical therapy that provided little to no relief. Finds no relief with OTC pain medication. He is requesting a cortisone injection. Hx of elbow dislocation in 2005. Allergies No Known Allergies [No Known Allergies*] Allergy (Verified 10/21/24 09:39) Medication List - Last Reconciled 10/21/24 by Jose Juan Casillas PA-C celecoxib (Celebrex) 200 mg PO BID PRN 30 days cholecalciferol (vitamin D3) 25 mcg PO DAILY crutches (pair of crutches) As directed gabapentin 600 mg PO TID hydroxyzine HCl 25 mg PO BEDTIME PRN 30 days lisinopril 5 mg PO DAILY 90 days lorazepam (Ativan) 1 mg PO ONCE walker As directed HPI HPI New prob- Left shoulder pain: Details: 64-year-old gentleman presents to the office today for left shoulder pain. He states the shoulder pain has been present for quite a while. He does have a history of ligament reconstructive type surgery back in 1981. He complains of limited motion with certain activities however most of his discomfort is with lifting or sleeping at night. [facility] Medical History (Updated 10/21/24 @ 10:06 by Jose Juan Casillas PA-C) JORDI (acute kidney injury) Hip dislocation, right H/O myocardial perfusion scan Chronic, continuous use of opioids Former smoker Arthritis of right hip Hx of fracture of tibia Substance use disorder Dupuytren's contracture of right hand High cholesterol Hypertension Surgical History History of total right hip arthroplasty (05/13/23) History of back surgery (02/2023) Hx of colonoscopy History of hand surgery History of shoulder surgery Family History Mother Cancer Father No problems noted. Sister Breast cancer Social History Household Members: Spouse Housing: House Are you a primary childcare center director to a significant other at home: No Do you presently have visiting nurse or other home services: No 75 years or older and lives alone: No Alcohol intake: former Comment: COUNTS CORRECT Patient Tobacco Use Status: Former Tobacco user Tobacco use type: Cigarette Years Smoked: 10 e-Cigarette/Vaping Use: Never Used Second Hand Smoke Exposure: Yes Substance Use Type: Marijuana service: No Current occupational status: retired Current occupation: right hand dominant Cognitive needs: Yes Hearing needs: No Vision needs: No Review of Systems Const All systems reviewed & are unremarkable except as noted in HPI and below Physical Exam Vital Signs: BMI result Body Mass Index 33.5 Const General: cooperative and no acute distress Orientation/consciousness: patient oriented x3 Resp Effort & Inspection: normal respiratory effort and able to speak in complete sentences Cardio Peripheral pulses: Peripheral pulses 2+ throughout Neuro General: patient oriented x3 Extrem Other: Left shoulder full range of motion in all planes. He has significant weakness with rotator cuff strength testing compared to contralateral side. Results Reviewed Results Reviewed: X-rays of the left shoulder obtained in the office today show severe glenohumeral joint arthritis with osteophyte formation. Assessment & Plan Assessment & Plan (1) Arthritis of left glenohumeral joint: Code(s): M19.012 - Primary osteoarthritis, left shoulder Category: Medical Plan: I explained to the patient and his partner in the office today the definitive treatment for his condition would be a left shoulder arthroplasty however he does not have any limitations with his range of motion. I explained the procedure is not done to manage pain alone. We discussed the benefits of steroid injection. He does have an appointment today with pain management for a back injection so I will see him next week and we will proceed with a left shoulder subacromial space injection. I did explain the subacromial injection may not be entirely helpful we may need to proceed with the intra-articular injection however given his lack of decreased range of motion I do not feel he needs the intra-articular injection at this time. Orders: Orders XR shoulder LT min 2V Today M25.512 - Pain in left shoulder Coding Level of Care Code Est Pt Level 3 (22039) Complex EM visit Add On G2211 Diagnoses Arthritis of left glenohumeral joint M19.012
[2024-10-21 09:28] VITALS: BMI 33.5
== END 2024-10-21 09:53 | disposition home or self-care (01) ==
LOC: HO.HOS 09:25
PROVIDERS: PCP Internal Medicine; Visit Provider Physician Assistant
DX: M19.012 Primary osteoarthritis, left shoulder (principal)
CPT/HCPCS: 99213

== ENCOUNTER → 2024-10-21 09:28 | Outpatient (BNV) | payer MEDICARE, OTHER, SELFPAY | PROVIDERS: Visit Provider Radiology Diagnostic Radiology | DX: M19.012 Primary osteoarthritis, left shoulder (principal) | CPT/HCPCS: 73030 ==

== ENCOUNTER 2024-10-21 10:23 | Outpatient (AMB) | payer MEDICARE, OTHER, SELFPAY ==
[2024-10-21 10:34] VITALS: BP 118/77; PULSE 95; RESP 15; O2SAT 98
--- NOTE | 2024-10-21 10:34 | MHC.OFFVIS ---
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 Denies any recent cough, cold, infection, fever or other significant changes in medical history since last office visit. [facility] Medical History (Updated 10/21/24 @ 10:06 by Jose Juan Casillas PA-C) JORDI (acute kidney injury) Hip dislocation, right H/O myocardial perfusion scan Chronic, continuous use of opioids Former smoker Arthritis of right hip Hx of fracture of tibia Substance use disorder Dupuytren's contracture of right hand High cholesterol Hypertension Surgical History History of total right hip arthroplasty (05/13/23) History of back surgery (02/2023) Hx of colonoscopy History of hand surgery History of shoulder surgery Family History Mother Cancer Father No problems noted. Sister Breast cancer Social History Household Members: Spouse Housing: House Are you a primary manager home healthcare to a significant other at home: No Do you presently have visiting nurse or other home services: No 75 years or older and lives alone: No Alcohol intake: former Comment: COUNTS CORRECT Patient Tobacco Use Status: Former Tobacco user Tobacco use type: Cigarette Years Smoked: 10 e-Cigarette/Vaping Use: Never Used Second Hand Smoke Exposure: Yes Substance Use Type: Marijuana service: No Current occupational status: retired Current occupation: right hand dominant Cognitive needs: Yes Hearing needs: No Vision needs: No Physical Exam Vital Signs: Last Vital Signs Pulse 95 10/21/24 10:34 Resp 15 10/21/24 10:34 BP 118/77 10/21/24 10:34 Pulse Ox 98 10/21/24 10:34 Oxygen Delivery Method Room Air 10/21/24 10:34 Office Procedures AMB Joint Injection/Aspiration Joint Injection/Aspiration Details: Caudal JAVIER with catheter After obtaining written consent, pre-procedure blood pressure and pulse were measured. The patient was placed in the prone position. The lumbosacral area was widely prepped with chloraprep and draped in sterile fashion. The skin overlying the target was anesthetized with 0.5% lidocaine. A 17 G needle was used to access the caudal epidural space using anatomic landmarks and x-ray guidance. We then threaded a catheter up to the L5/S1 level and injected contrast 1cc omnipaque 180 for verification of epidural spread. Following negative aspiration of heme or CSF, a mixture of 8 ml 0.5% lidocaine and normal saline with 80 mg triamcinolone was injected with minimal pressure into the epidural space. The needle was removed, skin cleansed and a sterile bandage was applied. The patient tolerated the procedure well and no complications were encountered. Following the procedure the patient's vital signs were stable. The patient was discharged home in good condition with post-procedural instructions. Time Out: Immediately prior to the procedure, the following was verbally confirmed that there is a signed consent form and that the correct patient, planned procedure, site and side are consistent with documentation and that necessary equipment and/or blood products are available prior to the start of the case. Complications: none EBL: <5 cc Coding 63700 - Caudal/Lumbar Epidural/Interlaminar with fluoroscopy Procedure code (CPT) selection complete Assessment & Plan Assessment & Plan (1) Post laminectomy syndrome: Code(s): M96.1 - Postlaminectomy syndrome, not elsewhere classified Category: Medical (2) Lumbar radiculopathy: Code(s): M54.16 - Radiculopathy, lumbar region Category: Medical Plan Patient is status post caudal JAVIER with catheter threaded to the L5-S1 level. Patient tolerated procedure well and was discharged home in stable condition with discharge instructions. All questions were answered. We will follow-up via telephone or in clinic to assess response to therapy. A follow-up appointment was made during today's visit. Orders: Orders FL guidance in treatment room Today M48.062 - Spinal stenosis, lumbar region with neurogenic claudication Coding Level of Care Code Procedure Only Diagnoses Post laminectomy syndrome M96.1 Lumbar radiculopathy M54.16 CPT Codes Coding - Joint 11: 15418 - Caudal/Lumbar Epidural/Interlaminar with fluoroscopy ([id number])
[2024-10-21 11:57] VITALS: BP 149/100; PULSE 85; RESP 15; O2SAT 96
== END 2024-10-21 12:17 | disposition home or self-care (01) ==
LOC: HO.PMCPRC 10:23
PROVIDERS: Visit Provider Internal Medicine
DX: M96.1 Postlaminectomy syndrome, not elsewhere classified (principal); M54.16 Radiculopathy, lumbar region
CPT/HCPCS: 62323

== ENCOUNTER 2024-10-28 11:34 | Outpatient (AMB) | payer MEDICARE, OTHER, SELFPAY ==
--- NOTE | 2024-10-28 11:38 | A.OFFVIS_ITS ---
Vital Signs 10/28/24 11:41 Height 5 ft 7 in Weight 214 lb BMI 33.5 Intake Visit Reasons: INJ- LT shoulder injection Intake Note: Renny is a 64 year old male who presents today for a left shoulder cortisone injection. Allergies No Known Allergies [No Known Allergies*] Allergy (Verified 10/28/24 11:41) HPI HPI INJ- LT shoulder injection: Details: 64-year-old gentleman with glenohumeral joint arthritis presents to the office today for a left shoulder steroid injection. [facility] Medical History (Updated 10/21/24 @ 10:06 by Jose Juan Casillas PA-C) JORDI (acute kidney injury) Hip dislocation, right H/O myocardial perfusion scan Chronic, continuous use of opioids Former smoker Arthritis of right hip Hx of fracture of tibia Substance use disorder Dupuytren's contracture of right hand High cholesterol Hypertension Surgical History History of total right hip arthroplasty (05/13/23) History of back surgery (02/2023) Hx of colonoscopy History of hand surgery History of shoulder surgery Family History Mother Cancer Father No problems noted. Sister Breast cancer Social History Household Members: Spouse Housing: House Are you a primary child care lead teacher to a significant other at home: No Do you presently have visiting nurse or other home services: No 75 years or older and lives alone: No Alcohol intake: former Comment: COUNTS CORRECT Patient Tobacco Use Status: Former Tobacco user Tobacco use type: Cigarette Years Smoked: 10 e-Cigarette/Vaping Use: Never Used Second Hand Smoke Exposure: Yes Substance Use Type: Marijuana service: No Current occupational status: retired Current occupation: right hand dominant Cognitive needs: Yes Hearing needs: No Vision needs: No Review of Systems Const All systems reviewed & are unremarkable except as noted in HPI and below Physical Exam Vital Signs: BMI result Body Mass Index 33.5 Extrem Other: Left shoulder normal to inspection. He has full range of motion with crepitus. Office Procedures AMB Joint Injection/Aspiration Joint Injection/Aspiration Primary Site: left shoulder Prep: site was prepped using aseptic technique, ethochloride spray was applied and injection warnings given Injected: 80 mg of, DepoMedrol, with 8 mL of, 1% plain lidocaine and in the subcromial space Approach Used: posterolateral Procedure: The patient tolerated the procedure well and there was some relief with the local anesthesia Coding 26841 - Glenohumeral/Tronchanteric Bursa/Intraarticular Procedure code (CPT) selection complete Assessment & Plan Assessment & Plan (1) Arthritis of left glenohumeral joint: Code(s): M19.012 - Primary osteoarthritis, left shoulder Category: Medical Plan: We discussed options today, which include steroid injection. The patient did consent to move forward with the left shoulder injection, which was tolerated well.? I recommended rest, ice and elevation and OTC antiinflammatories prn for discomfort. If symptoms persist over the next 6-8 weeks, they will contact our office, otherwise, prn Coding Level of Care Code Est Pt Level 3 (55654) Complex EM visit Add On G2211 Diagnoses Arthritis of left glenohumeral joint M19.012 CPT Codes Coding - Joint 7: 66717 - Glenohumeral/Tronchanteric Bursa/Intraarticular ([id number])
[2024-10-28 11:41] VITALS: BMI 33.5
--- OUTSIDE RECORDS SUMMARY | 2024-10-28 13:47 | XMS_ITS | Patient Health Record ---
Author Organization [facility] [place] Address [address] [place] [address] Care Team Providers Care Wholesale Agronomist Name Role Phone Deborah RODRIGUEZ, Mary Anne Primary Care Provider Unavail able Heydi Garcia Unavailable [phone] Allergies No Known Allergies Reason For Referral [...] Problem Status W/U Status Risk Notes Problem [id number] Gait abnormality (R26.9) Active confirmed Problem [id number] Equinus contracture of left ankle (M24.572) Active confirmed Problem [id number] Equinus contracture of right ankle (M24.571) Active confirmed Plan Of Treatment No Information Insurance Providers Payer Name Payer Address Payer Phone Subscriber Number Group Number Insured Name Patient Relationship to Insured Coverage Start Date Coverage End Date [facility] ([facility]) [address] [place] [address] [id number] [address], [place] Spouse - patient is the spouse of the insured Medical (General) History Medical History History ICD Code Arthritis Back,Hip,and Knee pain CAD (Cholesterol) High blood pressure Sciatica Chicken pox bulging discs Surgical History Surgery Date(Month/Year)
== END 2024-10-28 12:18 | disposition home or self-care (01) ==
LOC: HO.HOS 11:34
PROVIDERS: PCP Internal Medicine; Visit Provider Physician Assistant
DX: M19.012 Primary osteoarthritis, left shoulder (principal)
CPT/HCPCS: 20610

== ENCOUNTER → 2024-10-28 11:34 | Outpatient (BNVA) | payer MEDICARE, OTHER, SELFPAY | PROVIDERS: PCP Internal Medicine; Visit Provider Physician Assistant | DX: M19.012 Primary osteoarthritis, left shoulder (principal) | CPT/HCPCS: 20610; J1010; J2003 ==

== ENCOUNTER 2024-11-15 09:54 | Outpatient (AMB) | payer MEDICARE, OTHER, SELFPAY ==
--- NOTE | 2024-11-15 09:58 | A.OFFVIS_ITS ---
Vital Signs 11/15/24 10:00 Height 5 ft 7 in Weight 211 lb BMI 33.0 BP 144/71 H Blood Pressure Location Lt brachial Position Sitting Respiration 16 Pulse 111 H Pulse Source Pulse Oximeter Pulse Oximetry (%) 94 Oxygen Delivery Method Room Air Intake Visit Reasons: s/p caudal Allergies No Known Allergies (No Known Allergies*) Allergy (Verified 11/15/24 10:01) Medication List - Last Reconciled 11/15/24 by Gloria Watson LPN celecoxib (Celebrex) 200 mg PO BID PRN 30 days cholecalciferol (vitamin D3) 25 mcg PO DAILY crutches (pair of crutches) As directed gabapentin 600 mg PO TID hydroxyzine HCl 25 mg PO BEDTIME PRN 30 days lisinopril 5 mg PO DAILY 90 days lorazepam (Ativan) 1 mg PO ONCE walker As directed HPI HPI s/p caudal: Details: History of Present Illness The patient is a 64-year-old male presenting with a follow-up after a caudal JAVIER. He reports significant improvement in mobility, stating he can walk, albeit with some difficulty, and engage in activities such as using an elliptical bicycle and treadmill. He also practices yoga and various exercises to improve his condition. The patient attempted to increase his treadmill speed to 3 miles per hour to achieve a slight jog but found it challenging and almost fell. He acknowledges that cortisone injections, while beneficial, may hinder weight loss efforts. The patient has a history of a dislocated hip, which was initially overlooked due to a focus on spine issues. He recalls being advised to consider alternative transportation methods, such as a wheelchair, before the hip issue was addressed. Pain Description - Pain is present when walking, described as difficult to articulate but manageable. - Attempted jogging on a treadmill resulted in fear of falling. Physical Exam - Appears afebrile. - Alert and oriented. - Mood and affect appropriate. - Follows and participates in conversation appropriately. - Respiratory effort is unlabored. - Able to transition from sit to stand unassisted. - Ambulates with bilaterally normal heel strike and toe off. - Able to stand and walk on toes and heels. Results Pain Management - Affect: Patient reports significant improvement in mood due to increased mobility. - Analgesia: Cortisone injections provide more than 90% relief. - Activities of Daily Living: Patient can walk and engage in exercises like yoga and treadmill use. [facility] Medical History (Updated 10/21/24 @ 10:06 by Jose Juan Casillas PA-C) JORDI (acute kidney injury) Hip dislocation, right H/O myocardial perfusion scan Chronic, continuous use of opioids Former smoker Arthritis of right hip Hx of fracture of tibia Substance use disorder Dupuytren's contracture of right hand High cholesterol Hypertension Surgical History History of total right hip arthroplasty (05/13/23) History of back surgery (02/2023) Hx of colonoscopy History of hand surgery History of shoulder surgery Family History Mother Cancer Father No problems noted. Sister Breast cancer Social History Household Members: Spouse Housing: House Are you a primary healthcare consultant to a significant other at home: No Do you presently have visiting nurse or other home services: No 75 years or older and lives alone: No Alcohol intake: former Comment: COUNTS CORRECT Patient Tobacco Use Status: Former Tobacco user Tobacco use type: Cigarette Years Smoked: 10 e-Cigarette/Vaping Use: Never Used Second Hand Smoke Exposure: Yes Substance Use Type: Marijuana service: No Current occupational status: retired Current occupation: right hand dominant Cognitive needs: Yes Hearing needs: No Vision needs: No Physical Exam Vital Signs: Last Vital Signs Pulse 111 H 11/15/24 10:00 Resp 16 11/15/24 10:00 BP 144/71 H 11/15/24 10:00 Pulse Ox 94 11/15/24 10:00 Oxygen Delivery Method Room Air 11/15/24 10:00 BMI result Body Mass Index 33.0 Assessment & Plan Assessment & Plan (1) Post laminectomy syndrome: Code(s): M96.1 - Postlaminectomy syndrome, not elsewhere classified Category: Medical (2) Lumbar radiculopathy: Code(s): M54.16 - Radiculopathy, lumbar region Category: Medical Plan Plan - Continue current exercise regimen including yoga and treadmill use to maintain mobility. - Monitor weight and consider the impact of cortisone on weight management. - Follow up as needed for repeat cortisone injections if pain returns. Patient was informed and verbally consented to the use of an ambient scribe for clinic note documentation during this visit. Discussion Notes I discussed with the patient the benefits and limitations of cortisone injections, including their impact on weight management. We agreed on continuing the current exercise regimen and monitoring his condition. The patient understands the need for follow-up if pain recurs. Patient Instructions - Continue your exercise routine, including yoga and treadmill use. - Monitor your weight and be aware of the effects of cortisone on weight management. - Schedule a follow-up appointment if your pain returns. Coding Level of Care Code Est Pt Level 3 (01008) Diagnoses Post laminectomy syndrome M96.1 Lumbar radiculopathy M54.16
[2024-11-15 10:00] VITALS: BP 144/71; PULSE 111; RESP 16; O2SAT 94; BMI 33.0
--- OUTSIDE RECORDS SUMMARY | 2024-11-15 10:50 | XMS_ITS | Patient Health Record ---
Author Organization [facility] Address [address] [place] [address] Care Team Providers Care Fermenter Operator Name Role Phone Marcela(inactive) Josh RODRIGUEZ Primary Care Provider U Didier Hill Jr Unavailable Reason For Referral No Information Medications Medication SIG (Take, Route, Frequency, Duration) Notes Start Date End Date Status Valsartan 160 MG 1 tablet Orally Once a day Active amLODIPine Besylate 5 MG 1 tablet Orally Once a day Active Colyte with Flavor Packs 240 GM As directed Orally Over the specified time. for 1 day(s) 08/07/2016 Active Social History Tobacco Use: Social History Observation Description Date Details (start date - stop date) Former Smoker NA - NA Tobacco Use/Smoking Question Answer Notes Patient is a former smoker How long has it been since you last smoked? 1-5 years Alcohol Screen Question Answer Notes Did you have a drink contain ing alcohol in the past year? Yes How often did you have a dri nk containing alcohol in the past year? 4 or more times a week (4 points) How many drinks did you have on a typical day when you were drinking in the past year? 7 to 9 drinks (3 points) How often did you have 6 or more drinks on one occasion in the past year? Daily or almost daily (4 points) Points 11 Interpretation Positive Section Notes: 7-8 drinks daily per the pat ient Problems Problem Type SNOMED Code ICD Code Onset Dates Problem Status W/U Status Risk Notes Problem [id number] Colon cancer screening (Z12.11) Active confirmed Plan Of Treatment Future Test Test Name Order Date COLONOSCOPY 08/07/2016 Insurance Providers Payer Name Payer Address Payer Phone Subscriber Number Group Number Insured Name Patient Relationship to Insured Coverage Start Date Coverage End Date [facility] [address] [facility] [place] [phone] [id number] MIRIAM PANTOJA Self - patient is the insured Medical (General) History Medical History History ICD Code hypertension Denies [place],DM,CVA,Lung disease,renal dise ase Surgical History Surgery Date(Month/Year) arm surgery
== END 2024-11-15 10:06 | disposition home or self-care (01) ==
LOC: HO.PMC 09:55
PROVIDERS: PCP Internal Medicine; Visit Provider Internal Medicine
DX: M96.1 Postlaminectomy syndrome, not elsewhere classified (principal); M54.16 Radiculopathy, lumbar region
CPT/HCPCS: 99213

== ENCOUNTER → 2024-11-15 09:54 | Outpatient (BNVA) | payer MEDICARE, OTHER, SELFPAY | PROVIDERS: PCP Internal Medicine; Visit Provider Internal Medicine | DX: M96.1 Postlaminectomy syndrome, not elsewhere classified (principal); M54.16 Radiculopathy, lumbar region | CPT/HCPCS: 99212 ==

== ENCOUNTER 2024-12-28 08:44 | Outpatient (AMB) | payer MEDICARE, OTHER, SELFPAY ==
[2024-12-28 08:51] VITALS: BMI 33.0
--- NOTE | 2024-12-28 08:51 | MHC.OFFVIS ---
Vital Signs 12/28/24 08:51 Height 5 ft 7 in Weight 211 lb BMI 33.0 Intake Visit Reasons: New prob RT Dupuytren contracture Intake Note: Renny 64 yr old right hand dominant male presets today for a new problem visit for his left hand. States he feels tightness in his palm area and believes this might be similar to what was happening to his right hand. Patient reports its not as bad as his right hand but its cause discomfort and would like to discuss treatment options. Patient is s/p Right small finger Partial Dupuytren's fasciectomy, Right ring finger partial Dupuytren's fasciectomy, Right trigger thumb release on 07/29/[address] Stovall Allergies No Known Allergies (No Known Allergies*) Allergy (Verified 12/28/24 08:52) HPI HPI New prob RT Dupuytren contracture: Details: The patient is a 64-year-old retired man who has developed worsening Dupuytren's contractures in his left hand. He is status post partial Dupuytren's fasciectomies of the right ring and small fingers on 10/26/2022 and is very happy with the results of that surgery. He is interested in discussing possible surgery for his left hand. He denies having any heart, lung, kidney problems, asthma or diabetes. He says that he is now a sober alcoholic, and that he used to smoke 2 packs of cigarettes a day, but now smokes marijuana daily to control his back pain. He sees Dr. Belem Wilhelm in the pain clinic for his back pain. [facility] Medical History (Updated 12/28/24 @ 09:21 by Yuni Stovall MD) JORDI (acute kidney injury) Hip dislocation, right H/O myocardial perfusion scan Chronic, continuous use of opioids Former smoker Arthritis of right hip Hx of fracture of tibia Substance use disorder Dupuytren's contracture of right hand High cholesterol Hypertension Surgical History History of total right hip arthroplasty (05/13/23) History of back surgery (02/2023) Hx of colonoscopy History of hand surgery History of shoulder surgery Family History Mother Cancer Father No problems noted. Sister Breast cancer Social History Household Members: Spouse Housing: House Are you a primary urgent care to a significant other at home: No Do you presently have visiting nurse or other home services: No 75 years or older and lives alone: No Alcohol intake: former Comment: COUNTS CORRECT Patient Tobacco Use Status: Former Tobacco user Tobacco use type: Cigarette Years Smoked: 10 e-Cigarette/Vaping Use: Never Used Second Hand Smoke Exposure: Yes Substance Use Type: Marijuana service: No Current occupational status: retired Current occupation: right hand dominant Cognitive needs: Yes Hearing needs: No Vision needs: No Physical Exam Vital Signs: BMI result Body Mass Index 33.0 Extrem Other: The patient was alert oriented and in no acute distress. In looking at the right hand which we did surgery on in 2022, he can fully and actively extend all of his digits including the small and ring fingers. He has no contracture in the right hand at present and the surgical incisions appear to have healed very well. He can make a fist and has good sensation to all digits. Left hand: He has a Dupuytren's cord extending from the mid palm area to the proximal phalanx of the small finger causing a 45 degree MCP/0 degree PIP Dupuytren's contracture. He also has a central cord extending from the mid palm to the proximal phalanx of the ring finger causing a 35 degree MCP/0 degree PIP Dupuytren's contracture He also has a central cord extending from the mid palm to the proximal phalanx of the middle finger causing a 20 degree MCP/0 degree PIP contracture. He can actively bring all his fingers close to a fist. Cap refill is brisk and sensation is intact. Assessment & Plan Assessment & Plan (1) Dupuytren's contracture of left hand: Code(s): M72.0 - Palmar fascial fibromatosis [Dupuytren] Category: Medical Plan Assessment and plan: 1. Left small finger Dupuytren's contracture, MCP 45 /PIP 0 2. Left ring finger Dupuytren's contracture, MCP 35 /PIP 0 3. Left middle finger Dupuytren's contracture, MCP 20/PIP 0 I educated the patient about this condition. We discussed operative and non operative treatment options at length and he wishes to proceed with surgery. The risks and benefits of operative treatment were discussed with the patient and the patient wishes to proceed with surgery. These risks include, but are not limited to risk of damage to blood vessels, nerves, tendons, infection, recurrence, incomplete relief of preoperative symptoms, persistent pain, possible need for further surgery and the risks associated with regional blocks and anesthesia. The plan is to take the patient to the operating room sometime in the next few weeks for the following procedures: 1. Left small finger partial Dupuytren's fasciectomy 2. Left ring finger partial Dupuytren's fasciectomy 3. Left middle finger partial Dupuytren's fasciectomy, in the palm All of the preoperative paperwork including the consent was filled out today. All the patient's questions were answered. The patient understands that they will be contacted by our patient scheduler soon to schedule this procedure 4. Right Ring finger Dupuytrens contracture, S/P release DOS: 07/29/2022 Pre-operatively MCP 70/PIP 0 Postoperatively and today: MCP 0/PIP 0 5. Right small finger Dupuytrens contracture, S/P release DOS:? 07/29/2022 Pre-operatively MCP 60/PIP 0 Postoperatively and today: MCP 0/PIP 0 He is doing very well postoperatively following these 2 procedures is very pleased with the results of his surgery. 6. Right trigger thumb, S/P release Coding Level of Care Code Est Pt Level 4 (61294) Diagnoses Dupuytren's contracture of left hand M72.0
--- OUTSIDE RECORDS SUMMARY | 2024-12-28 08:57 | XMS_ITS | Encounter Summary ---
Author Organization [facility] Address [address] [place] [address] Phone Care Team Providers Care Environmental Protection Economist Name Role Phone Mary Anne Mcgraw MD Primary Care Provid er Encounter Details Date Type Department Care Team (Late st Contact Info) Description 04/12/2024 Procedure Pass [facility], Ct Scan - [address] [address] Social History Tobacco Use Types Packs/Day Years Used Date Smoking Tobacco: Never Alcohol Use Standard Drinks/Week Comments Not Currently 0 (1 standard drink = 0.6 oz pur e alcohol) socially Home Health Assessment: Transportation Answer Date Recorded Lack of Transportation (Medical) No 04/06/2024 Lack of Transportation (Non-Medical) No 04/06/2024 Patient Unable or Declines to Respond No 04/06/2024 Education Answer Date Recorded Are you interested in more education? Not on hector e 02/27/2024 Are you concerned about learning? Not on file 02/27/2024 No 02/27/2024 No 02/27/2024 Food Answer Date Recorded Within the past 6 months we worried whether our food would run out before we got money to buy more. Never True 04/13/2024 Within the past 6 months the food we bought just didn't last and we didn't have enough money to get more. Never True Residential Stability Answer Date Recor ded What is your housing situation today? I have stephen sing 04/13/2024 How many times have you move d in the past 12 months? Zero (I did not move) 04/13/2024 Paying for Meds Answer Date Recorded Do you have trouble paying for medicines? No 04/01/2024 Paying Utility Bills Answer Date Record ed Do you have trouble paying your heating or elect ricity bill? No 04/13/2024 Transportation Answer Date Recorded Has the lack of transportati on kept you from medical appointments or from getting medications? No 04/13/2024 Digital Access Answer Date Recorded No 04/13/2024 Yes 04/13/2024 Do you have reliable internet access at home? Ye s 04/13/2024 Do you have a device (e.g., phone, tablet, computer) with a working camera? Yes 04/13/2024 Sex and Gender Information Value Date Recorded Sex Assigned at Male 04/02/2023 9:13 AM EST Legal Sex Male 9:49 PM EDT Gender Identity Male 04/02/2023 9:13 AM EST Sexual Orientation Straight 04/02/2023 9: 13 AM EST documented as of this encounter Functional Status * Calculated C-SSRS Risk Score (Lifetime/Recent) Answer Date of Assessment Author No Risk Indicated 04/13/2024 4:42 AM Neris Hackett RN * [place] Suicide Severity Rating Scale (Screener/Recent Self-Report) Question Answer Date of Assessment Author 1. Wish to be (Past 1 Month) No 04/13/2024 4:42 AM Neris Hackett RN 2. Non-Specific Active Suicidal Thoughts (Past 1 Month) No 04/13/2024 4:42 AM Neris Hackett RN 6. Suicidal Behavior (Lifetime) No 04/13/2024 4:42 AM Neris Hackett RN documented as of this encounter Plan of Treatment Upcoming Encounters Date Type Department Care Team (Late st Contact Info) Description 04/19/2025 1:15 PM EST Office Visit [facility] [place] Department of Orthopaedic Surgery, Arthroplasty Service [address] [facility], 3rd Floor, [address] [place] [address] Lui Marques MD [address] [address] [email or web address] documented as of this encounter Visit Diagnoses Not on filedocumented in this encounter Additional Health Concerns Infection Onset Date Last Indicated Resolved Time CDiff-Risk 04/25/2024 04/25/2024 04/25/2024 9:27 AM EST C. diff 04/25/2024 04/25/2024 05/25/2024 1:21 AM EST CoV-Presumed Comment:Added per Home Health documentation 05/26/2024 05/26/2024 06/15/2024 1:[address] documented as of this encounter Care Teams Environmental Protection Economist Relationship Specialty Start Date End Date aMry Anne Mcgraw MD [address] [place] [address] PCP - General Internal Medicine 04/01/23 documented as of this encounter Additional Source Comments The information contained in this document represents components of the legal health record. It is not the complete legal health record.[facility]
--- OUTSIDE RECORDS SUMMARY | 2024-12-28 08:57 | XMS_ITS | Patient Health Record ---
Author Organization [facility] Address [address] [place] [address] Care Team Providers Care Back Tacker Name Role Phone Marcela(inactive) Josh RODRIGUEZ Primary Care Provider U Didier Hill Jr Unavailable [phone] Reason For Referral No Information Medications Medication [...] Problem Status W/U Status Risk Notes Problem [id number] Colon cancer screening (Z12.11) Active confirmed Plan Of Treatment Future Test Test Name Order Date COLONOSCOPY 08/07/2016 Insurance Providers Payer Name Payer Address Payer Phone Subscriber Number Group Number Insured Name Patient Relationship to Insured Coverage Start Date Coverage End Date [facility] [address] [facility] [place] [phone] [id number] MIRIAM PANTOJA Self - patient is the insured Medical (General) History Medical History History ICD Code hypertension Denies [place],DM,CVA,Lung disease,renal dise ase Surgical History Surgery Date(Month/Year) arm surgery
--- OUTSIDE RECORDS SUMMARY | 2024-12-28 08:57 | XMS_ITS | Patient Health Record ---
Author Organization [facility] [place] Address [address] [place] [address] Care Team Providers Care Metal Caster Name Role Phone Deborah RODRIGUEZ, Mary Anne Primary Care Provider Unavail able Heydi Garcia Unavailable [phone] Allergies No Known Allergies Reason For Referral [...] Problem Status W/U Status Risk Notes Problem Gait abnormality ([id number]) Gait abnormality (R26.9) Active confirmed Problem Equinus contracture of left ankle (M24.572) Active confirmed Problem Plantarflexion deformity of right foot (finding) ([id number]) Equinus contracture of right ankle (M24.571) Active confirmed Plan Of Treatment No Information Insurance Providers Payer Name Payer Address Payer Phone Subscriber Number Group Number Insured Name Patient Relationship to Insured Coverage Start Date Coverage End Date [facility] ([facility]) [address] [place] [address] [phone] [id number] [address], [place] Spouse - patient is the spouse of the insured Medical (General) History Medical History History ICD Code Arthritis Back,Hip,and Knee pain CAD (Cholesterol) High blood pressure Sciatica Chicken pox bulging discs Surgical History Surgery Date(Month/Year)
== END 2024-12-28 09:25 | disposition home or self-care (01) ==
LOC: HO.HOS 08:45
PROVIDERS: PCP Internal Medicine; Visit Provider Orthopaedic Surgery
DX: M72.0 Palmar fascial fibromatosis [Dupuytren] (principal)
CPT/HCPCS: 99214

== ENCOUNTER → 2024-12-28 08:44 | Outpatient (BNVA) | payer MEDICARE, OTHER, SELFPAY | PROVIDERS: PCP Internal Medicine; Visit Provider Orthopaedic Surgery | DX: M72.0 Palmar fascial fibromatosis [Dupuytren] (principal) | CPT/HCPCS: 99212 ==

== ENCOUNTER 2024-12-30 06:09 | Outpatient (REF) | payer MEDICARE, OTHER, SELFPAY ==
--- NOTE | ~2024-12-30 | FL_ITS ---
EXAMINATION: FL GUIDANCE ONLY HISTORY: M96.1 - Postlaminectomy syndrome, not elsewhere classified COMPARISON: None available. TECHNIQUE: Fluoroscopy time: 0.2 minutes. Cumulative Dose: 4.40 mGy. DAP: 0.0368 mGym2 Images: 3. FINDINGS: Fluoroscopic spot films of the sacrum demonstrate a needle and contrast in place. FL/FL guidance in treatment room IMPRESSION: Fluoroscopy during procedure. Please see procedure report for additional information. Electronically signed by: Kang Graham MD 12/30/2024 01:19 PM EDT
--- OUTSIDE RECORDS SUMMARY | 2024-12-30 06:11 | XMS_ITS | Encounter Summary ---
Author Organization [facility] Address [address] [place] [address] Phone Care Team Providers Care Beating Machine Operator Name Role Phone Mary Anne Mcgraw MD Primary Care Provid er Encounter Details Date Type Department Care Team (Late st Contact Info) Description 04/12/2024 Procedure Pass [facility] [place], Ct Scan - [address] [address] Social History Tobacco Use Types Packs/Day Years [...] 04/13/2024 4:42 AM Neris Hackett RN * [place] Suicide Severity Rating Scale (Screener/Recent Self-Report) Question [...] Description 04/19/2025 1:15 PM EST Office Visit [facility] [place] Department of Orthopaedic Surgery, Arthroplasty Service [address] [facility], 3rd Floor, [address] [place] [address] Lui Marques MD [address] [address] [email or web address] documented as of this encounter Visit Diagnoses Not on filedocumented in this encounter Additional Health Concerns Infection Onset Date Last Indicated Resolved Time CDiff-Risk 04/25/2024 04/25/2024 04/25/2024 9:27 AM EST C. diff 04/25/2024 04/25/2024 05/25/2024 1:21 AM EST CoV-Presumed Comment:Added per Home Health documentation 05/26/2024 05/26/2024 06/15/2024 1:[address] documented as of this encounter Care Teams Beating Machine Operator Relationship Specialty Start Date End Date Mary Anne Mcgraw MD [address] [place] [address] PCP - General Internal Medicine 04/01/23 documented as of this encounter Additional Source Comments The information contained in this document represents components of the legal health record. It is not the complete legal health record.[facility]
--- OUTSIDE RECORDS SUMMARY | 2024-12-30 06:11 | XMS_ITS | Patient Health Record ---
Author Organization [facility] Address [address] [place] [address] Care Team Providers Care Accelerator Operator Name Role Phone Marcela(inactive) Josh RODRIGUEZ Primary Care Provider U Didier Hill Jr Unavailable [phone] Reason For Referral No Information Medications Medication [...] Problem Status W/U Status Risk Notes Problem [id number] Colon cancer screening (Z12.11) Active confirmed Plan Of Treatment Future Test Test Name Order Date COLONOSCOPY 08/07/2016 Insurance Providers Payer Name Payer Address Payer Phone Subscriber Number Group Number Insured Name Patient Relationship to Insured Coverage Start Date Coverage End Date [facility] [address] [place] [phone] [id number] MIRIAM PANTOJA Self - patient is the insured Medical (General) History Medical History History ICD Code hypertension Denies [place],DM,CVA,Lung disease,renal dise ase Surgical History Surgery Date(Month/Year) arm surgery
== END 2024-12-30 06:10 | disposition home or self-care (01) ==
LOC: CF 06:09
PROVIDERS: Visit Provider Internal Medicine
DX: M48.062 Spinal stenosis, lumbar region with neurogenic claudication (principal); M54.16 Radiculopathy, lumbar region; M41.9 Scoliosis, unspecified; M96.1 Postlaminectomy syndrome, not elsewhere classified
CPT/HCPCS: 62323; J2003; J3301; Q9967

== ENCOUNTER 2024-12-30 09:50 | Outpatient (AMB) | payer MEDICARE, OTHER, SELFPAY ==
[2024-12-30 09:54] VITALS: BP 183/85; PULSE 95; RESP 18; O2SAT 97; BMI 32.4
--- NOTE | 2024-12-30 09:54 | MHC.OFFVIS ---
Vital Signs 12/30/24 09:54 Height 5 ft 7 in Weight 207 lb BMI 32.4 BP 183/85 H Blood Pressure Location Lt brachial Position Sitting Respiration 18 Pulse 95 Pulse Source Pulse Oximeter Pulse Oximetry (%) 97 Oxygen Delivery Method Room Air Intake Visit Reasons: Caudal JAVIER/ ativan & oxy Photographer Assistant Required: No Allergies No Known Allergies (No Known Allergies*) Allergy (Verified 12/28/24 08:52) HPI HPI Caudal JAVIER/ ativan & oxy: Details: Patient presents for scheduled procedure. Denies any recent cough, cold, infection, fever or other significant changes in medical history since last office visit. [facility] Medical History (Updated 12/28/24 @ 09:21 by Yuni Stovall MD) JORDI (acute kidney injury) Hip dislocation, right H/O myocardial perfusion scan Chronic, continuous use of opioids Former smoker Arthritis of right hip Hx of fracture of tibia Substance use disorder Dupuytren's contracture of right hand High cholesterol Hypertension Surgical History History of total right hip arthroplasty (05/13/23) History of back surgery (02/2023) Hx of colonoscopy History of hand surgery History of shoulder surgery Family History Mother Cancer Father No problems noted. Sister Breast cancer Social History Household Members: Spouse Housing: House Are you a primary multi care technician to a significant other at home: No Do you presently have visiting nurse or other home services: No 75 years or older and lives alone: No Alcohol intake: former Comment: COUNTS CORRECT Patient Tobacco Use Status: Former Tobacco user Tobacco use type: Cigarette Years Smoked: 10 e-Cigarette/Vaping Use: Never Used Second Hand Smoke Exposure: Yes Substance Use Type: Marijuana service: No Current occupational status: retired Current occupation: right hand dominant Cognitive needs: Yes Hearing needs: No Vision needs: No Physical Exam Vital Signs: Last Vital Signs Pulse 95 12/30/24 09:54 Resp 18 12/30/24 09:54 BP 183/85 H 12/30/24 09:54 Pulse Ox 97 12/30/24 09:54 Oxygen Delivery Method Room Air 12/30/24 09:54 BMI result Body Mass Index 32.4 Office Procedures AMB Joint Injection/Aspiration Joint Injection/Aspiration Details: Caudal JAVIER with catheter After obtaining written consent, pre-procedure blood pressure and pulse were measured. The patient was placed in the prone position. The lumbosacral area was widely prepped with chloraprep and draped in sterile fashion. The skin overlying the target was anesthetized with 0.5% lidocaine. A 17 G needle was used to access the caudal epidural space using anatomic landmarks and x-ray guidance. We then threaded a catheter up to the L5/S1 level and injected contrast 1cc omnipaque 180 for verification of epidural spread. Following negative aspiration of heme or CSF, a mixture of 5 ml 0.5% lidocaine with 80 mg triamcinilone was injected with minimal pressure into the epidural space. The needle was removed, skin cleansed and a sterile bandage was applied. The patient tolerated the procedure well and no complications were encountered. Following the procedure the patient's vital signs were stable. The patient was discharged home in good condition with post-procedural instructions. Time Out: Immediately prior to the procedure, the following was verbally confirmed that there is a signed consent form and that the correct patient, planned procedure, site and side are consistent with documentation and that necessary equipment and/or blood products are available prior to the start of the case. Complications: none EBL: <5 cc Coding 37025 - Caudal/Lumbar Epidural/Interlaminar with fluoroscopy Procedure code (CPT) selection complete Assessment & Plan Assessment & Plan (1) Lumbar radiculopathy, acute: Code(s): M54.16 - Radiculopathy, lumbar region Category: Medical Plan Patient is status post caudal JAVIER with catheter. Patient tolerated procedure well and was discharged home in stable condition with discharge instructions. All questions were answered. We will follow-up via telephone or in clinic to assess response to therapy. A follow-up appointment was made during today's visit. Orders: Orders FL guidance in treatment room Today Miguel Ambriz MD M41.9 - Scoliosis, unspecified, M48.062 - Spinal stenosis, lumbar region with neurogenic claudication, M54.16 - Radiculopathy, lumbar region, M96.1 - Postlaminectomy syndrome, not elsewhere classified AMB Joint Injection/Aspiration Today Miguel Ambriz MD M54.16 - Radiculopathy, lumbar region Medications: New lorazepam Take one tablet 15-30 min prior to injection on 12/30/24 1 mg PO ONCE PRN 1 tab 0RF procedural anxiety 1 day PB [place] M96.1 - Postlaminectomy syndrome, not elsewhere classified oxycodone Take 2 tablets 15-30 mins prior to injection on 12/30/24 10 mg (2 x 5 mg) PO ONCE PRN 2 tabs 0RF painful procedure 1 day PB [place] M96.1 - Postlaminectomy syndrome, not elsewhere classified Coding Level of Care Code Procedure Only Diagnoses Lumbar radiculopathy, acute M54.16 CPT Codes Coding - Joint 11: 69513 - Caudal/Lumbar Epidural/Interlaminar with fluoroscopy ([id number])
--- OUTSIDE RECORDS SUMMARY | 2024-12-30 10:18 | XMS_ITS | Patient Health Record ---
Author Organization [facility] [place] Address [address] [place] [address] Care Team Providers Care Casing Machine Operator Name Role Phone Deborah RODRIGUEZ, Mary Anne Primary Care Provider Unavail able Heydi Garcia Unavailable [phone] Allergies No Known Allergies Reason For Referral [...] W/U Status Risk Notes Problem Gait abnormality (56182174) Gait abnormality (R26.9) Active confirmed Problem Equinus contracture of left ankle (M24.572) Active confirmed Problem Plantarflexion deformity of right foot (finding) ([id number]) Equinus contracture of right ankle (M24.571) Active confirmed Plan Of Treatment No Information Insurance Providers Payer Name Payer Address Payer Phone Subscriber Number Group Number Insured Name Patient Relationship to Insured Coverage Start Date Coverage End Date [facility] ([facility]) [address] [place] [address] [id number] [address], [place] Spouse - patient is the spouse of the insured Medical (General) History Medical History History ICD Code Arthritis Back,Hip,and Knee pain CAD (Cholesterol) High blood pressure Sciatica Chicken pox bulging discs Surgical History Surgery Date(Month/Year)
== END 2024-12-30 10:18 | disposition home or self-care (01) ==
LOC: HO.PMCPRC 09:50
PROVIDERS: PCP Internal Medicine; Visit Provider Internal Medicine
DX: M54.16 Radiculopathy, lumbar region (principal)
CPT/HCPCS: 62323

== ENCOUNTER 2025-01-03 13:06 | Outpatient (AMB) | payer MEDICARE, OTHER, SELFPAY ==
[2025-01-03 13:10] VITALS: BP 146/72; PULSE 106; BMI 32.7
--- NOTE | 2025-01-03 13:10 | A.OFFVIS_ITS ---
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: No Allergies No Known Allergies (No Known Allergies*) Allergy (Verified 01/03/25 13:12) Medication List - Last Reconciled 01/03/25 by Chula Calderon NP-C celecoxib (Celebrex) 200 mg PO BID PRN 30 days cholecalciferol (vitamin D3) 25 mcg PO DAILY crutches (pair of crutches) As directed gabapentin 600 mg PO TID hydroxyzine HCl 25 mg PO BEDTIME PRN 30 days lisinopril 5 mg PO DAILY 90 days lorazepam 1 mg PO ONCE PRN 1 day walker As directed HPI HPI pre-op ortho: Details: Renny is a 64-year-old male with past medical history of hypertension, hyperlipidemia, obesity, chronic back pain who presents for preop cardiovascular clearance for left hand surgery. His last prior visit to our office was 12/25/2022. Today he reports that he has dupuytren's contraction on the left hand and is scheduled to undergo surgery in January. Since his last visit he has not had any new cardiac symptoms or diagnosis he has. He denies chest discomfort at rest or with activity. No shortness of breath, PND, orthopnea or edema. No heart palpitations, lightheadedness, presyncope, syncope, falls. He has chronic low back pain however he does try to exercise routinely. He uses the recumbent bike routinely going for approximately 1 mile at a time. He reports compliance with his medications. [facility] Medical History JORDI (acute kidney injury) Hip dislocation, right H/O myocardial perfusion scan Chronic, continuous use of opioids Former smoker Arthritis of right hip Hx of fracture of tibia Substance use disorder Dupuytren's contracture of right hand High cholesterol Hypertension Surgical History History of total right hip arthroplasty (05/13/23) History of back surgery (02/2023) Hx of colonoscopy History of hand surgery History of shoulder surgery Family History Mother Cancer Father No problems noted. Sister Breast cancer Social History Household Members: Spouse Housing: House Are you a primary director of health care marketing to a significant other at home: No Do you presently have visiting nurse or other home services: No 75 years or older and lives alone: No Alcohol intake: former Comment: COUNTS CORRECT Patient Tobacco Use Status: Former Tobacco user Tobacco use type: Cigarette Years Smoked: 10 e-Cigarette/Vaping Use: Never Used Second Hand Smoke Exposure: Yes Substance Use Type: Marijuana service: No Current occupational status: retired Current occupation: right hand dominant Cognitive needs: Yes Hearing needs: No Vision needs: No Review of Systems Const All systems reviewed & are unremarkable except as noted in HPI and below ENT Denies dizziness Card Denies chest pain, Denies chest pain at rest, Denies chest pain with activity, Reports rapid heart rate, Denies pedal edema, Denies edema, Denies leg edema, Denies lightheadedness, Denies palpitations, Denies dyspnea, Denies dyspnea on exertion and Denies orthopnea Resp Denies cough, Denies dyspnea and Denies dyspnea on exertion GI Denies hematochezia and Denies change in stool character Musc Details: Chronic Back pain, Dupuytren's contraction left hand Reports abnormal gait, Reports limited range of motion, Denies muscle cramps, Denies muscle weakness, Denies numbness, Denies radiating pain into limb, Denies stiffness and Denies tingling Neuro Reports abnormal gait, Denies dizziness, Denies numbness and Denies tingling Endo Denies palpitations Physical Exam Vital Signs: Last Vital Signs Pulse 106 H 01/03/25 13:10 BP 146/72 H 01/03/25 13:10 BMI result Body Mass Index 32.7 Const Other: uncomfortable appearance, standing through most of visit due to back pain General: cooperative and no acute distress Orientation/consciousness: patient oriented x3 Neck Neck: Yes normal visual inspection Resp Effort & Inspection: normal respiratory effort Auscultation: clear to auscultation bilaterally, no rales, no rhonchi and no wheezes Cardio Rate: regular rate Rhythm: regular rhythm Heart sounds: S1 normal heart sound present, S2 normal heart sound present, no gallops, no murmurs and no rubs Neuro General: patient oriented x3 Extrem General: Yes normal to inspection Psych Appearance: grossly normal Mental Status: mental status grossly normal Speech and movement: Normal speech and movement present Office Procedures EKG Details: Today, read by me sinus tachycardia, right axis, incomplete RBBB, rate 106, Qtc 430ms [id number], Complete Assessment & Plan Assessment & Plan (1) Hypertension: Code(s): I10 - Essential (primary) hypertension Category: Medical Qualifiers: Hypertension type: unspecified Qualified Code(s): I10 - Essential (primary) hypertension Plan: Blood pressure goal less than 130/80. Elevated on exam today, recheck done by me 154/98. He is currently on lisinopril 5 mg daily, will increase it up to 10 mg daily. Will have him come for office blood pressure check in 1-2 weeks. BMP at that time. Reviewed low-salt diet. Will forward this note to his PCP. - cardiology follow-up p.r.n.. (2) Sinus tachycardia: Code(s): R00.0 - Tachycardia, unspecified Category: Medical Plan: EKG today showing sinus tachycardia, rate 106. He reports chronic pain from his back which can contribute to elevated heart rates. Reviewed need for good hydration. Recheck pulse when he comes for follow-up blood pressure check. (3) Incomplete RBBB: Code(s): I45.10 - Unspecified right bundle-branch block Category: Medical Plan: EKG shows incomplete right bundle branch block. This is not a new finding for him. (4) Preop cardiovascular exam: Code(s): Z01.810 - Encounter for preprocedural cardiovascular examination Category: Medical Plan: Preop for left hand surgery in January [address] Stovall. EKG today showing sinus tachycardia, rate 106. Echocardiogram 12/27/2022 showed EF greater than 70%, moderate increase in the RV size, no valve abnormalities. Nuclear stress test 01/01/2023 showed normal myocardial perfusion imaging. Activity level greater than 4 Mets. He can proceed with low cardiac risk. Continue lisinopril. Call/consult Cardiology if needed. Plan I discussed with the patient the plan to increase his lisinopril dosage to better manage his blood pressure before surgery. We agreed on a follow-up visit in two weeks to monitor his blood pressure and the effectiveness of the medication adjustment. I reassured him that no additional cardiac testing is necessary at this time, given the absence of symptoms. We also discussed the importance of continuing his exercise routine to support his cardiovascular health. Orders: Orders Basic Metabolic Panel Today I10 - Essential (primary) hypertension Medications: New lisinopril dose increased 10 mg PO DAILY 90 tabs 3RF Discontinued lisinopril Discontinued Reason: Doctor's Order 5 mg PO DAILY 90 days 90 tabs 3RF Patient Instructions: - Take lisinopril 10 mg daily as prescribed. - Return for a blood pressure check in two weeks. - Continue daily exercise, including stanislav chi and recumbent cycling. Patient was informed and verbally consented to the use of an ambient scribe for clinic note documentation during this visit. Visit time spent on chart review, interview, assessment, orders, documentation. Coding Level of Care Code Est Pt Level 4 (69104) Complex EM visit Add On G2211 Diagnoses Hypertension, unspecified type I10 Hypertension type: unspecified Sinus tachycardia R00.0 Incomplete RBBB I45.10 Preop cardiovascular exam Z01.810 CPT Codes EKG - CPT: 06977-[id number], Complete ([id number]) Time Spent (min) 30
--- OUTSIDE RECORDS SUMMARY | 2025-01-03 13:19 | XMS_ITS | Patient Health Record ---
Author Organization [facility] Address [address] [place] [address] Care Team Providers Care Linter Tender Name Role Phone Deborah RODRIGUEZ, Mary Anne Primary Care Provider Unavail able Heydi Garcia Unavailable [phone] Allergies No Known Allergies Reason For Referral [...] W/U Status Risk Notes Problem Gait abnormality ([id number]) Gait abnormality (R26.9) Active confirmed Problem Equinus contracture of left ankle (M24.572) Active confirmed Problem Plantarflexion deformity of right foot (finding) ([id number]) Equinus contracture of right ankle (M24.571) Active confirmed Plan Of Treatment No Information Insurance Providers Payer Name Payer Address Payer Phone Subscriber Number Group Number Insured Name Patient Relationship to Insured Coverage Start Date Coverage End Date [facility] ([facility] [address] [place] [address] [id number] [place], [place] Spouse - patient is the spouse of the insured Medical (General) History Medical History History ICD Code Arthritis Back,Hip,and Knee pain CAD (Cholesterol) High blood pressure Sciatica Chicken pox bulging discs Surgical History Surgery Date(Month/Year)
--- OUTSIDE RECORDS SUMMARY | 2025-01-03 13:19 | XMS_ITS | Patient Health Record ---
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 Clerk Name Role Phone Marcela(inactive) Josh RODRIGUEZ Primary [...] Problem Status W/U Status Risk Notes Problem [id number] Colon cancer screening (Z12.11) Active confirmed Plan Of Treatment Future Test Test Name Order Date COLONOSCOPY 08/07/2016 Insurance Providers Payer Name Payer Address Payer Phone Subscriber Number Group Number Insured Name Patient Relationship to Insured Coverage Start Date Coverage End Date [facility] [address] [place] [phone] [id number] MIRIAM PANTOJA Self - patient is the insured Medical (General) History Medical History History ICD Code hypertension Denies RI,DM,CVA,Lung disease,renal dise ase Surgical History Surgery Date(Month/Year) arm surgery
== END 2025-01-03 13:51 | disposition home or self-care (01) ==
LOC: HO.HCS 13:07
PROVIDERS: PCP Internal Medicine; Visit Provider Nurse Practitioner Family
DX: I10 Essential (primary) hypertension (principal); R00.0 Tachycardia, unspecified; I45.10 Unspecified right bundle-branch block; Z01.810 Encounter for preprocedural cardiovascular examination
CPT/HCPCS: 93010; 99214; G2211

== ENCOUNTER → 2025-01-03 13:06 | Outpatient (BNVA) | payer MEDICARE, OTHER, SELFPAY | PROVIDERS: PCP Internal Medicine; Visit Provider Nurse Practitioner Family | DX: Z01.810 Encounter for preprocedural cardiovascular examination (principal); I10 Essential (primary) hypertension; I45.10 Unspecified right bundle-branch block; R00.0 Tachycardia, unspecified; I45.19 Other right bundle-branch block | CPT/HCPCS: 93005; 99212 ==

== ENCOUNTER 2025-01-27 05:51 | Day surgery (SDC) | payer MEDICARE, OTHER, SELFPAY ==
[2025-01-19 12:12] VITALS: BMI 32.6
--- NOTE | 2025-01-19 13:19 | P.CONAN_ITS ---
Documented by User: Gracia Moran NP 01/19/25 13:29 HPI - Anesthesia Eval Consult details Narrative: 64 yr old male for left Small,Ring, and Middle Finger Dupuytrens Contracture Release s/p spinal cord simulator insertion 12/2023 Incomplete RBBB/sinus tachycardia: [facility] [place] [facility] [place] at 01/03/25 visit: Echo from 2022 showed EF >70%; nuclear stress test 2022 showed normal myocardial perfusion. Chronic low back pain: previously on opiates but discontinued due to + marijuana test; on hydroxyzine PMFSH Active Problems Active Problems: All Active Problems (Updated 01/19/25 @ 12:02 by Halina Viveros RN) Incomplete RBBB (Acute) Sinus tachycardia (Acute) Dupuytren's contracture of left hand (Acute) Arthritis of left glenohumeral joint (Acute) Insomnia (Acute) Syncope (Acute) Alcohol use disorder (Acute) Acute hyponatremia (Acute) Lumbar radiculopathy (Acute) Right leg weakness (Acute) Gait abnormality (Acute) Pure hypercholesterolemia (Acute) Post laminectomy syndrome (Acute) Physical exam (Acute) Status post total replacement of right hip (Acute) 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 (Acute) Osteoarthritis of right hip (Acute) Right hip pain (Acute) Status post lumbar and lumbosacral fusion by anterior technique (Acute) Lumbar radiculopathy (Acute) Preop cardiovascular exam (Acute) Lumbar scoliosis (Acute) Lumbar stenosis with neurogenic claudication (Acute) Chronic SI joint pain (Acute) Trigger thumb, right thumb (Acute) Hyponatremia (Acute) Preoperative clearance (Acute) Dupuytren's disease of palm of left hand (Acute) Hyponatremia (Acute) Leukocytosis (Acute) Elevated fasting glucose (Acute) Low TSH level (Acute) Low vitamin D level (Acute) Lumbar radiculopathy, acute (Acute) Obesity (BMI 30.0-34.9) (Acute) Screening for prostate cancer (Acute) Screening for hypothyroidism (Acute) History of total right hip arthroplasty (Acute 05/13/23) Substance use disorder (Acute) Dupuytren's contracture of right hand (Acute) High cholesterol (Acute) Hypertension (Acute) Past Medical History Medical History Back pain JORDI (acute kidney injury) Hip dislocation, right H/O myocardial perfusion scan Chronic, continuous use of opioids Former smoker Arthritis of right hip Hx of fracture of tibia Substance use disorder Dupuytren's contracture of right hand High cholesterol Hypertension Family History Family History Mother Cancer Father No problems noted. Sister Breast cancer Family history of problems with anesthesia: No Surgical History Surgical History S/P insertion of spinal cord stimulator History of total right hip arthroplasty (05/13/23) History of back surgery (02/2023) Hx of colonoscopy History of hand surgery History of shoulder surgery History of Problems with Anesthesia: No Social History Social History Household Members: Spouse Housing: House Are you a primary account executive healthcare to a significant other at home: No Do you presently have visiting nurse or other home services: No 75 years or older and lives alone: No Alcohol intake: former Comment: COUNTS CORRECT Patient Tobacco Use Status: Former Tobacco user Tobacco use type: Cigarette Years Smoked: 10 e-Cigarette/Vaping Use: Never Used Second Hand Smoke Exposure: Yes Substance Use Type: Marijuana service: No Current occupational status: retired Current occupation: right hand dominant Cognitive needs: Yes Hearing needs: No Vision needs: No Meds Allergies Allergy/AdvReac Type Severity Reaction Status Date / Time No Known Allergies (No Known Allergy Verified 01/03/25 13:12 Allergies*) Exam Height,Weight and Vital Signs: Height 5 ft 7 in Weight 94.347 kg Narrative Narrative: ECHO 2022 Conclusions: - The left ventricular systolic function is hyperdynamic. The visually estimated ejection fraction is >70%. - Moderately increased right ventricular cavity size. - No obvious valvular pathology seen on this study. EKG 01/03/25 Sinus tachycardia, incomplete RBBB, rate 106 Assessment and Plan Final Anesthetic Review Family History of Problems with Anesthesia: No History of Problems with Anesthesia: No Documented by User: Belem Raman MD 01/26/25 14:34 PMFSH Past Medical History Medical History Back pain JORDI (acute kidney injury) Hip dislocation, right H/O myocardial perfusion scan Chronic, continuous use of opioids Former smoker Arthritis of right hip Hx of fracture of tibia Substance use disorder Dupuytren's contracture of right hand High cholesterol Hypertension Family History Family History Mother Cancer Father No problems noted. Sister Breast cancer Surgical History Surgical History S/P insertion of spinal cord stimulator History of total right hip arthroplasty (05/13/23) History of back surgery (02/2023) Hx of colonoscopy History of hand surgery History of shoulder surgery Social History Social History Household Members: Spouse Housing: House Are you a primary account executive healthcare to a significant other at home: No Do you presently have visiting nurse or other home services: No 75 years or older and lives alone: No Alcohol intake: former Comment: COUNTS CORRECT Patient Tobacco Use Status: Former Tobacco user Tobacco use type: Cigarette Years Smoked: 10 e-Cigarette/Vaping Use: Never Used Second Hand Smoke Exposure: Yes Substance Use Type: Marijuana service: No Current occupational status: retired Current occupation: right hand dominant Cognitive needs: Yes Hearing needs: No Vision needs: No Meds Allergies Allergy/AdvReac Type Severity Reaction Status Date / Time No Known Allergies (No Known Allergy Verified 01/03/25 13:12 Allergies*) Exam Airway Mallampati Class: III TM Dist: <=3cm Neck ROM: Full Heart: rrr Lungs: cta Assessment and Plan Assessment Anesthesia Assessment: Anesthesia Plan Discussed and Chart Reviewed Final Anesthetic Review NPO: Yes ASA Class: III Final Preanesthetic Review: No Changes in Pt Med Stat, Meds/Allgs Chart Reviewed, Consent Obtained/Reviewed and Anes Risks/Benef Reviewed Patient Risk: Intermediate Procedure Risk: Intermediate Anesthetic Plan Anesthetic Plan: GA, Regional Block and Agree w/ Assess. and Plan Disposition: Standard PACU
[2025-01-27 06:07] VITALS: BP 167/96; PULSE 99; RESP 20; TEMP 36.1; O2SAT 96
[2025-01-27 06:10] VITALS: BMI 33.3
[2025-01-27] MEDS: Lactated Ringers 1,000 ML 100 ML IVCONT (06:22)
--- NOTE | 2025-01-27 07:35 | MHC.SHP ---
Pre-Procedural Eval Section A - 24 Hr Update-Section A only Date of Service: 01/27/25 The patient is an INPATIENT: No Changes since office visit: No Cold of Flu in the past 2 weeks, No New Medical Problems, No Changes in Medication and No Patient answered all questions The patient has been examined within 24 hours of the surgical procedure. The History & Physical has been completed within 30 days and I have reviewed it.: Yes Section B - Complete if H&P > 30 days Chief Complaint: Palmar fascial fibromatosis [Dupuytren] left Allergies: Allergies Allergy/AdvReac Type Severity Reaction Status Date / Time No Known Allergies (No Known Allergy Verified 01/03/25 13:12 Allergies*) Plan I have reviewed the history and physical and performed a pertinent physical examination on my patient. No changes have occurred unless specified. Time Spent With Patient Time: Total time managing care of this patient today ____ minutes.
--- NOTE | 2025-01-27 07:35 | W.PM.OPN ---
Operative Note Operative Note Date of Service: 01/27/25 Narrative: Preop diagnosis: 1. Left small finger Dupuytren's contracture 2. Left ring finger Dupuytren's contracture 3. Left middle finger Dupuytren's contracture Postop diagnosis: Same Procedure: 1. Left small finger Partial Dupuytren's fasciectomy 2. Left ring finger partial Dupuytren's fasciectomy 3. Left middle finger partial Dupuytren's fasciectomy in the palm Surgeon: Yuni Stovall MD Environmental Aide: Isaias OLSEN Anesthesia: General anesthesia plus regional block Findings: Dupuytren's contractures. All 3 digits brought into full extension following partial fasciectomy. Implants: None Tourniquet time: 49 minutes EBL: 5.0 ml Specimen: Dupuytren's cords Drains: None Complications: None Disposition: Brought to the recovery room in stable condition Plan: Follow-up in 10-14 days for wound check, suture removal and to check pathology OT appt on day of f/u to make a custom night spint and to begin OT Indications: The patient is 64 years old with Dupuytren's contractures of the left small ring and middle fingers . The risks and benefits of operative treatment, including but not limited to risk of damage to blood vessels, nerves, tendons, infection, recurrence, persistent pain or numbness, incomplete resolution of preoperative symptoms, or need for further surgery were discussed with the patient and they wished to proceed with surgery. Procedure: Once consent was obtained patient was brought back to the operating suite and placed in the operating table in a supine position. A regional block was performed by the anesthesia team. Perioperative antibiotics and anesthesia was administered by the anesthesia team. A tourniquet was applied to the proximal aspect of the left upper extremity and the limb was prepped and draped in a standard surgical fashion. The limb was elevated exsanguinated with Esmarch bandage and the tourniquet inflated to 250 mm of mercury for a total tourniquet time of 49 minutes. I made a Lili type incision extending along the Dupuytren's cord from the palm to the PIP flexion crease of the left small finger. The incision was made with a 15. Blade through the skin the subcutaneous tissues. I then carefully dissected down to the level of the Dupuytren's cord beginning at the proximal aspect of the incision. This was done using tenotomy and iris scissors. Care was taken to protect the nearby neurovascular structures. The Dupuytren's cord was cut at its proximal aspect using tenotomy scissors. It was then grasped with an Allis clamp. The Dupuytren's cord was then carefully dissected free in a proximal to distal direction using tenotomy scissors and again taking care to protect the nearby neurovascular structures. The cord was then removed from the patient and placed on the back table to be sent for histopathology. I was able to bring the small finger into full extension at the MCP and PIP joints I made a Lili type incision extending along the Dupuytren's cord from the mid palm to the middle aspect of the proximal phalanx of the left ring finger.? The incision was made with a 15. Blade through the skin the subcutaneous tissues.? I then carefully dissected down to the level of the Dupuytren's cord beginning at the proximal aspect of the incision.? This was done using tenotomy and iris scissors.? Care was taken to protect the nearby neurovascular structures.? The Dupuytren's cord was cut at its proximal aspect using tenotomy scissors.? It was then grasped with an Allis clamp.? The Dupuytren's cord was then carefully dissected free in a proximal to distal direction using tenotomy scissors and again taking care to protect the nearby neurovascular structures. The cord was then removed from the patient and placed on the back table to be sent for histopathology. I was then able to bring the ring finger into full extension at the MCP and PIP joints I then made a 1.2 cm oblique incision over the Dupuytren's cord in the palm in line with the middle finger. The incision was made through the skin the subcutaneous tissues using a 15. Blade. I then dissected the soft tissues off of this cord using tenotomy and iris scissors. I then removed and a proximally 1.2 cm segment of Dupuytren's cord that was in line with the middle finger. Following this I was able to bring the middle finger into full extension. At this point the tourniquet was deflated and hemostasis obtained with a brief period of local pressure . The wound was copiously irrigated with normal saline. The skin edges were reapproximated with 5-0 Prolene suture. The wound was infiltrated with some 1% lidocaine with epinephrine for postop pain control and a sterile dressing was applied. The patient appears to have tolerated the procedure well and with no complications. All digits were well vascularized conclusion of the case.
[2025-01-27 09:40] VITALS: BP 179/104; PULSE 90; RESP 12; TEMP 36.7; O2SAT 98
[2025-01-27 09:45] VITALS: BP 167/105; PULSE 98; RESP 12; O2SAT 99
[2025-01-27 09:50] VITALS: BP 181/105; PULSE 100; RESP 16; O2SAT 96
[2025-01-27 09:55] VITALS: BP 171/105; PULSE 94; RESP 18; O2SAT 97
[2025-01-27 10:12] VITALS: TEMP 36.8
== END 2025-01-27 10:34 | disposition home or self-care (01) ==
PROVIDERS: PCP Internal Medicine; Visit Provider Orthopaedic Surgery
PROC: (CPT 26045; principal; 2025-01-27 07:30)
DX: M72.0 Palmar fascial fibromatosis [Dupuytren] (principal); M54.9 Dorsalgia, unspecified; N17.9 Acute kidney failure, unspecified; I10 Essential (primary) hypertension; E78.00 Pure hypercholesterolemia, unspecified; R00.0 Tachycardia, unspecified; I45.10 Unspecified right bundle-branch block; Z79.899 Other long term (current) drug therapy; F12.90 Cannabis use, unspecified, uncomplicated; F10.21 Alcohol dependence, in remission; Z98.890 Other specified postprocedural states; Z87.891 Personal history of nicotine dependence
CPT/HCPCS: 26123; 26125 ×2; 88304; J0131; J0665; J0690; J1100; J2003; J2004; J2250; J2405; J2704; J2795; J3010

== ENCOUNTER → 2025-01-27 05:51 | Outpatient (BNV) | payer MEDICARE, OTHER, SELFPAY | PROVIDERS: PCP Internal Medicine; Visit Provider Orthopaedic Surgery | DX: M72.0 Palmar fascial fibromatosis [Dupuytren] (principal) | CPT/HCPCS: 26123; 26125 ==

== ENCOUNTER 2025-01-31 08:33 | Outpatient (REF) | payer MEDICARE, OTHER, SELFPAY ==
--- NOTE | ~2025-01-31 | XR_ITS ---
EXAMINATION: XR PELVIS CLINICAL INFORMATION: M25.559 - Pain in unspecified hip COMPARISON: August 07, 2023. TECHNIQUE: Single AP view pelvis. FINDINGS: There is exclusion the [id number] of the iliac crest and the upper sacrum and lower lumbar spine. There is a total right hip arthroplasty prosthesis with a new metallic component in the superior lateral aspect of the right acetabulum anchor with screws. There are 2 new screws in the inferior aspect of the acetabular component. No gross malalignment. XR/XR pelvis 1-2V IMPRESSION: New metallic prosthesis placed in the superior lateral acetabular component of the right hip prosthesis. No gross malalignment. Electronically signed by: Yordy Chapa MD 01/31/2025 01:18 PM EDT
--- OUTSIDE RECORDS SUMMARY | 2025-01-31 09:32 | XMS_ITS | Encounter Summary ---
Author Organization [facility] Address [address] [place] [address] Phone Care Team Providers Care Pension Fund Manager Name Role Phone Mary Anne Mcgraw MD Primary Care Provid er Encounter Details Date Type Department Care Team (Late st Contact Info) Description 03/24/2024 [place] [facility] Main [address], [address] 1 [place] [address] Social History Tobacco Use Types Packs/Day Years Used Date Smoking Tobacco: Never Alcohol Use Standard Drinks/Week Comments Not Currently 0 (1 standard drink = 0.6 oz pur e alcohol) socially Education Answer Date Recorded Are you interested in more education? Not on hector e 02/27/2024 Are you concerned about learning? Not on file 02/27/2024 No 02/27/2024 No 02/27/2024 Digital Access Answer Date Recorded No 02/27/2024 No 02/27/2024 Reliable internet access at home? Not on file 02/27/2024 Device with a working camera? Not on file Sex and Gender Information Value Date Recorded Sex Assigned at Male 04/02/2023 9:13 AM EST Legal Sex Male 9:49 PM EDT Gender Identity Male 04/02/2023 9:13 AM EST Sexual Orientation Straight 04/02/2023 9: 13 AM EST documented as of this encounter Functional Status * Calculated C-SSRS Risk Score (Lifetime/Recent) Answer Date of Assessment Author No Risk Indicated 03/24/2024 8:00 PM EDT JoeFifi Flores RN * [place] Suicide Severity Rating Scale (Screener/Recent Self-Report) Question Answer Date of Assessment Author 1. Wish to be (Past 1 Month) No 03/24/2024 8:00 PM EDT [employer] rebekah Flores RN 2. Non-Specific Active Suicidal Thoughts (Past 1 Month) No 03/24/2024 8:00 PM EDT [employer] rebekah Flores RN 6. Suicidal Behavior (Lifetime) No 03/24/2024 8:00 PM EDT [employer] rebekah Flores RN documented as of this encounter Plan of Treatment Upcoming Encounters Date Type Department Care Team (Late st Contact Info) Description 04/19/2025 1:15 PM EST Office [place] [facility], Arthroplasty Service [address] [place] [address], 3rd Floor, [address] [place] [address] Lui Marques MD [address] [place] [phone] [email or web address] documented as of this encounter Visit Diagnoses Not on filedocumented in this encounter Additional Health Concerns Infection Onset Date Last Indicated Resolved Time CDiff-Risk 04/25/2024 04/25/2024 04/25/2024 9:27 AM EST C. diff 04/25/2024 04/25/2024 05/25/2024 1:21 AM EST CoV-Presumed Comment:Added per Home Health documentation 05/26/2024 05/26/2024 06/15/2024 1:[address] documented as of this encounter Care Teams Pension Fund Manager Relationship Specialty Start Date End Date Mary Anne Mcgraw MD [address] [place] [address] PCP - General Internal Medicine 04/01/23 documented as of this encounter Additional Source Comments The information contained in this document represents components of the legal health record. It is not the complete legal health record.[facility]
--- OUTSIDE RECORDS SUMMARY | 2025-01-31 09:32 | XMS_ITS | Encounter Summary ---
Author Organization [facility] Address [address] [place] [address] Phone Care Team Providers Care Digital Strategy Director Name Role Phone Mary Anne Mcgraw MD Primary Care Provid er Encounter Details Date Type Department Care Team (Late st Contact Info) Description 04/12/2024 Procedure Pass [facility], Ct Scan - [address] [address] Social History Tobacco Use Types Packs/Day Years [...] 04/13/2024 4:42 AM Neris Hackett RN * [place] Suicide Severity Rating Scale (Screener/Recent Self-Report) Question [...] Description 04/19/2025 1:15 PM EST Office Visit [facility] [place] Department of Orthopaedic Surgery, Arthroplasty Service [address] [facility], 3rd Floor, [address] [place] [address] Lui Marques MD [address] [address] [email or web address] documented as of this encounter Visit Diagnoses Not on filedocumented in this encounter Additional Health Concerns Infection Onset Date Last Indicated Resolved Time CDiff-Risk 04/25/2024 04/25/2024 04/25/2024 9:27 AM EST C. diff 04/25/2024 04/25/2024 05/25/2024 1:21 AM EST CoV-Presumed Comment:Added per Home Health documentation 05/26/2024 05/26/2024 06/15/2024 1:[address] documented as of this encounter Care Teams Digital Strategy Director Relationship Specialty Start Date End Date Mary Anne Mcgraw MD [address] [place] [address] PCP - General Internal Medicine 04/01/23 documented as of this encounter Additional Source Comments The information contained in this document represents components of the legal health record. It is not the complete legal health record.[facility]
--- OUTSIDE RECORDS SUMMARY | 2025-01-31 09:32 | XMS_ITS | Encounter Summary ---
Author Organization [facility] Address [address] [place] [phone] Phone Care Team Providers Care Fishing Game Warden Name Role Phone Mary Anne Mcgraw MD Primary Care Provid er Encounter Details Date Type Department Care Team (Late Contact Info) Description 03/25/2024 Procedure Pass [facility] [place] [address] [facility], 2nd [place] [address] Social History Tobacco Use Types Packs/Day Years [...] AM EST documented as of this encounter Plan of Treatment Upcoming Encounters Date Type Department Care Team (Late Contact Info) Description 04/19/2025 1:15 PM EST Office [place] [facility] [place] of [place]edic Surgery, Arthroplasty Service 55 [facility], 3rd Floor, [address] [place] [address] Lui Marques MD 55 [facility] [address] [place] [address] [email or web address] documented as of this encounter Visit Diagnoses Not on filedocumented in this encounter Additional Health Concerns Infection Onset Date Last Indicated Resolved Time CDiff-Risk 04/25/2024 04/25/2024 04/25/2024 9:27 AM EST C. diff 04/25/2024 04/25/2024 05/25/2024 1:21 AM EST CoV-Presumed Comment:Added per Home Health documentation 05/26/2024 05/26/2024 06/15/2024 1:[address] documented as of this encounter Care Teams Fishing Game Warden Relationship Specialty Start Date End Date Mary Anne Mcgraw MD [address] [place] [phone] PCP - General Internal Medicine 04/01/23 documented as of this encounter Additional Source Comments The information contained in this document represents components of the legal health record. It is not the complete legal health record.[facility]
--- OUTSIDE RECORDS SUMMARY | 2025-01-31 09:32 | XMS_ITS | Encounter Summary ---
Author Organization [facility] Address [address] [place] [phone] Phone Care Team Providers Care Pattern Illustrator Name Role Phone Mary Anne Mcgraw MD Primary Care Provid er Encounter Details Date Type Department Care Team (Late st Contact Info) Description 03/29/2024 [place] [facility] [place] [address] [place] [address] Social History Tobacco Use Types Packs/Day Years [...] got money to buy more. Never True 04/01/2024 Within the past 6 months the food we bought just didn't last and we didn't have enough money to get more. Never True Residential Stability Answer Date Recor ded What is your housing situation today? I have stephen sing 04/01/2024 How many times have you moved in the past 12 mon ths? Unable to assess 04/01/2024 Paying for Meds Answer Date Recorded Do you have trouble paying for medicines? No 04/01/2024 Paying Utility Bills Answer Date Record ed Do you have trouble paying your heating or elect ricity bill? No 04/01/2024 Transportation Answer Date Recorded Has the lack of transportati on kept you from medical appointments or from getting medications? No 04/01/2024 Digital Access Answer Date Recorded No 04/01/2024 Yes 04/01/2024 Do you have reliable internet access at home? Ye s 04/01/2024 Do you have a device (e.g., phone, tablet, computer) with a working camera? Yes 04/01/2024 Sex and Gender Information Value Date Recorded Sex Assigned at Male 04/02/2023 9:13 AM EST Legal Sex Male 9:49 PM EDT Gender Identity Male 04/02/2023 9:13 AM EST Sexual Orientation Straight 04/02/2023 9: 13 AM EST documented as of this encounter Plan of Treatment Upcoming Encounters Date Type Department Care Team (Late st Contact Info) Description 04/19/2025 1:15 PM EST [place] [facility] [place], Arthroplasty Service 55 [facility], 3rd Floor, [address] [place] [address] Lui Marques MD [address] [address] [email or web address] documented as of this encounter Visit Diagnoses Not on filedocumented in this encounter Additional Health Concerns Infection Onset Date Last Indicated Resolved Time CDiff-Risk 04/25/2024 04/25/2024 04/25/2024 9:27 AM EST C. diff 04/25/2024 04/25/2024 05/25/2024 1:21 AM EST CoV-Presumed Comment:Added per Home Health documentation 05/26/2024 05/26/2024 06/15/2024 1:[address] documented as of this encounter Care Teams Pattern Illustrator Relationship Specialty Start Date End Date Mary Anne Mcgraw MD [address] [place] [address] PCP - General Internal Medicine 04/01/23 documented as of this encounter Additional Source Comments The information contained in this document represents components of the legal health record. It is not the complete legal health record.[facility]
--- OUTSIDE RECORDS SUMMARY | 2025-01-31 09:32 | XMS_ITS | Encounter Summary ---
Author Organization [facility] Address [address] [place] [address] Phone Care Team Providers Care Cut In Worker Name Role Phone Mary Anne Mcgraw MD Primary Care Provid er Encounter Details Date Type Department Care Team (Late st Contact Info) Description 03/30/[address], [place] [address] [facility], 2nd Floor, [address] [place] [address] Social History Tobacco Use Types Packs/Day Years [...] Description 04/19/2025 1:15 PM EST [place] [facility] [place], Arthroplasty Service 55 [facility], 3rd Floor, [address] [place] [address] Lui Marques MD 55 [facility] [address] [place] [address] [email or web address] documented as of this encounter Visit Diagnoses Not on filedocumented in this encounter Additional Health Concerns Infection Onset Date Last Indicated Resolved Time CDiff-Risk 04/25/2024 04/25/2024 04/25/2024 9:27 AM EST C. diff 04/25/2024 04/25/2024 05/25/2024 1:21 AM EST CoV-Presumed Comment:Added per Home Health documentation 05/26/2024 05/26/2024 06/15/2024 1:[address] documented as of this encounter Care Teams Cut In Worker Relationship Specialty Start Date End Date Mary Anne Mcgraw MD [address] [place] [address] PCP - General Internal Medicine 04/01/23 documented as of this encounter Additional Source Comments The information contained in this document represents components of the legal health record. It is not the complete legal health record.[facility]
--- OUTSIDE RECORDS SUMMARY | 2025-01-31 09:32 | XMS_ITS | Encounter Summary ---
Author Organization [facility] Address [address] [place] [phone] Phone Care Team Providers Care Bundle Person Name Role Phone Mary Anne Mcgraw MD Primary Care Provid er Encounter Details Date Type Department Care Team (Late st Contact Info) Description 04/15/[address] [facility] [place]IVE [place]PT [address] [place] [address] Social History Tobacco Use Types Packs/Day Years [...] got money to buy more. Never True 04/17/2024 Within the past 6 months the food we bought just didn't last and we didn't have enough money to get more. Never True Residential Stability Answer Date Recor ded What is your housing situation today? I have stephen sing 04/17/2024 How many times have you move d in the past 12 months? Zero (I did not move) 04/17/2024 Paying for Meds Answer Date Recorded Do you have trouble paying for medicines? No 04/17/2024 Paying Utility Bills Answer Date Record ed Do you have trouble paying your heating or elect ricity bill? No 04/17/2024 Transportation Answer Date Recorded Has the lack of transportati on kept you from medical appointments or from getting medications? No 04/17/2024 Digital Access Answer Date Recorded No 04/17/2024 Yes 04/17/2024 Do you have reliable internet access at home? Ye s 04/17/2024 Do you have a device (e.g., phone, tablet, computer) with a working camera? Yes 04/17/2024 Sex and Gender Information Value Date Recorded Sex Assigned at Male 04/02/2023 9:13 AM EST Legal Sex Male 9:49 PM EDT Gender Identity Male 04/02/2023 9:13 AM EST Sexual Orientation Straight 04/02/2023 9: 13 AM EST documented as of this encounter Plan of Treatment Upcoming Encounters Date Type Department Care Team (Late st Contact Info) Description 04/19/2025 1:15 PM EST Office Visit [facility] [place] Department of Orthopaedic Surgery, Arthroplasty Service 55 [facility], 3rd Floor, [address] [place] [address] Lui Marques MD [address] [place] [phone] [email or web address] documented as of this encounter Visit Diagnoses Not on filedocumented in this encounter Additional Health Concerns Infection Onset Date Last Indicated Resolved Time CDiff-Risk 04/25/2024 04/25/2024 04/25/2024 9:27 AM EST C. diff 04/25/2024 04/25/2024 05/25/2024 1:21 AM EST CoV-Presumed Comment:Added per Home Health documentation 05/26/2024 05/26/2024 06/15/2024 1:[address] documented as of this encounter Care Teams Bundle Person Relationship Specialty Start Date End Date Mary Anne Mcgraw MD [address] [place] [address] PCP - General Internal Medicine 04/01/23 documented as of this encounter Additional Source Comments The information contained in this document represents components of the legal health record. It is not the complete legal health record.[facility]
--- OUTSIDE RECORDS SUMMARY | 2025-01-31 09:32 | XMS_ITS | Clinical Summary ---
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 04/02/2024 Active LORazepam (ATIVAN) 0.5 MG tablet Take 1 tablet (0.5 mg total) by mouth every 8 (eight) hours as needed for anxiety. 5 tablet 04/23/2024 Active gabapentin (NEURONTIN) 300 MG capsule Take 2 capsules (600 mg total) by mouth 3 (three) times a day. 180 capsule 05/05/2024 Active lisinopril (PRINIVIL,ZESTR IL) 5 MG tablet Take 1 tablet (5 mg total) by mouth daily. 30 tablet 05/06/2024 Active cholecalciferol , vitamin D3, (VITAMIN D3 ORAL) Take 1,000 Units by mouth daily. 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 04/29/2024 Closed dislocation of right hip, initial encount er 04/13/2024 Fracture of bone 03/24/2024 Right hip pain 03/24/2024 Social History Tobacco Use Types Packs/Day Years Used Date Smoking Tobacco: Never Tobacco Cessation:Counseling Given: Not Answered Alcohol Use Standard Drinks/Week Comments Not Currently 0 (1 standard drink = 0.6 oz pur e alcohol) socially Home Health Assessment: Transportation Answer Date Recorded Lack of Transportation (Medical) No 06/11/2024 Lack of Transportation (Non-Medical) No 06/11/2024 Patient Unable or Declines to Respond No 06/11/2024 Child or Family Care Answer Date Record ed Do you have problems with on e of the following making it difficult for you to work, study, or receive health care? No 07/15/2024 Education Answer Date Recorded Are you interested in help w ith more adult education (for example, completing high school, GED, job training, learning the Pashto language, technical skills, or developing parenting skills)? No 07/15/2024 Are you concerned about learning? Not on file 07/15/2024 No 07/15/2024 Yes 07/15/2024 Food Answer Date Recorded Within the past 6 months we worried whether our food would run out before we got money to buy more. Never True 07/15/2024 Within the past 6 months the food we bought just didn't last and we didn't have enough money to get more. Never True Residential Stability Answer Date Recor ded What is your housing situation today? I have stephen sing 07/15/2024 How many times have you move d in the past 12 months? Zero (I did not move) 07/15/2024 Paying for Meds Answer Date Recorded Do you have trouble paying for medicines? No 07/15/2024 Paying Utility Bills Answer Date Record ed Do you have trouble paying your heating or elect ricity bill? No 07/15/2024 Transportation Answer Date Recorded Has the lack of transportati on kept you from medical appointments or from getting medications? No 07/15/2024 Digital Access Answer Date Recorded No 07/15/2024 Yes 07/15/2024 Do you have reliable internet access at home? Ye s 07/15/2024 Do you have a device (e.g., phone, tablet, computer) with a working camera? Yes 07/15/2024 Intimate Partner Violence Answer Date R ecorded Are you denied basic needs s uch as food, clothing, or medical care? No 04/28/2024 In the past 12 months have y ou been in a relationship with a person who hurts, threatens, or tries to control you? No 04/28/2024 Are you denied basic needs s uch as food, clothing, or medical care? No 04/28/2024 In the past 12 months have y ou been in a relationship with a person who hurts, threatens, or tries to control you? No 04/28/2024 Sex and Gender Information Value Date Recorded Sex Assigned at Male 04/02/2023 9:13 AM EST Legal Sex Male 9:49 PM EDT Gender Identity Male 04/02/2023 9:13 AM EST Sexual Orientation Straight 04/02/2023 9: 13 AM EST Last Filed Vital Signs Vital Sign Reading Time Taken Comments Blood Pressure 138/87 10/19/2024 11:53 AM EDT Pulse 78 10/19/2024 11:53 AM EDT Temperature 36.2 C (97.1 F) 10/19/2024 11:53 AM EDT Respiratory Rate 16 06/11/2024 10:00 AM EST Oxygen Saturation 92% 10/19/2024 11:53 AM EDT Inhaled Oxygen Concentration - - Weight 98.9 kg (218 lb) 10/19/2024 11:53 AM EDT Height 170.2 cm (5' 7 ) 04/28/2024 4:24 PM EST Body Mass Index 34.14 04/28/2024 4:24 PM EST Plan of Treatment Upcoming Encounters Date Type Department Care Team (Late st Contact Info) Description 04/19/2025 1:15 PM EST Office Visit [facility] Department of Orthopaedic Surgery, Arthroplasty Service [address] [facility], 3rd Floor, [address] [place] [address] Lui Marques MD [address] [address] [email or web address] Health Maintenance Due Date Last Done Comments Adult Td,Tdap Booster 1959 LIPID PANEL 1959 DEPRESSION SCREENING 1971 HEPATITIS C SCREENING 09/11/1977 HIV ONE-TIME SCREENING (18-65 YEARS) 09/11/1977 SMOKING STATUS SCREENING (Once After 26 Yrs) 09/11/1985 COLOGUARD 09/11/2004 COLONOSCOPY 09/11/2004 COLORECTAL CANCER SCREENING 09/11/2004 FIT TEST 09/11/2004 FOBT 09/11/2004 SIGMOIDOSCOPY 09/11/2004 VIRTUAL COLONOSCOPY 09/11/2004 PNEUMOCOCCAL VACCINES (50+ years) (1 of 1 - PCV) 09/11/2009 ZOSTER VACCINES (1 of 2) 09/11/2009 RSV VACCINE (1 - Risk 60-74 years 1-dose series) 2019 INFLUENZA VACCINE (#1) 2024 COVID-19 VACCINE (1 - season) 2025 CREATININE LEVEL 07/28/2025 07/28/2024, , 06/09/2024, Additional history exists POTASSIUM LEVEL 07/28/2025 07/28/2024, 05/27, 06/09/2024, Additional history exists SCREENING FOR DIABETES 07/29/2027 07/28/2024 HEPATITIS A VACCINES Aged Out No long er eligible based on patient's age to complete this topic HIB VACCINES Aged Out No longer eligi ble based on patient's age to complete this topic MENINGOCOCCAL VACCINES (ACWY) Aged Out No longer eligible based on patient's age to complete this topic MENINGOCOCCAL VACCINES (B) Aged Out N o longer eligible based on patient's age to complete this topic Medical Devices Implanted Type Area Publication Distributor Device Identifier Shelf Expiration Date Model / Serial / Lot Right Hip Screw Bone 20x6.5mm Hip Cancellous Reflection Ss Spherical Head - [id number] Implanted:Qty: 1 on 03/29/2024 by Lui Marques MD at [facility] Right: Hip SHEIKH 09/16/2033 [id number] / / [id number] Screw Bone 6.5x25mm Hip Cancellous Spherical Hd For Reflection System 16a - [id number] Implanted:Qty: 1 on 03/29/2024 by Lui Marques MD at [facility] Right: Hip SHEIKH 06/24/2033 [id number] / / [id number] Screw Bone 30x6.5mm Hip Cancellous Spherical Head For Reflection System 16a Cs/1bx/1ea - [id number] Implanted:Qty: 1 on 03/29/2024 by Lui Marqeus MD at [facility] Right: Hip SHEIKH 08/09/2033 [id number] / / [id number] Screw Bone 20x6.5mm Hip Cancellous Reflection Ss Spherical Head - [id number] Implanted:Qty: 1 on 03/29/2024 by Lui Marques MD at [facility] Right: Hip SHEIKH 09/27/2033 [id number] / / [id number] Screw Bone 30x6.5mm Hip Cancellous Spherical Head For Reflection System 16a Cs/1bx/1ea - [id number] Implanted:Qty: 1 on 03/29/2024 by Lui Marques MD at [facility] Right: Hip SHEIKH 03/17/2033 [id number] / / [id number] Adapter Sleeve 4.0mm [place] Femoral Hip Titanium V40 Plus - [id number] Implanted:Qty: 1 on 03/29/2024 by Lui Marques MD at [facility] Right: Hip [employer] 10/15/2028 6519-T-[id number] / / [id number] Cement Bone 1x40gm [place] R High Viscosity - [id number] Implanted:Qty: 1 on 03/29/2024 by Lui Marques MD at [facility] Right: Hip [employer] 05/25/2028 [id number] / / [id number] Hip 28mm [place] Biolox Delta Ceramic Tapered Plus 0 Offset - [id number] Implanted:Qty: 1 on 03/29/2024 by Lui Marques MD at [facility] Right: Hip [employer] 09/16/2027 6519-1-028 / / [id number] Redart 60mm Od Implanted:Qty: 1 on 03/29/2024 by Lui Marques MD at [facility] Right: Hip 06/13/2031 [id number] / / [id number] Redapt Slice Augment [id number] Implanted:Qty: 1 on 03/29/2024 by Lui Marques MD at [facility] Right: Hip 07/12/2029 [id number] / / [id number] [employer] Pollar Cup Cemented Shell Size 47 Implanted:Qty: 1 on 03/29/2024 by Lui Marques MD at [facility] Right: Hip 06/04/2030 75 100 4 53 / / [id number] [employer] Polarcup Xlpe Insert Size 47/28 Implanted:Qty: 1 on 03/29/2024 by Lui Marques MD at [facility] Right: Hip 06/11/2030 11 000 6 01 / / [id number] Screw Bone 20x6.5mm Hip Cancellous Reflection Ss Spherical Head - [id number] Implanted:Qty: 1 on 03/29/2024 by Lui Marques MD at [facility] Right: Hip SHEIKH 09/27/2033 [id number] / / [id number] Screw Bone 6.5x35mm Hip Cancellous Spherical Head For Reflection System 16a Cs/1bx/1ea - [id number] Implanted:Qty: 1 on 03/29/2024 by Lui Marques MD at [facility] Right: Hip SHEIKH 09/02/2033 [id number] / / [id number] Hip 28mm 12 Lfit V40 [place] Low Friction Ion Treatment Plus - [id number] Implanted:Qty: 1 on 04/15/2024 by Lui Marques MD at [facility] Right: Acetabulum [employer] 09/02/2027 [id number] / / [id number] Polarcup Xlpe Insert Size 47/28 Implanted:Qty: 1 on 04/15/2024 by Lui Marques MD at [facility] Right: Acetabulum 04/12/2030 [id number] / / [id number] Filler Stimulan Bone Lf Sterile Disposable Rapid Cure 5cc - [id number] Implanted:Qty: 1 on 04/15/2024 by Lui Marques MD at [facility] Right: Hip [employer] 12/23/2026 [id number] / / [id number] Description:1 gm vancomycin added Procedures Procedure Name Priority Date/Time Associated Diagnosis Comments COMPREHENSIVE METABOLIC PANEL Routine 07/28/2024 2:08 PM EST Infection of prosthetic joint, subsequent encounter from Last 3 Months or Most Recently Relevant to Health Maintenance Results * Comprehensive metabolic panel (07/28/2024 2:08 PM EST) Pathologist [facility] SODIUM 133 133 - 146 mmol/L [facility] POTASSIUM 4.5 3.3 - 5.1 mmol/L [facility] CHLORIDE 96 96 - 108 mmol/L [facility] CO2 22 21 - 35 mmol/L [facility] BUN 16 6 - 19 mg/dL [facility] CREATININE 0.80 0.5 - 1.5 mg/dL [facility] GLUCOSE 89 70 - 99 mg/dL [facility] ALBUMIN 4.2 3.9 - 4.8 g/dL [facility] TOTAL PROTEIN 7.7 6.5 - 8.0 g/dL [facility] CALCIUM 9.8 8.4 - 10.3 mg/dL [facility] ALKALINE PHOSPHATASE 93 39 - 117 U/L [facility] TOTAL BILIRUBIN <0.2 0.0 - 1.2 mg/dL [facility] AST 20 0 - 37 U/L [facility] ALT 21 0 - 40 U/L [facility] GLOBULIN 3.5 1 - 4.8 g/dL [facility] EGFR 99 >59 mL/min/1.7 3m2 [facility] Comment:Estimated glomerular filtration rate calculated using the CKD-EPI refit equation. ANION GAP 20 10 - 20 mmol/L [facility] Blood 07/28/2024 2:08 PM EST 07/28/2024 2:10 PM EST us Capo Ortega MD LAB BLOOD ORDERABLES Final Result Performing Organization Address City/State/[facility] Co de Phone Number [facility] [address] [place] [address] from Last 3 Months or Most Recently Relevant to Health Maintenance Insurance [facility] MEDICARE SUPPLEMENT MEDICARE PART A & B [facility] MEDICARE SUPPLEMENT MEDICARE PART A & [place] [place] [address] MEDICARE SUPPLEMENT MEDICARE PART A & [place] [place] [address] MEDICARE SUPPLEMENT MEDICARE PART A & B [facility] MEDICARE SUPPLEMENT MEDICARE PART A & B [place], [place] [facility] MEDICARE SUPPLEMENT MARY COOK [id number] MEDICARE PART A & B Advance Directives For more information, please contact: [phone] (9AM - 5PM [place], Friday-Friday) * Full Code (Latest Code Status on File) Date Activated Date Inactivated Comments 04/28/2024 4:19 PM Question Answer Comments Code Status Confirmed With: Patient * Full Code Date Activated Date Inactivated Comments 04/13/2024 6:08 AM 04/28/2024 4:19 PM Question Answer Comments Code Status Confirmed With: Patient * Full Code Date Activated Date Inactivated Comments 03/24/2024 2:40 PM 04/13/2024 6:08 AM Question Answer Comments Code Status Confirmed With: Patient Code Status Communicated To: Inpatient Attending Healthcare Agents on File Name Relationship Healthcare Agent Relationshi p Communication Alix Pantoja Spouse Other (no proxy form on fi le) Care Teams Hydroelectric Machinery Mechanic Relationship Specialty Start Date End Date Mary Anne Mcgraw MD [address] [place] [address] PCP - General Internal Medicine 04/01/23 Additional Source Comments The information contained in this document represents components of the legal health record. It is not the complete legal health record.[facility]
--- OUTSIDE RECORDS SUMMARY | 2025-01-31 09:32 | XMS_ITS | Patient Health Record ---
Author Organization [facility] [place] Address [address] [place] [address] Care Team Providers Care Milliner Helper Name Role Phone Deborah RODRIGUEZ, Mary Anne Primary Care Provider Unavail able Heydi Garcia Unavailable [phone] Allergies No Known Allergies Reason For Referral [...] W/U Status Risk Notes Problem Gait abnormality (40987297) Gait abnormality (R26.9) Active confirmed Problem Equinus contracture of left ankle (M24.572) Active confirmed Problem Plantarflexion deformity of right foot (finding) ([id number]) Equinus contracture of right ankle (M24.571) Active confirmed Plan Of Treatment Next Appt Details Provider Name:Heydi Tigre potter, 02/11/2025 12:45:00 PM, [address] [place], [address], Insurance Providers Payer Name Payer Address Payer Phone Subscriber Number Group Number Insured Name Patient Relationship to Insured Coverage Start Date Coverage End Date [facility] ([facility]) [address] [place] [address] [id number], [place] Spouse - patient is the spouse of the insured Medical (General) History Medical History History ICD Code Arthritis Back,Hip,and Knee pain CAD (Cholesterol) High blood pressure Sciatica Chicken pox bulging discs Surgical History Surgery Date(Month/Year)
--- OUTSIDE RECORDS SUMMARY | 2025-01-31 09:33 | XMS_ITS | Patient Health Record ---
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 Marine Name Role Phone Marcela(inactive) Josh RODRIGUEZ Primary [...] Problem Status W/U Status Risk Notes Problem [id number] Colon cancer screening (Z12.11) Active confirmed Plan Of Treatment Future Test Test Name Order Date COLONOSCOPY 08/07/2016 Insurance Providers Payer Name Payer Address Payer Phone Subscriber Number Group Number Insured Name Patient Relationship to Insured Coverage Start Date Coverage End Date [facility] [address] [place] [phone] [id number] MIRIAM PANTOJA Self - patient is the insured Medical (General) History Medical History History ICD Code hypertension Denies MS,DM,CVA,Lung disease,renal dise ase Surgical History Surgery Date(Month/Year) arm surgery
== END 2025-01-31 08:34 | disposition home or self-care (01) ==
LOC: HO.HOSX 08:33
PROVIDERS: Visit Provider Orthopaedic Surgery
DX: M25.552 Pain in left hip (principal); Z96.641 Presence of right artificial hip joint
CPT/HCPCS: 72170; 99212

== ENCOUNTER 2025-01-31 13:06 | Outpatient (AMB) | payer MEDICARE, OTHER, SELFPAY ==
[2025-01-31 13:15] VITALS: BMI 33.2
--- NOTE | 2025-01-31 13:15 | A.OFFVIS_ITS ---
Vital Signs 01/31/25 13:15 Height 5 ft 7 in Weight 212 lb BMI 33.2 Intake Visit Reasons: New prob-L hip pain Intake Note: Renny is a 64 year old male who presents today for a New Problem Visit for evaluation of Left Hip Pain. Patient states his pain started about 2 months ago, primarily bothering him anteriorly, towards his groin. Patient denies falls, injuries, or previous surgeries to the left hip. He reports the pain is sporadic and does not have any pain today. He is not taking pain medications specifically to the left hip. Patient is most concerned about the way he is walking. Patient has a history of Right Hip Arthroplasty 05/13/23. A Revision was done on 04/15/24 at [facility]. Patient is status post Left Small, Ring & Middle Finger Dupuytrens Release, DOS: 01/27/[address] Stovall. ? Allergies No Known Allergies (No Known Allergies*) Allergy (Verified 01/31/25 13:16) HPI HPI New prob-L hip pain: Details: Renny is a 64 year old male who presents today for a New Problem Visit for evaluation of Left Hip Pain. Patient states his pain started about 2 months ago, primarily bothering him anteriorly, towards his groin. Patient denies falls, injuries, or previous surgeries to the left hip. He reports the pain is sporadic and does not have any pain today. He is not taking pain medications specifically to the left hip. Patient is most concerned about the way he is walking. Patient has a history of Right Hip Arthroplasty 05/13/23. A Revision was done on 04/15/24 at [facility]. Patient is status post Left Small, Ring & Middle Finger Dupuytrens Release, DOS: 01/27/[address] Stovall. ? Overall his hips are doing well now. He has no left hip pain. He has occasional discomfort after walking extended distances but most of his pain is in his back. [facility] Medical History Back pain JORDI (acute kidney injury) Hip dislocation, right H/O myocardial perfusion scan Chronic, continuous use of opioids Former smoker Arthritis of right hip Hx of fracture of tibia Substance use disorder Dupuytren's contracture of right hand High cholesterol Hypertension Surgical History S/P insertion of spinal cord stimulator History of total right hip arthroplasty (05/13/23) History of back surgery (02/2023) Hx of colonoscopy History of hand surgery History of shoulder surgery Family History Mother Cancer Father No problems noted. Sister Breast cancer Social History Household Members: Spouse Housing: House Are you a primary hospice care consultant to a significant other at home: No Do you presently have visiting nurse or other home services: No 75 years or older and lives alone: No Alcohol intake: former Comment: COUNTS CORRECT Patient Tobacco Use Status: Former Tobacco user Tobacco use type: Cigarette Years Smoked: 10 e-Cigarette/Vaping Use: Never Used Second Hand Smoke Exposure: Yes Substance Use Type: Marijuana service: No Current occupational status: retired Current occupation: right hand dominant Cognitive needs: Yes Hearing needs: No Vision needs: No Physical Exam Vital Signs: BMI result Body Mass Index 33.2 Extrem Other: No pain with hip range of motion on the left. He is negative impingement test and no gait antalgia. On the right he is walking comfortably without noticeable limp. No pain with right hip range of motion. Assessment & Plan Assessment & Plan (1) History of total right hip arthroplasty: Onset Date: 05/13/23 Comment: Right Hip Revision 04/15/24 [facility] Code(s): Z96.641 - Presence of right artificial hip joint Category: Surgical Plan: Revision arthroplasty doing well in the right. He is not really here for this today. He is here for his left hip which does not cause him pain now. Left hip radiographs reviewed and are unchanged from prior without any evidence of severe arthritis. There is no orthopedic intervention warranted. We did discussed weaning down in his gabapentin. I recommend he wean down to 300 t.i.d. for the next few weeks. If after 2 weeks he has no change in his pain symptoms I would wean down to 2 a day for a week and then 1 a day for a week. He may follow up to see me at any time. Orders: Orders XR pelvis 1-2V Today M25.559 - Pain in unspecified hip Coding Level of Care Code Est Pt Level 3 (63983) Diagnoses History of total right hip arthroplasty Z96.641
== END 2025-01-31 13:59 | disposition home or self-care (01) ==
LOC: HO.HOS 13:06
PROVIDERS: PCP Internal Medicine; Visit Provider Orthopaedic Surgery
DX: M25.552 Pain in left hip (principal); Z96.641 Presence of right artificial hip joint
CPT/HCPCS: 99213

== ENCOUNTER → 2025-01-31 13:07 | Outpatient (BNV) | payer MEDICARE, OTHER, SELFPAY | PROVIDERS: Visit Provider Radiology Diagnostic Radiology | DX: M25.559 Pain in unspecified hip (principal) | CPT/HCPCS: 72170 ==

== ENCOUNTER 2025-02-09 12:56 | Outpatient (AMB) | payer MEDICARE, OTHER, SELFPAY ==
--- NOTE | 2025-02-09 13:01 | MHC.OFFVIS ---
Intake Visit Reasons: PO LT SM/RF/MF dupuytrens 01/27/25 AR Intake Note: Renny is a 64 year old right hand dominant man who presents today for a post operative visit status post undergoing a left small, ring, and middle finger partial Dupuytren's fasciectomy, DOS: 01/27/[address] Yuni Stovall. Patient reports he has not removed his dressings since the surgery was done. He reports pain in the palm and fingers of the left hand. Says he showered with bag over hand however dressing got a bit damp. Allergies No Known Allergies (No Known Allergies*) Allergy (Verified 02/09/25 13:09) HPI HPI PO LT SM/RF/MF dupuytrens 01/27/25 AR: Details: Renny is a 64 year old right hand dominant man who presents today for a post operative visit status post undergoing a left small, ring, and middle finger partial Dupuytren's fasciectomy, DOS: 01/27/[address] Yuni Stovall. Patient reports he has not removed his dressings since the surgery was done. He reports pain in the palm and fingers of the left hand. Says he showered with bag over hand however dressing got a bit damp. [facility] Medical History Back pain JORDI (acute kidney injury) Hip dislocation, right H/O myocardial perfusion scan Chronic, continuous use of opioids Former smoker Arthritis of right hip Hx of fracture of tibia Substance use disorder Dupuytren's contracture of right hand High cholesterol Hypertension Surgical History (Updated 02/09/25 @ 13:13 by MY Mckeon) Status post Dupuytren's fasciectomy (~01/27/25) S/P insertion of spinal cord stimulator History of total right hip arthroplasty (05/13/23) History of back surgery (02/2023) Hx of colonoscopy History of hand surgery History of shoulder surgery Family History Mother Cancer Father No problems noted. Sister Breast cancer Social History Household Members: Spouse Housing: House Are you a primary wound care specialist to a significant other at home: No Do you presently have visiting nurse or other home services: No Alcohol intake: former Comment: COUNTS CORRECT Patient Tobacco Use Status: Former Tobacco user Tobacco use type: Cigarette Years Smoked: 10 e-Cigarette/Vaping Use: Never Used Second Hand Smoke Exposure: Yes Substance Use Type: Marijuana service: No Current occupational status: retired Current occupation: right hand dominant Cognitive needs: Yes Hearing needs: No Vision needs: No Review of Systems Const All systems reviewed & are unremarkable except as noted in HPI and below Physical Exam Extrem Other: Patient is alert, oriented, and in no acute distress. Neuro: Normal sensation of the tips of all digits of the left hand at this time Vascular: Cap refill brisk Pain: Some tenderness to palpation about the incision sites over volar aspects of left middle, ring, small fingers Some discomfort with range of motion of the digits ROM: Patient is able to make a closed fist and extend all digits of the left hand fully Skin: Well approximated and well healing incision sites noted on volar aspects of left middle, ring, small fingers Sutures in place No lacerations or abrasions. General: No ecchymosis, erythema, or evidence of infection. Psych: Appears grossly normal Affect normal Attitude cooperative Assessment & Plan Assessment & Plan (1) Dupuytren's contracture of left hand: Code(s): M72.0 - Palmar fascial fibromatosis [Dupuytren] Category: Medical Plan 1. Status post Dupuytren's partial fasciectomy of left hand DOS 01/27/2025 Patient appears to be recovering well postoperatively Patient is educated about the typical recovery course Half of sutures are removed in the office today, anticipate removal of other sutures next week Patient is educated on dressing changes, washing the incision site with soap and water in the sink of the shower, and 2 lb weight limit in left hand As patient is still in significant discomfort, I have ordered him a short course of Vicodin, and informed him that this will be the last narcotic strength pain medication we sent for this procedure Patient is educated that while he can work on range of motion of the left hand, I do not want him putting significant force through the left hand, such as pushing off of a table to stand up from a seated position Patient is also referred to OT for thermal molded night splint to wear in the left hand only at night to hold the digits into extension Patient understands this and is amenable to this plan Follow-up in 1 week, anticipate remaining suture removal at that time, sooner with any acute concerns Orders: Orders OT Evaluation and Treatment Today M72.0 - Palmar fascial fibromatosis [Dupuytren] Medications: New hydrocodone-acetaminophen 5-325 mg Partial Fill upon patient request. 1 tab PO Q6H PRN 12 tabs 0RF pain Coding Level of Care Code Global (94962) Diagnoses Dupuytren's contracture of left hand M72.0
--- OUTSIDE RECORDS SUMMARY | 2025-02-09 16:23 | XMS_ITS | Encounter Summary ---
Author Organization [facility] Address [address] [place] [address] Phone Care Team Providers Care Car Trimmer Name Role Phone Mary Anne Mcgraw MD Primary Care Provid er Encounter Details Date Type Department Care Team (Late st Contact Info) Description 03/30/[address], Jeff [address] [facility], 2nd Floor, [address] [place] [address] Social History Tobacco Use Types Packs/Day Years [...] Description 04/19/2025 1:15 PM EST Office Visit [facility] [place] Department of Orthopaedic Surgery, Arthroplasty Service 55 [facility], 3rd Floor, [address] [place] [address] Lui Marques MD 55 [facility] [address] [place] [address] [email or web address] documented as of this encounter Visit Diagnoses Not on filedocumented in this encounter Additional Health Concerns Infection Onset Date Last Indicated Resolved Time CDiff-Risk 04/25/2024 04/25/2024 04/25/2024 9:27 AM EST C. diff 04/25/2024 04/25/2024 05/25/2024 1:21 AM EST CoV-Presumed Comment:Added per Home Health documentation 05/26/2024 05/26/2024 06/15/2024 1:[address] documented as of this encounter Care Teams Car Trimmer Relationship Specialty Start Date End Date Mary Anne Mcgraw MD [address] [place] [address] PCP - General Internal Medicine 04/01/23 documented as of this encounter Additional Source Comments The information contained in this document represents components of the legal health record. It is not the complete legal health record.[facility]
--- OUTSIDE RECORDS SUMMARY | 2025-02-09 16:23 | XMS_ITS | Encounter Summary ---
Author Organization [facility] Address [email or web address] [place] [address] Phone Care Team Providers Care Optimization Analyst Name Role Phone Mary Anne Mcgraw MD Primary Care Provid er Encounter Details Date Type Department Care Team (Late st Contact Info) Description 04/12/2024 Procedure Pass [facility], Ct Scan - [address] [address] Social History Tobacco Use Types Packs/Day Years [...] 04/13/2024 4:42 AM Neris Hackett RN * [place] Suicide Severity Rating Scale (Screener/Recent Self-Report) Question [...] Description 04/19/2025 1:15 PM EST Office Visit [facility] [place] of [place]opaedic Surgery, Arthroplasty Service 55 [facility], 3rd Floor, [address] [place] [address] Lui Marques MD [address] [address] documented as of this encounter Visit Diagnoses Not on filedocumented in this encounter Additional Health Concerns Infection Onset Date Last Indicated Resolved Time CDiff-Risk 04/25/2024 04/25/2024 04/25/2024 9:27 AM EST C. diff 04/25/2024 04/25/2024 05/25/2024 1:21 AM EST CoV-Presumed Comment:Added per Home Health documentation 05/26/2024 05/26/2024 06/15/2024 1:[address] documented as of this encounter Care Teams Optimization Analyst Relationship Specialty Start Date End Date Mary Anne Mcgraw MD [address] [place] [address] PCP - General Internal Medicine 04/01/23 documented as of this encounter Additional Source Comments The information contained in this document represents components of the legal health record. It is not the complete legal health record.[facility]
--- OUTSIDE RECORDS SUMMARY | 2025-02-09 16:23 | XMS_ITS | Clinical Summary ---
Author Organization [facility] Address [address] [place] [address] Phone Care Team Providers Care Welding Machine Operator Gas Metal Arc Name Role Phone Mary Anne Mcgraw MD [...] high school, GED, job training, learning the [place] language, technical skills, or developing parenting skills)? [...] Description 04/19/2025 1:15 PM EST Office Visit [facility] [place] Department of Orthopaedic Surgery, Arthroplasty Service 55 [facility], 3rd Floor, [address] [place] [address] Lui Marques MD [address] [address] [email or web address] Health Maintenance Due Date Last Done Comments [...] this topic Medical Devices Implanted Type Area Flat Grinder Operator Device Identifier Shelf Expiration Date Model / Serial / Lot Right Hip Screw Bone 20x6.5mm Hip Cancellous Reflection Ss Spherical Head - [id number] Implanted:Qty: 1 on 03/29/2024 by Lui Marques MD at [facility] Right: Hip SHEIKH 09/16/2033 [id number] / / [id number] Screw Bone 6.5x25mm Hip Cancellous Spherical Hd For Reflection System 16a - [id number] Implanted:Qty: 1 on 03/29/2024 by Lui Marques MD at [facility] Right: Hip SHEIKH 06/24/2033 [id number] / / [id number] Screw Bone 30x6.5mm Hip Cancellous Spherical Head For Reflection System 16a Cs/1bx/1ea - [id number] Implanted:Qty: 1 on 03/29/2024 by Lui Marques MD at [facility] Right: Hip SHEIKH 08/09/2033 [id number] / / [id number] Screw Bone 20x6.5mm Hip Cancellous Reflection Ss Spherical Head - [id number] Implanted:Qty: 1 on 03/29/2024 by Lui Marques MD at [facility] Right: Hip SHEIKH 09/27/2033 [id number] / / [id number] Screw Bone 30x6.5mm Hip Cancellous Spherical Head For Reflection System 16a Cs/1bx/1ea - [id number] Implanted:Qty: 1 on 03/29/2024 by Lui Marques MD at [facility] Right: Hip SHEIKH 03/17/2033 [id number] / / [id number] Adapter Sleeve 4.0mm Haslett Femoral Hip Titanium V40 Plus - [id number] Implanted:Qty: 1 on 03/29/2024 by Lui Marques MD at [facility] Right: Hip [employer] 10/15/2028 6519-T-[id number] / / [id number] Cement Bone 1x40gm [place] R High Viscosity - [id number] Implanted:Qty: 1 on 03/29/2024 by Lui Marques MD at [facility] Right: Hip [employer] 05/25/2028 [id number] / / [id number] Hip 28mm Haslett Biolox Delta Ceramic Tapered Plus 0 Offset - [id number] Implanted:Qty: 1 on 03/29/2024 by Lui Marques MD at [facility] Right: Hip [employer] 09/16/2027 [id number] / / [id number] Redart 60mm Od Implanted:Qty: 1 on 03/29/2024 by Lui Marques MD at [facility] Right: Hip 06/13/2031 [id number] / / [id number] Redapt Slice Augment [id number] Implanted:Qty: 1 on 03/29/2024 by Lui Marques MD at [facility] Right: Hip 07/12/2029 [id number] / / [id number] [employer] Pollar Cup Cemented Shell Size 47 Implanted:Qty: 1 on 03/29/2024 by Lui Marques MD at [facility] Right: Hip 06/04/2030 75 100 4 53 / / [id number] [employer] Polarcup Xlpe Insert Size 47/28 Implanted:Qty: 1 on 03/29/2024 by Lui Marques MD at [facility] Right: Hip 06/11/2030 11 000 6 01 / / [id number] Screw Bone 20x6.5mm Hip Cancellous Reflection Ss Spherical Head - [id number] Implanted:Qty: 1 on 03/29/2024 by Lui Marques MD at [facility] Right: Hip SHEIKH 09/27/2033 [id number] / / [id number] Screw Bone 6.5x35mm Hip Cancellous Spherical Head For Reflection System 16a Cs/1bx/1ea - [id number] Implanted:Qty: 1 on 03/29/2024 by Lui Marques MD at [facility] Right: Hip SHEIKH 09/02/2033 [id number] / / [id number] Hip 28mm 12 Lfit V40 Troutman Low Friction Ion Treatment Plus - [id number] Implanted:Qty: 1 on 04/15/2024 by Lui Marques MD at [facility] Right: Acetabulum [employer] 09/02/2027 [id number] / / [id number] Polarcup Xlpe Insert Size 47/28 Implanted:Qty: 1 on 04/15/2024 by Lui Marques MD at [facility] Right: Acetabulum 04/12/2030 [id number] / / [id number] Filler Stimulan Bone Lf Sterile Disposable Rapid Cure 5cc - [id number] Implanted:Qty: 1 on 04/15/2024 by Lui Marques MD at [facility] Right: Hip [employer] 12/23/2026 620-005 / / [id number] Description:1 gm vancomycin added Procedures Procedure Name Priority Date/Time Associated Diagnosis Comments COMPREHENSIVE METABOLIC PANEL Routine 07/28/2024 2:08 PM EST Infection of prosthetic joint, subsequent encounter from Last 3 Months or Most Recently Relevant to Health Maintenance Results * Comprehensive metabolic panel (07/28/2024 2:08 PM EST) Pathologist [facility] SODIUM 133 133 - 146 mmol/L [facility] POTASSIUM 4.5 3.3 - 5.1 mmol/L [facility] CHLORIDE 96 96 - 108 mmol/L [facility] CO2 22 21 - 35 mmol/L [facility] BUN 16 6 - 19 mg/dL [facility] CREATININE 0.80 0.5 - 1.5 mg/dL [facility] GLUCOSE 89 70 - 99 mg/dL [facility] ALBUMIN 4.2 3.9 - 4.8 g/dL [facility] TOTAL PROTEIN 7.7 6.5 - 8.0 g/dL [facility] CALCIUM 9.8 8.4 - 10.3 mg/dL [facility] ALKALINE PHOSPHATASE 93 39 - 117 U/L [facility] TOTAL BILIRUBIN <0.2 0.0 - 1.2 mg/dL [facility] AST 20 0 - 37 U/L [facility] ALT 21 0 - 40 U/L [facility] GLOBULIN 3.5 1 - 4.8 g/dL [facility] EGFR 99 >59 mL/min/1.7 3m2 [facility] Comment:Estimated glomerular filtration rate calculated using the CKD-EPI refit equation. ANION GAP 20 10 - 20 mmol/L [facility] Blood 07/28/2024 2:08 PM EST 07/28/2024 2:10 PM EST us Capo Ortega MD LAB BLOOD ORDERABLES Final Result Performing Organization Address City/State/[facility] Co de Phone Number [facility] [address] [place] [address] from Last 3 Months or Most Recently Relevant to Health Maintenance Insurance [facility] MEDICARE SUPPLEMENT MEDICARE PART A & B [facility] EXTENSION MEDICARE SUPPLEMENT MEDICARE PART A & [place] [address] [place] [address] MEDICARE SUPPLEMENT MEDICARE PART A & [place] [address] [place] [address] MEDICARE SUPPLEMENT MEDICARE PART A & B [facility] EXTENSION MEDICARE SUPPLEMENT MEDICARE PART A & B [place], [place] [facility] EXTENSION MEDICARE SUPPLEMENT MARY COOK [id number] MEDICARE PART A & B Advance Directives For more information, please contact: [phone] (9AM - 5PM [place], Friday-Friday) * Full [...] proxy form on fi le) Care Teams Welding Machine Operator Gas Metal Arc Relationship Specialty Start Date End Date Mary Anne Mcgraw MD [address] [place] [address] PCP - General Internal Medicine 04/01/23 Additional Source Comments The information contained in this document represents components of the legal health record. It is not the complete legal health record.[facility]
--- OUTSIDE RECORDS SUMMARY | 2025-02-09 16:23 | XMS_ITS | Encounter Summary ---
Author Organization [facility] Address [address] [place] [address] Phone Care Team Providers Care Foundation Assistant Name Role Phone Mary Anne Mcgraw MD Primary Care Provid er Encounter Details Date Type Department Care Team (Late st Contact Info) Description 03/24/2024 Procedure Pass [facility], Main [address], Floor 1 [place] [address] Social History Tobacco Use Types Packs/Day Years [...] 8:00 PM EDT JoeFifi Flores RN * [place] Suicide Severity Rating Scale (Screener/Recent Self-Report) Question [...] 04/19/2025 1:15 PM EST Office [place] [facility] [place] of Orthopaedic Surgery, Arthroplasty Service [address] [place] [address], 3rd Floor, [address] [place] [address] Lui Marques MD [address] [place] [address] [email or web address] documented as of this encounter Visit Diagnoses Not on filedocumented in this encounter Additional Health Concerns Infection Onset Date Last Indicated Resolved Time CDiff-Risk 04/25/2024 04/25/2024 04/25/2024 9:27 AM EST C. diff 04/25/2024 04/25/2024 05/25/2024 1:21 AM EST CoV-Presumed Comment:Added per Home Health documentation 05/26/2024 05/26/2024 06/15/2024 1:[address] documented as of this encounter Care Teams Foundation Assistant Relationship Specialty Start Date End Date Mary Anne Mcgraw MD [address] [place] [address] PCP - General Internal Medicine 04/01/23 documented as of this encounter Additional Source Comments The information contained in this document represents components of the legal health record. It is not the complete legal health record.[facility]
--- OUTSIDE RECORDS SUMMARY | 2025-02-09 16:23 | XMS_ITS | Encounter Summary ---
Author Organization [facility] Address [address] [place] [address] Phone Care Team Providers Care Motor Tester Name Role Phone Mary Anne Mcgraw MD Primary Care Provid er Encounter Details Date Type Department Care Team (Late st Contact Info) Description 04/15/2024 Procedure Pass [facility] [address] [place] [address] Social History Tobacco Use Types Packs/Day Years [...] Description 04/19/2025 1:15 PM EST Office [place] [facility] [place] of Orthopaedic Surgery, Arthroplasty Service 55 [facility], 3rd Floor, [address] [place] [address] Lui Marques MD [address] [place] [phone] [email or web address] documented as of this encounter Visit Diagnoses Not on filedocumented in this encounter Additional Health Concerns Infection Onset Date Last Indicated Resolved Time CDiff-Risk 04/25/2024 04/25/2024 04/25/2024 9:27 AM EST C. diff 04/25/2024 04/25/2024 05/25/2024 1:21 AM EST CoV-Presumed Comment:Added per Home Health documentation 05/26/2024 05/26/2024 06/15/2024 1:[address] documented as of this encounter Care Teams Motor Tester Relationship Specialty Start Date End Date Mary Anne Mcgraw MD [address] [place] [address] PCP - General Internal Medicine 04/01/23 documented as of this encounter Additional Source Comments The information contained in this document represents components of the legal health record. It is not the complete legal health record.[facility]
--- OUTSIDE RECORDS SUMMARY | 2025-02-09 16:23 | XMS_ITS | Encounter Summary ---
Author Organization [facility] Address [address] [place] [address] Phone Care Team Providers Care General Dentist/Owner Name Role Phone Mary Anne Mcgraw MD Primary Care Provid er Encounter Details Date Type Department Care Team (Late Contact Info) Description 03/25/2024 Procedure Pass [facility] Fluor[facility], [place] 2 [address] [facility], 2nd [place] [address] Social History Tobacco Use Types Packs/Day Years [...] Description 04/19/2025 1:15 PM EST Office Visit [facility] [place] Department of Orthopaedic Surgery, Arthroplasty Service 55 [facility], 3rd Floor, [address] [place] [address] Lui Marques MD 55 [facility] [address] [place] [address] [email or web address] documented as of this encounter Visit Diagnoses Not on filedocumented in this encounter Additional Health Concerns Infection Onset Date Last Indicated Resolved Time CDiff-Risk 04/25/2024 04/25/2024 04/25/2024 9:27 AM EST C. diff 04/25/2024 04/25/2024 05/25/2024 1:21 AM EST CoV-Presumed Comment:Added per Home Health documentation 05/26/2024 05/26/2024 06/15/2024 1:[address] documented as of this encounter Care Teams General Dentist/Owner Relationship Specialty Start Date End Date Mary Anne Mcgraw MD [address] [place] [address] PCP - General Internal Medicine 04/01/23 documented as of this encounter Additional Source Comments The information contained in this document represents components of the legal health record. It is not the complete legal health record.[facility]
--- OUTSIDE RECORDS SUMMARY | 2025-02-09 16:23 | XMS_ITS | Encounter Summary ---
Author Organization [facility] Address [address] [place] [address] Phone Care Team Providers Care Wafer Fabrication Technician Name Role Phone Mary Anne Mcgraw MD Primary Care Provid er Encounter Details Date Type Department Care Team (Late st Contact Info) Description 04/13/2024 Procedure Pass [facility] [place], Jeff [address] [facility], 2nd Floor, [address] [place] [address] Social History Tobacco Use Types Packs/Day Years [...] 04/13/2024 4:42 AM Neris Hackett RN * [place] Suicide Severity Rating Scale (Screener/Recent Self-Report) Question [...] 04/19/2025 1:15 PM EST Office Visit [facility] [place] Department of Orthopaedic Surgery, Arthroplasty Service 55 [facility], 3rd Floor, [address] [place] [address] Lui Marques MD [address] [address] [email or web address] documented as of this encounter Visit Diagnoses Not on filedocumented in this encounter Additional Health Concerns Infection Onset Date Last Indicated Resolved Time CDiff-Risk 04/25/2024 04/25/2024 04/25/2024 9:27 AM EST C. diff 04/25/2024 04/25/2024 05/25/2024 1:21 AM EST CoV-Presumed Comment:Added per Home Health documentation 05/26/2024 05/26/2024 06/15/2024 1:[address] documented as of this encounter Care Teams Wafer Fabrication Technician Relationship Specialty Start Date End Date Mary Anne Mcgraw MD [address] [place] [address] PCP - General Internal Medicine 04/01/23 documented as of this encounter Additional Source Comments The information contained in this document represents components of the legal health record. It is not the complete legal health record.[facility]
--- OUTSIDE RECORDS SUMMARY | 2025-02-09 16:24 | XMS_ITS | Patient Health Record ---
Author Organization [facility] neelam [place] Address [address] [place] [address] Care Team Providers Care Whanau Support Worker Name Role Phone Deborah RODRIGUEZ, Mary Anne Primary Care Provider Unavail able Heydi Garcia Unavailable [phone] Allergies No Known Allergies Reason For Referral [...] W/U Status Risk Notes Problem Gait abnormality (20996390) Gait abnormality (R26.9) Active confirmed Problem Equinus contracture of left ankle (M24.572) Active confirmed Problem Plantarflexion deformity of right foot (finding) ([id number]) Equinus contracture of right ankle (M24.571) Active confirmed Encounters Encounter Location Date Provider Diagnosis [facility] [address] [place] [address] 02/04/2025 Heydi Jose Plan Of Treatment Next Appt Details Provider Name:Heydi Tigre potter, 02/16/2025 01:00:00 PM, [address] [place] [address], [phone], Insurance Providers Payer Name Payer Address Payer Phone Subscriber Number Group Number Insured Name Patient Relationship to Insured Coverage Start Date Coverage End Date [place] ([facility]) [address] [place] [address] [id number], [place] Spouse - patient is the spouse of the insured Medical (General) History Medical History History ICD Code Arthritis Back,Hip,and Knee pain CAD (Cholesterol) High blood pressure Sciatica Chicken pox bulging discs Surgical History Surgery Date(Month/Year)
--- OUTSIDE RECORDS SUMMARY | 2025-02-09 16:24 | XMS_ITS | Patient Health Record ---
Author Organization [facility] Address [address] [place] [address] Care Team Providers Care Electric Furnace Operator Name Role Phone Marcela(inactive) Josh RODRIGUEZ [...] Problem Status W/U Status Risk Notes Problem [id number] Colon cancer screening (Z12.11) Active confirmed Plan Of Treatment Future Test Test Name Order Date COLONOSCOPY 08/07/2016 Insurance Providers Payer Name Payer Address Payer Phone Subscriber Number Group Number Insured Name Patient Relationship to Insured Coverage Start Date Coverage End Date [facility] [address] [place] [phone] [id number] MIRIAM PANTOJA Self - patient is the insured Medical (General) History Medical History History ICD Code hypertension Denies IN,DM,CVA,Lung disease,renal dise ase Surgical History Surgery Date(Month/Year) arm surgery
--- OUTSIDE RECORDS SUMMARY | 2025-02-09 16:24 | XMS_ITS | Encounter Summary ---
Author Organization [facility] Address [address] [place] [address] Phone Care Team Providers Care Product Promoter Retail Pet Name Role Phone Mary Anne Mcgraw MD Primary Care Provid er Encounter Details Date Type Department Care Team (Late st Contact Info) Description 03/29/2024 Procedure Pass [facility] PERIOPERATIVE DEPT [address] [place] [address] Social History Tobacco Use Types Packs/Day Years [...] of Orthopaedic Surgery, Arthroplasty Service 55 [facility], 3rd Floor, [address] [place] [address] Lui Marques MD [address] [address] [email or web address] documented as of this encounter Visit Diagnoses Not on filedocumented in this encounter Additional Health Concerns Infection Onset Date Last Indicated Resolved Time CDiff-Risk 04/25/2024 04/25/2024 04/25/2024 9:27 AM EST C. diff 04/25/2024 04/25/2024 05/25/2024 1:21 AM EST CoV-Presumed Comment:Added per Home Health documentation 05/26/2024 05/26/2024 06/15/2024 1:[address] documented as of this encounter Care Teams Product Promoter Retail Pet Relationship Specialty Start Date End Date Mary Anne Mcgraw MD [address] [place] [address] PCP - General Internal Medicine 04/01/23 documented as of this encounter Additional Source Comments The information contained in this document represents components of the legal health record. It is not the complete legal health record.[facility]
== END 2025-02-09 14:16 | disposition home or self-care (01) ==
LOC: HO.HOS 12:56
PROVIDERS: PCP Internal Medicine
DX: M72.0 Palmar fascial fibromatosis [Dupuytren] (principal)
CPT/HCPCS: 99024

== ENCOUNTER → 2025-02-09 12:56 | Outpatient (BNVA) | payer MEDICARE, OTHER, SELFPAY | PROVIDERS: PCP Internal Medicine | DX: Z47.89 Encounter for other orthopedic aftercare (principal); M72.0 Palmar fascial fibromatosis [Dupuytren] | CPT/HCPCS: 99212 ==

== ENCOUNTER 2025-02-14 09:03 | Outpatient (RCR) | payer MEDICARE, OTHER, SELFPAY ==
--- NOTE | 2025-02-15 09:36 | MHC.OT.OEV ---
[facility] Office [address] [facility] [address] [facility] [phone] F: [phone] F: [phone] Occupational Therapy Evaluation Patient Name: Renny Montes Diagnosis: (L)Dupuytren's Fasciectomy Date of Onset: Date of Surgery: 01/27/25 Attending Provider: Isaias Bills Prescribed Treatment: MD Follow Up Appointment: History of Current Condition: Patient is a 64 y/o (R)handed male who is 2.4 weeks s/p Dupuytren's Fasciectomy. He reported a Dupuytren's Fasciectomy prior, to his (R)hand and is aware of wound care/hygiene of incisions. 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 He report no pain and denies numbness/ tingling. He enjoys to exercising at the [facility]. Significant Medical History: Back pain JORDI (acute kidney injury) Hip dislocation, right H/O myocardial perfusion scan Chronic, continuous use of opioids Former smoker Arthritis of right hip Hx of fracture of tibia Substance use disorder Dupuytren's contracture of right hand High cholesterol Hypertension Status post Dupuytren's fasciectomy (~01/27/25) S/P insertion of spinal cord stimulator History of total right hip arthroplasty (05/13/23) History of back surgery (02/2023) Hx of colonoscopy History of hand surgery History of shoulder surgery Precautions/Contraindications: HTN lumbar fusion L4-L5-S1 R KADIE Patient Goals: Hand Dominance: Right Observations: QuickDASH Score: Prior Level of Function and Occupation Self Care, Employment, Leisure: Retired (I)ADLs/IADLs Enjoys exercising at the [facility] Living Situation, Family and/or Social Support: Lives with has 3 adult children Current Level of Function and Occupation Self Care, Employment, Leisure: Min (A)ADLs/IADLs Continues to exercises at [facility] Sleep: Sleeping through the night Driving: Vision: Balance: Pain Assessment Pain Score: Pain Scale Used: Pain Location and Description: reports no pain Aggravating Factors: Alleviating Factors: Skin and Soft Tissue Assessment Skin and Soft Tissue: Comments: Incisions on the volar hand- no s/s of skin break down/ infection Nerve assessment Ulnar Nerve: Median Nerve: Radial Nerve: Comments: Sensory Assessment Temperature: Light Touch: Proprioception: Vibration: Comments: Edema Assessment Upper Extremity: Lower Extremity: Comments: Dexterity Assessment Dexterity: Comments: Special Tests Comments: AROM(PROM) Strength Cervical Cervical Flexion: Cervical Extension: Cervical Lateral Flexion: Cervical Rotation: Comments: Shoulder Flexion: Extension: Abduction: Internal Rotation: External Rotation: Comments: Flexion: Extension: Abduction: Internal Rotation: External Rotation: Comments: Elbow Flexion: Extension: Pronation: Supination: Comments: Flexion: Extension: Pronation: Supination: Comments: Wrist Flexion: 73 Extension: 55 Ulnar Deviation: Radial Deviation: Comments: Flexion: Extension: Ulnar Deviation: Radial Deviation: Comments: Thumb Thumb CMC Flexion: Thumb MCP Flexion: Thumb IP Flexion: Radial Abduction: Palmar Abduction: [place] (Kapandji 0-10): Comments: Digits Index MCP: WFL PIP: WFL DIP: WFL Long MCP: 50/0 PIP: WFL DIP: WFL Ring MCP: 72/0 PIP: WFL DIP: WFL Small MCP: 64/0 PIP: WFL DIP: WFL Comments: Gross Grasp: Lateral Pinch: Two-Point Pinch: Three-Jaw Chris: Comments: Patient Education Primary Language: Chief Operator Lock Tender Required: No Current Knowledge: Understands information with skills for self-management Teaching Method: Verbal Education Needs Identified on Evaluation: ADL's Equipment Use Exercise Pain Safety How did patient/family demonstrate learning? Patient demonstrates Patient verbalizes Barriers to Learning: None Readiness for Learning: Accepting Who was educated? Patient Comments: Plan of Care Assessment: Patients is s/p 2.4 weeks (L) Dupuytren's fasciectomy presenting with sutures, impaired ROM and impaired strength and impaired performance during self care tasks. Due to the documented impairments it is recommended that patient receive skilled OT intervention in order to maintain skin integrity, joint integrity and for patient to achieve his PLOF of (I). Thank you for your referral. STG Duration: 2 weeks Short Term Goals: Patient will be (I) with wear schedule of hand orthosis Patient will be (I) with HEP Patient will be (I) with hygiene/wound care routine to maintain skin integrity LTG Duration: Rivet Driver Goals: Frequency and Duration: The patient will be seen 2x a week for 2 weeks Treatment Plan: Therapeutic Exercise Therapeutic Activity Home Exercise Program Splinting Neuro Re-ed Patient Education Desensitization/Sensory Re-ed Edema Control ADL Training Ultrasound NMES Iontophoresis Paraffin Fluidotherapy MHP Cold Packs Joint Mobilization Soft Tissue Mobilization Kinesiotaping Other (see comments) Skilled OT eval and treat Electronically Signed By: Eva Dunbar OTR/L, CLT Reviewed/agree with student documentation: Therapist: Please sign and return to therapist, Thank you for your referral.
== END 2025-04-12 08:31 | disposition home or self-care (01) ==
LOC: HO.OT 09:03
PROVIDERS: PCP Internal Medicine
DX: M72.0 Palmar fascial fibromatosis [Dupuytren] (principal)
CPT/HCPCS: 29130; 97165; 97760

== ENCOUNTER 2025-02-15 11:18 | Outpatient (AMB) | payer MEDICARE, OTHER, SELFPAY ==
--- OUTSIDE RECORDS SUMMARY | 2025-02-11 08:45 | XMS_ITS ---
Author Organization [facility] Address [address] [place] [address] Care Team Providers Care Medical Housekeeper Name Role Phone Deborah RODRIGUEZ, Mary Anne Primary Care Provider Unavail Heydi Dean Unavailable [phone] Medications Medication SIG (Take, Route, Frequency, Duration) [...] Active Encounters Encounter Location Date Provider Diagnosis [address] [address] 02/11/2025 Heydi Garcia Plan Of Treatment Next Appt Details Provider Name:Heydi potter, 02/16/2025 01:00:00 PM, [address] [place] [address], [phone], Progress Notes * INDUSE Renny LDOB:[birth year] (64 yo M)Acc No.[id number]:02/11/2025 Progress Note Patient: Renny PINK Provider: Roger Garcia DPM :1960 A ge:64 Y S ex:Male Date:02/11/2025 Address:[address] [place] [address] johnathonbabak [id number] Pcp:Mary Anne Cabrera MD Subjective: * Chief [...] Pending * Provider: Roger Garcia DPM Date: 02/11/2025 Generated for Carlos faustin/Kennedy/Jordan on: 02/15/2025 02:09 PM EDT
[2025-02-15 11:21] VITALS: BMI 33.2
--- NOTE | 2025-02-15 11:21 | A.OFFVIS_ITS ---
Vital Signs 02/15/25 11:21 Height 5 ft 7 in Weight 212 lb BMI 33.2 Intake Visit Reasons: PO LT SM/RF/MF dupuytrens 01/27/25 AR Intake Note: Renny is a 64 year old right hand dominant male who presents today post- operatively for suture removal status post Left Small, Middle, & Ring Finger Partial Dupuytren's Fasciectomy, DOS: 01/27/[address] Stovall. He was seen on 02/09/25 where part of his sutures were removed. He was instructed to maintain a 2 lb weight limit. Patient reports he has been evaluated by Occupational Therapy and given a molded splint. He continues having pain and stiffness. Reminder sutures removed. Allergies No Known Allergies (No Known Allergies*) Allergy (Verified 02/15/25 11:35) HPI HPI PO LT SM/RF/MF dupuytrens 01/27/25 AR: Details: Renny is a 64 year old right hand dominant male who presents today post-operat ively for suture removal status post Left Small, Middle, & Ring Finger Partial Dupuytren's Fasciectomy, DOS: 01/27/[address] Stovall. He was seen on 02/09/25 where part of his sutures were removed. He was instructed to maintain a 2 lb weight limit. Patient reports he has been evaluated by Occupational Therapy and given a molded splint. He continues having pain and stiffness. Remaining sutures removed. Overall, patient does report he has improved significantly from previous evaluation, and has full range of motion. [facility] Medical History Back pain JORDI (acute kidney injury) Hip dislocation, right H/O myocardial perfusion scan Chronic, continuous use of opioids Former smoker Arthritis of right hip Hx of fracture of tibia Substance use disorder Dupuytren's contracture of right hand High cholesterol Hypertension Surgical History (Updated 02/09/25 @ 13:13 by MY Mckeon) Status post Dupuytren's fasciectomy (~01/27/25) S/P insertion of spinal cord stimulator History of total right hip arthroplasty (05/13/23) History of back surgery (02/2023) Hx of colonoscopy History of hand surgery History of shoulder surgery Family History Mother Cancer Father No problems noted. Sister Breast cancer Social History Household Members: Spouse Housing: House Are you a primary urgent care physician to a significant other at home: No Do you presently have visiting nurse or other home services: No 75 years or older and lives alone: No Alcohol intake: former Comment: COUNTS CORRECT Patient Tobacco Use Status: Former Tobacco user Tobacco use type: Cigarette Years Smoked: 10 e-Cigarette/Vaping Use: Never Used Second Hand Smoke Exposure: Yes Substance Use Type: Marijuana service: No Current occupational status: retired Current occupation: right hand dominant Cognitive needs: Yes Hearing needs: No Vision needs: No Physical Exam Vital Signs: BMI result Body Mass Index 33.2 Extrem Other: Patient is alert, oriented, and in no acute distress. Neuro: Normal sensation of the tips of all digits of the left hand at this time Vascular: Cap refill brisk Pain: No tenderness to palpation about the incision sites over volar aspects of left middle, ring, small fingers Some discomfort with range of motion of the digits ROM: Patient is able to make a closed fist and extend all digits of the left hand fully Skin: Well approximated and well healing incision sites noted on volar aspects of left middle, ring, small fingers No lacerations or abrasions. General: No ecchymosis, erythema, or evidence of infection. Psych: Appears grossly normal Affect normal Attitude cooperative Assessment & Plan Assessment & Plan (1) Dupuytren's contracture of left hand: Code(s): M72.0 - Palmar fascial fibromatosis [Dupuytren] Category: Medical Plan 1. Status post Dupuytren's partial fasciectomy of left hand DOS 01/27/2025 Patient appears to be recovering well postoperatively Patient is educated about the typical recovery course Remaining sutures removed without issue Patient should place a dressing over the incision sites for approximately the next week Patient is educated that while he can work on range of motion of the left hand, I do not want him putting significant force through the left hand, such as pushing off of a table to stand up from a seated position Continue OT and night splint until follow-up Patient understands this and is amenable to this plan Follow-up in 3 week,sooner with any acute concerns Coding Level of Care Code Global (59485) Diagnoses Dupuytren's contracture of left hand M72.0
--- OUTSIDE RECORDS SUMMARY | 2025-02-15 14:09 | XMS_ITS | Encounter Summary ---
Author Organization [facility] Address [address] [place] [address] Phone Care Team Providers Care Dredge Pump Operator Name Role Phone Mary Anne Mcgraw MD Primary Care Provid er Encounter Details Date Type Department Care Team (Late st Contact Info) Description 04/12/2024 Procedure Pass [facility], Ct Scan - [address] [address] Social History Tobacco Use Types Packs/Day Years [...] 04/13/2024 4:42 AM Neris Hackett RN * [place] Suicide Severity Rating Scale (Screener/Recent Self-Report) Question [...] PM EST Office [place] [facility] [place] of [place]opaedic Surgery, Arthroplasty Service [address] [facility], 3rd Floor, [address] [place] [address] Lui Marques MD [address] [address] [email or web address] documented as of this encounter Visit Diagnoses Not on filedocumented in this encounter Additional Health Concerns Infection Onset Date Last Indicated Resolved Time CDiff-Risk 04/25/2024 04/25/2024 04/25/2024 9:27 AM EST C. diff 04/25/2024 04/25/2024 05/25/2024 1:21 AM EST CoV-Presumed Comment:Added per Home Health documentation 05/26/2024 05/26/2024 06/15/2024 1:[address] documented as of this encounter Care Teams Dredge Pump Operator Relationship Specialty Start Date End Date Mary Anne Mcgraw MD [address] [place] [address] PCP - General Internal Medicine 04/01/23 documented as of this encounter Additional Source Comments The information contained in this document represents components of the legal health record. It is not the complete legal health record.[facility]
--- OUTSIDE RECORDS SUMMARY | 2025-02-15 14:10 | XMS_ITS | Encounter Summary ---
Author Organization [facility] Address [address] [place] [address] Phone Care Team Providers Care Uniforms Sales Representative Name Role Phone Mary Anne Mcgraw MD Primary Care Provid er Encounter Details Date Type Department Care Team (Late st Contact Info) Description 04/15/2024 Procedure Pass [facility] PERIOPERATIVE DEPT [address] [place] [address] Social History Tobacco Use Types Packs/Day Years [...] Description 04/19/2025 1:15 PM EST Office Visit [facility] Department of Orthopaedic Surgery, Arthroplasty Service [address] [facility], 3rd Floor, [address] [place] [address] Lui Marques MD [address] [place] [phone] [email or web address] documented as of this encounter Visit Diagnoses Not on filedocumented in this encounter Additional Health Concerns Infection Onset Date Last Indicated Resolved Time CDiff-Risk 04/25/2024 04/25/2024 04/25/2024 9:27 AM EST C. diff 04/25/2024 04/25/2024 05/25/2024 1:21 AM EST CoV-Presumed Comment:Added per Home Health documentation 05/26/2024 05/26/2024 06/15/2024 1:[address] documented as of this encounter Care Teams Uniforms Sales Representative Relationship Specialty Start Date End Date Mary Anne Mcgraw MD [address] [place] [address] PCP - General Internal Medicine 04/01/23 documented as of this encounter Additional Source Comments The information contained in this document represents components of the legal health record. It is not the complete legal health record.[facility]
--- OUTSIDE RECORDS SUMMARY | 2025-02-15 14:10 | XMS_ITS | Encounter Summary ---
Author Organization [facility] Address [address] [place] [address] Phone Care Team Providers Care Ear Nose Throat Physician Name Role Phone Mary Anne Mcgraw MD Primary Care Provid er Encounter Details Date Type Department Care Team (Late st Contact Info) Description 03/30/[address], Jeff [address] [facility], 2nd Floor, [address] [place] [address] Social History Tobacco Use Types Packs/Day Years [...] Description 04/19/2025 1:15 PM EST Office Visit [facility] Department of Orthopaedic Surgery, Arthroplasty Service 55 [facility], 3rd Floor, [address] [place] [address] Lui Marques MD 55 [facility] [address] [place] [address] [email or web address] documented as of this encounter Visit Diagnoses Not on filedocumented in this encounter Additional Health Concerns Infection Onset Date Last Indicated Resolved Time CDiff-Risk 04/25/2024 04/25/2024 04/25/2024 9:27 AM EST C. diff 04/25/2024 04/25/2024 05/25/2024 1:21 AM EST CoV-Presumed Comment:Added per Home Health documentation 05/26/2024 05/26/2024 06/15/2024 1:[address] documented as of this encounter Care Teams Ear Nose Throat Physician Relationship Specialty Start Date End Date Mary Anne Mcgraw MD [address] [place] [address] PCP - General Internal Medicine 04/01/23 documented as of this encounter Additional Source Comments The information contained in this document represents components of the legal health record. It is not the complete legal health record.[facility]
--- OUTSIDE RECORDS SUMMARY | 2025-02-15 14:10 | XMS_ITS | Encounter Summary ---
Author Organization [facility] Address [address] [place] [address] Phone Care Team Providers Care Mother Superior Name Role Phone Mary Anne Mcgraw MD Primary Care Provid er Encounter Details Date Type Department Care Team (Late st Contact Info) Description 03/24/2024 Procedure Pass [facility], Main [address], Floor 1 [place] [address] Social History Tobacco Use Types Packs/Day Years [...] 8:00 PM EDT JoeFifi Flores RN * [place] Suicide Severity Rating Scale (Screener/Recent Self-Report) Question [...] [place] Department of Orthopaedic Surgery, Arthroplasty Service [address] [place] [address], 3rd Floor, [address] [place] [address] Lui Marques MD [address] [place] [address] [email or web address] documented as of this encounter Visit Diagnoses Not on filedocumented in this encounter Additional Health Concerns Infection Onset Date Last Indicated Resolved Time CDiff-Risk 04/25/2024 04/25/2024 04/25/2024 9:27 AM EST C. diff 04/25/2024 04/25/2024 05/25/2024 1:21 AM EST CoV-Presumed Comment:Added per Home Health documentation 05/26/2024 05/26/2024 06/15/2024 1:[address] documented as of this encounter Care Teams Mother Superior Relationship Specialty Start Date End Date Mary Anne Mcgraw MD [address] [place] [address] PCP - General Internal Medicine 04/01/23 documented as of this encounter Additional Source Comments The information contained in this document represents components of the legal health record. It is not the complete legal health record.[facility]
--- OUTSIDE RECORDS SUMMARY | 2025-02-15 14:10 | XMS_ITS | Clinical Summary ---
Author Organization [facility] Address [address] [place] [address] Phone Care Team Providers Care Captain Waiter Name Role Phone Mary Anne Mcgraw MD [...] high school, GED, job training, learning the Vincentian language, technical skills, or developing parenting skills)? [...] Description 04/19/2025 1:15 PM EST Office Visit [facility] Department of Orthopaedic Surgery, Arthroplasty Service 55 [facility], 3rd Floor, [address] [place] [address] Lui Marques MD [address] [address] [email or web address] Health Maintenance Due Date Last Done Comments [...] this topic Medical Devices Implanted Type Area Director Diabetes Device Identifier Shelf Expiration Date Model / Serial / Lot Right Hip Screw Bone 20x6.5mm Hip Cancellous Reflection Ss Spherical Head - [id number] Implanted:Qty: 1 on 03/29/2024 by Lui Marques MD at [facility] Right: Hip SHEIKH 09/16/2033 [id number] / / [id number] Screw Bone 6.5x25mm Hip Cancellous Spherical Hd For Reflection System 16a - [id number] Implanted:Qty: 1 on 03/29/2024 by Lui Marques MD at [facility] Right: Hip SHEIKH 06/24/2033 [id number] / / [id number] Screw Bone 30x6.5mm Hip Cancellous Spherical Head For Reflection System 16a Cs/1bx/1ea - [id number] Implanted:Qty: 1 on 03/29/2024 by Lui Marques MD at [facility] Right: Hip SHEIKH 08/09/2033 [id number] / / [id number] Screw Bone 20x6.5mm Hip Cancellous Reflection Ss Spherical Head - [id number] Implanted:Qty: 1 on 03/29/2024 by Lui Marques MD at [facility] Right: Hip SHEIKH 09/27/2033 [id number] / / [id number] Screw Bone 30x6.5mm Hip Cancellous Spherical Head For Reflection System 16a Cs/1bx/1ea - [id number] Implanted:Qty: 1 on 03/29/2024 by Lui Marques MD at [facility] Right: Hip SHEIKH 03/17/2033 [id number] / / [id number] Adapter Sleeve 4.0mm [place] Femoral Hip Titanium V40 Plus - [id number] Implanted:Qty: 1 on 03/29/2024 by Lui Marques MD at [facility] Right: Hip [employer] 10/15/2028 6519-T-204 / / [id number] Cement Bone 1x40gm [place] R High Viscosity - [id number] Implanted:Qty: 1 on 03/29/2024 by Lui Marques MD at [facility] Right: Hip Smartio 05/25/2028 [id number] / / [id number] Hip 28mm [place] Biolox Delta Ceramic Tapered Plus 0 Offset - [id number] Implanted:Qty: 1 on 03/29/2024 by Lui Marques MD at [facility] Right: Hip [employer] 09/16/2027 6519-1-028 / / [id number] Redart 60mm Od Implanted:Qty: 1 on 03/29/2024 by Lui Marques MD at [facility] Right: Hip 06/13/2031 [id number] / / [id number] Redapt Slice Augment [id number] Implanted:Qty: 1 on 03/29/2024 by Lui Marques MD at [facility] Right: Hip 07/12/2029 [id number] / / [id number] [employer] Pollar Cup Cemented Shell Size 47 Implanted:Qty: 1 on 03/29/2024 by Lui Marques MD at [facility] Right: Hip 06/04/2030 75 100 4 53 / / [id number] [employer] Polarcup Xlpe Insert Size 47/28 Implanted:Qty: 1 on 03/29/2024 by Lui Marques MD at [facility] Right: Hip 06/11/2030 11 000 6 01 / / [id number] Screw Bone 20x6.5mm Hip Cancellous Reflection Ss Spherical Head - [id number] Implanted:Qty: 1 on 03/29/2024 by Lui Marques MD at [facility] Right: Hip SHEIKH 09/27/2033 [id number] / / [id number] Screw Bone 6.5x35mm Hip Cancellous Spherical Head For Reflection System 16a Cs/1bx/1ea - [id number] Implanted:Qty: 1 on 03/29/2024 by Lui Marques MD at [facility] Right: Hip SHEIKH 09/02/2033 [id number] / / [id number] Hip 28mm 12 Lfit V40 [place] Low Friction Ion Treatment Plus - [id number] Implanted:Qty: 1 on 04/15/2024 by Lui Marques MD at [facility] Right: Acetabulum [employer] 09/02/2027 6260-9-428 / / [id number] Polarcup Xlpe Insert Size 47/28 Implanted:Qty: 1 on 04/15/2024 by Lui Marques MD at [facility] Right: Acetabulum 04/12/2030 [id number] / / [id number] Filler Stimulan Bone Lf Sterile Disposable Rapid Cure 5cc - [id number] Implanted:Qty: 1 on 04/15/2024 by Lui Marques MD at [facility] Right: Hip [employer] 12/23/2026 620-005 / / [id number] Description:1 gm vancomycin added Procedures Procedure Name Priority Date/Time Associated Diagnosis Comments COMPREHENSIVE METABOLIC PANEL Routine 07/28/2024 2:08 PM EST Infection of prosthetic joint, subsequent encounter from Last 3 Months or Most Recently Relevant to Health Maintenance Results * Comprehensive metabolic panel (07/28/2024 2:08 PM EST) Pathologist [facility] SODIUM 133 133 - 146 mmol/L [facility] POTASSIUM 4.5 3.3 - 5.1 mmol/L [facility] CHLORIDE 96 96 - 108 mmol/L [facility] CO2 22 21 - 35 mmol/L [facility] BUN 16 6 - 19 mg/dL [facility] CREATININE 0.80 0.5 - 1.5 mg/dL [facility] GLUCOSE 89 70 - 99 mg/dL [facility] ALBUMIN 4.2 3.9 - 4.8 g/dL [facility] TOTAL PROTEIN 7.7 6.5 - 8.0 g/dL [facility] CALCIUM 9.8 8.4 - 10.3 mg/dL [facility] ALKALINE PHOSPHATASE 93 39 - 117 U/L [facility] TOTAL BILIRUBIN <0.2 0.0 - 1.2 mg/dL [facility] AST 20 0 - 37 U/L [facility] ALT 21 0 - 40 U/L [facility] GLOBULIN 3.5 1 - 4.8 g/dL [facility] EGFR 99 >59 mL/min/1.7 3m2 [facility] Comment:Estimated glomerular filtration rate calculated using the CKD-EPI refit equation. ANION GAP 20 10 - 20 mmol/L [facility] Blood 07/28/2024 2:08 PM EST 07/28/2024 2:10 PM EST us Capo Ortega MD LAB BLOOD ORDERABLES Final Result Performing Organization Address City/State/[facility] Co de Phone Number [facility] [address] [place] [address] from Last 3 Months or Most Recently Relevant to Health Maintenance [facility] SUPPLEMENT MEDICARE PART A & B [facility] MEDICARE SUPPLEMENT MEDICARE PART A & [place] [address] [place] [address] MEDICARE SUPPLEMENT MEDICARE PART A & [place] [place] [address] MEDICARE SUPPLEMENT MEDICARE PART A & B [facility] MEDICARE SUPPLEMENT MEDICARE PART A & B [place] [place] [facility] MEDICARE SUPPLEMENT [place] [id number] MEDICARE PART A & B Advance Directives For more information, please contact: [phone] (9AM - 5PM [place], Friday-Friday) * Full [...] proxy form on fi le) Care Teams Captain Waiter Relationship Specialty Start Date End Date Mary Anne Mcgraw MD [address] [place] [address] PCP - General Internal Medicine 04/01/23 Additional Source Comments The information contained in this document represents components of the legal health record. It is not the complete legal health record.[facility]
--- OUTSIDE RECORDS SUMMARY | 2025-02-15 14:10 | XMS_ITS | Encounter Summary ---
Author Organization [facility] Address [address] [place] [address] Phone Care Team Providers Care Heat Treater Head Name Role Phone Mary Anne Mcgraw MD Primary Care Provid er Encounter Details Date Type Department Care Team (Late st Contact Info) Description 04/13/2024 Procedure Pass [facility] [place], [place] [address] [facility], 2nd Floor, [address] [place] [address] Social History Tobacco Use Types Packs/Day Years [...] 04/13/2024 4:42 AM Neris Hackett RN * [place] Suicide Severity Rating Scale (Screener/Recent Self-Report) Question [...] 04/19/2025 1:15 PM EST Office Visit [facility] Department of Orthopaedic Surgery, Arthroplasty Service 55 [facility], 3rd Floor, [address] [place] [address] Lui Marques MD [address] [address] [email or web address] documented as of this encounter Visit Diagnoses Not on filedocumented in this encounter Additional Health Concerns Infection Onset Date Last Indicated Resolved Time CDiff-Risk 04/25/2024 04/25/2024 04/25/2024 9:27 AM EST C. diff 04/25/2024 04/25/2024 05/25/2024 1:21 AM EST CoV-Presumed Comment:Added per Home Health documentation 05/26/2024 05/26/2024 06/15/2024 1:[address] documented as of this encounter Care Teams Heat Treater Head Relationship Specialty Start Date End Date Mary Anne Mcgraw MD [address] [place] [address] PCP - General Internal Medicine 04/01/23 documented as of this encounter Additional Source Comments The information contained in this document represents components of the legal health record. It is not the complete legal health record.[facility]
--- OUTSIDE RECORDS SUMMARY | 2025-02-15 14:10 | XMS_ITS | Patient Health Record ---
Author Organization [facility] Address [address] [place] [address] Care Team Providers Care Lace Finisher Name Role Phone Marcela(inactive) Josh RODRIGUEZ Primary [...] Problem Status W/U Status Risk Notes Problem [id number] Colon cancer screening (Z12.11) Active confirmed Plan Of Treatment Future Test Test Name Order Date COLONOSCOPY 08/07/2016 Insurance Providers Payer Name Payer Address Payer Phone Subscriber Number Group Number Insured Name Patient Relationship to Insured Coverage Start Date Coverage End Date [facility] [address] [place] [place] [phone] [id number] MIRIAM PANTOJA Self - patient is the insured Medical (General) History Medical History History ICD Code hypertension Denies UT,DM,CVA,Lung disease,renal dise ase Surgical History Surgery Date(Month/Year) arm surgery
--- OUTSIDE RECORDS SUMMARY | 2025-02-15 14:10 | XMS_ITS | Patient Health Record ---
Author Organization [facility] Address [address] [place] [address] Care Team Providers Care Machine I Cutter Name Role Phone Deborah RODRIGUEZ, Mary Anne Primary Care Provider Unavail able Heydi Garcia Unavailable [phone] Allergies No Known Allergies Reason For Referral No Information Medications Medication SIG (Take, Route, Frequency, Duration) Notes Start Date End Date Status Vitamin D3 25 MCG (1000 UT) 1 capsule Or ally Once a day Active Gabapentin 300mg three times a day or ally daily Active Simvastatin 20 MG 1 tablet in [...] W/U Status Risk Notes Problem Gait abnormality (07264369) Gait abnormality (R26.9) Active confirmed Problem Equinus contracture of left ankle (M24.572) Active confirmed Problem Plantarflexion deformity of right foot (finding) (2051834291919060) Equinus contracture of right ankle (M24.571) Active confirmed Encounters Encounter Location Date Provider Diagnosis [facility] [address] [address] 02/04/2025 Heydi Jose Plan Of Treatment Next Appt Details Provider Name:Heydi potter, 02/16/2025 01:00:00 PM, [address] [place] [address], [id number], Insurance Providers Payer Name Payer Address Payer Phone Subscriber Number Group Number Insured Name Patient Relationship to Insured Coverage Start Date Coverage End Date [facility] [address] [place] [id number], [place] Spouse - patient is the spouse of the insured Medical (General) History Medical History History ICD Code Arthritis Back,Hip,and Knee pain CAD (Cholesterol) High blood pressure Sciatica Chicken pox bulging discs Surgical History Surgery Date(Month/Year)
--- OUTSIDE RECORDS SUMMARY | 2025-02-15 14:10 | XMS_ITS | Encounter Summary ---
Author Organization [facility] Address [address] [place] [address] Phone Care Team Providers Care Tow Motor Operator Name Role Phone Mary Anne Mcgraw MD Primary Care Provid er Encounter Details Date Type Department Care Team (Late Contact Info) Description 03/25/2024 Procedure Pass [facility] Radio Fluoroscopy, [place] 2 55 [facility], 2nd [place] [address] Social History Tobacco Use Types Packs/Day Years [...] Description 04/19/2025 1:15 PM EST Office Visit [facility] Department of Orthopaedic Surgery, Arthroplasty Service 55 [facility], 3rd Floor, [address] [place] [address] Lui Marques MD 55 [facility] [address] [place] [address] [email or web address] documented as of this encounter Visit Diagnoses Not on filedocumented in this encounter Additional Health Concerns Infection Onset Date Last Indicated Resolved Time CDiff-Risk 04/25/2024 04/25/2024 04/25/2024 9:27 AM EST C. diff 04/25/2024 04/25/2024 05/25/2024 1:21 AM EST CoV-Presumed Comment:Added per Home Health documentation 05/26/2024 05/26/2024 06/15/2024 1:[address] documented as of this encounter Care Teams Tow Motor Operator Relationship Specialty Start Date End Date Mary Anne Mcgraw MD [address] [place] [address] PCP - General Internal Medicine 04/01/23 documented as of this encounter Additional Source Comments The information contained in this document represents components of the legal health record. It is not the complete legal health record.[facility]
--- OUTSIDE RECORDS SUMMARY | 2025-02-15 14:10 | XMS_ITS | Encounter Summary ---
Author Organization [facility] Address [address] [place] [address] Phone Care Team Providers Care Director Of Procurement Name Role Phone Mary Anne Mcgraw MD Primary Care Provid er Encounter Details Date Type Department Care Team (Late st Contact Info) Description 03/29/2024 Procedure Pass [facility] [address] [place] [address] Social History Tobacco Use Types Packs/Day Years [...] 1:15 PM EST Office [place] [facility] [place] of Orthopaedic Surgery, Arthroplasty Service 55 [facility], 3rd Floor, [address] [place] [address] Lui Marques MD [address] [address] [email or web address] documented as of this encounter Visit Diagnoses Not on filedocumented in this encounter Additional Health Concerns Infection Onset Date Last Indicated Resolved Time CDiff-Risk 04/25/2024 04/25/2024 04/25/2024 9:27 AM EST C. diff 04/25/2024 04/25/2024 05/25/2024 1:21 AM EST CoV-Presumed Comment:Added per Home Health documentation 05/26/2024 05/26/2024 06/15/2024 1:[address] documented as of this encounter Care Teams Director Of Procurement Relationship Specialty Start Date End Date Mary Anne Mcgraw MD [address] [place] [address] PCP - General Internal Medicine 04/01/23 documented as of this encounter Additional Source Comments The information contained in this document represents components of the legal health record. It is not the complete legal health record.[facility]
== END 2025-02-15 12:06 | disposition home or self-care (01) ==
LOC: HO.HOS 11:18
PROVIDERS: PCP Internal Medicine
DX: M72.0 Palmar fascial fibromatosis [Dupuytren] (principal)
CPT/HCPCS: 99024

== ENCOUNTER → 2025-02-15 11:18 | Outpatient (BNVA) | payer MEDICARE, OTHER, SELFPAY | PROVIDERS: PCP Internal Medicine | DX: Z47.89 Encounter for other orthopedic aftercare (principal); M72.0 Palmar fascial fibromatosis [Dupuytren] | CPT/HCPCS: 99212 ==

== ENCOUNTER 2025-02-16 10:38 | Outpatient (AMB) | payer MEDICARE, OTHER, SELFPAY ==
--- OUTSIDE RECORDS SUMMARY | 2025-02-11 08:45 | XMS_ITS ---
Author Organization [facility] Address [address] [place] [address] Care Team Providers Care Wool Fleece Grader Name Role Phone Deborah RODRIGUEZ, Mary Anne Primary Care Provider Unavail Heydi Dean Unavailable [phone] Medications Medication SIG (Take, Route, Frequency, Duration) [...] Active Encounters Encounter Location Date Provider Diagnosis [address] [address] 02/11/2025 Heydi Garcia Plan Of Treatment No Information Progress Notes * Renny PANTOJA LDOB:[birth year] (64 yo M)Acc No.[id number]:02/11/2025 Progress Note Patient: Renny PINK Provider: Roger Garcia DPM :1960 A ge:64 Y S ex:Male Date:02/11/2025 Address:[address] [place] [address] Pcp:Mary Anne Cabrera MD Subjective: * Chief [...] Date: 02/11/2025 Generated for Carlos faustin/Kennedy/Jordan on: 02/16/2025 01:15 PM EDT
--- NOTE | 2025-02-16 10:39 | MHC.OFFVIS ---
Vital Signs 02/16/25 10:40 Height 5 ft 7 in Weight 213 lb BMI 33.4 BP 138/88 Blood Pressure Location Lt brachial Position Sitting Respiration 16 Pulse 114 H Pulse Source Pulse Oximeter Pulse Oximetry (%) 95 Oxygen Delivery Method Room Air Intake Visit Reasons: s/p caudal JAVIER Chicken Hatchery Helper Required: No Allergies No Known Allergies (No Known Allergies*) Allergy (Verified 02/16/25 10:42) Medication List - Last Reconciled 02/16/25 by Gloria Watson LPN celecoxib (Celebrex) 200 mg PO BID PRN 30 days cholecalciferol (vitamin D3) 25 mcg PO DAILY crutches (pair of crutches) As directed gabapentin 600 mg PO TID hydroxyzine HCl 25 mg PO BEDTIME PRN 30 days lisinopril 10 mg PO DAILY walker As directed HPI HPI s/p caudal JAVIER: Details: History of Present Illness The patient is a 64-year-old male presenting for follow-up after an epidural steroid injection for chronic pain management. His pain level has increased to an 8 out of 10, despite previously being reduced to a 2 or 3 after the initial injection. He had stopped taking gabapentin, which he was previously taking at a dose of 1800 mg per day, and attributes the increase in pain to this change. The patient describes significant difficulty with mobility, stating that walking requires substantial effort and causes severe discomfort. He engages in daily physical activities, including yoga and physical therapy exercises, which provide temporary relief but do not alleviate the chronic pain. The patient has a history of Dupuytren's contracture, for which he underwent surgery two weeks ago. He also reports efforts to lose weight and has eliminated alcohol from his diet, although he finds weight loss challenging due to the pain and previous cortisone injections. Pain Description - Onset and Timing: Chronic pain with recent exacerbation after stopping gabapentin - Quality and Character: Severe, persistent pain rated at 8 out of 10 - Primary Location: Lower back - Exacerbating Factors: Walking and physical activity - Relieving Factors: Temporary relief from physical therapy and yoga - Interference with Activities: Significant difficulty with mobility and daily activities Physical Exam - Musculoskeletal: Pain on palpation of the lower back, bilateral stiffness noted during walking assessment Results Pain Management - Affect: Pain significantly impacts mood and psychological wellbeing - Analgesia: Previously on gabapentin 1800 mg daily, currently experiencing pain at 8/10 - Adverse Effects: No specific adverse effects from current medications reported - Activities of Daily Living: Pain interferes with mobility and daily activities - Aberrant Drug Related Behaviors: No aberrant behaviors reported - Current Management: Considering PRP injection as a potential treatment option [facility] Medical History Back pain JORDI (acute kidney injury) Hip dislocation, right H/O myocardial perfusion scan Chronic, continuous use of opioids Former smoker Arthritis of right hip Hx of fracture of tibia Substance use disorder Dupuytren's contracture of right hand High cholesterol Hypertension Surgical History (Updated 02/09/25 @ 13:13 by MY Mckeon) Status post Dupuytren's fasciectomy (~01/27/25) S/P insertion of spinal cord stimulator History of total right hip arthroplasty (05/13/23) History of back surgery (02/2023) Hx of colonoscopy History of hand surgery History of shoulder surgery Family History Mother Cancer Father No problems noted. Sister Breast cancer Social History Household Members: Spouse Housing: House Are you a primary daycare teacher to a significant other at home: No Do you presently have visiting nurse or other home services: No 75 years or older and lives alone: No Alcohol intake: former Comment: COUNTS CORRECT Patient Tobacco Use Status: Former Tobacco user Tobacco use type: Cigarette Years Smoked: 10 e-Cigarette/Vaping Use: Never Used Second Hand Smoke Exposure: Yes Substance Use Type: Marijuana service: No Current occupational status: retired Current occupation: right hand dominant Cognitive needs: Yes Hearing needs: No Vision needs: No Physical Exam Vital Signs: Last Vital Signs Pulse 114 H 02/16/25 10:40 Resp 16 02/16/25 10:40 BP 138/88 02/16/25 10:40 Pulse Ox 95 02/16/25 10:40 Oxygen Delivery Method Room Air 02/16/25 10:40 BMI result Body Mass Index 33.4 Assessment & Plan Assessment & Plan (1) Lumbar radiculopathy, acute: Code(s): M54.16 - Radiculopathy, lumbar region Category: Medical Plan Plan Patient was informed and verbally consented to the use of an ambient scribe for clinic note documentation during this visit. 1. Chronic Pain - Plan to proceed with platelet-rich plasma (PRP) injection targeting the epidural space as a potential treatment option. - Patient advised to discontinue Celebrex two weeks before and after the procedure. - No blood thinners or platelet agents currently being taken by the patient. - Patient to receive a brochure with information about the PRP procedure. 2. Dupuytren's Contracture - Recent surgical intervention performed two weeks ago. Discussion Notes During the consultation, I discussed the option of platelet-rich plasma (PRP) injection with the patient as a potential treatment for his chronic pain. I explained that while PRP is not a standard treatment, there is observational evidence suggesting its efficacy. The patient was informed about the cost and the fact that it is not covered by insurance. I advised the patient to discontinue Celebrex two weeks before and after the procedure and provided a brochure with detailed information about PRP. Patient Instructions - Discontinue Celebrex two weeks before and after the PRP procedure. - Avoid alcohol consumption. - Continue with physical therapy and yoga exercises as tolerated. - Review the brochure provided for detailed information on PRP. Coding Level of Care Code Est Pt Level 3 (38463) Diagnoses Lumbar radiculopathy, acute M54.16
[2025-02-16 10:40] VITALS: BP 138/88; PULSE 114; RESP 16; O2SAT 95; BMI 33.4
--- OUTSIDE RECORDS SUMMARY | 2025-02-16 13:15 | XMS_ITS | Encounter Summary ---
Author Organization [facility] Address [address] [place] [address] Phone Care Team Providers Care Sheet Rock Layer Name Role Phone Mary Anne Mcgraw MD Primary Care Provid er Encounter Details Date Type Department Care Team (Late st Contact Info) Description 04/12/2024 Procedure Pass [facility], Ct Scan - [address] [address] Social History Tobacco Use Types Packs/Day Years [...] 04/13/2024 4:42 AM Neris Hackett RN * [place] Suicide Severity Rating Scale (Screener/Recent Self-Report) Question [...] 04/19/2025 1:15 PM EST [place] [facility] [place]opaedic Surgery, Arthroplasty Service 55 [facility], 3rd Floor, [address] [place] [address] Lui Marques MD [address] [address] [email or web address] documented as of this encounter Visit Diagnoses Not on filedocumented in this encounter Additional Health Concerns Infection Onset Date Last Indicated Resolved Time CDiff-Risk 04/25/2024 04/25/2024 04/25/2024 9:27 AM EST C. diff 04/25/2024 04/25/2024 05/25/2024 1:21 AM EST CoV-Presumed Comment:Added per Home Health documentation 05/26/2024 05/26/2024 06/15/2024 1:[address] documented as of this encounter Care Teams Sheet Rock Layer Relationship Specialty Start Date End Date Mary Anne Mcgraw MD [address] [place] [address] PCP - General Internal Medicine 04/01/23 documented as of this encounter Additional Source Comments The information contained in this document represents components of the legal health record. It is not the complete legal health record.[facility]
--- OUTSIDE RECORDS SUMMARY | 2025-02-16 13:16 | XMS_ITS | Encounter Summary ---
Author Organization [facility] Address [address] [place] [address] Phone Care Team Providers Care Orthodontic Technician Name Role Phone Mary Anne Mcgraw MD Primary Care Provid er Encounter Details Date Type Department Care Team (Late st Contact Info) Description 04/15/2024 Procedure Pass [facility] [place] PERIOPERATIVE DEPT [address] [place] [address] Social History Tobacco Use Types Packs/Day Years [...] Description 04/19/2025 1:15 PM EST Office Visit [facility] [place] Department of Orthopaedic Surgery, Arthroplasty Service 55 [facility], 3rd Floor, [address] [place] [address] Lui Marques MD [address] [place] [place] [id number] [email or web address] documented as of this encounter Visit Diagnoses Not on filedocumented in this encounter Additional Health Concerns Infection Onset Date Last Indicated Resolved Time CDiff-Risk 04/25/2024 04/25/2024 04/25/2024 9:27 AM EST C. diff 04/25/2024 04/25/2024 05/25/2024 1:21 AM EST CoV-Presumed Comment:Added per Home Health documentation 05/26/2024 05/26/2024 06/15/2024 1:[address] documented as of this encounter Care Teams Orthodontic Technician Relationship Specialty Start Date End Date Mary Anne Mcgraw MD [address] [place] [address] PCP - General Internal Medicine 04/01/23 documented as of this encounter Additional Source Comments The information contained in this document represents components of the legal health record. It is not the complete legal health record.[facility]
--- OUTSIDE RECORDS SUMMARY | 2025-02-16 13:16 | XMS_ITS | Encounter Summary ---
Author Organization [facility] Address [address] [place] [address] Phone Care Team Providers Care Floating Derrick Operator Name Role Phone Mary Anne Mcgraw MD Primary Care Provid er Encounter Details Date Type Department Care Team (Late st Contact Info) Description 03/30/[address], [address] [facility], 2nd Floor, [address] [place] [address] Social History Tobacco Use Types Packs/Day Years [...] Description 04/19/2025 1:15 PM EST Office Visit [facility] [place] of [place]opaedic Surgery, Arthroplasty Service 55 [facility], 3rd Floor, [address] [place] [address] Lui Marques MD 55 [facility] [address] [place] [address] [email or web address] documented as of this encounter Visit Diagnoses Not on filedocumented in this encounter Additional Health Concerns Infection Onset Date Last Indicated Resolved Time CDiff-Risk 04/25/2024 04/25/2024 04/25/2024 9:27 AM EST C. diff 04/25/2024 04/25/2024 05/25/2024 1:21 AM EST CoV-Presumed Comment:Added per Home Health documentation 05/26/2024 05/26/2024 06/15/2024 1:[address] documented as of this encounter Care Teams Floating Derrick Operator Relationship Specialty Start Date End Date Mary Anne Mcgraw MD [address] [place] [address] PCP - General Internal Medicine 04/01/23 documented as of this encounter Additional Source Comments The information contained in this document represents components of the legal health record. It is not the complete legal health record.[facility]
--- OUTSIDE RECORDS SUMMARY | 2025-02-16 13:16 | XMS_ITS | Patient Health Record ---
Author Organization [facility] [place] Address [address] [place] [address] Care Team Providers Care Fan Balancer Name Role Phone Deborah RODRIGUEZ, Mary Anne Primary Care Provider Unavail able Heydi Garcia Unavailable [phone] Allergies No Known Allergies Reason For Referral No Information Medications Medication SIG (Take, Route, Frequency, Duration) Notes Start Date End Date Status Gabapentin 300mg three times a day or ally daily Active Vitamin D3 25 MCG (1000 UT) 1 capsule Or ally Once a day Active Simvastatin 20 MG 1 tablet in the even ing Orally Once a day Active amLODIPine Besylate 10 MG 1 tablet Orall y Once a day Active Lisinopril-hydroCHLOROthiaz flo 20-12.5 MG 1 tablet Orally Active Immunizations Vaccine Route Administration Date Status Comme nts Influenza Unknown 02/16/2025 Refused Social History Tobacco Use: Social History Observation Description Date Details (start date - stop date) Never Smoker NA - NA Alcohol Screen Question Answer Notes Did you have a drink contain ing alcohol in the past year? Yes How often did you have a dri nk containing alcohol in the past year? 2 to 3 times a week (3 points) Points 3 Interpretation Negative Tobacco use other than smoking: Question Answer Notes Are you an other tobacco user? Yes v ape Tobacco Control (Standard) Question Answer Notes Tobacco use: Nonsmoker Additional Findings: Tobacco non-user Current no nsmoker AUDIT-C (Standard) Question Answer Notes Did you have a drink containing alcohol in the p ast year? No Points 0 Interpretation Negative Problems Problem Type SNOMED Code ICD Code Onset Dates Problem Status W/U Status Risk Notes Problem Gait abnormality (22565853) Gait abnormality (R26.9) Active confirmed Problem Equinus contracture of left ankle (M24.572) Active confirmed Problem Plantarflexion deformity of right foot (finding) ([id number]) Equinus contracture of right ankle (M24.571) Active confirmed Vital Signs Blood pressure diastolic 70 mm Hg 02/16/2025 Height 5ft 7in in 02/16/2025 Blood pressure systolic 130 mm Hg 02/16/2025 Weight 208 lbs 02/16/2025 BMI 32.57 kg/m2 02/16/2025 Encounters Encounter Location Date Provider Diagnosis [facility] [place] [address] [place] [address] 02/16/2025 Heydi Garcia [facility] [place] [address] [place] [address] 02/04/2025 Heydi Garcia Plan Of Treatment No Information Insurance Providers Payer Name Payer Address Payer Phone Subscriber Number Group Number Insured Name Patient Relationship to Insured Coverage Start Date Coverage End Date Medicare National [employer] [address] [place] [address] [id number] Renny Montes Self - patient is the insured 5 [employer] ([employer]) [address] [place] [id number] Alix Montes Spouse - patient is the spouse of the insured Medical (General) History Medical History History ICD Code Arthritis Back,Hip,and Knee pain CAD (Cholesterol) High blood pressure Sciatica Chicken pox bulging discs Surgical History Surgery Date(Month/Year) hand surgery 02/17 3 hip replacement 2 spine surgery
--- OUTSIDE RECORDS SUMMARY | 2025-02-16 13:16 | XMS_ITS | Encounter Summary ---
Author Organization [facility] Address [address] [place] [address] Phone Care Team Providers Care Nuisance Animal Damage Control Agent Name Role Phone Mary Anne Mcgraw MD Primary Care Provid er Encounter Details Date Type Department Care Team (Late st Contact Info) Description 04/13/2024 Procedure Pass [facility] [place], [place] 2 [address] [facility], 2nd Floor, [address] [place] [address] Social History Tobacco Use Types Packs/Day Years [...] 04/13/2024 4:42 AM Neris Hackett RN * [place] Suicide Severity Rating Scale (Screener/Recent Self-Report) Question [...] Description 04/19/2025 1:15 PM EST Office Visit [facility] [place] Department of Orthopaedic Surgery, Arthroplasty Service 55 [facility], 3rd Floor, [address] [place] [address] Lui Marques MD [address] [address] [email or web address] documented as of this encounter Visit Diagnoses Not on filedocumented in this encounter Additional Health Concerns Infection Onset Date Last Indicated Resolved Time CDiff-Risk 04/25/2024 04/25/2024 04/25/2024 9:27 AM EST C. diff 04/25/2024 04/25/2024 05/25/2024 1:21 AM EST CoV-Presumed Comment:Added per Home Health documentation 05/26/2024 05/26/2024 06/15/2024 1:[address] documented as of this encounter Care Teams Nuisance Animal Damage Control Agent Relationship Specialty Start Date End Date Mary Anne Mcgraw MD [address] [place] [address] PCP - General Internal Medicine 04/01/23 documented as of this encounter Additional Source Comments The information contained in this document represents components of the legal health record. It is not the complete legal health record.[facility]
--- OUTSIDE RECORDS SUMMARY | 2025-02-16 13:16 | XMS_ITS | Encounter Summary ---
Author Organization [facility] Address [address] [place] [address] Phone Care Team Providers Care Manager Of Warehouse Name Role Phone Mary Anne Mcgraw MD Primary Care Provid er Encounter Details Date Type Department Care Team (Late Contact Info) Description 03/25/2024 Procedure [place] [facility] 2 [address] [facility], 2nd [place] [address] Social History Tobacco Use Types Packs/Day Years [...] Description 04/19/2025 1:15 PM EST Office [place] [facility] [place] of [place]opaedic Surgery, Arthroplasty Service 55 [facility], 3rd Floor, [address] [place] [address] Lui Marques MD 55 [facility] [address] [place] [address] [email or web address] documented as of this encounter Visit Diagnoses Not on filedocumented in this encounter Additional Health Concerns Infection Onset Date Last Indicated Resolved Time CDiff-Risk 04/25/2024 04/25/2024 04/25/2024 9:27 AM EST C. diff 04/25/2024 04/25/2024 05/25/2024 1:21 AM EST CoV-Presumed Comment:Added per Home Health documentation 05/26/2024 05/26/2024 06/15/2024 1:[address] documented as of this encounter Care Teams Manager Of Warehouse Relationship Specialty Start Date End Date Mary Anne Mcgraw MD [address] [place] [address] PCP - General Internal Medicine 04/01/23 documented as of this encounter Additional Source Comments The information contained in this document represents components of the legal health record. It is not the complete legal health record.[facility]
--- OUTSIDE RECORDS SUMMARY | 2025-02-16 13:16 | XMS_ITS | Clinical Summary ---
Author Organization [facility] Address [address] [place] [address] Phone Care Team Providers Care Renewable Energy Trader Name Role Phone Mary Anne Mcgraw MD [...] high school, GED, job training, learning the French language, technical skills, or developing parenting skills)? [...] 04/19/2025 1:15 PM EST Office Visit [facility] Department of Orthopaedic Surgery, Arthroplasty Service [address] [facility], 3rd Floor, [address] [place] [address] Lui Marques MD [address] [address] [email or web address] Health Maintenance Due Date Last Done Comments [...] this topic Medical Devices Implanted Type Area Tip Finisher Device Identifier Shelf Expiration Date Model / Serial / Lot Right Hip Screw Bone 20x6.5mm Hip Cancellous Reflection Ss Spherical Head - [id number] Implanted:Qty: 1 on 03/29/2024 by Lui Marques MD at [facility] Right: Hip SHEIKH 09/16/2033 [id number] / / [id number] Screw Bone 6.5x25mm Hip Cancellous Spherical Hd For Reflection System 16a - [id number] Implanted:Qty: 1 on 03/29/2024 by Lui Marques MD at [facility] Right: Hip SHEIKH 06/24/2033 [id number] / / [id number] Screw Bone 30x6.5mm Hip Cancellous Spherical Head For Reflection System 16a Cs/1bx/1ea - [id number] Implanted:Qty: 1 on 03/29/2024 by Lui Marques MD at [facility] Right: Hip SHEIKH 08/09/2033 [id number] / / [id number] Screw Bone 20x6.5mm Hip Cancellous Reflection Ss Spherical Head - [id number] Implanted:Qty: 1 on 03/29/2024 by Lui Marques MD at [facility] Right: Hip SHEIKH 09/27/2033 [id number] / / [id number] Screw Bone 30x6.5mm Hip Cancellous Spherical Head For Reflection System 16a Cs/1bx/1ea - [id number] Implanted:Qty: 1 on 03/29/2024 by Lui Marques MD at [facility] Right: Hip SHEIKH 03/17/2033 [id number] / / [id number] Adapter Sleeve 4.0mm [place] Femoral Hip Titanium V40 Plus - [id number] Implanted:Qty: 1 on 03/29/2024 by Lui Marques MD at [facility] Right: Hip [employer] 10/15/2028 6519-T-204 / / [id number] Cement Bone 1x40gm [place] R High Viscosity - [id number] Implanted:Qty: 1 on 03/29/2024 by Lui Marques MD at [facility] Right: Hip [employer] 05/25/2028 [id number] / / [id number] Hip 28mm [place] Biolox Delta Ceramic Tapered Plus 0 Offset - [id number] Implanted:Qty: 1 on 03/29/2024 by Lui Marques MD at [facility] Right: Hip [employer] 09/16/2027 6519-1-028 / / [id number] Redart 60mm Od Implanted:Qty: 1 on 03/29/2024 by Lui Marques MD at [facility] Right: Hip 06/13/2031 [id number] / / [id number] Redapt Slice Augment [id number] Implanted:Qty: 1 on 03/29/2024 by Lui Marques MD at [facility] Right: Hip 07/12/2029 [id number] / / [id number] [employer] Pollar Cup Cemented Shell Size 47 Implanted:Qty: 1 on 03/29/2024 by Lui Marques MD at [facility] Right: Hip 06/04/2030 75 100 4 53 / / [id number] [employer] Polarcup Xlpe Insert Size 47/28 Implanted:Qty: 1 on 03/29/2024 by Lui Marques MD at [facility] Right: Hip 06/11/2030 11 000 6 01 / / [id number] Screw Bone 20x6.5mm Hip Cancellous Reflection Ss Spherical Head - [id number] Implanted:Qty: 1 on 03/29/2024 by Lui Marques MD at [facility] Right: Hip SHEIKH 09/27/2033 [id number] / / [id number] Screw Bone 6.5x35mm Hip Cancellous Spherical Head For Reflection System 16a Cs/1bx/1ea - [id number] Implanted:Qty: 1 on 03/29/2024 by Lui Marques MD at [facility] Right: Hip SHEIKH 09/02/2033 [id number] / / [id number] Hip 28mm 12 Lfit V40 [place] Low Friction Ion Treatment Plus - [id number] Implanted:Qty: 1 on 04/15/2024 by Lui Marques MD at [facility] Right: Acetabulum [employer] 09/02/2027 6260-9-428 / / [id number] Polarcup Xlpe Insert Size 47/28 Implanted:Qty: 1 on 04/15/2024 by Lui Marques MD at [facility] Right: Acetabulum 04/12/2030 [id number] / / [id number] Filler Stimulan Bone Lf Sterile Disposable Rapid Cure 5cc - [id number] Implanted:Qty: 1 on 04/15/2024 by Lui Marques MD at [facility] Right: Hip [employer] 12/23/2026 620-005 / / [id number] Description:1 gm vancomycin added Procedures Procedure Name Priority Date/Time Associated Diagnosis Comments COMPREHENSIVE METABOLIC PANEL Routine 07/28/2024 2:08 PM EST Infection of prosthetic joint, subsequent encounter from Last 3 Months or Most Recently Relevant to Health Maintenance Results * Comprehensive metabolic panel (07/28/2024 2:08 PM EST) Pathologist [facility] SODIUM 133 133 - 146 mmol/L [facility] POTASSIUM 4.5 3.3 - 5.1 mmol/L [facility] CHLORIDE 96 96 - 108 mmol/L [facility] CO2 22 21 - 35 mmol/L [facility] BUN 16 6 - 19 mg/dL [facility] CREATININE 0.80 0.5 - 1.5 mg/dL [facility] GLUCOSE 89 70 - 99 mg/dL [facility] ALBUMIN 4.2 3.9 - 4.8 g/dL [facility] TOTAL PROTEIN 7.7 6.5 - 8.0 g/dL [facility] CALCIUM 9.8 8.4 - 10.3 mg/dL [facility] ALKALINE PHOSPHATASE 93 39 - 117 U/L [facility] TOTAL BILIRUBIN <0.2 0.0 - 1.2 mg/dL [facility] AST 20 0 - 37 U/L [facility] ALT 21 0 - 40 U/L [facility] GLOBULIN 3.5 1 - 4.8 g/dL [facility] EGFR 99 >59 mL/min/1.7 3m2 [facility] Comment:Estimated glomerular filtration rate calculated using the CKD-EPI refit equation. ANION GAP 20 10 - 20 mmol/L [facility] Blood 07/28/2024 2:08 PM EST 07/28/2024 2:10 PM EST us Capo Ortega MD LAB BLOOD ORDERABLES Final Result Performing Organization Address City/State/[facility] Co de Phone Number [facility] [address] [place] [address] from Last 3 Months or Most Recently Relevant to Health Maintenance Insurance [facility] MEDICARE SUPPLEMENT MEDICARE PART A & B [facility] MEDICARE SUPPLEMENT MEDICARE PART A & [place] [address] [place] [address] MEDICARE SUPPLEMENT MEDICARE PART A & [place] [address] [place] [address] MEDICARE SUPPLEMENT MEDICARE PART A & B [facility] MEDICARE SUPPLEMENT MEDICARE PART A & B [place], [place] [facility] MEDICARE SUPPLEMENT MARY COOK [id number] MEDICARE PART A & B Advance Directives For more information, please contact: [phone] (9AM - 5PM [place], Friday-Friday) * Full [...] proxy form on fi le) Care Teams Renewable Energy Trader Relationship Specialty Start Date End Date Mary Anne Mcgraw MD [address] [place] [address] PCP - General Internal Medicine 04/01/23 Additional Source Comments The information contained in this document represents components of the legal health record. It is not the complete legal health record.[facility]
--- OUTSIDE RECORDS SUMMARY | 2025-02-16 13:16 | XMS_ITS | Encounter Summary ---
Author Organization [facility] Address [address] [place] [address] Phone Care Team Providers Care Dimpling Machine Operator Name Role Phone Mary Anne Mcgraw MD Primary Care Provid er Encounter Details Date Type Department Care Team (Late st Contact Info) Description 03/29/2024 Procedure Pass [facility] PERIOPERATIVE DEPT [address] [place] [address] Social History Tobacco Use Types Packs/Day Years [...] Description 04/19/2025 1:15 PM EST Office Visit [facility] Department of Orthopaedic Surgery, Arthroplasty Service 55 [facility], 3rd Floor, [address] [place] [address] Lui Marques MD [address] [address] [email or web address] documented as of this encounter Visit Diagnoses Not on filedocumented in this encounter Additional Health Concerns Infection Onset Date Last Indicated Resolved Time CDiff-Risk 04/25/2024 04/25/2024 04/25/2024 9:27 AM EST C. diff 04/25/2024 04/25/2024 05/25/2024 1:21 AM EST CoV-Presumed Comment:Added per Home Health documentation 05/26/2024 05/26/2024 06/15/2024 1:[address] documented as of this encounter Care Teams Dimpling Machine Operator Relationship Specialty Start Date End Date Mary Anne Mcgraw MD [address] [place] [address] PCP - General Internal Medicine 04/01/23 documented as of this encounter Additional Source Comments The information contained in this document represents components of the legal health record. It is not the complete legal health record.[facility]
--- OUTSIDE RECORDS SUMMARY | 2025-02-16 13:16 | XMS_ITS | Patient Health Record ---
Author Organization [facility] Address [address] [place] [address] Care Team Providers Care Waiter And Cashier Name Role Phone Marcela(inactive) Josh RODRIGUEZ Primary [...] Problem Status W/U Status Risk Notes Problem [id number] Colon cancer screening (Z12.11) Active confirmed Plan Of Treatment Future Test Test Name Order Date COLONOSCOPY 08/07/2016 Insurance Providers Payer Name Payer Address Payer Phone Subscriber Number Group Number Insured Name Patient Relationship to Insured Coverage Start Date Coverage End Date [facility] [address] [place] [phone] [phone] [id number] MIRIAM PANTOJA Self - patient is the insured Medical (General) History Medical History History ICD Code hypertension Denies [place],DM,CVA,Lung disease,renal dise ase Surgical History Surgery Date(Month/Year) arm surgery
--- OUTSIDE RECORDS SUMMARY | 2025-02-16 13:16 | XMS_ITS | Encounter Summary ---
Author Organization [facility] Address [address] [place] [address] Phone Care Team Providers Care Manager Games Name Role Phone Mary Anne Mcgraw MD Primary Care Provid er Encounter Details Date Type Department Care Team (Late st Contact Info) Description 03/24/2024 Procedure Pass [facility] Emergency Imaging, Main [address], Floor 1 [place] [address] Social History Tobacco Use Types Packs/Day Years [...] 8:00 PM EDT JoeFifi Flores RN * Henry Suicide Severity Rating Scale (Screener/Recent Self-Report) Question Answer Date of Assessment Author 1. Wish to be (Past 1 Month) No 03/24/2024 8:00 PM EDT [employer] rebekah Flores RN 2. Non-Specific Active Suicidal Thoughts (Past 1 Month) No 03/24/2024 8:00 PM EDT [employer] rebekah Folres RN 6. Suicidal Behavior (Lifetime) No 03/24/2024 8:00 PM EDT [employer] rebekah Flores RN documented as of this encounter Plan of Treatment Upcoming Encounters Date Type Department Care Team (Late st Contact Info) Description 04/19/2025 1:15 PM EST Office Visit [facility] Department of Orthopaedic Surgery, Arthroplasty Service [address] [place] [address], 3rd Floor, [address] [place] [address] Lui Marques MD [address] [place] [phone] [email or web address] documented as of this encounter Visit Diagnoses Not on filedocumented in this encounter Additional Health Concerns Infection Onset Date Last Indicated Resolved Time CDiff-Risk 04/25/2024 04/25/2024 04/25/2024 9:27 AM EST C. diff 04/25/2024 04/25/2024 05/25/2024 1:21 AM EST CoV-Presumed Comment:Added per Home Health documentation 05/26/2024 05/26/2024 06/15/2024 1:[address] documented as of this encounter Care Teams Manager Games Relationship Specialty Start Date End Date Mary Anne Mcgraw MD [address] [place] [address] PCP - General Internal Medicine 04/01/23 documented as of this encounter Additional Source Comments The information contained in this document represents components of the legal health record. It is not the complete legal health record.[facility]
== END 2025-02-16 11:58 | disposition home or self-care (01) ==
LOC: HO.PMC 10:38
PROVIDERS: PCP Internal Medicine; Visit Provider Internal Medicine
DX: M54.16 Radiculopathy, lumbar region (principal)
CPT/HCPCS: 99213

== ENCOUNTER → 2025-02-16 10:38 | Outpatient (BNVA) | payer MEDICARE, OTHER, SELFPAY | PROVIDERS: PCP Internal Medicine; Visit Provider Internal Medicine | DX: M54.16 Radiculopathy, lumbar region (principal); Z87.891 Personal history of nicotine dependence | CPT/HCPCS: 99212 ==

== ENCOUNTER 2025-03-08 09:47 | Outpatient (AMB) | payer MEDICARE, OTHER, SELFPAY ==
--- OUTSIDE RECORDS SUMMARY | 2025-02-11 08:45 | XMS_ITS ---
Author Organization [facility] Address [address] [place] [address] Care Team Providers Care Derrick Boat Leverman Name Role Phone Deborah RODRIGUEZ, Mary Anne Primary Care Provider Unavail Heydi Dean Unavailable [phone] Medications Medication SIG (Take, Route, Frequency, Duration) [...] Active Encounters Encounter Location Date Provider Diagnosis [address] [address] 02/11/2025 Heydi Garcia Plan Of Treatment No Information Progress Notes * Renny PANTOJA LDOB:[birth year] (64 yo M)Acc No.[id number]:02/11/2025 Progress Note Patient: Renny PINK Provider: Roger Garcia DPM :1960 A ge:64 Y S ex:Male Date:02/11/2025 Address:[address] [place] [address] Pcp:Mary Anne Cabrera MD Subjective: * Chief [...] 0 02/11/2025 Generated for Carlos faustin/Kennedy/Jordan on: 11:01 AM EDT
--- NOTE | 2025-03-08 09:55 | MHC.OFFVIS ---
Vital Signs 03/08/25 09:56 Height 5 ft 7 in Weight 213 lb BMI 33.4 Intake Visit Reasons: PO LT SM/RF/MF dupuytrens 01/27/25 AR Intake Note: Renny is a 64 year old right hand dominant male who presents today post-operatively status post Left Small, Middle, & Ring Finger Partial Dupuytren's Fasciectomy, DOS: 01/27/[address] Stovall. At his last visit on 02/15/25 remaining sutures were removed. Patient was educated although he could work on range of motion he should refrain from putting significant force through the left hand, avoiding things like pushing off of a table to stand up from a seated position. Patient advised to continue OT and night splinting until follow-up. Patient reports today he is doing well. He reports ocassional pulling sensation on his right middle finger. Allergies No Known Allergies (No Known Allergies*) Allergy (Verified 03/08/25 09:56) HPI HPI PO LT SM/RF/MF dupuytrens 01/27/25 AR: Details: Renny is a 64 year old right hand dominant male who presents today post-operatively status post Left Small, Middle, & Ring Finger Partial Dupuytren's Fasciectomy, DOS: 01/27/[address] Stovall. At his last visit on 02/15/25 remaining sutures were removed. Patient was educated although he could work on range of motion he should refrain from putting significant force through the left hand, avoiding things like pushing off of a table to stand up from a seated position. Patient reports that he has tried doing some of the things likely, and does not feel any pain and feels that he has good function that has returned to his left hand. Patient advised to continue OT and night splinting until follow-up. Patient reports today he is doing well. He reports ocassional pulling sensation on his right middle finger. [facility] Medical History Back pain JORDI (acute kidney injury) Hip dislocation, right H/O myocardial perfusion scan Chronic, continuous use of opioids Former smoker Arthritis of right hip Hx of fracture of tibia Substance use disorder Dupuytren's contracture of right hand High cholesterol Hypertension Surgical History (Updated 02/09/25 @ 13:13 by MY Mckeon) Status post Dupuytren's fasciectomy (~01/27/25) S/P insertion of spinal cord stimulator History of total right hip arthroplasty (05/13/23) History of back surgery (02/2023) Hx of colonoscopy History of hand surgery History of shoulder surgery Family History Mother Cancer Father No problems noted. Sister Breast cancer Social History Household Members: Spouse Housing: House Are you a primary patient care coordinator to a significant other at home: No Do you presently have visiting nurse or other home services: No 75 years or older and lives alone: No Alcohol intake: former Comment: COUNTS CORRECT Patient Tobacco Use Status: Former Tobacco user Tobacco use type: Cigarette Years Smoked: 10 e-Cigarette/Vaping Use: Never Used Second Hand Smoke Exposure: Yes Substance Use Type: Marijuana service: No Current occupational status: retired Current occupation: right hand dominant Cognitive needs: Yes Hearing needs: No Vision needs: No Review of Systems Const All systems reviewed & are unremarkable except as noted in HPI and below Physical Exam Vital Signs: BMI result Body Mass Index 33.4 Extrem Other: Patient is alert, oriented, and in no acute distress. Neuro: Normal sensation of the tips of all digits of the left hand at this time Vascular: Cap refill brisk Pain: No tenderness to palpation about the incision sites over volar aspects of left middle, ring, small fingers No further discomfort with range of motion of the digits ROM: Patient is able to make a closed fist and extend all digits of the left hand fully Patient is able to place his left hand flat on a table without difficulty Skin: Well approximated and well healed incision sites noted on volar aspects of left middle, ring, small fingers No lacerations or abrasions. General: No ecchymosis, erythema, or evidence of infection. Psych: Appears grossly normal Affect normal Attitude cooperative Assessment & Plan Assessment & Plan (1) Dupuytren's contracture of left hand: Code(s): M72.0 - Palmar fascial fibromatosis [Dupuytren] Category: Medical Plan 1. Status post Dupuytren's partial fasciectomy of left hand DOS 01/27/2025 Patient appears to be recovering well postoperatively Patient is educated about the typical recovery course Patient is educated that he can slowly begin a return to full normal activity over the next 3-4 weeks, as he appears to be recovering quite well Patient may increase to a 5 lb weight limit over the next 2-3 weeks, 10 lb over the 2-3 weeks following, and then a return to full normal lifting Continue OT and night splint until follow-up Patient understands this and is amenable to this plan Follow-up as needed with any acute concerns Coding Level of Care Code Global (24682) Diagnoses Dupuytren's contracture of left hand M72.0
[2025-03-08 09:56] VITALS: BMI 33.4
--- OUTSIDE RECORDS SUMMARY | 2025-03-08 11:01 | XMS_ITS | Encounter Summary ---
Author Organization [facility] Address [address] [place] [address] Phone Care Team Providers Care Adult Probation Officer Name Role Phone Mary Anne Mcgraw MD Primary Care Provid er Encounter Details Date Type Department Care Team (Late st Contact Info) Description 04/15/2024 Procedure Pass [facility] PERIOPERATIVE DEPT [address] [place] [address] Social History Tobacco Use Types Packs/Day Years [...] 04/19/2025 1:15 PM EST Office Visit [facility] Department of Orthopaedic Surgery, Arthroplasty Service 55 [facility], 3rd Floor, [address] [place] [address] Lui Marques MD [address] [place] [phone] [email or web address] documented as of this encounter Visit Diagnoses Not on filedocumented in this encounter Additional Health Concerns Infection Onset Date Last Indicated Resolved Time CDiff-Risk 04/25/2024 04/25/2024 04/25/2024 9:27 AM EST C. diff 04/25/2024 04/25/2024 05/25/2024 1:21 AM EST CoV-Presumed Comment:Added per Home Health documentation 05/26/2024 05/26/2024 06/15/2024 1:[address] documented as of this encounter Care Teams Adult Probation Officer Relationship Specialty Start Date End Date Mary Anne Mcgraw MD [address] [place] [address] PCP - General Internal Medicine 04/01/23 documented as of this encounter Additional Source Comments The information contained in this document represents components of the legal health record. It is not the complete legal health record.[facility]
--- OUTSIDE RECORDS SUMMARY | 2025-03-08 11:01 | XMS_ITS | Encounter Summary ---
Author Organization [facility] Address [address] [place] [address] Phone Care Team Providers Care Plastic Design Applier Name Role Phone Mary Anne Mcgraw MD Primary Care Provid er Encounter Details Date Type Department Care Team (Late st Contact Info) Description 03/24/2024 Procedure Pass [facility] Emergency Imaging, Main [address], [address] 1 [place] [address] Social History Tobacco Use Types Packs/Day Years [...] 8:00 PM EDT JoeFifi Flores RN * [place] Suicide Severity Rating Scale (Screener/Recent Self-Report) Question [...] Description 04/19/2025 1:15 PM EST Office Visit [facility] Department of Orthopaedic Surgery, Arthroplasty Service [address] [place] [address], 3rd Floor, [address] [place] [address] Lui Marques MD [address] [place] [address] [email or web address] documented as of this encounter Visit Diagnoses Not on filedocumented in this encounter Additional Health Concerns Infection Onset Date Last Indicated Resolved Time CDiff-Risk 04/25/2024 04/25/2024 04/25/2024 9:27 AM EST C. diff 04/25/2024 04/25/2024 05/25/2024 1:21 AM EST CoV-Presumed Comment:Added per Home Health documentation 05/26/2024 05/26/2024 06/15/2024 1:[address] documented as of this encounter Care Teams Plastic Design Applier Relationship Specialty Start Date End Date Mary Anne Mcgraw MD [address] [place] [address] PCP - General Internal Medicine 04/01/23 documented as of this encounter Additional Source Comments The information contained in this document represents components of the legal health record. It is not the complete legal health record.[facility]
--- OUTSIDE RECORDS SUMMARY | 2025-03-08 11:01 | XMS_ITS | Clinical Summary ---
Author Organization [facility] Address [address] [place] [address] Phone Care Team Providers Care Metal Cans Supervisor Name Role Phone Mary Anne Mcgraw MD [...] high school, GED, job training, learning the Faroese language, technical skills, or developing parenting skills)? [...] Description 04/19/2025 1:15 PM EST Office Visit [facility] [place] Department of Orthopaedic Surgery, Arthroplasty Service 55 [facility], 3rd Floor, [address] [place] [address] Lui Marques MD [address] [address] [email or web address] Health Maintenance Due Date Last Done Comments Adult Td,Tdap Booster 1959 LIPID PANEL 1959 DEPRESSION SCREENING 1971 HEPATITIS C SCREENING 09/11/1977 HIV ONE-TIME SCREENING (18-65 YEARS) 09/11/1977 SMOKING STATUS SCREENING (Once After 26 Yrs) 09/11/1985 COLOGUARD 09/11/2004 COLONOSCOPY 09/11/2004 COLORECTAL CANCER SCREENING 09/11/2004 FIT TEST 09/11/2004 FOBT 09/11/2004 SIGMOIDOSCOPY 09/11/2004 VIRTUAL COLONOSCOPY 09/11/2004 PNEUMOCOCCAL VACCINES (50+ years) (1 of 1 - PCV) 09/11/2009 RSV VACCINE (1 - Risk 50-74 years 1-dose series) 09/11/2009 ZOSTER VACCINES (1 of 2) 09/11/2009 INFLUENZA VACCINE (#1) 2024 COVID-19 VACCINE (1 [...] this topic Medical Devices Implanted Type Area Facilities Painter Device Identifier Shelf Expiration Date Model / Serial / Lot Right Hip Screw Bone 20x6.5mm Hip Cancellous Reflection Ss Spherical Head - [id number] Implanted:Qty: 1 on 03/29/2024 by Lui Marques MD at [facility] Right: Hip SHEIKH 09/16/2033 [id number] / / [id number] Screw Bone 6.5x25mm Hip Cancellous Spherical Hd For Reflection System 16a - [id number] Implanted:Qty: 1 on 03/29/2024 by Lui Marques MD at [facility] Right: Hip SHEIKH 06/24/2033 [id number] / / [id number] Screw Bone 30x6.5mm Hip Cancellous Spherical Head For Reflection System 16a Cs/1bx/1ea - [id number] Implanted:Qty: 1 on 03/29/2024 by Lui Marques MD at [facility] Right: Hip SHEIKH 08/09/2033 [id number] / / [id number] Screw Bone 20x6.5mm Hip Cancellous Reflection Ss Spherical Head - [id number] Implanted:Qty: 1 on 03/29/2024 by Lui Marques MD at [facility] Right: Hip SHEIKH 09/27/2033 [id number] / / [id number] Screw Bone 30x6.5mm Hip Cancellous Spherical Head For Reflection System 16a Cs/1bx/1ea - [id number] Implanted:Qty: 1 on 03/29/2024 by Lui Marques MD at [facility] Right: Hip SHEIKH 03/17/2033 [id number] / / [id number] Adapter Sleeve 4.0mm Skandia Femoral Hip Titanium V40 Plus - [id number] Implanted:Qty: 1 on 03/29/2024 by Lui Marques MD at [facility] Right: Hip [employer] 10/15/2028 6519-T-204 / / [id number] Cement Bone 1x40gm [place] R High Viscosity - [id number] Implanted:Qty: 1 on 03/29/2024 by Lui Marques MD at [facility] Right: Hip [employer] 05/25/2028 [id number] / / [id number] Hip 28mm Skandia Biolox Delta Ceramic Tapered Plus 0 Offset - [id number] Implanted:Qty: 1 on 03/29/2024 by Lui Marques MD at [facility] Right: Hip [employer] 09/16/2027 6519-1-028 / / [id number] Redart 60mm Od Implanted:Qty: 1 on 03/29/2024 by Lui Marques MD at [facility] Right: Hip 06/13/2031 [id number] / / [id number] Redapt Slice Augment [id number] Implanted:Qty: 1 on 03/29/2024 by Lui Marques MD at [facility] Right: Hip 07/12/2029 [id number] / / [id number] [employer] Pollar Cup Cemented Shell Size 47 Implanted:Qty: 1 on 03/29/2024 by Lui Marques MD at [facility] Right: Hip 06/04/2030 75 100 4 53 / / [id number] [employer] Polarcup Xlpe Insert Size 47/28 Implanted:Qty: 1 on 03/29/2024 by Lui Marques MD at [facility] Right: Hip 06/11/2030 11 000 6 01 / / [id number] Screw Bone 20x6.5mm Hip Cancellous Reflection Ss Spherical Head - [id number] Implanted:Qty: 1 on 03/29/2024 by Lui Marques MD at [facility] Right: Hip SHEIKH 09/27/2033 [id number] / / [id number] Screw Bone 6.5x35mm Hip Cancellous Spherical Head For Reflection System 16a Cs/1bx/1ea - [id number] Implanted:Qty: 1 on 03/29/2024 by Lui Marques MD at [facility] Right: Hip SHEIKH 09/02/2033 [id number] / / [id number] Hip 28mm 12 Lfit V40 [place] Low Friction Ion Treatment Plus - [id number] Implanted:Qty: 1 on 04/15/2024 by Lui Marques MD at [facility] Right: Acetabulum [employer] 09/02/2027 [id number] / / [id number] Polarcup Xlpe Insert Size 47/28 Implanted:Qty: 1 on 04/15/2024 by Lui Marques MD at [facility] Right: [employer]et[employer] 04/12/2030 [id number] / / [id number] Filler Stimulan Bone Lf Sterile Disposable Rapid Cure 5cc - [id number] Implanted:Qty: 1 on 04/15/2024 by Lui Marques MD at [facility] Right: Hip [employer] 12/23/2026 620-005 / / [id number] Description:1 gm vancomycin added Procedures Procedure Name Priority Date/Time Associated Diagnosis Comments COMPREHENSIVE METABOLIC PANEL Routine 07/28/2024 2:08 PM EST Infection of prosthetic joint, subsequent encounter from Last 3 Months or Most Recently Relevant to Health Maintenance Results * Comprehensive metabolic panel (07/28/2024 2:08 PM EST) Pathologist [facility] SODIUM 133 133 - 146 mmol/L [facility] POTASSIUM 4.5 3.3 - 5.1 mmol/L [facility] CHLORIDE 96 96 - 108 mmol/L [facility] CO2 22 21 - 35 mmol/L [facility] BUN 16 6 - 19 mg/dL [facility] CREATININE 0.80 0.5 - 1.5 mg/dL [facility] GLUCOSE 89 70 - 99 mg/dL [facility] ALBUMIN 4.2 3.9 - 4.8 g/dL [facility] TOTAL PROTEIN 7.7 6.5 - 8.0 g/dL [facility] CALCIUM 9.8 8.4 - 10.3 mg/dL [facility] ALKALINE PHOSPHATASE 93 39 - 117 U/L [facility] TOTAL BILIRUBIN <0.2 0.0 - 1.2 mg/dL [facility] AST 20 0 - 37 U/L [facility] ALT 21 0 - 40 U/L [facility] GLOBULIN 3.5 1 - 4.8 g/dL [facility] EGFR 99 >59 mL/min/1.7 3m2 [facility] Comment:Estimated glomerular filtration rate calculated using the CKD-EPI refit equation. ANION GAP 20 10 - 20 mmol/L [facility] Blood 07/28/2024 2:08 PM EST 07/28/2024 2:10 PM EST us Capo Ortega MD LAB BLOOD ORDERABLES Final Result Performing Organization Address City/State/[facility] Co de Phone Number [facility] [address] [place] [address] from Last 3 Months or Most Recently Relevant to Health Maintenance [facility] SUPPLEMENT MEDICARE PART A & B [facility] MEDICARE SUPPLEMENT MEDICARE PART A & [place] [address] [place] [address] MEDICARE SUPPLEMENT MEDICARE PART A & [place] [place] [address] MEDICARE SUPPLEMENT MEDICARE PART A & B [facility] MEDICARE SUPPLEMENT MEDICARE PART A & B [place], [place] [facility] MEDICARE SUPPLEMENT [place] [address] MEDICARE PART A & B Advance Directives For more information, please contact: [phone] (9AM - 5PM [place], Friday-Friday) * Full [...] proxy form on fi le) Care Teams Metal Cans Supervisor Relationship Specialty Start Date End Date Mary Anne Mcgraw MD [address] [place] [address] PCP - General Internal Medicine 04/01/23 Additional Source Comments The information contained in this document represents components of the legal health record. It is not the complete legal health record.[facility]
--- OUTSIDE RECORDS SUMMARY | 2025-03-08 11:01 | XMS_ITS | Encounter Summary ---
Author Organization [facility] Address [address] [place] [address] Phone Care Team Providers Care Log Peeler Name Role Phone Mary Anne Mcgraw MD Primary Care Provid er Encounter Details Date Type Department Care Team (Late st Contact Info) Description 04/13/2024 Procedure Pass [facility] [place], Jeff [address] [facility], 2nd Floor, [address] [place] [address] Social History Tobacco Use Types Packs/Day Years [...] 04/13/2024 4:42 AM Neris Hackett RN * [place] Suicide Severity Rating Scale (Screener/Recent Self-Report) Question [...] 04/19/2025 1:15 PM EST Office Visit [facility] [place] Department of Orthopaedic Surgery, Arthroplasty Service 55 [facility], 3rd Floor, [address] [place] [address] Lui Marques MD [address] [address] [email or web address] documented as of this encounter Visit Diagnoses Not on filedocumented in this encounter Additional Health Concerns Infection Onset Date Last Indicated Resolved Time CDiff-Risk 04/25/2024 04/25/2024 04/25/2024 9:27 AM EST C. diff 04/25/2024 04/25/2024 05/25/2024 1:21 AM EST CoV-Presumed Comment:Added per Home Health documentation 05/26/2024 05/26/2024 06/15/2024 1:[address] documented as of this encounter Care Teams Log Peeler Relationship Specialty Start Date End Date Mar yAnne Mcgraw MD [address] [place] [address] PCP - General Internal Medicine 04/01/23 documented as of this encounter Additional Source Comments The information contained in this document represents components of the legal health record. It is not the complete legal health record.[facility]
--- OUTSIDE RECORDS SUMMARY | 2025-03-08 11:01 | XMS_ITS | Encounter Summary ---
Author Organization [facility] Address [address] [place] [address] Phone Care Team Providers Care Accounts Manager Name Role Phone Mary Anne Mcgraw MD Primary Care Provid er Encounter Details Date Type Department Care Team (Late st Contact Info) Description 04/12/2024 Procedure Pass [facility], Ct Scan - [address] [address] Social History Tobacco Use Types Packs/Day Years [...] 04/13/2024 4:42 AM Neris Hackett RN * [place] Suicide Severity Rating Scale (Screener/Recent Self-Report) Question [...] Description 04/19/2025 1:15 PM EST Office Visit [facility] Department of Orthopaedic Surgery, Arthroplasty Service 55 [facility], 3rd Floor, [address] [place] [address] Lui Marques MD [address] [address] [email or web address] documented as of this encounter Visit Diagnoses Not on filedocumented in this encounter Additional Health Concerns Infection Onset Date Last Indicated Resolved Time CDiff-Risk 04/25/2024 04/25/2024 04/25/2024 9:27 AM EST C. diff 04/25/2024 04/25/2024 05/25/2024 1:21 AM EST CoV-Presumed Comment:Added per Home Health documentation 05/26/2024 05/26/2024 06/15/2024 1:[address] documented as of this encounter Care Teams Accounts Manager Relationship Specialty Start Date End Date Mary Anne Mcgraw MD [address] [place] [address] PCP - General Internal Medicine 04/01/23 documented as of this encounter Additional Source Comments The information contained in this document represents components of the legal health record. It is not the complete legal health record.[facility]
--- OUTSIDE RECORDS SUMMARY | 2025-03-08 11:01 | XMS_ITS | Encounter Summary ---
Author Organization [facility] Address [address] [place] [address] Phone Care Team Providers Care Cartoon Artist Name Role Phone Mary Anne Mcgraw MD Primary Care Provid er Encounter Details Date Type Department Care Team (Late Contact Info) Description 03/25/2024 Procedure Pass [facility] [place] [facility] Fluoroscopy, [place] 2 55 [facility], 2nd [place] [address] Social History Tobacco Use Types Packs/Day Years [...] 55 [facility], 3rd Floor, [address] [place] [address] Lui Marques MD 55 [facility] [address] [place] [address] [email or web address] documented as of this encounter Visit Diagnoses Not on filedocumented in this encounter Additional Health Concerns Infection Onset Date Last Indicated Resolved Time CDiff-Risk 04/25/2024 04/25/2024 04/25/2024 9:27 AM EST C. diff 04/25/2024 04/25/2024 05/25/2024 1:21 AM EST CoV-Presumed Comment:Added per Home Health documentation 05/26/2024 05/26/2024 06/15/2024 1:[address] documented as of this encounter Care Teams Cartoon Artist Relationship Specialty Start Date End Date Mary Anne Mcgraw MD [address] [place] [address] PCP - General Internal Medicine 04/01/23 documented as of this encounter Additional Source Comments The information contained in this document represents components of the legal health record. It is not the complete legal health record.[facility]
--- OUTSIDE RECORDS SUMMARY | 2025-03-08 11:02 | XMS_ITS | Patient Health Record ---
Author Organization [facility] Address [address] [place] [address] Care Team Providers Care Brazing Machine Operator Automatic Name Role Phone Marcela(inactive) Josh RODRIGUEZ Primary [...] GM As directed Orally Over the specified time.; Duration: 1 day(s) 08/07/2016 Active Social History Tobacco [...] Problem Status W/U Status Risk Notes Problem Colon cancer screening (028831000) Colon cancer screening (Z12.11) Active confirmed Plan Of Treatment Future Test Test Name Order Date COLONOSCOPY 08/07/2016 Insurance Providers Payer Name Payer Address Payer Phone Subscriber Number Group Number Insured Name Patient Relationship to Insured Coverage Start Date Coverage End Date [facility] [address] [place] [address] [phone] [id number] MIRIAM PANTOJA Self - patient is the insured Medical (General) History Medical History History ICD Code hypertension Denies [place],DM,CVA,Lung disease,renal dise ase Surgical History Surgery Date(Month/Year) arm surgery
--- OUTSIDE RECORDS SUMMARY | 2025-03-08 11:02 | XMS_ITS | Encounter Summary ---
Author Organization [facility] Address [address] [place] [address] Phone Care Team Providers Care Pruner Name Role Phone Mary Anne Mcgraw MD Primary Care Provid er Encounter Details Date Type Department Care Team (Late st Contact Info) Description 03/30/[address], Jeff 2 [address] [facility], 2nd Floor, [address] [place] [address] Social History Tobacco Use Types Packs/Day Years [...] Description 04/19/2025 1:15 PM EST Office Visit [facility] [place] Department of Orthopaedic Surgery, Arthroplasty Service 55 [facility], 3rd Floor, [address] [place] [address] Lui Marques MD 55 [facility] [address] [place] [address] [email or web address] documented as of this encounter Visit Diagnoses Not on filedocumented in this encounter Additional Health Concerns Infection Onset Date Last Indicated Resolved Time CDiff-Risk 04/25/2024 04/25/2024 04/25/2024 9:27 AM EST C. diff 04/25/2024 04/25/2024 05/25/2024 1:21 AM EST CoV-Presumed Comment:Added per Home Health documentation 05/26/2024 05/26/2024 06/15/2024 1:[address] documented as of this encounter Care Teams Pruner Relationship Specialty Start Date End Date Mary Anne Mcgraw MD [address] [place] [address] PCP - General Internal Medicine 04/01/23 documented as of this encounter Additional Source Comments The information contained in this document represents components of the legal health record. It is not the complete legal health record.[facility]
--- OUTSIDE RECORDS SUMMARY | 2025-03-08 11:02 | XMS_ITS | Encounter Summary ---
Author Organization [facility] Address [address] [place] [address] Phone Care Team Providers Care Professional Nursing Assistant Name Role Phone Mary Anne Mcgraw MD Primary Care Provid er Encounter Details Date Type Department Care Team (Late st Contact Info) Description 03/29/2024 Procedure Pass [facility] PERIOPERATIVE DEPT [address] [place] [address] Social History Tobacco Use Types Packs/Day Years [...] Description 04/19/2025 1:15 PM EST Office Visit [facility] Department of Orthopaedic Surgery, Arthroplasty Service 55 [facility], 3rd Floor, [address] [place] [address] Lui Marques MD [address] [address] [email or web address] documented as of this encounter Visit Diagnoses Not on filedocumented in this encounter Additional Health Concerns Infection Onset Date Last Indicated Resolved Time CDiff-Risk 04/25/2024 04/25/2024 04/25/2024 9:27 AM EST C. diff 04/25/2024 04/25/2024 05/25/2024 1:21 AM EST CoV-Presumed Comment:Added per Home Health documentation 05/26/2024 05/26/2024 06/15/2024 1:[address] documented as of this encounter Care Teams Professional Nursing Assistant Relationship Specialty Start Date End Date Mary Anne Mcgraw MD [address] [place] [address] PCP - General Internal Medicine 04/01/23 documented as of this encounter Additional Source Comments The information contained in this document represents components of the legal health record. It is not the complete legal health record.[facility]
--- OUTSIDE RECORDS SUMMARY | 2025-03-08 11:02 | XMS_ITS | Patient Health Record ---
Author Organization [facility] Address [address] [place] [address] Care Team Providers Care Stencil Machine Operator Name Role Phone Deborah RODRIGUEZ, Mary Anne Primary Care Provider Unavail able Heydi Garcia Unavailable [phone] Allergies No Known Allergies Reason For Referral [...] W/U Status Risk Notes Problem Gait abnormality (72974939) Gait abnormality (R26.9) Active confirmed Problem Equinus contracture of left ankle (M24.572) Active confirmed Problem Plantarflexion deformity of right foot (finding) (9924022231343430) Equinus contracture of right ankle (M24.571) Active confirmed Vital Signs Blood pressure diastolic 70 mm Hg 02/16/2025 Height 5ft 7in in 02/16/2025 Blood pressure systolic 130 mm Hg 02/16/2025 Weight 208 lbs 02/16/2025 BMI 32.57 kg/m2 02/16/2025 Encounters Encounter Location Date Provider Diagnosis [facility] [address] 02/16/2025 Heydi Garcia Pes planus of left foot M21.42 ; Pes planus of right foot M21.41 ; Gait abnormality R26.9 ; Equinus contracture of left ankle M24.572 and Equinus contracture of right ankle M24.[facility] [address] 02/16[facility] [address] 02/04/2025 Heydi Garcia Assessments Encounter Date Diagnosis (ICD Code) Assessment Notes Treatment Notes Treatment Clinical Notes Section Notes 02/16/2025 Pes planus of left foot (ICD-10 - M21.42) 02/16/2025 Pes planus of right foot (ICD-10 - M21.41) 02/16/2025 Gait abnormality (ICD-10 - R26.9) 02/16/2025 Equinus contracture of left ankle (ICD-10 - M24.572) 02/16/2025 Equinus contracture of right ankle (ICD-10 - M24.571) Plan Of Treatment No Information Insurance Providers Payer Name Payer Address Payer Phone Subscriber Number Group Number Insured Name Patient Relationship to Insured Coverage Start Date Coverage End Date Medicare National [employer] [address] [place] [address] [id number] Renny Montes Self - patient is the insured 5 [facility] [address] [place] COOK [id number] [phone] [id number] Alix Montes Spouse - patient is the spouse of the insured Medical (General) History Medical History History ICD Code Arthritis Back,Hip,and Knee pain CAD (Cholesterol) High blood pressure Sciatica Chicken pox bulging discs Surgical History Surgery Date(Month/Year) hand surgery 02/17 3 hip replacement 2 spine surgery
== END 2025-03-08 10:15 | disposition home or self-care (01) ==
LOC: HO.HOS 09:48
PROVIDERS: PCP Internal Medicine
DX: M72.0 Palmar fascial fibromatosis [Dupuytren] (principal)
CPT/HCPCS: 99024

== ENCOUNTER → 2025-03-08 09:47 | Outpatient (BNVA) | payer MEDICARE, OTHER, SELFPAY | PROVIDERS: PCP Internal Medicine | DX: Z48.817 Encounter for surgical aftercare following surgery on the skin and subcutaneous tissue (principal); M72.0 Palmar fascial fibromatosis [Dupuytren] | CPT/HCPCS: 99212 ==

== ENCOUNTER 2025-03-14 15:44 | Outpatient (AMB) | payer MEDICARE, OTHER, SELFPAY ==
[2025-03-14 16:26] VITALS: BP 126/80; PULSE 112; O2SAT 98; BMI 32.3
--- NOTE | 2025-03-14 16:26 | MHC.PC.OV ---
Vital Signs 03/14/25 16:26 Height 5 ft 7 in Weight 206 lb BMI 32.3 BP 126/80 Blood Pressure Location Lt brachial Position Sitting Pulse 112 H Pulse Source Pulse Oximeter Pulse Oximetry (%) 98 Oxygen Delivery Method Room Air Intake Visit Reasons: bp Crepe Sole Scourer Required: No Accompanied by: Self / Same As Patient Allergies No Known Allergies (No Known Allergies*) Allergy (Verified 03/14/25 16:54) Medication List - Last Reconciled 03/14/25 by Mary Anne Leach MD cholecalciferol (vitamin D3) 25 mcg PO DAILY crutches (pair of crutches) As directed hydroxyzine HCl 25 mg PO BEDTIME PRN 30 days lisinopril 10 mg PO DAILY oxycodone 10 mg PO DAILY PRN tramadol 50 mg PO DAILY walker As directed Tobacco use date assessed: 03/14/25 Fall risk assessment: No Falls in past year Last assessed Fall Risk: 03/14/25 Dental Screening Dental Screen Date: 03/14/25 Did you have a dental visit in the last 12 months?: No Did you have a dental problem in the last 6 months where you did not have access to dental care?: No Was dental information given to patient?: No HPI HPI Comments History of Present Illness Details The patient is a 64-year-old male presenting with management of hypertension, chronic pain, and follow-up for Dupuytren's contracture. The patient has a history of hypertension, currently managed with lisinopril 10 mg, which has effectively controlled his blood pressure. He reports adherence to this medication regimen and denies any side effects. The patient underwent surgery for Dupuytren's contracture and is scheduled for a platelet-rich plasma (PRP) injection. He expresses concern about the cost of the injection, as it is not covered by insurance. The patient experiences chronic pain, which limits his ability to walk long distances and affects his daily activities. He has eliminated alcohol from his lifestyle and engages in yoga and other exercises to manage his condition. Despite these efforts, he reports persistent pain and is considering trying pregabalin as a new treatment option. [facility] Medical History (Updated 03/14/25 @ 21:10 by Mary Anne Leach MD) Screening for hypothyroidism Back pain JORDI (acute kidney injury) Hip dislocation, right H/O myocardial perfusion scan Chronic, continuous use of opioids Former smoker Arthritis of right hip Hx of fracture of tibia Substance use disorder Dupuytren's contracture of right hand High cholesterol Hypertension Surgical History Status post Dupuytren's fasciectomy (~01/27/25) S/P insertion of spinal cord stimulator History of total right hip arthroplasty (05/13/23) History of back surgery (02/2023) Hx of colonoscopy History of hand surgery History of shoulder surgery Family History Mother Cancer Father No problems noted. Sister Breast cancer Social History Household Members: Spouse Housing: House Are you a primary before and after school daycare worker to a significant other at home: No Do you presently have visiting nurse or other home services: No 75 years or older and lives alone: No Alcohol intake: former Comment: COUNTS CORRECT Patient Tobacco Use Status: Former Tobacco user Tobacco use type: Cigarette Years Smoked: 10 e-Cigarette/Vaping Use: Never Used Second Hand Smoke Exposure: Yes Substance Use Type: Marijuana service: No Current occupational status: retired Current occupation: right hand dominant Cognitive needs: Yes Hearing needs: No Vision needs: No Questionnaire PHQ-9 Over the last 2 weeks, how often have you been bothered by any of the following problems? 1. Little interest or pleasure in doing things: not at all 2. Feeling down, depressed, or hopeless: not at all 3. Trouble falling or staying asleep, or sleeping too much: not at all 4. Feeling tired or having little energy: not at all 5. Poor appetite or overeating: not at all 6. Feeling bad about yourself - or that you are a failure or have let yourself or your family down: not at all 7. Trouble concentrating on things, such as reading the newspaper or watching television: not at all 8. Moving or speaking so slowly that other people could have noticed. Or the opposite - being so fidgety or restless that you have been moving around a lot more than usual: not at all 9. Thoughts that you would be better off or of hurting yourself in some way: not at all Total score: 0 Depression Screening Interpretation: Negative Depression Screening Done: Yes 84497 - PHQ-9 Billing: Yes Source: Developed by Drs. Kang Au, Katherine Ortiz, Kenneth Becker and colleagues, with an educational hoa from [employer]. Thrive Questionnaire Date Thrive assessed: 09/09/24 I am a: Patient What is your living situation today?: I have a steady place to live Within the past 12 months, did the food you bought not last and you didn't have the money to get more?: Never true Within the past 12 months, did you worry whether your food would run out before you got money to buy more?: Never true Do you have trouble paying for medicines?: No Do you have trouble getting transportation to medical appointments?: No Do you have trouble paying your heating and electricity bill?: No Do you have trouble taking care of your child, family member or friend?: No Do you have trouble with day-to-day activities such as bathing, preparing meals, shopping, managing finances, etc.?: No Are you currently unemployed and looking for a job?: No Are you interested in more education?: No Please select the resources that you would like help with: None Currently or been in a relationship where the following occur: No concerns reported THRIVE Score: 0 AUDIT C Alcohol Use Questionnaire (AUDIT-C) 1. How often do you have a drink containing alcohol?: Never 3. How often do you have six or more drinks on one occasion?: Never Total Score: 0 Score Reviewed/Action Taken: No YESENIA-7 AMB Questionnaire YESENIA-7 Date YESENIA - 7 assessed: 09/09/24 Feeling nervous, anxious, or on edge: 0 = Not at all Not being able to stop or control worryin = Not at all Worrying too much about different things: 0 = Not at all Trouble relaxin = Not at all Being so restless that it is hard to sit still: 0 = Not at all Becoming easily annoyed or irritable: 0 = Not at all Feeling afraid as if something awful might happen: 0 = Not at all Total YESENIA-7 score (0-4 normal; 5-9 mild; 10-14 moderate; 15-21 severe): 0 Source: Developed by Katherine Nails B.W. Angel, Kenneth Becker and colleagues, with an educational hoa from [employer]. YESENIA-7 Assessment Billing YESENIA-7 Assessment Tool: YESENIA-7 Assessment 92532 Review of Systems Const All systems reviewed & are unremarkable except as noted in HPI and below Card Denies chest pain at rest, Denies chest pain with activity, Denies edema, Denies irregular heart rhythm, Denies claudication, Denies dyspnea, Denies dyspnea on exertion, Denies orthopnea, Denies paroxysmal nocturnal dyspnea and Denies slow heart rate Resp Denies cough, Denies dyspnea and Denies dyspnea on exertion Physical exam (Primary Care) Vital Signs: Last Vital Signs Pulse 112 H 03/14/25 16:26 BP 126/80 03/14/25 16:26 Pulse Ox 98 03/14/25 16:26 Oxygen Delivery Method Room Air 03/14/25 16:26 BMI result Body Mass Index 32.3 BMI Assessment/Plan discussion: High BMI High, discussed plan: lifestyle, weight reduction, dietary and physical activity Tobacco/Smoking Status: Tobacco use Status Tobacco use date assessed 03/14/25 03/14/25 16:27 Patient Tobacco Use Status Former Tobacco user 03/14/25 16:27 Tobacco use type Cigarette 03/14/25 16:27 e-Cigarette/Vaping Use Never Used 03/14/25 16:27 PHQ-9: PHQ-9 Score PHQ-9: Total score 0 03/14/25 17:01 Depression Screening Interpretation: Negative Thrive Assessment: Date of Thrive Assessment Date Thrive assessed 09/09/24 03/14/25 16:27 Currently or been in a relationship where the following occur: No concerns reported Resp Effort & Inspection: normal respiratory effort Auscultation: clear to auscultation bilaterally Cardio Jugular venous distension: no JVD Rate: regular rate Rhythm: regular rhythm Heart sounds: S1 normal heart sound present and S2 normal heart sound present Extrem General: Yes full ROM Coding Level of Care Code Est Pt Level 3 (19448) Complex EM visit Add On G2211 Diagnoses Hypertension, unspecified type I10 Hypertension type: unspecified Lumbar radiculopathy M54.16 Additional Codes YESENIA-7 Assessment Billing - YESENIA-7 Assessment Tool: YESENIA-7 Assessment 19046 ([id number]) PHQ-9 - 31385 - PHQ-9 Billing: Yes ([id number]) Time Spent (min) 19 Assessment & Plan Assessment & Plan (1) Hypertension: Code(s): I10 - Essential (primary) hypertension Category: Medical Qualifiers: Hypertension type: unspecified Qualified Code(s): I10 - Essential (primary) hypertension (2) Lumbar radiculopathy: Code(s): M54.16 - Radiculopathy, lumbar region Category: Medical Plan Plan 1. Essential Hypertension The patient's hypertension is well-controlled with lisinopril 10 mg daily, and no changes to this regimen are currently necessary. 2. Dupuytren's Contracture The patient has undergone surgery for Dupuytren's contracture and is scheduled for a PRP injection to aid recovery. The cost of the injection is a concern as it is not covered by insurance. 3. Chronic Pain The patient reports chronic pain affecting his ability to walk and perform daily activities. Pregabalin has been recommended as a potential treatment, with instructions to start at bedtime due to its sedative effects. Medications: New pregabalin 75 mg PO BID 60 caps 0RF 30 days
== END 2025-03-14 17:08 | disposition home or self-care (01) ==
LOC: HO.HMCH 15:45
PROVIDERS: PCP Internal Medicine; Visit Provider Internal Medicine
DX: I10 Essential (primary) hypertension (principal); M54.16 Radiculopathy, lumbar region

== ENCOUNTER → 2025-03-14 15:44 | Outpatient (BNVA) | payer MEDICARE, OTHER, SELFPAY | PROVIDERS: PCP Internal Medicine; Visit Provider Internal Medicine | DX: I10 Essential (primary) hypertension (principal); G89.29 Other chronic pain; M54.16 Radiculopathy, lumbar region; M72.0 Palmar fascial fibromatosis [Dupuytren] | CPT/HCPCS: 96127; 99212 ==

== ENCOUNTER 2025-03-17 06:16 | Outpatient (REF) | payer MEDICARE, OTHER, SELFPAY ==
--- OUTSIDE RECORDS SUMMARY | 2025-02-11 08:45 | XMS_ITS ---
Author Organization [facility] Address [address] [place] [address] Care Team Providers Care Top Flavor Attendant Name Role Phone Deborah RODRIGUEZ, Mary Anne Primary Care Provider Unavail Heydi Dean Unavailable [phone] Medications Medication SIG (Take, Route, Frequency, Duration) [...] Active Encounters Encounter Location Date Provider Diagnosis [address] [address] 02/11/2025 Heydi Garcia Plan Of Treatment No Information Progress Notes * Renny PANTOJA LDOB:[birth year] (64 yo M)Acc No.[id number]:02/11/2025 Progress Note Patient: Renny PINK Provider: Roger Garcia DPM :1960 A ge:64 Y S ex:Male Date:02/11/2025 Address:[address] [place] [address] Pcp:Mary Anne Cabrera MD Subjective: * Chief [...] 0 02/11/2025 Generated for Carlos faustin/Kennedy/Jordan on: 06:18 AM EDT
--- NOTE | ~2025-03-17 | FL_ITS ---
EXAMINATION: FL GUIDANCE ONLY HISTORY: M54.16 - Radiculopathy, lumbar region COMPARISON: Comparison is made with the prior examination dated 12/30/2024. TECHNIQUE: Fluoroscopy time: 0.7 minutes. Cumulative Dose: 16.70 mGy. DAP: 174.42 uGym2 Images: 4. FINDINGS: Fluoroscopic spot films of the lumbar spine demonstrate a needle and intrathecal contrast material in place. FL/FL guidance in treatment room IMPRESSION: Fluoroscopy during procedure. Please see procedure report for additional information. Electronically signed by: Kang Graham MD 03/17/2025 03:09 PM EDT
--- OUTSIDE RECORDS SUMMARY | 2025-03-17 06:18 | XMS_ITS | Encounter Summary ---
Author Organization [facility] Address [address] [place] [address] Phone Care Team Providers Care Manager Data Center Name Role Phone Mary Anne Mcgraw MD Primary Care Provid er Encounter Details Date Type Department Care Team (Late Contact Info) Description 03/25/2024 Procedure Pass [facility] Radio Fluoroscopy, [place] 2 55 [facility], [address]nd [place] [address] Social History Tobacco Use Types Packs/Day Years [...] Description 04/19/2025 1:15 PM EST Office Visit [facility] Department of Orthopaedic Surgery, Arthroplasty Service 55 [facility], 3rd Floor, [address] [place] [address] Lui Marques MD 55 [facility] [address] [place] [address] [email or web address] documented as of this encounter Visit Diagnoses Not on filedocumented in this encounter Additional Health Concerns Infection Onset Date Last Indicated Resolved Time CDiff-Risk 04/25/2024 04/25/2024 04/25/2024 9:27 AM EST C. diff 04/25/2024 04/25/2024 05/25/2024 1:21 AM EST CoV-Presumed Comment:Added per Home Health documentation 05/26/2024 05/26/2024 06/15/2024 1:[address] documented as of this encounter Care Teams Manager Data Center Relationship Specialty Start Date End Date Mary Anne Mcgraw MD [address] [place] [address] PCP - General Internal Medicine 04/01/23 documented as of this encounter Additional Source Comments The information contained in this document represents components of the legal health record. It is not the complete legal health record.[facility]
--- OUTSIDE RECORDS SUMMARY | 2025-03-17 06:18 | XMS_ITS | Encounter Summary ---
Author Organization [facility] Address [address] [place] [address] Phone Care Team Providers Care Hoisting Engineer Pile Driving Name Role Phone Mary Anne Mcgraw MD Primary Care Provid er Encounter Details Date Type Department Care Team (Late st Contact Info) Description 04/12/2024 Procedure Pass [facility], Ct Scan - [address] [address] Social History Tobacco Use Types Packs/Day Years [...] 04/13/2024 4:42 AM Neris Hackett RN * [place] Suicide Severity Rating Scale (Screener/Recent Self-Report) Question [...] 04/19/2025 1:15 PM EST Office [place] [facility] Department of Orthopaedic Surgery, Arthroplasty Service 55 [facility], 3rd Floor, [address] [place] [address] Lui Marques MD [address] [address] [email or web address] documented as of this encounter Visit Diagnoses Not on filedocumented in this encounter Additional Health Concerns Infection Onset Date Last Indicated Resolved Time CDiff-Risk 04/25/2024 04/25/2024 04/25/2024 9:27 AM EST C. diff 04/25/2024 04/25/2024 05/25/2024 1:21 AM EST CoV-Presumed Comment:Added per Home Health documentation 05/26/2024 05/26/2024 06/15/2024 1:[address] documented as of this encounter Care Teams Hoisting Engineer Pile Driving Relationship Specialty Start Date End Date Mary Anne Mcgraw MD [address] [place] [address] PCP - General Internal Medicine 04/01/23 documented as of this encounter Additional Source Comments The information contained in this document represents components of the legal health record. It is not the complete legal health record.[facility]
--- OUTSIDE RECORDS SUMMARY | 2025-03-17 06:18 | XMS_ITS | Encounter Summary ---
Author Organization [facility] Address [address] [place] [address] Phone Care Team Providers Care Bindery Machine Setter/Set Up Operator Name Role Phone Mary Anne Mcgraw MD Primary Care Provid er Encounter Details Date Type Department Care Team (Late st Contact Info) Description 04/13/2024 Procedure Pass [facility] [place], [place] [address] [facility], 2nd Floor, [address] [place] [address] Social History Tobacco Use Types Packs/Day Years [...] 04/13/2024 4:42 AM Neris Hackett RN * [place] Suicide Severity Rating Scale (Screener/Recent Self-Report) Question [...] Department of Orthopaedic Surgery, Arthroplasty Service 55 [facility], 3rd Floor, [address] [place] [address] Lui Marques MD [address] [address] [email or web address] documented [...] documented as of this encounter Care Teams Bindery Machine Setter/Set Up Operator Relationship Specialty Start Date End Date Mary Anne Mcgraw MD [address] [place] [address] PCP - General Internal Medicine 04/01/23 documented as of this encounter Additional Source Comments The information contained in this document represents components of the legal health record. It is not the complete legal health record.[facility]
--- OUTSIDE RECORDS SUMMARY | 2025-03-17 06:18 | XMS_ITS | Encounter Summary ---
Author Organization [facility] Address [address] [place] [address] Phone Care Team Providers Care Casino Cashier Name Role Phone Mary Anne Mcgraw MD Primary Care Provid er Encounter Details Date Type Department Care Team (Late st Contact Info) Description 04/15/2024 Procedure Pass [facility] PERIOPERATIVE DEPT [address] [place] [address] Social History Tobacco Use Types Packs/Day Years [...] [facility], 3rd Floor, [address] [place] [address] Lui Marques MD [address] [place] [id number] [email or web address] documented as of this encounter Visit Diagnoses Not on filedocumented in this encounter Additional Health Concerns Infection Onset Date Last Indicated Resolved Time CDiff-Risk 04/25/2024 04/25/2024 04/25/2024 9:27 AM EST C. diff 04/25/2024 04/25/2024 05/25/2024 1:21 AM EST CoV-Presumed Comment:Added per Home Health documentation 05/26/2024 05/26/2024 06/15/2024 1:[address] documented as of this encounter Care Teams Casino Cashier Relationship Specialty Start Date End Date Mary Anne Mcgraw MD [address] [place] [address] PCP - General Internal Medicine 04/01/23 documented as of this encounter Additional Source Comments The information contained in this document represents components of the legal health record. It is not the complete legal health record.[facility]
--- OUTSIDE RECORDS SUMMARY | 2025-03-17 06:18 | XMS_ITS | Clinical Summary ---
Author Organization [facility] Address [address] [place] [address] Phone Care Team Providers Care Counter Helper Name Role Phone Mary Anne Mcgraw MD [...] high school, GED, job training, learning the [place] language, technical skills, or developing parenting skills)? [...] Description 04/19/2025 1:15 PM EST Office Visit [place] Department of Orthopaedic Surgery, Arthroplasty Service 55 [facility], 3rd Floor, [address] [place] [address] Lui Marques MD [address] [address] [email or web address] Health Maintenance Due Date Last Done Comments [...] this topic Medical Devices Implanted Type Area Accounts Payables Clerk Device Identifier Shelf Expiration Date Model / Serial / Lot Right Hip Screw Bone 20x6.5mm Hip Cancellous Reflection Ss Spherical Head - [id number] Implanted:Qty: 1 on 03/29/2024 by Lui Marques MD at [facility] Right: Hip SHEIKH 09/16/2033 [id number] / / [id number] Screw Bone 6.5x25mm Hip Cancellous Spherical Hd For Reflection System 16a - [id number] Implanted:Qty: 1 on 03/29/2024 by Lui Marques MD at [facility] Right: Hip SHEIKH 06/24/2033 [id number] / / [id number] Screw Bone 30x6.5mm Hip Cancellous Spherical Head For Reflection System 16a Cs/1bx/1ea - [id number] Implanted:Qty: 1 on 03/29/2024 by Lui Marques MD at [facility] Right: Hip SHEIKH 08/09/2033 [id number] / / [id number] Screw Bone 20x6.5mm Hip Cancellous Reflection Ss Spherical Head - [id number] Implanted:Qty: 1 on 03/29/2024 by Lui Marques MD at [facility] Right: Hip SHEIKH 09/27/2033 [id number] / / [id number] Screw Bone 30x6.5mm Hip Cancellous Spherical Head For Reflection System 16a Cs/1bx/1ea - [id number] Implanted:Qty: 1 on 03/29/2024 by Lui Marques MD at [facility] Right: Hip SHEIKH 03/17/2033 [id number] / / [id number] Adapter Sleeve 4.0mm [place] Femoral Hip Titanium V40 Plus - [id number] Implanted:Qty: 1 on 03/29/2024 by Lui Marques MD at [facility] Right: Hip [employer] 10/15/2028 6519-T-204 / / [id number] Cement Bone 1x40gm [place] R High Viscosity - [id number] Implanted:Qty: 1 on 03/29/2024 by Lui Marques MD at [facility] Right: Hip [email or web address] 05/25/2028 [id number] / / [id number] Hip 28mm [place] Biolox Delta Ceramic Tapered Plus 0 Offset - [id number] Implanted:Qty: 1 on 03/29/2024 by Lui Marques MD at [facility] Right: Hip [employer] 09/16/2027 6519-1-028 / / [id number] Redart 60mm Od Implanted:Qty: 1 on 03/29/2024 by Lui Marques MD at [facility] Right: Hip 06/13/2031 [id number] / / [id number] Redapt Slice Augment [id number] Implanted:Qty: 1 on 03/29/2024 by Lui Marques MD at [facility] Right: Hip 07/12/2029 [id number] / / [id number] [employer]hew Pollar Cup Cemented Shell Size 47 Implanted:Qty: 1 on 03/29/2024 by Lui Marques MD at [facility] Right: Hip 06/04/2030 75 100 4 53 / / [id number] [employer] Polarcup Xlpe Insert Size 47/28 Implanted:Qty: 1 on 03/29/2024 by Lui Marques MD at [facility] Right: Hip 06/11/2030 11 000 6 01 / / [id number] Screw Bone 20x6.5mm Hip Cancellous Reflection Ss Spherical Head - [id number] Implanted:Qty: 1 on 03/29/2024 by Lui Marques MD at [facility] Right: Hip SHEIKH 09/27/2033 [id number] / / [id number] Screw Bone 6.5x35mm Hip Cancellous Spherical Head For Reflection System 16a Cs/1bx/1ea - [id number] Implanted:Qty: 1 on 03/29/2024 by Lui Marques MD at [facility] Right: Hip SHEIKH 09/02/2033 [id number] / / [id number] Hip 28mm 12 Lfit V40 [place] Low Friction Ion Treatment Plus - [id number] Implanted:Qty: 1 on 04/15/2024 by Lui Marques MD at [facility] Right: Acetabulum [employer] 09/02/2027 6260-9-428 / / [id number] Polarcup Xlpe Insert Size 47/28 Implanted:Qty: 1 on 04/15/2024 by Lui Marques MD at [facility] Right: Acetabulum 04/12/2030 [id number] / / [id number] Filler Stimulan Bone Lf Sterile Disposable Rapid Cure 5cc - [id number] Implanted:Qty: 1 on 04/15/2024 by Lui Marques MD at [facility] Right: Hip [employer] 12/23/2026 620-005 / / [id number] Description:1 gm vancomycin added Procedures Procedure Name Priority Date/Time Associated Diagnosis Comments COMPREHENSIVE METABOLIC PANEL Routine 07/28/2024 2:08 PM EST Infection of prosthetic joint, subsequent encounter from Last 3 Months or Most Recently Relevant to Health Maintenance Results * Comprehensive metabolic panel (07/28/2024 2:08 PM EST) Pathologist [facility] SODIUM 133 133 - 146 mmol/L [facility] POTASSIUM 4.5 3.3 - 5.1 mmol/L [facility] CHLORIDE 96 96 - 108 mmol/L [facility] CO2 22 21 - 35 mmol/L [facility] BUN 16 6 - 19 mg/dL [facility] CREATININE 0.80 0.5 - 1.5 mg/dL [facility] GLUCOSE 89 70 - 99 mg/dL [facility] ALBUMIN 4.2 3.9 - 4.8 g/dL [facility] TOTAL PROTEIN 7.7 6.5 - 8.0 g/dL [facility] CALCIUM 9.8 8.4 - 10.3 mg/dL [facility] ALKALINE PHOSPHATASE 93 39 - 117 U/L [facility] TOTAL BILIRUBIN <0.2 0.0 - 1.2 mg/dL [facility] AST 20 0 - 37 U/L [facility] ALT 21 0 - 40 U/L [facility] GLOBULIN 3.5 1 - 4.8 g/dL [facility] EGFR 99 >59 mL/min/1.7 3m2 [facility] Comment:Estimated glomerular filtration rate calculated using the CKD-EPI refit equation. ANION GAP 20 10 - 20 mmol/L [facility] Blood 07/28/2024 2:08 PM EST 07/28/2024 2:10 PM EST us Capo Ortega MD LAB BLOOD ORDERABLES Final Result Performing Organization Address City/State/[facility] Co de Phone Number [facility] [address] [place] [address] from Last 3 Months or Most Recently Relevant to Health Maintenance [facility] SUPPLEMENT MEDICARE PART A & B [facility] MEDICARE SUPPLEMENT MEDICARE PART A & [place] [address] [place] [address] MEDICARE SUPPLEMENT MEDICARE PART A & [place] [address] [place] [address] MEDICARE SUPPLEMENT MEDICARE PART A & B [facility] MEDICARE SUPPLEMENT MEDICARE PART A & B [place], [place] [facility] MEDICARE SUPPLEMENT MARY [place]OOK [id number] MEDICARE PART A & B Advance Directives For more information, please contact: [phone] (9AM - 5PM [place], Friday-Friday) * Full [...] proxy form on fi le) Care Teams Counter Helper Relationship Specialty Start Date End Date Mary Anne Mcgraw MD [address] [place] [address] PCP - General Internal Medicine 04/01/23 Additional Source Comments The information contained in this document represents components of the legal health record. It is not the complete legal health record.[facility]
--- OUTSIDE RECORDS SUMMARY | 2025-03-17 06:18 | XMS_ITS | Encounter Summary ---
Author Organization [facility] Address [address] [place] [address] Phone Care Team Providers Care Sheet Metal Operator Name Role Phone Mary Anne Mcgraw MD Primary Care Provid er Encounter Details Date Type Department Care Team (Late st Contact Info) Description 03/24/2024 Procedure Pass [facility] Main [address], Floor 1 [place] [address] Social History Tobacco Use Types Packs/Day Years [...] 8:00 PM EDT JoeFifi Flores RN * Wheeler Suicide Severity Rating Scale (Screener/Recent Self-Report) Question [...] [facility] Department of Orthopaedic Surgery, Arthroplasty Service [address] [place] [address], 3rd Floor, [address] [place] [address] Lui Marques MD [address] [place] [phone] [email or web address] documented as of this encounter Visit Diagnoses Not on filedocumented in this encounter Additional Health Concerns Infection Onset Date Last Indicated Resolved Time CDiff-Risk 04/25/2024 04/25/2024 04/25/2024 9:27 AM EST C. diff 04/25/2024 04/25/2024 05/25/2024 1:21 AM EST CoV-Presumed Comment:Added per Home Health documentation 05/26/2024 05/26/2024 06/15/2024 1:[address] documented as of this encounter Care Teams Sheet Metal Operator Relationship Specialty Start Date End Date Mary Anne Mcgraw MD [address] [place] [address] PCP - General Internal Medicine 04/01/23 documented as of this encounter Additional Source Comments The information contained in this document represents components of the legal health record. It is not the complete legal health record.[facility]
--- OUTSIDE RECORDS SUMMARY | 2025-03-17 06:19 | XMS_ITS | Patient Health Record ---
Author Organization [facility] Address [address] [place] [address] Care Team Providers Care Post Anesthesia Care Unit Nurse Name Role Phone Marcela(inactive) Josh RODRIGUEZ Primary [...] Status Risk Notes Problem Colon cancer screening (022175636) Colon cancer screening (Z12.11) Active confirmed Plan Of Treatment Future Test Test Name Order Date COLONOSCOPY 08/07/2016 Insurance Providers Payer Name Payer Address Payer Phone Subscriber Number Group Number Insured Name Patient Relationship to Insured Coverage Start Date Coverage End Date [facility] [address] [place] [address] [phone] [id number] MIRIAM PANTOJA Self - patient is the insured Medical (General) History Medical History History ICD Code hypertension Denies [place],DM,CVA,Lung disease,renal dise ase Surgical History Surgery Date(Month/Year) arm surgery
--- OUTSIDE RECORDS SUMMARY | 2025-03-17 06:19 | XMS_ITS | Encounter Summary ---
Author Organization [facility] Address [address] [place] [address] Phone Care Team Providers Care Consular Officer Name Role Phone Mary Anne Mcgraw MD Primary Care Provid er Encounter Details Date Type Department Care Team (Late st Contact Info) Description 03/30/[address], [address] [facility], 2nd Floor, [address] [place] [address] Social History Tobacco Use Types Packs/Day Years [...] PM EST Office [place] [facility] [place], Arthroplasty Service [address] [facility], 3rd Floor, [address] [place] [address] Lui Marques MD [address] [facility] [address] [place] [address] [email or web address] documented as of this encounter Visit Diagnoses Not on filedocumented in this encounter Additional Health Concerns Infection Onset Date Last Indicated Resolved Time CDiff-Risk 04/25/2024 04/25/2024 04/25/2024 9:27 AM EST C. diff 04/25/2024 04/25/2024 05/25/2024 1:21 AM EST CoV-Presumed Comment:Added per Home Health documentation 05/26/2024 05/26/2024 06/15/2024 1:[address] documented as of this encounter Care Teams Consular Officer Relationship Specialty Start Date End Date Mary Anne Mcgraw MD [address] [place] [address] PCP - General Internal Medicine 04/01/23 documented as of this encounter Additional Source Comments The information contained in this document represents components of the legal health record. It is not the complete legal health record.[facility]
--- OUTSIDE RECORDS SUMMARY | 2025-03-17 06:19 | XMS_ITS | Encounter Summary ---
Author Organization [facility] Address [address] [place] [address] Phone Care Team Providers Care Drive Shaft And Steering Post Repairer Name Role Phone Mary Anne Mcgraw MD Primary Care Provid er Encounter Details Date Type Department Care Team (Late st Contact Info) Description 03/29/2024 Procedure Pass [facility] [place] PERI[facility]IVE [facility]PT [address] [place] [address] Social History Tobacco Use Types Packs/Day Years [...] Department of Orthopaedic Surgery, Arthroplasty Service [address] [facility], 3rd Floor, [address] [place] [address] Lui Marques MD [address] [address] [email or web address] documented as of this encounter Visit Diagnoses Not on filedocumented in this encounter Additional Health Concerns Infection Onset Date Last Indicated Resolved Time CDiff-Risk 04/25/2024 04/25/2024 04/25/2024 9:27 AM EST C. diff 04/25/2024 04/25/2024 05/25/2024 1:21 AM EST CoV-Presumed Comment:Added per Home Health documentation 05/26/2024 05/26/2024 06/15/2024 1:[address] documented as of this encounter Care Teams Drive Shaft And Steering Post Repairer Relationship Specialty Start Date End Date Mary Anne Mcgraw MD [address] [place] [address] PCP - General Internal Medicine 04/01/23 documented as of this encounter Additional Source Comments The information contained in this document represents components of the legal health record. It is not the complete legal health record.[facility]
--- OUTSIDE RECORDS SUMMARY | 2025-03-17 06:19 | XMS_ITS | Patient Health Record ---
Author Organization [facility] [place] Address [address] [place] [address] Care Team Providers Care Accounts Payable Coordinator Name Role Phone Deborah RODRIGUEZ, Mary Anne Primary Care Provider Unavail able Heydi Garica Unavailable [phone] Allergies No Known Allergies Reason For Referral [...] W/U Status Risk Notes Problem Gait abnormality ([id number]) Gait abnormality (R26.9) Active confirmed Problem Equinus contracture of left ankle (M24.572) Active confirmed Problem Plantarflexion deformity of right foot (finding) (9908713289147625) Equinus contracture of right ankle (M24.571) Active confirmed Vital Signs Blood pressure diastolic 70 mm Hg 02/16/2025 Height 5ft 7in in 02/16/2025 Blood pressure systolic 130 mm Hg 02/16/2025 Weight 208 lbs 02/16/2025 BMI 32.57 kg/m2 02/16/2025 Encounters Encounter Location Date Provider Diagnosis [facility] [address] 02/16/2025 Heydi Garcia Pes planus of left foot M21.42 ; Pes planus of right foot M21.41 ; Gait abnormality R26.9 ; Equinus contracture of left ankle M24.572 and Equinus contracture of right ankle M24.571 [facility] [address] 02/16/2025 [facility] [address] 02/04/2025 Heydi Garcia Assessments Encounter Date Diagnosis [...] Medicare National [employer]t [employer] [address] [place] [address] [id number] Renny Montes Self - patient is the insured 5 [facility] [address] MARY COOK [id number] Alix Montes Spouse - patient is the spouse of the insured Medical (General) History Medical History History ICD Code Arthritis Back,Hip,and Knee pain CAD (Cholesterol) High blood pressure Sciatica Chicken pox bulging discs Surgical History Surgery Date(Month/Year) hand surgery 02/17 3 hip replacement 2 spine surgery
== END 2025-03-17 06:17 | disposition home or self-care (01) ==
LOC: CF 06:16
PROVIDERS: Visit Provider Internal Medicine
DX: Z13.89 Encounter for screening for other disorder (principal)

== ENCOUNTER 2025-03-17 09:31 | Outpatient (AMB) | payer SELFPAY ==
[2025-03-17 10:09] VITALS: BP 142/86; PULSE 104; RESP 16; O2SAT 95
--- NOTE | 2025-03-17 10:09 | MHC.OFFVIS ---
Vital Signs 03/17/25 10:09 03/17/25 11:34 BP 142/86 H 130/82 Blood Pressure Location Lt brachial Lt brachial Position Sitting Sitting Respiration 16 16 Pulse 104 H 108 H Pulse Source Pulse Oximeter Pulse Oximeter Pulse Oximetry (%) 95 98 Oxygen Delivery Method Room Air Room Air Intake Visit Reasons: Jake L4 PRP Inbound Call Center Representative Required: No Allergies No Known Allergies (No Known Allergies*) Allergy (Verified 03/17/25 10:09) Medication List - Last Reconciled 03/17/25 by Gloria Watson LPN cholecalciferol (vitamin D3) 25 mcg PO DAILY crutches (pair of crutches) As directed hydroxyzine HCl 25 mg PO BEDTIME PRN 30 days lisinopril 10 mg PO DAILY pregabalin 75 mg PO BID 30 days tramadol 50 mg PO DAILY walker As directed HPI HPI Jake L4 PRP: Details: Patient presents for scheduled procedure. Denies any recent cough, cold, infection, fever or other significant changes in medical history since last office visit. [facility] Medical History (Updated 03/14/25 @ 21:10 by Mary Anne Leach MD) Screening for hypothyroidism Back pain JORDI (acute kidney injury) Hip dislocation, right H/O myocardial perfusion scan Chronic, continuous use of opioids Former smoker Arthritis of right hip Hx of fracture of tibia Substance use disorder Dupuytren's contracture of right hand High cholesterol Hypertension Surgical History Status post Dupuytren's fasciectomy (~01/27/25) S/P insertion of spinal cord stimulator History of total right hip arthroplasty (05/13/23) History of back surgery (02/2023) Hx of colonoscopy History of hand surgery History of shoulder surgery Family History Mother Cancer Father No problems noted. Sister Breast cancer Social History Household Members: Spouse Housing: House Are you a primary acute care physical therapist to a significant other at home: No Do you presently have visiting nurse or other home services: No 75 years or older and lives alone: No Alcohol intake: former Comment: COUNTS CORRECT Patient Tobacco Use Status: Former Tobacco user Tobacco use type: Cigarette Years Smoked: 10 e-Cigarette/Vaping Use: Never Used Second Hand Smoke Exposure: Yes Substance Use Type: Marijuana service: No Current occupational status: retired Current occupation: right hand dominant Cognitive needs: Yes Hearing needs: No Vision needs: No Physical Exam Vital Signs: Last Vital Signs Pulse 104 H 03/17/25 10:09 Resp 16 03/17/25 10:09 BP 142/86 H 03/17/25 10:09 Pulse Ox 95 03/17/25 10:09 Oxygen Delivery Method Room Air 03/17/25 10:09 Office Procedures Platelet Rich Plasma Injection PRP Joint Injection After informed written consent was obtained, pre-procedure oxygen saturation, heart rate, and blood pressure were recorded. An 18 gauge butterfly needle was used to obtain 51 mL of whole blood from the right antecubital fossa. This was then mixed with 9 mL anticoagulant citrate dextrose solution. The 60 mL mixture was counter balanced to within 1 g and spun at 3500 rpm for 10 minutes. Platelet poor plasma was then drawn using a bench top press model. 6 mL of slightly leukocyte rich PRP was isolated in a 10 cc syringe. Spinal Unit Injection, Bilateral L4 After obtaining written consent, pre-procedure blood pressure and heart rate were stable and recorded in the nursing record. The patient was placed in the prone position on the fluoroscopy table. The lumbosacral area was prepped with chloraprep, allowed to dry and draped in sterile fashion. Using fluoroscopy, the skin overlying our target was anesthetized with 0.5% lidocaine. A 22 gauge 3.5 inch spinal needle was advanced to the safe triangle in the upper pole of the right L4 foramen. No paresthesias were elicited with needle placement and aspiration was negative for blood and CSF. Correct needle position was confirmed with approximately 0.2 ml contrast dye (Omnipaque 180 mg/ml) injected under real-time fluoroscopy. No evidence of vascular or intrathecal uptake was seen and there was both epidural and peripheral spread of the contrast agent. 2 mL PRP was slowly injected. The needle was then redirected to the joint line and placed periarticularly at the right L3/4 facet joint. 1 mL of PRP was injected. Tthe same procedure was repeated for the other side. The skin was cleansed and a sterile bandages were applied. The patient tolerated the procedure well and no complications were encountered. Following the procedure the patient's vital signs were stable. The patient was discharged home in good condition with post-procedural instructions. Time Out: Immediately prior to the procedure, the following was verbally confirmed that there is a signed consent form and that the correct patient, planned procedure, site and side are consistent with documentation and that necessary equipment and/or blood products are available prior to the start of the case. Complications: none EBL: 45 cc Primary Site: other XCELL Platelet Plasma - 0232T 60 mL All charges added?: Procedure code (CPT) selection complete Assessment & Plan Assessment & Plan (1) Post laminectomy syndrome: Code(s): M96.1 - Postlaminectomy syndrome, not elsewhere classified Category: Medical Plan Patient is status post bilateral L4 PRP (transforaminal and periarticular facet) injections. Patient tolerated procedure well and was discharged home in stable condition with discharge instructions. All questions were answered. We will follow-up via telephone or in clinic to assess response to therapy. A follow-up appointment was made during today's visit. Orders: Orders FL guidance in treatment room Today Alis Dean APRN, SCIENCE EDUCATION PROFESSOR M54.16 - Radiculopathy, lumbar region AMB Platelet Rich Plasma (PRP) Injection Today Miguel Ambriz MD M96.1 - Postlaminectomy syndrome, not elsewhere classified Coding Level of Care Code Procedure Only Diagnoses Post laminectomy syndrome M96.1 CPT Codes XCELL Kit 60mL ([id number])
[2025-03-17 11:34] VITALS: BP 130/82; PULSE 108; RESP 16; O2SAT 98
== END 2025-03-17 11:37 | disposition home or self-care (01) ==
LOC: HO.PMCPRC 09:31
PROVIDERS: PCP Internal Medicine; Visit Provider Internal Medicine
DX: M96.1 Postlaminectomy syndrome, not elsewhere classified (principal)
CPT/HCPCS: 0232T

== ENCOUNTER 2025-04-20 09:22 | Outpatient (AMB) | payer MEDICARE, OTHER, SELFPAY ==
--- OUTSIDE RECORDS SUMMARY | 2025-02-11 07:45 | XMS_ITS ---
Author Organization [facility] Address [address] [place] [address] Care Team Providers Care Rigging Helper Name Role Phone Deborah RODRIGUEZ, Mary Anne Primary Care Provider Unavail Heydi Dean Unavailable [phone] Medications Medication SIG (Take, Route, Frequency, Duration) Notes Start Date End Date Status Vitamin D3 25 MCG (1000 UT) 1 capsule Or ally Once a day Active Simvastatin 20 MG 1 tablet in the even ing Orally Once a day Active Lisinopril 20 MG 1 tablet Orally Once a day Active Gabapentin 300mg three times a day or ally daily Active amLODIPine Besylate 10 MG 1 tablet Orall y Once a day Active Lisinopril-hydroCHLOROthiaz flo 20-12.5 MG 1 tablet Orally Active Encounters Encounter Location Date Provider Diagnosis [address] [address] 02/11/2025 Heydi Garcia Plan Of Treatment No Information Progress Notes * Renny PANTOJA LDOB:[birth year] (64 yo M)Acc No.[id number]:02/11/2025 Progress Note Patient: Renny PINK Provider: Roger Garcia DPM :1960 A ge:64 Y S ex:Male Date:02/11/2025 Address:[address] [place] [address] Pcp:Mary Anne Cabrera MD Subjective: * Chief Complaints: * * Medical History: A rthritis, Back,Hip,and Knee pain, CAD (Cholesterol), High blood pressure, Sciatica, Chicken pox, Bulging discs. * Medications: T aking Lisinopril-hydroCHLOROthiazide 20-12.5 MG Tablet 1 tablet Orally , Taking amLODIPine Besylate 10 MG Tablet 1 tablet Orally Once a day , Taking Gabapentin 300mg tablets three times a day orally daily , Taking Lisinopril 20 MG Tablet 1 tablet Orally Once a day , Taking Simvastatin 20 MG Tablet 1 tablet in the evening Orally Once a day , Taking Vitamin D3 25 MCG (1000 UT) Capsule 1 capsule Orally Once a day Objective: * Vitals: Assessment: Plan: * Treatment: * Images: * The named appointment provid er may or may not be the originator of this progress note, and it is not deemed complete until electronically signed by the appointment provider. Sign off status: Pending * Provider: Roger Garcia DPM Date: 0 02/11/2025 Generated for Carlos faustin/Kennedy/Jordan on: 06/20/2024 10:22 AM EST
--- OUTSIDE RECORDS SUMMARY | 2025-04-19 11:38 | XMS_ITS | Encounter Summary ---
Author Organization [facility] Address [address] [place] [address] Phone Care Team Providers Care Site Leader Name Role Phone Mary Anne Mcgraw MD Primary Care Provid er Encounter Details Date Type Department Care Team (Latest Contact Info) Description 04/19/2025 11:38 AM EST - 04/19/2025 11:59 PM [facility] Hospital Encounter [facility] Imaging - Xray, [place] [address] [facility], 3rd [place] [address] Lui Marques MD [address] [address] [email or web address] Arrived Discharge Disposition: Home or Self Care Social History Tobacco Use Types Packs/Day Years [...] high school, GED, job training, learning the Mohawk language, technical skills, or developing parenting skills)? [...] AM EST documented as of this encounter Medications at Time of Discharge acetaminophen (TYLENOL) 325 mg tablet Take 2 tablets (650 mg total) by mouth every 6 (six) hours as needed for pain (specific location in comments). 04/02/2024 cholecalciferol, vitamin D3, (VITAMIN D3 ORAL) Take 1,000 Units by mouth daily. 05/06/2024 gabapentin (NEURONTIN) 300 MG capsule Take 2 capsules (600 mg total) by mouth 3 (three) times a day. 180 capsule 05/05/2024 lisinopril (PRINIVIL,ZESTRIL ) 5 MG tablet Take 1 tablet (5 mg total) by mouth daily. 30 tablet 05/06/2024 LORazepam (ATIVAN) 0.5 MG tablet Take 1 tablet (0.5 mg total) by mouth every 8 (eight) hours as needed for anxiety. 5 tablet 04/23/2024 documented as of this encounter Plan of Treatment Not on file documented as of this encounter Goals Goal Patient Goal Type Associated Problems Recent Progress Patient-Stated? Author Autogenera jaida Goal Care Plan Autogenerated Problem No Chelsea Amanda documented as of this encounter Procedures Procedure Name Priority Date/Time Associated Diagnosis Comments XR HIP 2 VW RIGHT PLUS PELVIS Routine 04/19/2025 11:52 AM EST Hip pain documented in this encounter Results * XR HIP 2 VW RIGHT PLUS PELVIS (04/19/2025 11:52 AM EST) Anatomical Region Laterality Modality Hip, Pelvis Computed Radiogr aphy 04/19/2025 1:43 PM EST Impressions 04/19/2025 4:59 PM EST Right revision hip total arthroplasty in unchanged position ATTESTATION: I, Dr. Herman Medrano MD as teaching physician, have reviewed the images for this case and if necessary edited the report originally created by Salomon Moses. Narrative 04/19/2025 4:59 PM EST XR HIP 2 VW RIGHT PLUS PELVIS Referring clinician's provided indication for this examination in Epic: S/P Joint Replacement COMPARISON: XR PELVIS 1-2 VIEW ; XR HIP 1 VW RIGHT PLUS PELVIS FINDINGS: Pelvis: Incompletely imaged lumbar fixation device. Mild degenerative images of the pubic symphysis. Mild degenerative changes of the left hip. Right hip: Status post revision right hip total arthroplasty with intact hardware in unchanged position. No acute fracture. Procedure Note Herman Medrano MD, CYNTHIA - 04/19/2025 XR HIP 2 VW RIGHT PLUS PELVIS Referring clinician's provided indication for this examination in Epic:S/P Joint Replacement COMPARISON: XR PELVIS 1-2 VIEW ; XR HIP 1 VW RIGHT PLUS [id number] FINDINGS: Pelvis: Incompletely imaged lumbar fixation device. Mild degenerativeimages of the pubic symphysis. Mild degenerative changes of the lefthip. Right hip: Status post revision right hip total arthroplasty with intacthardware in unchanged position. No acute fracture. IMPRESSION: Right revision hip total arthroplasty in unchanged position ATTESTATION: I, Dr. Herman Medrano MD as teaching physician, havereviewed the images for this case and if necessary edited the reportoriginally created by Salomon Moses. Lui Marques MD IMG XR PELVIS Final Result documented in this encounter Visit Diagnoses Diagnosis Hip pain Pain in joint, pelvic region and thigh documented in this encounter Additional Health Concerns Active Problems Noted Date Diagnosed Date Autogenerated Problem 04/16/2025 documented as of this encounter Care Teams Site Leader Relationship Specialty Start Date End Date Mary Anne Mcgraw MD [address] [place] [address] PCP - General Internal Medicine 04/01/23 documented as of this encounter Additional Source Comments The information contained in this document represents components of the legal health record. It is not the complete legal health record.[facility]
--- OUTSIDE RECORDS SUMMARY | 2025-04-19 13:15 | XMS_ITS | Encounter Summary ---
Author Organization [facility] Address [address] [place] [address] Phone Care Team Providers Care Falafel Cart Cook Name Role Phone Mary Anne Mcgraw MD Primary Care Provid er Encounter Details Date Type Department Care Team (Latest Contact Info) Description 04/19/2025 1:15 PM EST Office Visit [facility] [place] Department of Orthopaedic Surgery, Arthroplasty Service [address] [facility], 3rd Floor, [address] [place] [address] Lui Marques MD [address] [place] [address] [email or web address] Status post revision of total hip replacement (Primary Dx) Social History Tobacco Use Types Packs/Day Years [...] high school, GED, job training, learning the Turkmen language, technical skills, or developing parenting skills)? [...] AM EST documented as of this encounter Progress Notes * Box, Lui N, MD - 04/19/2025 1:15 PM EST CC: Follow up right hip. HPI: The patient has no pain about the right hip. He ambulates without assist. ROS: No recent fever, chills, nausea, vomiting, diarrhea, abdominal pain, dysuria, shortness of breath, chest pain. Exam: Right lower extremity -- well healed posterolateral right hip surgical scar without erythema or drainage; no pain with gentle hip ROM; calf soft and non-tender Imaging: Impression Right revision hip total arthroplasty in unchanged position Narrative XR HIP 2 VW RIGHT PLUS PELVIS [...] hardware in unchanged position. No acute fracture. A/P: Doing well 1 year after revision right KADIE. He will progress his activities as he is able. I will see him in 2 years with radiographs and clinical exam. He will return sooner with any questions or issues. All of the patient's questions were encouraged and answered, and the patient's agenda was elicited and addressed. Lui Marques MD documented in this encounter Plan of Treatment Not on file documented as of this encounter Goals Goal Patient Goal Type Associated Problems Recent Progress Patient-Stated? Author Autogenera jaida Goal Care Plan Autogenerated Problem No Timur Amandassica documented as of this encounter Visit Diagnoses Diagnosis Status post revision of total hip replacement- Primary documented in this encounter Additional Health Concerns Active Problems Noted Date Diagnosed Date Autogenerated Problem 04/16/2025 documented as of this encounter Care Teams Falafel Cart Cook Relationship Specialty Start Date End Date Mary Anne Mcgraw MD [address] [place] [address] PCP - General Internal Medicine 04/01/23 documented as of this encounter Additional Source Comments The information contained in this document represents components of the legal health record. It is not the complete legal health record.[facility]
--- NOTE | 2025-04-20 09:27 | MHC.OFFVIS ---
Vital Signs 04/20/25 09:29 Height 5 ft 7 in Weight 206 lb BMI 32.3 BP 134/64 Blood Pressure Location Lt brachial Position Sitting Respiration 16 Pulse 84 Pulse Source Pulse Oximeter Pulse Oximetry (%) 98 Oxygen Delivery Method Room Air Intake Visit Reasons: S/P Jake L4 PRP Pelota Maker Required: No Allergies No Known Allergies (No Known Allergies*) Allergy (Verified 04/20/25 09:30) Medication List - Last Reconciled 04/20/25 by Gloria Watson LPN cholecalciferol (vitamin D3) 25 mcg PO DAILY crutches (pair of crutches) As directed hydroxyzine HCl 25 mg PO BEDTIME PRN 30 days lisinopril 10 mg PO DAILY pregabalin 75 mg PO BID 30 days tramadol 50 mg PO DAILY walker As directed HPI HPI S/P Jake L4 PRP: Details: History of Present Illness The patient is a 64 year old individual presenting for a follow-up visit for chronic lower back pain. The patient reports a prior bilateral L4 PRP injection did not provide significant help. The patient has a history of two prior cortisone shots, with the first being a miracle and the second providing no benefit. The patient states that exercise is the only intervention that consistently provides relief, reporting feeling pretty decent after physical activity. The patient notes functional improvements, including the ability to walk a mile on a treadmill and get up from the floor. The patient's history is notable for a third hip replacement, with a one-year follow-up at [facility] confirming the hardware is in good condition. A prior trial for a spinal cord stimulator was considered unfair as the patient's hip was dislocated at the time. Pain Description - Location: The pain is located in the lower back and spine area. - Radiation: The pain does not radiate down the legs. - Alleviating Factors: Exercise is the only thing that seems to provide relief. - Interference with function: The patient previously had difficulty walking distances and getting up from the floor, but has seen improvement and is now able to walk a mile on a treadmill. Physical Exam - Appears afebrile. - Alert and oriented. - Mood and affect appropriate. - Follows and participates in conversation appropriately. - Respiratory effort is unlabored. - Able to transition from sit to stand unassisted. Results - Imaging: Recent pelvic x-rays from [facility] cleared the patient regarding the hip replacements. Pain Management - Affect: The patient feels like crap at baseline but feels pretty decent after exercise. - Analgesia: The patient has tried a bilateral L4 PRP injection and cortisone shots with mixed results. - Adverse Effects: Potential side effects of cortisone injections were discussed, including weight gain, increased blood pressure, and elevated blood sugar. - Activities of Daily Living: The patient has achieved a goal of walking one mile on a treadmill and is now able to get up from the floor. - Aberrant Drug-Related Behaviors: The patient requested and begged for a short-term opioid prescription to facilitate exercise during travel, acknowledging that they do not work long-term. [facility] Medical History (Updated 03/14/25 @ 21:10 by Mary Anne Leach MD) Screening for hypothyroidism Back pain JORDI (acute kidney injury) Hip dislocation, right H/O myocardial perfusion scan Chronic, continuous use of opioids Former smoker Arthritis of right hip Hx of fracture of tibia Substance use disorder Dupuytren's contracture of right hand High cholesterol Hypertension Surgical History Status post Dupuytren's fasciectomy (~01/27/25) S/P insertion of spinal cord stimulator History of total right hip arthroplasty (05/13/23) History of back surgery (02/2023) Hx of colonoscopy History of hand surgery History of shoulder surgery Family History Mother Cancer Father No problems noted. Sister Breast cancer Social History Household Members: Spouse Housing: House Are you a primary career manager to a significant other at home: No Do you presently have visiting nurse or other home services: No 75 years or older and lives alone: No Alcohol intake: former Comment: COUNTS CORRECT Patient Tobacco Use Status: Former Tobacco user Tobacco use type: Cigarette Years Smoked: 10 e-Cigarette/Vaping Use: Never Used Second Hand Smoke Exposure: Yes Substance Use Type: Marijuana service: No Current occupational status: retired Current occupation: right hand dominant Cognitive needs: Yes Hearing needs: No Vision needs: No Physical Exam Vital Signs: Last Vital Signs Pulse 84 04/20/25 09:29 Resp 16 04/20/25 09:29 BP 134/64 04/20/25 09:29 Pulse Ox 98 04/20/25 09:29 Oxygen Delivery Method Room Air 04/20/25 09:29 BMI result Body Mass Index 32.3 Assessment & Plan Assessment & Plan (1) Post laminectomy syndrome: Code(s): M96.1 - Postlaminectomy syndrome, not elsewhere classified Category: Medical (2) Right hip pain: Code(s): M25.551 - Pain in right hip Category: Medical (3) Status post lumbar and lumbosacral fusion by anterior technique: Comment: 03/18/23 Code(s): Z98.1 - Arthrodesis status Category: Social Hx Plan Plan Patient was informed and verbally consented to the use of an ambient scribe for clinic note documentation during this visit. 1. Chronic Lower Back Pain - The risks of repeated cortisone injections were discussed, including weight gain, and elevations in blood pressure and blood sugar. - Discussed that long-term opioid use is not evidence-based for chronic pain, but a short-term course was prescribed for an upcoming trip to facilitate exercise. - Advised to continue the exercise regimen, which the patient finds to be the most helpful intervention. - Recommended looking into at-home red light therapy to be used for 15 minutes in the morning and evening. - Discussed future options if other measures fail, including a caudal PRP injection or a spinal cord stimulator retrial, as the previous assessment was inconclusive in setting of a displaced hip prosthesis. - A prescription for oxycodone for one week was sent to the [facility] on [facility]. Discussion Notes I discussed with the patient the ongoing chronic lower back pain and the limited efficacy of prior treatments, including a plasmid injection and the second of two cortisone shots. We reviewed the risks of further cortisone injections, such as weight gain, increased blood pressure, and elevated blood sugar, and its likely transient benefit. I explained that exercise appears to be the most beneficial strategy for the patient. I recommended non-pharmacologic options, including at-home red light therapy, and provided names of companies for the patient to research. We discussed that if these measures are insufficient, future options include a PRP injection via the caudal route or retrying a spinal cord stimulator, noting the initial trial was confounded by a hip dislocation. The patient requested a short-term opioid prescription for an upcoming trip to facilitate exercise. I explained my concerns regarding opioids for long-term use but agreed to a limited, one-week prescription of oxycodone to support the patient's functional goals during travel, which I sent to the patient's specified pharmacy. Patient Instructions - Continue with your exercise routine, as this is helping your back pain. - Consider buying a red light therapy panel for home use. commercial instructor supervisor front of it for 15 minutes in the morning and 15 minutes in the evening. - A one-week supply of oxycodone has been sent to your pharmacy ([facility] on [address]) to use for your upcoming trip to [place]. - This pain medication is for short-term use only to help you exercise while you are away. - We can discuss other treatments, like a PRP injection, in a couple of months if your pain has not improved. Medications: New oxycodone Partial Fill upon patient request. 10 mg PO BID PRN 14 tabs 0RF pain Coding Level of Care Code Est Pt Level 4 (47271) Diagnoses Post laminectomy syndrome M96.1 Right hip pain M25.551 Status post lumbar and lumbosacral fusion by anterior technique Z98.1
[2025-04-20 09:29] VITALS: BP 134/64; PULSE 84; RESP 16; O2SAT 98; BMI 32.3
--- OUTSIDE RECORDS SUMMARY | 2025-04-20 10:23 | XMS_ITS | Encounter Summary ---
Author Organization [facility] Address [address] [place] [address] Phone Care Team Providers Care Embedded Software Architect Name Role Phone Mary Anne Mcgraw MD Primary Care Provid er Encounter Details Date Type Department Care Team (Late st Contact Info) Description 03/24/2024 Procedure Pass [facility] Emergency Imaging, Main [address], [address] [place] [address] Social History Tobacco Use Types Packs/Day Years [...] 8:00 PM EDT JoeFifi Flores RN * [place] Suicide Severity Rating Scale (Screener/Recent Self-Report) Question [...] on file documented as of this encounter Visit Diagnoses Not on filedocumented in this encounter Additional Health Concerns Infection Onset Date Last Indicated Resolved Time CDiff-Risk 04/25/2024 04/25/2024 04/25/2024 9:27 AM EST C. diff 04/25/2024 04/25/2024 05/25/2024 1:21 AM EST CoV-Presumed Comment:Added per Home Health documentation 05/26/2024 05/26/2024 06/15/2024 1:[address] documented as of this encounter Care Teams Embedded Software Architect Relationship Specialty Start Date End Date Mary Anne Mcgraw MD [address] [place] [address] PCP - General Internal Medicine 04/01/23 documented as of this encounter Additional Source Comments The information contained in this document represents components of the legal health record. It is not the complete legal health record.[facility]
--- OUTSIDE RECORDS SUMMARY | 2025-04-20 10:23 | XMS_ITS | Encounter Summary ---
Author Organization [facility] Address [address] [place] [id number] Phone Care Team Providers Care Boilerhouse Mechanic Name Role Phone Mary Anne Mcgraw MD Primary Care Provid er Encounter Details Date Type Department Care Team (Late st Contact Info) Description 03/25/2024 Procedure Pass [facility] [place], [facility] [address] [facility] [place] [address] Social History Tobacco Use Types Packs/Day Years [...] documented as of this encounter Care Teams Boilerhouse Mechanic Relationship Specialty Start Date End Date Mary Anne Mcgraw MD [address] [place] [address] PCP - General Internal Medicine 04/01/23 documented as of this encounter Additional Source Comments The information contained in this document represents components of the legal health record. It is not the complete legal health record.[facility]
--- OUTSIDE RECORDS SUMMARY | 2025-04-20 10:23 | XMS_ITS | Encounter Summary ---
Author Organization [facility] Address [address] [place] [address] Phone Care Team Providers Care Account Relationship Manager Name Role Phone Mary Anne Mcgraw MD Primary Care Provid er Encounter Details Date Type Department Care Team (Late st Contact Info) Description 04/13/2024 Procedure Pass [facility], [place] [address] [facility], [address]nd Floor, [address] [place] [address] Social History Tobacco Use Types Packs/Day Years [...] 04/13/2024 4:42 AM Neris Hackett RN * [place] Suicide Severity Rating Scale (Screener/Recent Self-Report) Question [...] documented as of this encounter Care Teams Account Relationship Manager Relationship Specialty Start Date End Date Mary Anne Mcgraw MD [address] [place] [address] PCP - General Internal Medicine 04/01/23 documented as of this encounter Additional Source Comments The information contained in this document represents components of the legal health record. It is not the complete legal health record.[facility]
--- OUTSIDE RECORDS SUMMARY | 2025-04-20 10:23 | XMS_ITS | Encounter Summary ---
Author Organization [facility] Address [address] [place] [address] Phone Care Team Providers Care Lead Game Designer Name Role Phone Mary Anne Mcgraw MD Primary Care Provid er Encounter Details Date Type Department Care Team (Late st Contact Info) Description 04/19/2025 Orders Only [facility] Department of Orthopaedic Surgery, Arthroplasty Service [address] [facility], 3rd Floor, [address] [place] [address] Lui Marques MD [address] [facility] [address] [place] [address] [email or web address] Hip pain (Primary Dx) Social History Tobacco Use Types [...] high school, GED, job training, learning the [place] language, technical skills, or developing parenting skills)? [...] as of this encounter Plan of Treatment Scheduled Orders Name Type Priority Associated Diagnoses Orde r Schedule XR Hip with Pelvis (Right) Imaging Routine Hip pain Expected: 04/19/2025, Expires: 07/20/2025 documented as of this encounter Goals Goal Patient Goal Type Associated Problems Recent Progress Patient-Stated? Author Autogenera jaida Goal Care Plan Autogenerated Problem No Chelsea Amanda documented as of this encounter Visit Diagnoses Diagnosis Hip pain- Primary Pain in joint, pelvic region and thigh documented in this encounter Additional Health Concerns Active Problems Noted Date Diagnosed Date Autogenerated Problem 04/16/2025 documented as of this encounter Care Teams Lead Game Designer Relationship Specialty Start Date End Date Mary Anne Mcgraw MD [address] [place] [address] PCP - General Internal Medicine 04/01/23 documented as of this encounter Additional Source Comments The information contained in this document represents components of the legal health record. It is not the complete legal health record.[facility]
--- OUTSIDE RECORDS SUMMARY | 2025-04-20 10:23 | XMS_ITS | Encounter Summary ---
Author Organization [facility] Address [address] [place] [address] Phone Care Team Providers Care Grocery Cashier Name Role Phone Mary Anne Mcgraw MD Primary Care Provid er Encounter Details Date Type Department Care Team (Late st Contact Info) Description 03/30/[address], [address] [facility], 2nd Floor, [address] [place] [address] Social History Tobacco Use Types Packs/Day Years [...] documented as of this encounter Care Teams Grocery Cashier Relationship Specialty Start Date End Date Mary Anne Mcgraw MD [address] [place] [address] PCP - General Internal Medicine 04/01/23 documented as of this encounter Additional Source Comments The information contained in this document represents components of the legal health record. It is not the complete legal health record.[facility]
--- OUTSIDE RECORDS SUMMARY | 2025-04-20 10:23 | XMS_ITS | Clinical Summary ---
Author Organization [facility] Address [address] [place] [address] Phone Care Team Providers Care Metal Or Wood Blocker Name Role Phone Mary Anne Mcgraw MD [...] of bone 03/24/2024 Right hip pain 03/24/2024 Encounters Date Type Department Care Team Description 04/19/2025 1:15 PM EST Office Visit [facility] [place] of [place]opaedic Surgery, Arthroplasty Service [address] [facility], 3rd Floor, [address] [place] [address] Lui Marques MD Status post revision of total hip replacement (Primary Dx) 04/19/2025 11:38 AM EST - 04/19/2025 11:59 PM EST Hospital Encounter [facility] [place] - Xray, [place] [address] [facility], 3rd [place] [address] Lui Marques MD Arrived Discharge Disposition: Home or Self Care 04/19/2025 Orders Only [facility] [place] of Orthopaedic Surgery, Arthroplasty Service [address] [facility], 3rd Floor, [address] [place] [address] Lui Marques MD Hip pain (Primary Dx) 04/19/2025 Orders Only [facility] [place] of Orthopaedic Surgery, Arthroplasty Service [address] [facility], 3rd Floor, [address] [place] [address] Lui Marques MD Hip pain (Primary Dx) 04/05/2025 Orders Only [facility] Department of Orthopaedic Surgery, Arthroplasty Service [address] [facility], 3rd Floor, [address] [place] [address] [place], [place] Pain (Primary Dx) from Last 3 Months Social History Tobacco Use Types Packs/Day Years [...] high school, GED, job training, learning the Macedonian language, technical skills, or developing parenting skills)? [...] 04/28/2024 4:24 PM EST Plan of Treatment Health Maintenance Due Date Last Done Comments [...] VACCINE (#1) 2024 COVID-19 VACCINE (1 - 2024- season) 2025 CREATININE LEVEL 07/28/2025 07/28/2024, , [...] on patient's age to complete this topic Goals Goal Patient Goal Type Associated Problems Recent Progress Patient-Stated? Author Autogenera sena Goal Care Plan Autogenerated Problem No Chelsea Amanda Medical Devices Implanted Type Area Scaffold Setter Device Identifier Shelf Expiration Date Model / Serial / Lot Right Hip Screw Bone 20x6.5mm Hip Cancellous Reflection Ss Spherical Head - [id number] Implanted:Qty: 1 on 03/29/2024 by Lui Marques MD at [facility] Right: Hip SHEIKH 09/16/2033 [id number] / / [id number] Screw Bone 6.5x25mm Hip Cancellous Spherical Hd For Reflection System 16a - [id number] Implanted:Qty: 1 on 03/29/2024 by Lui Marques MD at [facility] Right: Hip SHEIKH 06/24/2033 [id number] / / [id number] Screw Bone 30x6.5mm Hip Cancellous Spherical Head For Reflection System 16a Cs/1bx/1ea - [id number] Implanted:Qty: 1 on 03/29/2024 by Lui Marques MD at [facility] Right: Hip SHEIKH 08/09/2033 [id number] / / [id number] Screw Bone 20x6.5mm Hip Cancellous Reflection Ss Spherical Head - [id number] Implanted:Qty: 1 on 03/29/2024 by Lui Marques MD at [facility] Right: Hip SHEIKH 09/27/2033 [id number] / / [id number] Screw Bone 30x6.5mm Hip Cancellous Spherical Head For Reflection System 16a Cs/1bx/1ea - [id number] Implanted:Qty: 1 on 03/29/2024 by Lui Marques MD at [facility] Right: Hip SHEIKH 03/17/2033 [id number] / / [id number] Adapter Sleeve 4.0mm [place] Femoral Hip Titanium V40 Plus - [id number] Implanted:Qty: 1 on 03/29/2024 by Lui Marques MD at [facility] Right: Hip [employer] 10/15/2028 6519-[id number] / / [id number] Cement Bone 1x40gm [place]os R High Viscosity - [id number] Implanted:Qty: 1 on 03/29/2024 by Lui Marques MD at [facility] Right: Hip [employer] 05/25/2028 [id number] / / [id number] Hip 28mm [place]athrop Biolox Delta Ceramic Tapered Plus 0 Offset - [id number] Implanted:Qty: 1 on 03/29/2024 by Lui Marques MD at [facility] Right: Hip [employer] 09/16/2027 [id number] / / [id number] Redart 60mm Od Implanted:Qty: 1 on 03/29/2024 by Lui Marques MD at [facility] Right: Hip 06/13/2031 [id number] / / [id number] Redapt Slice Augment [id number] Implanted:Qty: 1 on 03/29/2024 by Lui Marques MD at [facility] Right: Hip 07/12/2029 [id number] / / [id number] [employer] Pollar Cup Cemented Shell Size 47 Implanted:Qty: 1 on 03/29/2024 by Lui Marques MD at [facility] Right: Hip 06/04/2030 75 100 4 53 / / [id number] [employer] Polarcup Xlpe Insert Size 47/28 Implanted:Qty: 1 on 03/29/2024 by Lui Marques MD at [facility] Right: Hip 06/11/2030 11 000 6 01 / / [id number] Screw Bone 20x6.5mm Hip Cancellous Reflection Ss Spherical Head - [id number] Implanted:Qty: 1 on 03/29/2024 by Lui Marques MD at [facility] Right: Hip SHEIKH 09/27/2033 [id number] / / [id number] Screw Bone 6.5x35mm Hip Cancellous Spherical Head For Reflection System 16a Cs/1bx/1ea - [id number] Implanted:Qty: 1 on 03/29/2024 by Lui Marques MD at [facility] Right: Hip SHEIKH 09/02/2033 [id number] / / [id number] Hip 28mm 12 Lfit V40 [place] Low Friction Ion Treatment Plus - [id number] Implanted:Qty: 1 on 04/15/2024 by Lui Marques MD at [facility] Right: Acetabulum [employer] 09/02/2027 [id number] / / [id number] Polarcup Xlpe Insert Size 47/28 Implanted:Qty: 1 on 04/15/2024 by Lui Marques MD at [facility] Right: Acetabulum 04/12/2030 [id number] / / [id number] Filler Stimulan Bone Lf Sterile Disposable Rapid Cure [facility] - [id number] Implanted:Qty: 1 on 04/15/2024 by Lui Marques MD at [facility] Right: Hip [employer] 12/23/2026 [id number] / / [id number] Description:1 gm vancomycin added Procedures Procedure Name Priority Date/Time Associated Diagnosis Comments XR HIP 2 VW RIGHT PLUS PELVIS Routine 04/19/2025 11:52 AM EST Hip pain COMPREHENSIVE METABOLIC PANEL (CMP) Routine 07/28/2024 2:08 PM EST Infection of prosthetic joint, subsequent encounter from Last 3 Months or Most Recently Relevant to Health Maintenance Results * XR HIP 2 VW RIGHT PLUS PELVIS (04/19/2025 11:52 AM EST) Anatomical Region Laterality Modality Hip, Pelvis Computed Radiogr aphy 04/19/2025 1:4 3 PM EST Impressions 04/19/2025 4:59 PM EST [...] Procedure Note Herman Medrano MD, [facility] - 11/25/2025 XR HIP 2 VW RIGHT PLUS PELVIS Referring clinician's provided indication for this examination in Epic:S/P Joint Replacement COMPARISON: XR PELVIS 1-2 VIEW ; XR HIP 1 VW RIGHT PLUS [id number] FINDINGS: Pelvis: Incompletely imaged lumbar fixation device. [...] edited the reportoriginally created by Salomon Moses. us Lui Marques MD IMG XR PELVIS Final Result * Comprehensive metabolic panel (07/28/2024 2:08 PM EST) SODIUM 133 133 - 146 mmol/L [facility] POTASSIUM 4.5 3.3 - 5.1 mmol/L [facility] CHLORIDE 96 96 - 108 mmol/L [facility] CO2 22 21 - 35 mmol/L [facility] BUN 16 6 - 19 mg/dL [facility] CREATININE 0.80 0.5 - 1.5 mg/dL [facility] GLUCOSE 89 70 - 99 mg/dL [facility] ALBUMIN 4.2 3.9 - 4.8 g/dL [facility] TOTAL PROTEIN 7.7 6.5 - 8.0 g/dL [facility] CALCIUM 9.8 8.4 - 10.3 mg/dL [facility] ALKALINE PHOSPHATASE 93 39 - 117 U/L [facility] TOTAL BILIRUBIN <0.2 0.0 - 1.2 mg/dL [facility] AST 20 0 - 37 U/L [facility] ALT 21 0 - 40 U/L [facility] GLOBULIN 3.5 1 - 4.8 g/dL [facility] EGFR 99 >59 mL/min/1.7 3m2 [facility] Comment:Estimated glomerular filtration rate calculated using the CKD-EPI refit equation. ANION GAP 20 10 - 20 mmol/L [facility] Blood 07/28/2024 2:08 PM EST 07/28/2024 2:10 PM EST us Capo Ortega MD LAB BLOOD BKR ORDERABLES Fi nal Result [address] [address] from Last 3 Months or Most Recently Relevant to Health Maintenance Additional Health Concerns Active Problems Noted Date Diagnosed Date Autogenerated Problem 04/16/2025 Insurance [employer] MEDICARE SUPPLEMENT MEDICARE PART A & B [employer] MEDICARE SUPPLEMENT MEDICARE PART A & [place] [address] [address] [employer] MEDICARE SUPPLEMENT MEDICARE PART A & B [facility] [facility] [employer] MEDICARE SUPPLEMENT MEDICARE PART A & B Member Subscriber Plan / Payer (Ef fective 2024-Present) Name:Renny Pantoja Member ID:[id number] Relation to Subscriber:Self Name:Renny Pantoja Subscriber ID:[id number] Payer ID:[id number] Group ID:Not on file Type:Medicare Address: [employer] [address] [place] [id number] [facility] [employer]TENSION MEDICARE SUPPLEMENT MEDICARE PART A & B [facility] MEDICARE SUPPLEMENT MEDICARE PART A & B Advance Directives For more information, please contact: [phone] (9AM - 5PM [facility], Friday-Friday) * Full Code (Latest Code Status [...] form on fi le) Care Teams Metal Or Wood Blocker Relationship Specialty Start Date End Date Mary Anne Mcgraw MD [address] [place] [address] PCP - General Internal Medicine 04/01/23 Additional Source Comments The information contained in this document represents components of the legal health record. It is not the complete legal health record.[facility]
--- OUTSIDE RECORDS SUMMARY | 2025-04-20 10:23 | XMS_ITS | Encounter Summary ---
Author Organization [facility] Address [address] [place] [address] Phone Care Team Providers Care Storekeeper Helper Name Role Phone Mary Anne Mcgraw MD Primary Care Provid er Encounter Details Date Type Department Care Team (Late st Contact Info) Description 04/15/2024 Procedure Pass [facility] PERIOPERATIVE DEPT [address] [place] [address] Social History Tobacco Use Types Packs/Day Years [...] documented as of this encounter Care Teams Storekeeper Helper Relationship Specialty Start Date End Date Mary Anne Mcgraw MD [address] [place] [address] PCP - General Internal Medicine 04/01/23 documented as of this encounter Additional Source Comments The information contained in this document represents components of the legal health record. It is not the complete legal health record.[facility]
--- OUTSIDE RECORDS SUMMARY | 2025-04-20 10:23 | XMS_ITS | Encounter Summary ---
Author Organization [facility] Address [address] [place] [address] Phone Care Team Providers Care Card Seller Name Role Phone Mary Anne Mcgraw MD Primary Care Provid er Encounter Details Date Type Department Care Team (Late st Contact Info) Description 04/12/2024 Procedure Pass [facility], [facility] Scan - [address] [address] Social History Tobacco Use Types Packs/Day Years [...] 04/13/2024 4:42 AM Neris Hackett RN * Fiatt Suicide Severity Rating Scale (Screener/Recent Self-Report) Question [...] documented as of this encounter Care Teams Card Seller Relationship Specialty Start Date End Date Mary Anne Mcgraw MD [address] [place] [address] PCP - General Internal Medicine 04/01/23 documented as of this encounter Additional Source Comments The information contained in this document represents components of the legal health record. It is not the complete legal health record.[facility]
--- OUTSIDE RECORDS SUMMARY | 2025-04-20 10:23 | XMS_ITS ---
Author Organization [facility] on Care Team Providers Care Meter And Regulator Shop Supervisor Name Role Phone Eva Aguilar Unavailable Unavailable Abbi Taylor Unavailable Unavailable Allergies and adverse reactions No Known Allergies Care Team Name Role Address Phone Organization Dates Eva Aguilar PCP [address] [place] [address], [address], [facility] (Office): : [facility] [place] 04/03/2024 - 04/05/2024 Abbi Taylor [address] [place] [address], [address], [facility] (Office): : [facility] [place] 04/03/2024 - 04/05/2024 Immunizations Immunization Status Vaccine Details Vaccine Code CodeSystem Date Notes SARS-COV-2 (COVID-19) completed SARS-COV-2 (COVID-19) vaccine, mRNA, spike protein, LNP, preservative free, candace-sucrose, 30 mcg/0.3 mL dose Step 2 of Multi-step 309 CVX created date: 04/05/2024 SARS-COV-2 (COVID-19) completed SARS-COV-2 (COVID-19) vaccine, mRNA, spike protein, LNP, preservative free, candace-sucrose, 30 mcg/0.3 mL dose Step 1 of Multi-step with next step required 309 CVX created date: 04/05/2024 administer ed date: 09/01/2020 Verified in MIIS, J&J Mental Status Section Date Assessment Total Score Description 04/05/2024 BIMS 12 moderate cognit vasquez impairment CAM 0 No delirium ind icated PHQ-9 08 mild depression Insurance Providers Problems Problem # Description Date of onset Resolved Date Code CodeSystem Concern Status 1 AFTERCARE FOLLOWING JOINT REPLACEMENT SURGERY 04/03/[address] active 2 ALCOHOL ABUSE, UNCOMPLICATED 04/03/[address] active 3 ANXIETY DISORDER, UNSPECIFIED 04/03/[address] active 4 ESSENTIAL (PRIMARY) HYPERTENSION 04/03/[address] active 5 HYPO-OSMOLALITY AND HYPONATREMIA 04/03/[address] active 6 PRESENCE OF RIGHT ARTIFICIAL HIP JOINT 04/03/[address] active 7 SPINAL STENOSIS, LUMBAR REGION WITHOUT NEUROGENIC CLAUDICATION 04/03/[address] active Reason for Referral No Reasons for Referral Entered Social History Social History Observation Description Start Date End Date Code Code System Current Smoking Status Tobacco smoking consumption unknown 096686264 SNOMED CT Sex Assigned At Male 1960 15062-7 [facility] Gender Identity Sexual Orientation Vital Signs Code Code System Vitals Name Values and Units Timing Information 44013-8 [facility] Pain Level Value=0.0 04/05/2024 9279-1 [facility] Respiratory Rate Value=18.0 Units=/m in 04/05/2024 8462-4 [facility] Blood Pressure-Diastolic Value=80 Un its=mmHg 04/05/2024 8480-6 [facility] Blood Pressure-Systolic Spipj=575 Un its=mmHg 04/05/2024 8310-5 [facility] Body Temperature Value=96.9 Units= F 04/05/2024 8867-4 [facility] Heart rate Fzmag=217.0 Units=/min 04/05/2024 14513-4 [facility] O2 % dC Oximetry Value=97.0 Units= % 04/05/2024 45199-7 LOINC Weight Twxod=953.0 Units=Lbs 01/2024 8302-2 LOINC Height Value=5.7 Units=Inches 04/03/2024
--- OUTSIDE RECORDS SUMMARY | 2025-04-20 10:24 | XMS_ITS | Encounter Summary ---
Author Organization [facility] Address [address] [place] [address] Phone Care Team Providers Care Employee Placement Specialist Name Role Phone Mary Anne Mcgraw MD Primary Care Provid er Encounter Details Date Type Department Care Team (Late st Contact Info) Description 04/19/2025 Orders Only [facility] Department of Orthopaedic Surgery, Arthroplasty Service [address] [facility], 3rd Floor, [address] [place] [address] Lui Marques MD [address] [facility] [address] [place] [address] [email or web address] Hip pain (Primary Dx) Social [...] high school, GED, job training, learning the Haitian language, technical skills, or developing parenting skills)? [...] Chelsea Amanda documented as of this encounter Results * XR HIP 2 VW RIGHT PLUS PELVIS (04/19/2025 11:52 AM EST) Anatomical Region Laterality Modality Hip, Pelvis Computed Radiogr aphy 04/19/2025 1:43 PM EST Impressions 04/19/2025 4:59 PM EST Right revision hip total arthroplasty in unchanged position ATTESTATION: IDr. Herman MD as teaching physician, have reviewed the images for this case and if necessary edited the report originally created by Salomon Moses. Narrative 04/19/2025 4:59 PM EST XR HIP 2 VW RIGHT PLUS PELVIS Referring clinician's provided indication for this examination in [facility]: S/P Joint Replacement COMPARISON: XR PELVIS 1-2 [...] clinician's provided indication for this examination in [facility]:S/P Joint Replacement COMPARISON: XR PELVIS 1-2 VIEW ; XR HIP 1 VW RIGHT PLUS [id number] FINDINGS: Pelvis: Incompletely imaged lumbar fixation device. Mild degenerativeimages of the pubic symphysis. Mild degenerative changes of the lefthip. Right hip: Status post revision right hip total arthroplasty with intacthardware in unchanged position. No acute fracture. IMPRESSION: Right revision hip total arthroplasty in unchanged position ATTESTATION: Dr. Herman Salas MD as teaching physician, havereviewed the images for this case and if necessary edited the reportoriginally created by Salomon Moses. Lui Marques MD IMG XR PELVIS Final Result documented in this encounter Visit Diagnoses Diagnosis Hip pain- Primary Pain in joint, pelvic region and thigh Hip pain Pain in joint, pelvic region and thigh documented in this encounter Additional Health Concerns Active Problems Noted Date Diagnosed Date Autogenerated Problem 04/16/2025 documented as of this encounter Care Teams Employee Placement Specialist Relationship Specialty Start Date End Date Mary Anne Mcgraw MD [address] [place] [address] PCP - General Internal Medicine 04/01/23 documented as of this encounter Additional Source Comments The information contained in this document represents components of the legal health record. It is not the complete legal health record.[facility]
--- OUTSIDE RECORDS SUMMARY | 2025-04-20 10:24 | XMS_ITS | Patient Health Record ---
Author Organization [facility] Address [address] [place] [address] Care Team Providers Care Smasher Name Role Phone Marcela(inactive) Josh RODRIGUEZ Primary Care Provider U trudycarlieDidier Woodson Jr Unavailable [phone] Reason For Referral No Information Medications Medication SIG (Take, Route, Frequency, Duration) Notes Start Date End Date Status Valsartan 160 MG Tablet 1 tablet Orally Once a day Active amLODIPine Besylate 5 MG Tablet 1 tablet Orally Once a day Active Colyte with Flavor Packs 240 GM Solution Reconstituted As directed Orally Over the specified time.; Duration: 1 day(s) 08/07/2016 Active Social History Social History Additional Details Category Social Info Options Details Miscellaneous: Marital status: Occupation: unemployed Section Notes: 7-8 drinks daily per the pat ient Problems Problem Type SNOMED Code ICD Code Onset Dates Problem Status W/U Status Risk Notes Problem Colon cancer screening (260999971) Colon cancer screening (Z12.11) Active confirmed Plan Of Treatment Future Test Test Name Order Date COLONOSCOPY 08/07/2016 Insurance Providers Payer Name Payer Address Payer Phone Subscriber Number Group Number Insured Name Patient Relationship to Insured Coverage Start Date Coverage End Date [facility] [address] [place] [address] [id number] MIRIAM PANTOJA Self - patient is the insured Medical (General) History Medical History History ICD Code hypertension Denies [place],DM,CVA,Lung disease,renal dise ase Surgical History Surgery Date(Month/Year) arm surgery
--- OUTSIDE RECORDS SUMMARY | 2025-04-20 10:24 | XMS_ITS | Patient Health Record ---
Author Organization [facility] Address [address] [place] [address] Care Team Providers Care Executive Vp Name Role Phone Deborah RODRIGUEZ, Mary Anne Primary Care Provider Unavail able Heydi Garcia Unavailable [phone] Allergies No Known Allergies Reason For Referral [...] W/U Status Risk Notes Problem Gait abnormality (35611810) Gait abnormality (R26.9) Active confirmed Problem Equinus contracture of left ankle (M24.572) Active confirmed Problem Plantarflexion deformity of right foot (finding) (4599992751612490) Equinus contracture of right ankle (M24.571) Active confirmed Vital Signs Blood pressure diastolic 70 mm Hg 02/16/2025 Height 5ft 7in in 02/16/2025 Blood pressure systolic 130 mm Hg 02/16/2025 Weight 208 lbs 02/16/2025 BMI 32.57 kg/m2 02/16/2025 Encounters Encounter Location Date Provider Diagnosis [facility] [address] 02/16/2025 Heydi Garcia Pes planus of left foot M21.42 ; Pes planus of right foot M21.41 ; Gait abnormality R26.9 ; Equinus contracture of left ankle M24.572 and Equinus contracture of right ankle M24.571 [facility] [address] 02/16/[facility]25 [facility] [address] 02/04/2025 Heydi Garcia Assessments Encounter Date Diagnosis [...] Medicare National [employer] [address] [place] [address] [id number] Renny Montes Self - patient is the insured 5 [facility] [address] MARY COOK [id number] [phone] [id number] Alix Montes Spouse - patient is the spouse of the insured Medical (General) History Medical History History ICD Code Arthritis Back,Hip,and Knee pain CAD (Cholesterol) High blood pressure Sciatica Chicken pox bulging discs Surgical History Surgery Date(Month/Year) hand surgery 02/17 3 hip replacement 2 spine surgery
--- OUTSIDE RECORDS SUMMARY | 2025-04-20 10:24 | XMS_ITS | Encounter Summary ---
Author Organization [facility] Address [address] [place] [address] Phone Care Team Providers Care Welding Machine Operator Helper Gas Name Role Phone Mary Anne Mcgraw MD Primary Care Provid er Encounter Details Date Type Department Care Team (Late st Contact Info) Description 03/29/2024 Procedure Pass [facility] PERIOPER[facility]IVE DEPT [address] [place] [address] Social History Tobacco Use Types Packs/Day Years [...] have trouble paying your heating or elect ricClicktree bill? No 04/01/2024 Transportation Answer Date Recorded [...] documented as of this encounter Care Teams Welding Machine Operator Helper Gas Relationship Specialty Start Date End Date Mary Anne Mcgraw MD [address] [place] [address] PCP - General Internal Medicine 04/01/23 documented as of this encounter Additional Source Comments The information contained in this document represents components of the legal health record. It is not the complete legal health record.[facility]
== END 2025-04-20 10:22 | disposition home or self-care (01) ==
LOC: HO.PMC 09:22
PROVIDERS: PCP Internal Medicine; Visit Provider Internal Medicine
DX: M96.1 Postlaminectomy syndrome, not elsewhere classified (principal); M25.551 Pain in right hip; Z98.1 Arthrodesis status
CPT/HCPCS: 99214

== ENCOUNTER → 2025-04-20 09:22 | Outpatient (BNVA) | payer MEDICARE, OTHER, SELFPAY | PROVIDERS: PCP Internal Medicine; Visit Provider Internal Medicine | DX: M25.551 Pain in right hip (principal); Z98.1 Arthrodesis status; G89.29 Other chronic pain; Z87.891 Personal history of nicotine dependence | CPT/HCPCS: 99212 ==